=== PATIENT | female | born 1950 | race Caucasian/White ===

== ENCOUNTER 2022-03-21 14:27 | Emergency (ER) | payer MEDICARE, OTHER, SELFPAY ==
--- NOTE | ~2022-03-21 | XR_ITS ---
EXAMINATION: XR ANKLE, RIGHT CLINICAL INFORMATION: Pain status post fall COMPARISON: None TECHNIQUE: AP, lateral, and mortise views of the right ankle. FINDINGS: Marked soft tissue swelling laterally. Minor nondisplaced fracture lateral malleolus. Ankle mortise anatomic. Joint fluid. Hypertrophic changes about the talar neck consistent with old injury. Minor calcaneal plantar spurring. XR/XR ankle RT min 3V IMPRESSION: Lateral malleolar fracture as above nondisplaced.
[2022-03-21 15:03] VITALS: BP 134/79; PULSE 76; RESP 17; TEMP 37.1; O2SAT 97; BMI 24.1
--- NOTE | 2022-03-21 15:04 | ED.GENADULT ---
HPI - General Adult General Chief complaint: Extremity Injury, Lower Stated complaint: FALL ANK R INJ Time Seen by Provider: 03/21/22 14:42 Source: patient Mode of arrival: ambulatory Limitations: no limitations History of Present Illness HPI narrative: Patient is a 71 year old female presenting to the emergency department today with right ankle pain. Patient states that she tripped and rolled her right ankle. Patient denies hitting her head with the incident. Patient denies any loss of consciousness with the incident. Patient denies any dizziness, lightheadedness, abdominal pain, nausea, vomiting, fever, chills, blurry vision, double vision, loss of vision, chest pain, difficulty breathing, shortness of breath, back pain, night sweats, pain with urination, increased urinary frequency, increased urinary urgency, blood in his urine or stool, syncope or a near syncopal episode, bowel incontinence, bladder incontinence, bowel retention, bladder retention, or any other complaints at this time. Onset (ago): minute(s) Location: right and lower extremity Radiation: non-radiation Severity: mild Severity scale (1-10): 3 Quality: dull Pain Consistency: constant Relieving factors: none Exacerbating factors: none Associated symptoms: denies other symptoms Treatments prior to arrival: none Related Data Allergies Allergy/AdvReac Type Severity Reaction Status Date / Time No Known Allergies Allergy Verified 03/21/22 14:42 Review of Systems Constitutional: Constitutional: Reports no additional constitutional complaints, Denies chills, Denies fever(s) and Denies night sweats Eyes: Eyes: Reports no additional eye complaints, Denies blurry vision, Denies change in vision, Denies diplopia, Denies eye discharge, Denies loss of vision and Denies eye pain ENT: Denies dizziness Cardiovascular: Cardiovascular: Reports no additional cardiovascular complaints, Denies chest pain, Denies lightheadedness, Denies Loss of Consciousness and Denies dyspnea Respiratory: Respiratory: Reports no additional respiratory complaints and Denies dyspnea Gastrointestinal: Gastrointestinal: Reports no additional gastrointestinal complaints, Denies abdominal pain, Denies melena, Denies hematochezia, Denies change in bowel habits and Denies change in stool character Genitourinary: Genitourinary: Denies hematuria, Denies urinary frequency, Denies dysuria, Denies urinary incontinence, Denies urinary hesitancy and Denies urinary urgency Musculoskeletal: Musculoskeletal: Reports no additional musculoskeletal complaints, Denies numbness and Denies tingling Comments: right ankle pain Neurologic: Denies dizziness, Denies loss of vision, Denies numbness and Denies tingling Psychiatric: Psychiatric: Reports no additional psychiatric complaints Endocrine: Endocrine: Reports no additional endocrine complaints Hematologic/Lymphatic: Hematologic/Lymphatic: Reports no additional hematologic/lymphatic complaints Allergic/Immunologic: Allergic/Immunologic: Reports no additional allergic/immunologic complaints PMFSH Past Medical History Attestation statement: The following information was validated with the patient. Source: old records reviewed Social History Social History Advance Directives: Yes Advance Directives Information Provided: No Advance Directives on File: No Physical Exam ED Vital Signs: Vital Signs - 24 hr 03/21/22 15:03 Temperature 98.7 F Pulse Rate 76 Respiratory Rate 17 Blood Pressure 134/79 Pulse Oximetry 97 BMI result Body Mass Index 24.1 Const General: cooperative, no acute distress, alert and awake Nutritional Appearance: well nourished Orientation/consciousness: patient oriented x3 Limitations: no limitations HENMT Head: Yes normal to inspection and Yes atraumatic Ears: hearing grossly normal bilaterally and external ears normal General nose exam: Normal external nose present, no nasal discharge noted and no epistaxis Face and sinus: Yes normal facial exam, No abrasion and No laceration Mouth: Normal oral and palatal mucosa present, no drooling and no muffled voice Eyes General: appearance normal, both eyes and all related structures Periorbital: periorbital findings normal Eyelids: Yes eyelids normal Conjunctivae: conjunctivae normal Pupils: Equal, round and reactive pupils present EOM: EOMs intact bilaterally Neck Neck: Yes normal visual inspection, Yes full ROM and Yes no lymphadenopathy Chest Chest palpation & inspection: normal inspection of the chest Resp Effort & Inspection: normal respiratory effort and able to speak in complete sentences Auscultation: clear to auscultation bilaterally Cardio Rate: regular rate Rhythm: regular rhythm GI Inspection: Yes normal to inspection Neuro General: patient oriented x3 and moves all extremities Cranial nerves: Yes Equal, round and reactive pupils present Cognition (Neuro): normal cognition Motor exam (neuro): 5/5 motor strength present throughout Sensory Exam: Normal double simultaneous stimulation for sensation Coordination: [id number] test normal Extrem Other: swelling to the right ankle and pain with ROM of the right ankle General: Yes capillary refill normal Psych Appearance: grossly normal Mental Status: mental status grossly normal Affect: normal affect Attitude: cooperative Thought process: Normal thought process present Thought content: Normal thought content present Insight: Good insight present (Psych) Procedures Orthopedic Splinting/Casting Injury #1: Side: right Lower Extremity Injury Location: ankle Other Orthopedic Equipment: crutches Additional Comments: walking boot used Medical Decision Making MDM Narrative Medical decision making narrative: Patient is a 71 year old female presenting to the emergency department today with right ankle pain. Patient's physical exam showed swelling to the right ankle as well as pain with ROM of the right ankle. Patient's right ankle x-ray showed a lateral malleolar fracture. I explained my physical exam findings as well as all test results to the patient. I answered all questions asked by the patient. Patient's right foot was placed in a walking boot and the patient was given crutches and crutch instructions. Patient's PMS was intact prior to and after boot placement. I stressed the importance of the patient taking her medication as prescribed. I stressed the importance of the patient following up with her primary care provider and orthopedist. I stressed the importance of the patient returning to the emergency department immediately if her symptoms were to worsen or if she were to develop any dizziness, shortness of breath, difficulty breathing, chest pain, blurry vision, loss of vision, nausea, vomiting, abdominal pain, fever, chills, back pain, or any other complaints. Patient verbalized agreement and understanding with this treatment plan and discharge. Differential Diagnosis Differential Diagnosis: right ankle fracture Medical Records Medical records reviewed: Yes I reviewed the patient's medical records. Imaging Data Right ankle x-ray: Attestation: I personally reviewed and interpreted this imaging study as follows: My impression: Acute lateral malleolar fracture. Radiologist's impression: EXAMINATION: XR ANKLE, RIGHT CLINICAL INFORMATION: Pain status post fall? COMPARISON: None? TECHNIQUE: AP, lateral, and mortise views of the right ankle. FINDINGS: Marked soft tissue swelling laterally. Minor nondisplaced fracture lateral malleolus. Ankle mortise anatomic. Joint fluid. Hypertrophic changes about the talar neck consistent with old injury. Minor calcaneal plantar spurring.? XR/XR ankle RT min 3V IMPRESSION: Lateral malleolar fracture as above nondisplaced. Dictated By: Reagan Dumont MD Signed By: Electronically signed by Reagan Dumont MD 03/21/22 5345 Discharge Plan Discharge Clinical Impression: Fibula fracture Patient Disposition: Home, Self-Care Instructions: Ankle Fracture (DC) Additional Instructions: Follow up with your primary care provider and an orthopedic provider. Return to the emergency department immediately if your symptoms worsen or if you develop any dizziness, shortness of breath, difficulty breathing, chest pain, blurry vision, loss of vision, nausea, vomiting, abdominal pain, fever, chills, back pain, or any other complaints. Referrals: [facility] [Provider Group] Kevyn Monique MD [Primary Care Provider] - Interventions: ED Discharge Assessment Last Done: 03/21/22 15:54 Print Language: Lao
[2022-03-21] MEDS: Acetaminophen 325 MG TABLET 650 MG PO (15:15)
== END 2022-03-21 16:13 | disposition home or self-care (01) ==
LOC: HO.ED 15:34
PROVIDERS: Emergency Provider Emergency Medicine; PCP Internal Medicine
DX: S82.61XA Displaced fracture of lateral malleolus of right fibula, initial encounter for closed fracture (principal); X50.1XXA Overexertion from prolonged static or awkward postures, initial encounter; Y93.9 Activity, unspecified; Y92.9 Unspecified place or not applicable; Y99.9 Unspecified external cause status
CPT/HCPCS: 29515; 73610; 99283

== ENCOUNTER 2022-03-29 06:30 | Outpatient (REF) | payer MEDICARE, OTHER, SELFPAY ==
--- NOTE | ~2022-03-29 | XR_ITS ---
EXAMINATION: XR ANKLE, RIGHT CLINICAL INFORMATION: Fracture COMPARISON: Previous x-ray February 2022 TECHNIQUE: AP, lateral, and mortise views of the right ankle. FINDINGS: There is a comminuted minimally displaced fracture of the lateral malleolus. This appears unchanged. There may be old trauma to the anterior talus. This appears unchanged. The ankle mortise is normal. There is lateral soft tissue swelling. There is an ankle joint effusion. XR/XR ankle RT min 3V IMPRESSION: No change in comminuted nondisplaced lateral malleolar fracture.
== END 2022-03-29 06:31 | disposition home or self-care (01) ==
LOC: HO.HOSX 06:30
PROVIDERS: Visit Provider Physician Assistant
DX: S93.401A Sprain of unspecified ligament of right ankle, initial encounter (principal)
CPT/HCPCS: 73610; 99202

== ENCOUNTER 2022-05-07 07:24 | Outpatient (REF) | payer MEDICARE, OTHER, SELFPAY ==
[2022-05-07 07:40] LABS: MANUAL DIFF FLAG NO
[2022-05-07 08:14] LABS: Basophils Percent Auto 0.9 % (0-2); Eosinophils Absolute Auto 0.2 X10*3/uL (0.0-0.4); Eosinophils Percent Auto 4.2 % (0-4); Hematocrit 42.9 % (37.0-47.0); Hemoglobin 14.2 g/dl (12.0-16.0); Imm Gran Abs Auto 0.02 X10*3/uL (0.00-0.03); Imm Gran Pct Auto 0.5 % (0.0-0.4); Lymphocytes Absolute Auto 1.3 X10*3/uL (1.2-4.9); Lymphocytes Percent Auto 29.1 % (20-40); Mean Corpuscular HGB Conc 33.1 g/dl (31.0-35.0); Mean Corpuscular Hemoglobin 29.3 pg (27.0-33.0); Mean Corpuscular Volume 88.5 fL (80.0-98.0); Mean Platelet Volume 8.9 fL (9.4-12.3); Monocytes Absolute Auto 0.4 X10*3/uL (0.1-1.2); Neutrophils Absolute Auto 2.4 x10*3/uL (2.0-8.3); Neutrophils Percent Auto 56.3 % (45-73); Platelet Count 271 X10*3/uL (160-400); Red Blood Count 4.85 X10*6/uL (4.20-5.50); Red Cell Distribution Width 13.5 % (11.0-16.0); White Blood Count 4.3 X10*3/uL (4.8-10.8)
[2022-05-07 09:08] LABS: TSH reflex Free T4 2.08 uIU/mL (0.32-4.0); Vitamin D 25-OH Total 49.1 ng/mL (>30)
[2022-05-07 09:10] LABS: Alanine Aminotransferase 19 U/L (0-31); Albumin Level 4.3 g/dL (3.5-5.0); Alkaline Phosphatase 69 U/L (39-117); Anion Gap 12 (12-20); Aspartate Amino Transferase 21 U/L (5-31); Bilirubin Total 0.6 mg/dL (0.0-1.0); Blood Urea Nitrogen 12 mg/dL (9-16); Carbon Dioxide 27 mmol/L (22-29); Chloride 103 mmol/L (96-108); Cholesterol 248 mg/dL; Estimated Glomerular Filt Rate > 60; Glucose Fasting 96 mg/dL (60-99); HDL Cholesterol 83 mg/dL; LDL Cholesterol Calculated 154 mg/dl; Potassium 4.5 mmol/L (3.3-5.1); Sodium 137 mmol/L (135-145); Total Protein 6.3 g/dL (6.5-8.0); Triglycerides 56 mg/dL
[2022-05-07 09:18] LABS: Folate 16.5 ng/mL (> or = 4.0); Vitamin B12 673 pg/mL (200-900)
== END 2022-05-07 07:25 | disposition home or self-care (01) ==
LOC: HO.LAB 07:24
PROVIDERS: PCP Internal Medicine; Visit Provider Nurse Practitioner Family
DX: Z13.29 Encounter for screening for other suspected endocrine disorder (principal); Z13.220 Encounter for screening for lipoid disorders; Z76.89 Persons encountering health services in other specified circumstances
CPT/HCPCS: 36415; 80053; 80061; 82306; 82607; 82746; 84443; 85025

== ENCOUNTER 2022-05-24 07:43 | Outpatient (REF) | payer MEDICARE, OTHER, SELFPAY ==
--- NOTE | ~2022-05-24 | XR_ITS ---
EXAMINATION: BILATERAL ANKLE. CLINICAL INFORMATION: Pain. COMPARISON: None TECHNIQUE: 3 views each ankle FINDINGS: Left ankle: The ankle mortise and subtalar joints are normal. There is no visible acute fracture, dislocation or subluxation seen. The soft tissues are normal. Right ankle: The small avulsion fracture tip of lateral malleolus with moderate lateral malleolar soft tissue swelling. The ankle mortise and subtalar joints are normal. XR/XR ankle LT min 3V IMPRESSION: Acute fracture tip of lateral malleolus with moderate soft tissue swelling right ankle. Unremarkable left ankle exam.
--- NOTE | ~2022-05-24 | XR_ITS ---
EXAMINATION: BILATERAL ANKLE. CLINICAL INFORMATION: Pain. COMPARISON: None TECHNIQUE: 3 views each ankle FINDINGS: Left ankle: The ankle mortise and subtalar joints are normal. There is no visible acute fracture, dislocation or subluxation seen. The soft tissues are normal. Right ankle: The small avulsion fracture tip of lateral malleolus with moderate lateral malleolar soft tissue swelling. The ankle mortise and subtalar joints are normal. XR/XR ankle RT min 3V IMPRESSION: Acute fracture tip of lateral malleolus with moderate soft tissue swelling right ankle. Unremarkable left ankle exam.
== END 2022-05-24 07:44 | disposition home or self-care (01) ==
LOC: HO.HOSX 07:43
PROVIDERS: Visit Provider Physician Assistant
DX: S96.912A Strain of unspecified muscle and tendon at ankle and foot level, left foot, initial encounter (principal); S93.401A Sprain of unspecified ligament of right ankle, initial encounter
CPT/HCPCS: 73610; 99212

== ENCOUNTER 2022-06-22 09:10 | Outpatient (REF) | payer MEDICARE, OTHER, SELFPAY ==
--- NOTE | ~2022-06-22 | XR_ITS ---
EXAMINATION: XR WRIST, LEFT CLINICAL INFORMATION: Pain COMPARISON: None TECHNIQUE: PA, lateral, and oblique views of the left wrist. FINDINGS: The bones are osteopenic. No acute fracture or dislocation is seen. There is question of old trauma to the left distal radius. There is severe arthritis at the first ASSISTED joint. There is mild arthritis at the radiocarpal joint and trapezoid trapezium scaphoid joints. Soft tissues are unremarkable XR/XR wrist LT min 3V IMPRESSION: Severe arthritis at the first ASSISTED joint and mild arthritis at the radiocarpal and trapezoid trapezium scaphoid joint.
== END 2022-06-22 09:11 | disposition home or self-care (01) ==
LOC: HO.HOSX 09:10
PROVIDERS: Visit Provider Orthopaedic Surgery
DX: M25.532 Pain in left wrist (principal); R29.898 Other symptoms and signs involving the musculoskeletal system; M18.12 Unilateral primary osteoarthritis of first carpometacarpal joint, left hand; M19.041 Primary osteoarthritis, right hand; M19.042 Primary osteoarthritis, left hand
CPT/HCPCS: 73110; 99202

== ENCOUNTER 2022-07-07 08:33 | Outpatient (REF) | payer MEDICARE, OTHER, SELFPAY ==
--- NOTE | ~2022-07-07 | MM_ITS ---
EXAMINATION: MM SCREENING DIGITAL BREAST TOMOSYNTHESIS, BILATERAL CLINICAL INFORMATION: Screening. Asymptomatic. Prior outside mammography currently unavailable. The lifetime risk of breast cancer based on the Tyrer-Cuzick Model is 6%. COMPARISON: None. TECHNIQUE: Digital breast tomosynthesis is performed in both the craniocaudal and mediolateral oblique views along with computer-aided detection (CAD). Synthesized 2D images are generated from the tomosynthesis. FINDINGS: There are scattered areas of fibroglandular density (ACR BI-RADS breast composition Category b). There is biopsy clip marker anterior central 9:00 right breast and a biopsy clip marker posterior central 3:00 left breast. There is no significant mass or architectural abnormality. Scattered bilateral coarse calcifications are present, more numerous on the right. The axilla and skin contours are unremarkable. Radiology department will attempt to retrieve prior outside mammography to allow for comparison in an addendum report. MM/MM tomosynthesis screening BI IMPRESSION: No mammographic evidence of malignancy. ASSESSMENT: BI-RADS 2: Benign RECOMMENDATION: -Routine annual mammography screening. -Radiology department staff will attempt to retrieve prior outside mammography to allow for comparison in an addendum report. This patient's information was entered into a reminder system with a target due date for their next mammogram.
== END 2022-07-07 08:34 | disposition home or self-care (01) ==
LOC: HO.MAMMO 08:33
PROVIDERS: PCP Nurse Practitioner Family; Visit Provider Nurse Practitioner Family
DX: Z12.31 Encounter for screening mammogram for malignant neoplasm of breast (principal)
CPT/HCPCS: 77063; 77067

== ENCOUNTER → 2022-07-20 10:11 | Outpatient (BNVA) | payer MEDICARE, OTHER, SELFPAY | PROVIDERS: PCP Nurse Practitioner Family; Visit Provider Internal Medicine Endocrinology, Diabetes & Metabolism | DX: M85.80 Other specified disorders of bone density and structure, unspecified site (principal) | CPT/HCPCS: 99202 ==

== ENCOUNTER 2022-07-22 10:28 | Outpatient (REF) | payer MEDICARE, OTHER, SELFPAY ==
--- NOTE | ~2022-07-22 | US_ITS ---
EXAMINATION: US THYROID CLINICAL INFORMATION: Nontoxic single thyroid nodule. COMPARISON: None TECHNIQUE: Linear transducer grayscale and color Doppler examination with attention to the region of the thyroid. FINDINGS: SIZE: Measurements of the thyroid lobes and nodules are given in sagittal, anteroposterior and transverse dimensions respectively. Right Thyroid Lobe: 4.8 x 1.8 x 1.9 cm, volume 8.5 mL. Parenchyma: The gland echotexture is heterogeneous. Thyroid vascularity is increased. Left Thyroid Lobe: 4.6 x 1.7 x 2.1 cm, volume 8.3 mL. Parenchyma: The gland echotexture is heterogeneous. Thyroid vascularity is increased. Isthmus: 0.5 cm in maximum AP dimension. There are multiple bilateral thyroid nodules. The largest thyroid nodules are measured. Estimated total number of nodules greater than or equal to 1 cm: 0. Bell Spinner Sousaphones nodules are described as follows: 1. Location: Right lower pole. Size: 0.9 x 0.9 x 0.7 cm, volume 0.32 mL. Nodule characteristics: Composition: Mixed cystic and solid (1). Echogenicity: Hypoechoic (2). Shape: Taller than wide (0). Margins: Smooth (0). Echogenic Foci: Punctate echogenic foci (3). ACR TI-RADS total points: 6 ACR TI-RADS category: 5 2. Location: Right mid pole. Size: 0.9 x 0.4 x 0.8 cm, volume 0.17 mL. Nodule characteristics: Composition: Mixed cystic and solid (1). Echogenicity: Isoechoic (1). Shape: Not taller than wide (0). Margins: Smooth (0). Echogenic Foci: None (0). ACR TI-RADS total points: 2 ACR TI-RADS category: 2 3. Location: Left lower pole. Size: 0.9 x 0.4 x 0.8 cm, volume 0.14 mL. Nodule characteristics: Composition: Spongiform (0). ACR TI-RADS total points: 0 ACR TI-RADS category: 1 4. Location: Left lower pole. Size: 0.7 x 0.8 x 0.6 cm, volume 0.15 mL. Nodule characteristics: Composition: Cannot be determined (2). Echogenicity: Cannot be determined (1). Shape: Taller than wide (3). Margins: Smooth (0). Echogenic Foci: Macrocalcifications (1). ACR TI-RADS total points: 7 ACR TI-RADS category: 5 5. Location: Left mid pole. Size: 0.9 x 0.5 x 0.7 cm, volume 0.17 mL. Nodule characteristics: Composition: Cystic(0). ACR TI-RADS total points: 0 ACR TI-RADS category: 1 NODES: No lymphadenopathy is seen in the tissue surrounding the thyroid gland. US/US thyroid IMPRESSION: Hypervascular heterogeneous upper normal size thyroid gland with multiple bilateral thyroid nodules. Most suspicious nodules in the inferior right and left lobes. According to TI RADS criteria, annual ultrasound follow-up for 5 years would be recommended. ACR TI-RADS RECOMMENDATION REFERENCE: Ultrasound-guided fine-needle aspiration, followup ultrasound, no further follow up. * TR1 (0 point) and TR 2 (2 points): No FNA or follow up. * TR3 (3 points): FNA if more than or equal to 2.5 cm in maximum dimension, followup ultrasound in 1, 3 and 5 years if 1.5 to 2.4 cm in maximum dimension. * TR4 (4-6 points): FNA if more than or equal to 1.5 cm in maximum dimension, followup ultrasound in 1, 2, 3 and 5 years if 1 to 1.4 cm in maximum dimension. * TR5 (more than or equal to 7 points): FNA if more than or equal to 1 cm in maximum dimension, followup ultrasound every year for 5 years if 0.5 to 0.9 cm in maximum dimension. * TR3, TR4 or TR5 nodules that are below the size threshold for followup receive no follow up.
== END 2022-07-22 10:29 | disposition home or self-care (01) ==
LOC: HO.HMGCX 10:28
PROVIDERS: PCP Nurse Practitioner Family; Visit Provider Nurse Practitioner Family
DX: E04.1 Nontoxic single thyroid nodule (principal)
CPT/HCPCS: 76536

== ENCOUNTER 2022-09-03 14:00 | Outpatient (RCR) | payer MEDICARE, OTHER, SELFPAY ==
--- NOTE | 2022-04-09 11:59 | MHC.PT.EP ---
[facility] [place] Office [place] Office [place] Office [address] Mukesh Cherry [address] [phone] F: [phone] F: [phone] F: [phone] F: [phone] Physical Therapy Plan of Care Date of Evaluation: Date of Surgery: Diagnosis: sprain of unspecified ligament R ankle, avulsion fx Assessment: 71 y/o F s/p R distal fibular avulsion fx and sprain after she sustained a fall stepping into a pothall 03/21/22. Pt went to the ED and was placed in walking boot and given crutches. She did not like the crutches due to old L wrist fx and pain, so she borrowed a w/c and then a knee rollator. At orthopedics, she was given a lace-up brace to transition based on comfort and to increase activities as tolerated. She is now using crutches and lace up brace, but sometimes uses nothing in the house. 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 Examination shows decreased R ankle A/PROM, decreased R ankle strength, decreased R gastroc length, (-) Homans, swelling, pain, and impaired gait pattern. REcommend PT 2x/week for 6 weeks to address impairments, implement HEP, and optimize functional mobility. POC to include ankle ROM, gentle strengthening, proprioception, gait training, modalities as needed. Frequency and Duration: The patient will be seen 2x/week for 6 weeks Short Term Goals: 3 weeks 1. I with HEP 2. Improve R ankle dorsiflexion to 10* 3. AMbulate without assistive device and symmetrical step length Senior Care Goals: 6 weeks 1. I with HEP and self management of sx 2. Improve ankle plantarflexion to 50* 3. Pt will be able to ambulate > 30 minutes with pain < 3/10 4. Pt will be able to ascend/descend stairs with step through pattern Treatment Plan: Modalities to reduce pain, spasms and effusion. Manual therapy to restore motion and function. Therapeutic exercise to improve strength and flexibility. Neuromuscular re-education for posture and balance. Therapeutic activities to return to functional activities of daily living. Electronically signed by: Monika Braswell PT Please sign and return to therapist. Thank you for your referral.
--- NOTE | 2022-09-03 15:00 | MHC.PT.DC ---
[facility] [place] Office [place] Office [place] Office [address] Mukesh Cherry [address] [phone] F: [phone] F: [phone] F: [phone] F: [phone] Physical Therapy Discharge Report Diagnosis: sprain of unspecified ligament R ankle, avulsion fx Date of Surgery: Date of Evaluation: 04/09/22 Date of Discharge: 09/03/22 Treatments to Date: 24 Cancellations to Date: 3 No Shows to Date: 0 Discharge Status: Independent with HEP Recommend MD Follow-up Discharge Summary: Pt arrived with increased hip pain today and is now wearing her old orthotics 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 We reviewed hip and ankle exercises to be performed to tolerance only. Also recommended she f/u with an orthopedic re persistent hip pain. We will d/c this chart and pt to continue with prevoius ankle HEP and gentle hip exercises. Pt in agreement. Electronically signed by: Monika Braswell PT Please sign and return to therapist. Thank you for your referral.
== END 2022-09-03 15:01 | disposition home or self-care (01) ==
LOC: HO.PTCHIC 14:00
PROVIDERS: PCP Internal Medicine; Visit Provider Physician Assistant
DX: S93.401A Sprain of unspecified ligament of right ankle, initial encounter (principal)
CPT/HCPCS: 97110; 97112; 97140; 97150; 97161; 97530

== ENCOUNTER → 2022-09-09 14:26 | Outpatient (BNVA) | payer MEDICARE, OTHER, SELFPAY | PROVIDERS: PCP Nurse Practitioner Family; Visit Provider Internal Medicine Endocrinology, Diabetes & Metabolism | DX: E04.1 Nontoxic single thyroid nodule (principal) | CPT/HCPCS: 99212 ==

== ENCOUNTER 2022-09-10 09:16 | Outpatient (REF) | payer MEDICARE, OTHER, SELFPAY ==
[2022-09-10 10:38] LABS: TSH reflex Free T4 1.19 uIU/mL (0.32-4.0)
[2022-09-10 14:43] LABS: Alanine Aminotransferase 19 U/L (0-31); Albumin Level 4.2 g/dL (3.5-5.0); Alkaline Phosphatase 62 U/L (39-117); Anion Gap 14 (12-20); Aspartate Amino Transferase 20 U/L (5-31); Bilirubin Total 0.6 mg/dL (0.0-1.0); Blood Urea Nitrogen 13 mg/dL (9-16); Carbon Dioxide 26 mmol/L (22-29); Chloride 102 mmol/L (96-108); Cholesterol 235 mg/dL; Estimated Glomerular Filt Rate > 60; Glucose Fasting 91 mg/dL (60-99); HDL Cholesterol 71 mg/dL; LDL Cholesterol Calculated 149 mg/dl; Phosphorus 3.8 mg/dL (2.7-4.5); Potassium 4.5 mmol/L (3.3-5.1); Sodium 137 mmol/L (135-145); Total Protein 5.9 g/dL (6.5-8.0); Triglycerides 75 mg/dL
[2022-09-11 23:12] LABS: Prot Elec - Albumin 4.3 g/dL (3.8-4.8); Prot Elec - Alpha1 0.3 g/dL (0.2-0.3); Prot Elec - Alpha2 0.7 g/dL (0.5-0.9); Prot Elec - Beta 1 0.4 g/dL (0.4-0.6); Prot Elec - Beta 2 0.2 g/dL (0.2-0.5); Prot Elec - Gamma 0.4 g/dL (0.8-1.7); Prot Elec - Total Protein 6.1 g/dL (6.1-8.1)
[2022-09-16 07:18] LABS: N-Telopeptide 32 (see note); NTXCreaRU 62 mg/dL (20-275)
== END 2022-09-10 09:17 | disposition home or self-care (01) ==
LOC: HO.LAB 09:16
PROVIDERS: Absent Provider Internal Medicine Endocrinology, Diabetes & Metabolism; PCP Nurse Practitioner Family; Visit Provider Nurse Practitioner Family
DX: E78.5 Hyperlipidemia, unspecified (principal); E04.1 Nontoxic single thyroid nodule; I10 Essential (primary) hypertension; M85.80 Other specified disorders of bone density and structure, unspecified site
CPT/HCPCS: 36415; 80053; 80061; 82523; 84100; 84165; 84443; 86335

== ENCOUNTER 2022-09-22 11:34 | Outpatient (REF) | payer MEDICARE, OTHER, SELFPAY ==
--- NOTE | ~2022-09-22 | XR_ITS ---
EXAMINATION: XR HIP, RIGHT CLINICAL INFORMATION: Pain. COMPARISON: None TECHNIQUE: AP pelvis one view and right hip 2 views FINDINGS: AP PELVIS: There is normal symmetry of bilateral hip joints and SI joints. No lytic or sclerotic process seen. There are large calcified densities in the pelvis likely fibroids. No soft tissue abnormality seen. RIGHT HIP: There is no visible acute fracture, dislocation or subluxation. No bony erosive changes. The soft tissues are normal. XR/XR hip RT w PEL1V IMPRESSION: 1. Unremarkable AP pelvis exam. 2. Unremarkable right hip exam. 3. Large calcified uterine fibroids. No soft tissue abnormality seen.
== END 2022-09-22 11:35 | disposition home or self-care (01) ==
LOC: HO.HOSX 11:34
PROVIDERS: Visit Provider Physician Assistant
DX: M25.551 Pain in right hip (principal)
CPT/HCPCS: 73502; 99212

== ENCOUNTER 2022-10-29 14:00 | Outpatient (RCR) | payer MEDICARE, OTHER, SELFPAY ==
--- NOTE | 2022-09-30 14:43 | MHC.PT.EP ---
[facility] [place] Office [place] Office [place] Office [address] Mukesh Cherry [address] [phone] F: [phone] F: [phone] F: [phone] F: [phone] Physical Therapy Plan of Care Date of Evaluation: Date of Surgery: n/a Diagnosis: R hip tendonitis Assessment: Patient is a 72 year old female presenting to PT with complaints of pain in her R hip. Pt reports onset of pain began June 2022 due to new orthotics. She presents today with impairments in pain and hip strength. Pt's current occupation is retired, with baseline physical activities including ADLs, ambulating. 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 Clinical presentation today is most consistent with signs and sx associated with possible hip tendinitis and pt will benefit from skilled PT to address the following problems and impairments noted upon evaluation: pain and hip strength. These problems limit the patient with the following functional activities: ambulating. The prescribed treatment plan of care is medically necessary. Co-morbidities of osteoporosis were identified and taken into considerations of plan of care. Pt was educated on HEP, role of PT, prognosis, POC. Frequency and Duration: The patient will be seen 2 x week x 3 weeks Short Term Goals: Pt will demonstrate independence with initial HEP without adverse reaction in 2 visits. Pt will demonstrate no pain at rest in 2 weeks for improved QOL. Pt will demonstrate ability to perform prone hip extension without compensating at low back in 2 weeks. Skilled Nursing Goals: Pt will demonstrate improved LEFI score by 9 points in 3 weeks for improved functional mobility. Pt will demonstrate ability to ambulate around her building 2 times with minimal to no pain in 3 weeks. 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 Treatment Plan: Modalities to reduce pain, spasms and effusion. Manual therapy to restore motion and function. Therapeutic exercise to improve strength and flexibility. Neuromuscular re-education for posture and balance. Therapeutic activities to return to functional activities of daily living. Electronically signed by: Michelle Hollis, PT, DPT, ATC Please sign and return to therapist. Thank you for your referral.
--- NOTE | 2022-10-29 14:53 | MHC.PT.DC ---
[facility] [place] Office [place] Office [place] Office [address] [phone] F: [phone] F: [phone] F: [phone] F: [phone] Physical Therapy Discharge Report Diagnosis: R hip tendonitis Date of Surgery: n/a Date of Evaluation: 09/30/22 Date of Discharge: 10/29/22 Treatments to Date: 6 Cancellations to Date: 1 No Shows to Date: 0 Discharge Status: Achieved Goals Improved Function Independent with HEP Discharge Summary: Pt pain has improved since start of care. She has made good progress towards her goals although is still challenged with hip strengthening. She has a well rounded strengthening program which she will benefit from continuing with prison for max gains. At this point max benefits of PT have been provided and skilled PT is no longer indicated at this time. Pt is in agreement with d/c. Electronically signed by: Michelle Hollis, PT, DPT< ATC Please sign and return to therapist. Thank you for your referral.
== END 2022-10-29 14:53 | disposition home or self-care (01) ==
LOC: HO.PTCHIC 14:00
PROVIDERS: Visit Provider Physician Assistant
DX: M76.891 Other specified enthesopathies of right lower limb, excluding foot (principal)
CPT/HCPCS: 97110; 97161; 97530

== ENCOUNTER 2022-12-22 09:54 | Outpatient (REF) | payer MEDICARE, OTHER, SELFPAY ==
[2022-12-22 10:52] LABS: Creatinine, mg/dL 36.73
[2022-12-22 14:07] LABS: Total Volume 24 Hour Urine 2650 mL
[2022-12-24 16:59] LABS: Calcium, 24 Hr Urine 360 mg/24 h; Calcium/Creatinine Ratio 378 mg/g creat (30-275); Creatinine 24Hr Urine 0.95 g/24 h (0.50-2.15)
== END 2022-12-22 09:55 | disposition home or self-care (01) ==
LOC: HO.LNP 09:54
PROVIDERS: Visit Provider Internal Medicine Endocrinology, Diabetes & Metabolism
DX: M85.80 Other specified disorders of bone density and structure, unspecified site (principal)
CPT/HCPCS: 82340; 82570

== ENCOUNTER → 2022-12-28 10:34 | Outpatient (BNVA) | payer MEDICARE, OTHER, SELFPAY | PROVIDERS: PCP Nurse Practitioner Family; Visit Provider Internal Medicine Endocrinology, Diabetes & Metabolism | DX: E04.1 Nontoxic single thyroid nodule (principal); M85.80 Other specified disorders of bone density and structure, unspecified site; M79.7 Fibromyalgia | CPT/HCPCS: 99212 ==

== ENCOUNTER → 2023-01-05 11:06 | Outpatient (REF) | payer MEDICARE, OTHER, SELFPAY ==
--- NOTE | 2023-01-05 11:11 | ECG_ITS ---
Test Reason : preop Blood Pressure : / mmHG Vent. Rate : 067 BPM Atrial Rate : 067 BPM P-R Int : 162 ms QRS Dur : 090 ms QT Int : 404 ms P-R-T Axes : 061 -15 038 degrees QTc Int : 426 ms Normal sinus rhythm Normal ECG No previous ECGs available Referred By: Margarito Valencia Electronically Signed By:Reyes Chappell
== END ==
LOC: HO.CARD 11:06
PROVIDERS: PCP Nurse Practitioner Family; Visit Provider Podiatrist Foot & Ankle Surgery
DX: M20.40 Other hammer toe(s) (acquired), unspecified foot (principal)
CPT/HCPCS: 93005

== ENCOUNTER 2023-01-06 09:36 | Outpatient (REF) | payer MEDICARE, OTHER, SELFPAY ==
[2023-01-06 10:56] LABS: Alanine Aminotransferase 20 U/L (0-31); Albumin Level 4.3 g/dL (3.5-5.0); Alkaline Phosphatase 64 U/L (39-117); Anion Gap 12 (12-20); Aspartate Amino Transferase 21 U/L (5-31); Bilirubin Total 0.6 mg/dL (0.0-1.0); Blood Urea Nitrogen 12 mg/dL (9-16); Calcium 9.9 mg/dL (8.4-10.2); Carbon Dioxide 30 mmol/L (22-29); Chloride 103 mmol/L (96-108); Cholesterol 228 mg/dL; Estimated Glomerular Filt Rate > 60; Glucose Fasting 91 mg/dL (60-99); HDL Cholesterol 68 mg/dL; LDL Cholesterol Calculated 148 mg/dl; Potassium 4.9 mmol/L (3.3-5.1); Sodium 140 mmol/L (135-145); Triglycerides 60 mg/dL
== END 2023-01-06 09:37 | disposition home or self-care (01) ==
LOC: HO.LAB 09:36
PROVIDERS: PCP Nurse Practitioner Family; Visit Provider Nurse Practitioner Family
DX: E78.5 Hyperlipidemia, unspecified (principal); I10 Essential (primary) hypertension
CPT/HCPCS: 36415; 80053; 80061

== ENCOUNTER 2023-04-06 06:14 | Outpatient (REF) | payer MEDICARE, OTHER, SELFPAY ==
[2023-04-06 08:05] LABS: Alanine Aminotransferase 19 U/L (0-31); Albumin Level 4.4 g/dL (3.5-5.0); Alkaline Phosphatase 63 U/L (39-117); Anion Gap 13 (12-20); Aspartate Amino Transferase 22 U/L (5-31); Bilirubin Total 0.6 mg/dL (0.0-1.0); Blood Urea Nitrogen 12 mg/dL (9-16); Calcium 10.2 mg/dL (8.4-10.2); Carbon Dioxide 25 mmol/L (22-29); Chloride 104 mmol/L (96-108); Cholesterol 228 mg/dL; Estimated Glomerular Filt Rate > 60; Glucose Fasting 94 mg/dL (60-99); HDL Cholesterol 77 mg/dL; LDL Cholesterol Calculated 137 mg/dl; Potassium 4.8 mmol/L (3.3-5.1); Sodium 137 mmol/L (135-145); Total Protein 6.7 g/dL (6.5-8.0); Triglycerides 72 mg/dL
== END 2023-04-06 06:15 | disposition home or self-care (01) ==
LOC: HO.LAB 06:14
PROVIDERS: PCP Nurse Practitioner Family; Visit Provider Nurse Practitioner Family
DX: I10 Essential (primary) hypertension (principal); E78.5 Hyperlipidemia, unspecified
CPT/HCPCS: 36415; 80053; 80061

== ENCOUNTER 2023-06-10 14:32 | Outpatient (REF) | payer MEDICARE, OTHER, SELFPAY ==
[2023-06-14 21:49] LABS: HPV mRNA E6/E7 rflx Not Detected (Not Detected)
== END 2023-06-10 14:33 | disposition home or self-care (01) ==
LOC: HO.LNP 14:32
PROVIDERS: PCP Nurse Practitioner Family; Visit Provider Advanced Practice Midwife
DX: Z01.419 Encounter for gynecological examination (general) (routine) without abnormal findings (principal); Z11.51 Encounter for screening for human papillomavirus (HPV)
CPT/HCPCS: 87624; 88142; G0101

== ENCOUNTER 2023-06-10 14:32 | Outpatient (AMB) | payer MEDICARE, OTHER, SELFPAY ==
[2023-06-10 14:47] VITALS: BP 130/80; BMI 25.5
--- NOTE | 2023-06-10 14:47 | A.OFFVIS_ITS ---
Intake Vital Signs 06/10/23 14:47 Height 5 ft 5 in Weight 153 lb BMI 25.5 BP 130/80 Intake Visit Reasons: New patient Annual Intake Note: c/o of ? vaginal wart The patient agreed to use of a medical policy specialist during this encounter. Scribed for WILLIAMS Alves by Heidi Maciel medical policy specialist, on 06/10/2023 at 3:10 pm EST. Mortgage Processing Manager Required: No Information Interpreted: non-clinical & clinical Foaming Machine Operator: Foaming Machine Operator Present (Samira GAMBOA) Accompanied by: Self / Same As Patient Allergies amoxicillin Allergy (Verified 06/10/23 14:49) Rash ciprofloxacin Allergy (Verified 06/10/23 14:49) Rash clindamycin Allergy (Verified 06/10/23 14:49) rash, hives hydroxychloroquine [From Plaquenil] Allergy (Verified 06/10/23 14:49) Rash neomycin Allergy (Verified 06/10/23 14:49) Rash ezetimibe Adverse Reaction (Unknown, Verified 06/10/23 14:49) Diarrhea fenofibrate Adverse Reaction (Unknown, Verified 06/10/23 14:49) stomach pain, heart burn lisinopril Adverse Reaction (Unknown, Verified 06/10/23 14:49) dry cough pravastatin Adverse Reaction (Unknown, Verified 06/10/23 14:49) Muscle Pain bactrim Allergy (Mild, Uncoded 06/10/23 14:49) Rash Post menopausal: Yes HPI HPI Comments History of Present Illness Details She is a new patient postmenopausal woman presenting for annual exam. Reports a bump in vaginal area. Reports she was diagnosed with Osteopenia, seen by Endocrine. Patient admits she tries to eat a healthy diet including Calcium and Vitamin D. She stays active with exercise. Currently not sexually active. Denies vaginal itching and irritation. Denies family hx of breast, colon and ovarian cancer. Last pap smear 6 years ago per pt; abnormal in the past, no treatment. Last mammogram 07/07/22. UTD on colonoscopy; polyps, benign. [facility] Medical History Encounter to establish care Fibromyalgia High blood pressure Mood disorder Screening for diabetes mellitus Screening for hyperlipidemia Screening for hypothyroidism Surgical History History of delivery History of colonoscopy History of laparoscopy History of skin graft Status post right foot surgery Family History Daughter Mental health disorder Autism Sister FH: HTN (hypertension) Mother FH: HTN (hypertension) Other Substance use disorder Social History Household Members: None Housing: Apartment Alcohol intake: current Alcohol intake frequency: holidays/special occasions only Alcohol type: wine Patient Tobacco Use Status: Never used Tobacco e-Cigarette/Vaping Use: Never Used Second Hand Smoke Exposure: No service: No Current occupational status: retired Sexual orientation: Straight/Heterosexual Gender identity: Female Cognitive needs: No Hearing needs: No Vision needs: Yes (glasses) Female Reproductive History Menstrual Total pregnancies: 1 Number of Living Children: 1 Date of Mammogram: 07/07/22 Physical Exam Vital Signs: Last Vital Signs BP 130/80 06/10/23 14:47 BMI result Body Mass Index 25.5 Const General: cooperative, healthy appearing, no acute distress, well developed and alert Orientation/consciousness: patient oriented x3 HEENT Head: Yes normal to inspection Eyes General: appearance normal, both eyes and all related structures Neck Neck: Yes normal visual inspection Thyroid: Thyroid normal Chest Chest palpation & inspection: normal inspection of the chest Breast/axilla inspection: normal inspection of the breasts (no puckering, dimpling, peau de orange, retraction, discharge, masses) Breast/axilla palpation: normal palpation of the breasts Resp Effort & Inspection: normal respiratory effort GI Inspection: Yes normal to inspection Palpation (GI): Soft to palpation (to palpation) Rectal Exam - Female: deferred Other: small sebaceous gland on lower right labia majora; not inflamed or infected General: Yes bladder normal to inspection External Female Exam: normal external appearance and normal appearance of the urethra Speculum Exam - Vagina: normal appearance of the vagina, normal palpation and vagina atrophic Speculum Exam - Cervix: normal appearance of the cervix, normal palpation and Other cervical findings present (bled slightly with pap) Bimanual exam- vagina & uterus: normal palpation and normal palpation Bimanual Exam- Adnexa, other: normal adnexae and no masses Skin General skin exam: no rashes or lesions noted Neuro General: patient oriented x3 Cognition (Neuro): normal cognition Extrem General: Yes normal to inspection Psych Attitude: cooperative Thought process: Normal thought process present Assessment & Plan Assessment & Plan (1) Encounter for well woman exam: Code(s): Z01.419 - Encounter for gynecological examination (general) (routine) without abnormal findings Plan: Discussed: Current recommendations for pap smears per ASCCP guidelines. Breast awareness and periodic self breast exams. Encouraged yearly mammograms. Maintaining a healthy lifestyle including a well balanced diet including Calcium and Vitamin D and routine exercise. Apply warm compress to sebaceous gland if became inflamed or infected. Contact PCP regarding obtaining records that lead to diagnosis of osteopenia. Contact office with any PMB. All of her questions and concerns were addressed to the best of my ability RTO in 1 year for AG. Orders: Orders Pap Smear Today Z01.419 - Encounter for gynecological examination (general) (routine) without abnormal findings Coding Level of Care Code New Pt Prev Care >65yr (04484) Diagnoses Encounter for well woman exam Z01.419
== END 2023-06-10 15:31 | disposition home or self-care (01) ==
LOC: HO.HWS 14:32
PROVIDERS: PCP Nurse Practitioner Family; Visit Provider Advanced Practice Midwife
DX: Z01.419 Encounter for gynecological examination (general) (routine) without abnormal findings (principal)
CPT/HCPCS: G0101; Q0091

== ENCOUNTER 2023-06-10 20:15 | Outpatient (REF) | payer MEDICARE, OTHER, SELFPAY | END 2023-06-10 20:16 | disposition home or self-care (01) | LOC: HO.LNP 20:15 | PROVIDERS: Visit Provider Advanced Practice Midwife | DX: Z13.89 Encounter for screening for other disorder (principal) ==

== ENCOUNTER 2023-06-15 07:25 | Outpatient (REF) | payer MEDICARE, OTHER, SELFPAY ==
[2023-06-15 11:15] LABS: MANUAL DIFF FLAG NO
[2023-06-15 11:36] LABS: Eosinophils Absolute Auto 0.2 X10*3/uL (0.0-0.4); Eosinophils Percent Auto 5.4 % (0-4); Hematocrit 42.2 % (37.0-47.0); Hemoglobin 14.6 g/dl (12.0-16.0); Imm Gran Abs Auto 0.01 X10*3/uL (0.00-0.03); Imm Gran Pct Auto 0.2 % (0.0-0.4); Lymphocytes Absolute Auto 1.2 X10*3/uL (1.2-4.9); Mean Corpuscular HGB Conc 34.6 g/dl (31.0-35.0); Mean Corpuscular Hemoglobin 30.3 pg (27.0-33.0); Mean Corpuscular Volume 87.6 fL (80.0-98.0); Mean Platelet Volume 9.3 fL (9.4-12.3); Monocytes Absolute Auto 0.4 X10*3/uL (0.1-1.2); Monocytes Percent Auto 9.2 % (2-11); Neutrophils Absolute Auto 2.3 x10*3/uL (2.0-8.3); Neutrophils Percent Auto 55.2 % (45-73); Platelet Count 279 X10*3/uL (160-400); Red Blood Count 4.82 X10*6/uL (4.20-5.50); Red Cell Distribution Width 12.9 % (11.0-16.0); White Blood Count 4.1 X10*3/uL (4.8-10.8)
[2023-06-15 12:17] LABS: Alanine Aminotransferase 23 U/L (0-31); Albumin Level 4.2 g/dL (3.5-5.0); Alkaline Phosphatase 55 U/L (39-117); Anion Gap 10 (12-20); Aspartate Amino Transferase 23 U/L (5-31); Bilirubin Total 0.6 mg/dL (0.0-1.0); Blood Urea Nitrogen 14 mg/dL (9-16); Calcium 10.7 mg/dL (8.4-10.2); Carbon Dioxide 27 mmol/L (22-29); Chloride 105 mmol/L (96-108); Cholesterol 223 mg/dL (<200); Estimated Glomerular Filt Rate > 60; Glucose Fasting 94 mg/dL (60-99); HDL Cholesterol 75 mg/dL (>40); LDL Cholesterol Calculated 134 mg/dL (<100); Potassium 4.4 mmol/L (3.3-5.1); Sodium 138 mmol/L (135-145); Total Protein 6.3 g/dL (6.5-8.0); Triglycerides 70 mg/dL (<150)
[2023-06-15 12:19] LABS: TSH reflex Free T4 1.76 uIU/mL (0.32-4.0)
[2023-06-15 12:44] LABS: Folate 14.2 ng/mL (> or = 4.0); Vitamin B12 532 pg/mL (200-900)
== END 2023-06-15 07:26 | disposition home or self-care (01) ==
LOC: HO.HMGCLDS 07:25
PROVIDERS: PCP Nurse Practitioner Family; Visit Provider Nurse Practitioner Family
DX: I10 Essential (primary) hypertension (principal); E78.5 Hyperlipidemia, unspecified; R21 Rash and other nonspecific skin eruption; L29.9 Pruritus, unspecified
CPT/HCPCS: 36415; 80053; 80061; 82306; 82607; 82746; 84443; 85025

== ENCOUNTER 2023-06-15 08:04 | Outpatient (AMB) | payer MEDICARE, OTHER, SELFPAY ==
--- NOTE | 2023-06-15 08:13 | AM.OFFWIN_ITS ---
Intake Vital Signs 06/15/23 08:14 Height 5 ft 5 in Weight 152 lb BMI 25.3 BP 112/60 Blood Pressure Location Rt brachial Position Sitting Pulse 72 Pulse Source Pulse Oximeter Temp 97.8 F Temp Source Temporal Artery Scan Pulse Oximetry (%) 98 Intake Visit Reasons: EP ?Bug bites [phone] Intake Note: pt is here for c/o bug bites Patient Tobacco Use Status: Never used Tobacco Allergies amoxicillin Allergy (Verified 06/15/23 08:13) Rash ciprofloxacin Allergy (Verified 06/15/23 08:13) Rash clindamycin Allergy (Verified 06/15/23 08:13) rash, hives hydroxychloroquine [From Plaquenil] Allergy (Verified 06/15/23 08:13) Rash neomycin Allergy (Verified 06/15/23 08:13) Rash ezetimibe Adverse Reaction (Unknown, Verified 06/15/23 08:13) Diarrhea fenofibrate Adverse Reaction (Unknown, Verified 06/15/23 08:13) stomach pain, heart burn lisinopril Adverse Reaction (Unknown, Verified 06/15/23 08:13) dry cough pravastatin Adverse Reaction (Unknown, Verified 06/15/23 08:13) Muscle Pain bactrim Allergy (Mild, Uncoded 06/10/23 14:49) Rash Do you need a note to return to daycare/school/sports/work: No HPI EP ?Bug bites [phone] HPI Details 72-year-old female presents to the office for a sick visit. Patient is worried about a rash on her left ankle. She believes it is a bug bite which has gotten itchy. She also has skin condition on her back and seborrheic dermatitis in the scalp. She saw a business services specialist sales last week was given her medications for the same. [facility] Medical History Encounter to establish care Fibromyalgia High blood pressure Mood disorder Screening for diabetes mellitus Screening for hyperlipidemia Screening for hypothyroidism Surgical History History of delivery History of colonoscopy History of laparoscopy History of skin graft Status post right foot surgery Family History Daughter Mental health disorder Autism Sister FH: HTN (hypertension) Mother FH: HTN (hypertension) Other Substance use disorder Social History Household Members: None Housing: Apartment Alcohol intake: current Alcohol intake frequency: holidays/special occasions only Alcohol type: wine Patient Tobacco Use Status: Never used Tobacco e-Cigarette/Vaping Use: Never Used Second Hand Smoke Exposure: No service: No Current occupational status: retired Sexual orientation: Straight/Heterosexual Gender identity: Female Cognitive needs: No Hearing needs: No Vision needs: Yes (glasses) Physical Exam Vital Signs: Last Vital Signs Temp 97.8 F 06/15/23 08:14 Pulse 72 06/15/23 08:14 BP 112/60 06/15/23 08:14 Pulse Ox 98 06/15/23 08:14 BMI result Body Mass Index 25.3 Skin Other: Raised erythematous rash on the back and a tiny rash on the left ankle. No vesicles or pustules. Assessment & Plan Assessment & Plan (1) Rash: Code(s): R21 - Rash and other nonspecific skin eruption Plan: Most likely allergic in nature. Hydroxyzine and hydrocortisone cream provided. Coding Level of Care Code Est Pt Level 3 (43703) Diagnoses Rash R21
[2023-06-15 08:14] VITALS: BP 112/60; PULSE 72; TEMP 36.6; O2SAT 98; BMI 25.3
== END 2023-06-15 08:59 | disposition home or self-care (01) ==
PROVIDERS: PCP Nurse Practitioner Family; Visit Provider Internal Medicine
DX: R21 Rash and other nonspecific skin eruption (principal)
CPT/HCPCS: 99213

== ENCOUNTER 2023-06-21 10:10 | Outpatient (AMB) | payer MEDICARE, OTHER, SELFPAY ==
[2023-06-21 10:11] VITALS: BP 120/86; PULSE 76; O2SAT 97; BMI 24.8
--- NOTE | 2023-06-21 10:11 | A.OFFPC_ITS ---
Vital Signs 06/21/23 10:11 Height 5 ft 5 in Weight 149 lb BMI 24.8 BP 120/86 Blood Pressure Location Lt brachial Position Sitting Pulse 76 Pulse Source Pulse Oximeter Pulse Oximetry (%) 97 Oxygen Delivery Method Room Air Intake Visit Reasons: PE Intake Note: Patient here for a physical exam, itch/rash Toe Stripper Required: No Accompanied by: Self / Same As Patient Allergies amoxicillin Allergy (Verified 06/21/23 10:36) Rash ciprofloxacin Allergy (Verified 06/21/23 10:36) Rash clindamycin Allergy (Verified 06/21/23 10:36) rash, hives hydroxychloroquine [From Plaquenil] Allergy (Verified 06/21/23 10:36) Rash neomycin Allergy (Verified 06/21/23 10:36) Rash ezetimibe Adverse Reaction (Unknown, Verified 06/21/23 10:36) Diarrhea fenofibrate Adverse Reaction (Unknown, Verified 06/21/23 10:36) stomach pain, heart burn lisinopril Adverse Reaction (Unknown, Verified 06/21/23 10:36) dry cough pravastatin Adverse Reaction (Unknown, Verified 06/21/23 10:36) Muscle Pain bactrim Allergy (Mild, Uncoded 06/21/23 10:36) Rash Medication List - Last Reconciled 06/21/23 by CHRISTOFER Rizzo acetaminophen 650 mg PO Q6H PRN celecoxib (Celebrex) 200 mg PO DAILY cholecalciferol (vitamin D3) 50 mcg PO DAILY escitalopram oxalate 30 mg PO famotidine 20 mg PO BID PRN gabapentin 700 mg PO DAILY hydrocortisone 2.5% 1 appl topical BID PRN hydroxyzine HCl 25 mg PO BEDTIME losartan 25 mg PO DAILY Tobacco use date assessed: 01/05/23 Fall risk assessment: No Falls in past year Last assessed Fall Risk: 06/21/23 Dental Screening Dental Screen Date: 06/21/23 Did you have a dental visit in the last 12 months?: Yes Did you have a dental problem in the last 6 months where you did not have access to dental care?: No Was dental information given to patient?: Patient has dentist HPI PE HPI Details Patient is a 72-year-old female presents today for physical exam.? Medical history significant for hyperlipidemia, fibromyalgia, osteopenia - followed by endocrinology, osteoarthritis, anxiety, hypertension, depression, and thyroid nodule-followed by [facility]. Patient denies shortness of breath or chest pain. Recent blood work results reviewed with the patient. Patient has an upcoming mammogram 06/2023. She is due for colonoscopy next year. Up-to-date with eye exam. Bone density screen 03/2022 which showed osteopenia. Patient did have Pap smear with [facility] 05/2023, results pending. In addition, patient reports pruritic rash for the past 1 week on her legs, arms, and back. Denies changes in shampoo, body wash, new foods, was started on Celebrex not too long ago by her Podiatry. Saw Dermatology for rash in her head, also will be seeing dermatology in 3 days. Reports COVID vaccine in the end of 04/2023. Patient was seen at walk-in clinic and started on hydroxyzine and hydrocortisone cream with no much improvement. Denies fever or chills. ? [facility] Medical History Encounter to establish care Fibromyalgia High blood pressure Mood disorder Screening for diabetes mellitus Screening for hyperlipidemia Screening for hypothyroidism Surgical History History of delivery History of colonoscopy History of laparoscopy History of skin graft Status post right foot surgery Family History Daughter Mental health disorder Autism Sister FH: HTN (hypertension) Mother FH: HTN (hypertension) Other Substance use disorder Social History Household Members: None Housing: Apartment Alcohol intake: current Alcohol intake frequency: holidays/special occasions only Alcohol type: wine Patient Tobacco Use Status: Never used Tobacco e-Cigarette/Vaping Use: Never Used Second Hand Smoke Exposure: No service: No Current occupational status: retired Sexual orientation: Straight/Heterosexual Gender identity: Female Cognitive needs: No Hearing needs: No Vision needs: Yes (glasses) Questionnaire Thrive Questionnaire Date Thrive assessed: 04/07/23 JIHAN-7 AMB Questionnaire JIHAN-7 Date JIHAN - 7 assessed: 01/05/23 Source: Developed by Drs. Dom Nichole, Shell Salvador, Max hCan and colleagues, with an educational mabel from [employer]. Review of Systems Const Denies body aches, Denies chills, Denies fever(s) and Denies headache(s) Eyes Denies change in vision ENT Denies dizziness, Denies otalgia, Denies headache(s), Denies nasal discharge, Denies sinus pain and Denies sore throat Card Denies chest pain, Denies edema, Denies lightheadedness and Denies dyspnea Resp Denies chest congestion, Denies cough and Denies dyspnea GI Denies abdominal pain, Denies constipation, Reports heartburn, Denies diarrhea, Denies nausea and Denies vomiting Denies dysuria Musc Denies myalgias and Reports arthralgias Skin/Breast Reports rash Neuro Denies dizziness and Denies headache(s) Physical exam (Primary Care) Vital Signs: Last Vital Signs Pulse 76 06/21/23 10:11 BP 120/86 06/21/23 10:11 Pulse Ox 97 06/21/23 10:11 Oxygen Delivery Method Room Air 06/21/23 10:11 BMI result Body Mass Index 24.8 Tobacco/Smoking Status: Tobacco use Status Tobacco use date assessed 01/05/23 06/21/23 10:17 Patient Tobacco Use Status Never used Tobacco 06/21/23 10:17 e-Cigarette/Vaping Use Never Used 06/21/23 10:17 Thrive Assessment: Date of Thrive Assessment Date Thrive assessed 04/07/23 06/21/23 10:17 Const General: cooperative and no acute distress Orientation/consciousness: patient oriented x3 HENMT Head: Yes normocephalic and Yes atraumatic Ears: TM's normal bilaterally Face and sinus: Yes sinuses nontender Mouth: oropharynx normal and moist mucous membranes Throat: Yes posterior oropharynx normal Eyes General: appearance normal, both eyes and all related structures Pupils: Equal, round and reactive pupils present EOM: EOMs intact bilaterally Neck Neck: Yes normal visual inspection, Yes full ROM and Yes no lymphadenopathy Thyroid: Thyroid normal Resp Effort & Inspection: normal respiratory effort and able to speak in complete sentences Auscultation: clear to auscultation bilaterally, no crackles, no rales, no rhonchi and no wheezes Cardio Rate: regular rate Rhythm: regular rhythm Heart sounds: S1 normal heart sound present, S2 normal heart sound present and no murmurs GI Palpation (GI): Soft to palpation, not firm, nontender, no guarding, not rigid and no hepatosplenomegaly Auscultation: normal bowel sounds General: No CVA tenderness Back/Spine/Pelvis Back: No CVA tenderness Skin Other: Back, bilateral arms, bilateral legs with moderate amount of slightly raised erythematous areas, no signs of infection noted, patient reports pruritus Neuro General: patient oriented x3 Cranial nerves: Yes Equal, round and reactive pupils present Gait exam (Neuro): Normal gait present Extrem General: Yes full ROM and No edema Assessment and Plan Assessment & Plan (1) Fibromyalgia: Comment: on gabapentin Code(s): M79.7 - Fibromyalgia Plan: Continue gabapentin which is prescribed by psychiatric nurse practitioner KAROL Cartagena (2) Osteopenia: Code(s): M85.80 - Other specified disorders of bone density and structure, unspecified site Plan: Continue to follow-up with Endocrinology Dr. Sánchez Patient reports that she is on calcium daily, calcium 10.7 05/2023, patient was encouraged to take calcium every other day, continue to monitor calcium blood work (3) Osteoarthritis: Code(s): M19.90 - Unspecified osteoarthritis, unspecified site Plan: Continue Tylenol 650 mg every 6 hours as needed (4) Anxiety: Code(s): F41.9 - Anxiety disorder, unspecified Plan: Escitalopram 30 mg daily Continue to follow-up with psychiatric nurse practitioner and therapist (5) Depression: Code(s): F32.A - Depression, unspecified Plan: Escitalopram 30 mg daily Continue to follow-up with psychiatric nurse practitioner and therapist (6) Hypertension: Code(s): I10 - Essential (primary) hypertension Plan: Losartan 25 mg daily Goal BP equal or less than 140/90 Low-sodium diet (7) Thyroid nodule: Code(s): E04.1 - Nontoxic single thyroid nodule Plan: Continue to follow-up with endocrinology Dr. Sánchez (8) Hyperlipidemia: Code(s): E78.5 - Hyperlipidemia, unspecified Plan: LDL 134 05/2023, goal less than 130 Patient was on Zetia, pravastatin, fenofibrate in the past that she could not tolerate - currently not on pharmacological intervention Low-cholesterol diet Continue to monitor (9) GERD (gastroesophageal reflux disease): Code(s): K21.9 - Gastro-esophageal reflux disease without esophagitis Plan: Continue Pepcid 20 mg daily Avoid GERD trigger foods Do not lay down 2-3 hours after evening meal (10) Rash: Code(s): R21 - Rash and other nonspecific skin eruption Plan: Back, bilateral arms, bilateral legs with moderate amount of slightly raised erythematous areas, no signs of infection noted, patient reports pruritus Follow-up with Dermatology as scheduled Start prednisone taper Continue hydroxyzine at bedtime p.r.n. and hydrocortisone cream b.i.d. p.r.n. Follow-up if no improvement after finishing prednisone Christmas Tree Grader referral (11) Adult general medical exam: Comment: Td 2015 DXA 2021 (osteopenia). Code(s): Z00.00 - Encounter for general adult medical examination without abnormal findings Plan Follow-up in 3 months or sooner as needed Orders: Orders Lipid Panel 3 Months E78.5 - Hyperlipidemia, unspecified Comprehensive [place]. Panel Fast 3 Months E78.5 - Hyperlipidemia, unspecified Referrals Allergy & Immunology Referral R21 - Rash and other nonspecific skin eruption Medications: New prednisone Take 4 tablets for 3 days then, Take 3 tablets for 3 days then, Take 2 tablets 3 days then, Take 1 tablet 3 days and stop 10 mg PO DAILY 30 tabs 0RF R21 - Rash and other nonspecific skin eruption Changed From famotidine 20 mg PO BID PRN 60 tabs 0RF gerd K21.9 - Gastro-esophageal reflux disease without esophagitis To famotidine 20 mg PO DAILY 90 tabs 0RF gerd K21.9 - Gastro-esophageal reflux disease without esophagitis Refilled hydroxyzine HCl 25 mg PO BEDTIME 14 tabs 0RF hydrocortisone 2.5% 1 appl topical BID PRN 20 grams 0RF skin irritation Coding Level of Care Code Est Pt Prev Care >65y(17378) Diagnoses Fibromyalgia M79.7 Osteopenia M85.80 Osteoarthritis M19.90 Anxiety F41.9 Depression F32.A Hypertension I10 Thyroid nodule E04.1 Hyperlipidemia E78.5 GERD (gastroesophageal reflux disease) K21.9 Rash R21 Adult general medical exam Z00.00
== END 2023-06-21 10:58 | disposition home or self-care (01) ==
PROVIDERS: Visit Provider Nurse Practitioner Family
DX: Z00.00 Encounter for general adult medical examination without abnormal findings (principal); F41.9 Anxiety disorder, unspecified; E04.1 Nontoxic single thyroid nodule; I10 Essential (primary) hypertension; K21.9 Gastro-esophageal reflux disease without esophagitis; M79.7 Fibromyalgia; M85.80 Other specified disorders of bone density and structure, unspecified site; M19.90 Unspecified osteoarthritis, unspecified site; F32.A Depression, unspecified; E78.5 Hyperlipidemia, unspecified; R21 Rash and other nonspecific skin eruption
CPT/HCPCS: 99397

== ENCOUNTER 2023-07-05 09:46 | Outpatient (AMB) | payer MEDICARE, OTHER, SELFPAY ==
[2023-07-05 11:32] VITALS: BP 112/70; PULSE 76; TEMP 36.6; O2SAT 98; BMI 26.0
--- NOTE | 2023-07-05 11:32 | AM.OFFWIN_ITS ---
Intake Vital Signs 07/05/23 11:32 Height 5 ft 5 in Weight 156 lb 6 oz BMI 26.0 BP 112/70 Blood Pressure Location Rt brachial Position Sitting Pulse 76 Pulse Source Pulse Oximeter Temp 97.8 F Temp Source Temporal Artery Scan Pulse Oximetry (%) 98 Intake Visit Reasons: EP, Rash on lower back ([phone]) Intake Note: pt is here for c/o lower back rash and arms Patient Tobacco Use Status: Never used Tobacco Allergies amoxicillin Allergy (Verified 07/05/23 12:01) Rash ciprofloxacin Allergy (Verified 07/05/23 12:01) Rash clindamycin Allergy (Verified 07/05/23 12:01) rash, hives hydroxychloroquine [From Plaquenil] Allergy (Verified 07/05/23 12:01) Rash neomycin Allergy (Verified 07/05/23 12:01) Rash ezetimibe Adverse Reaction (Unknown, Verified 07/05/23 12:01) Diarrhea fenofibrate Adverse Reaction (Unknown, Verified 07/05/23 12:01) stomach pain, heart burn lisinopril Adverse Reaction (Unknown, Verified 07/05/23 12:01) dry cough pravastatin Adverse Reaction (Unknown, Verified 07/05/23 12:01) Muscle Pain bactrim Allergy (Mild, Uncoded 07/05/23 12:01) Rash Medication List - Last Reconciled 07/05/23 by Clayton Cummings MD acetaminophen 650 mg PO Q6H PRN celecoxib (Celebrex) 200 mg PO DAILY cholecalciferol (vitamin D3) 50 mcg PO DAILY escitalopram oxalate 30 mg PO famotidine 20 mg PO DAILY gabapentin 700 mg PO DAILY hydrocortisone 2.5% 1 appl topical BID PRN hydroxyzine HCl 25 mg PO BEDTIME losartan 25 mg PO DAILY HPI EP, Rash on lower back ([phone]) HPI Details 72-year-old female presents to the [facility] for a sick visit. Patient is reporting a rash on her lower back. She was seen by her primary care provider and given prednisone. She is reporting now the rash is gone but the itching is present. She was seen for a similar complaint here last visit. She does not like the hydroxyzine. She has also seen a skate boarder who suggested Claritin. Patient has canceled an upcoming trip because of allergies. [facility] Medical History Encounter to establish care Fibromyalgia High blood pressure Mood disorder Screening for diabetes mellitus Screening for hyperlipidemia Screening for hypothyroidism Surgical History History of delivery History of colonoscopy History of laparoscopy History of skin graft Status post right foot surgery Family History Daughter Mental health disorder Autism Sister FH: HTN (hypertension) Mother FH: HTN (hypertension) Other Substance use disorder Social History Household Members: None Housing: Apartment Alcohol intake: current Alcohol intake frequency: holidays/special occasions only Alcohol type: wine Patient Tobacco Use Status: Never used Tobacco e-Cigarette/Vaping Use: Never Used Second Hand Smoke Exposure: No service: No Current occupational status: retired Sexual orientation: Straight/Heterosexual Gender identity: Female Cognitive needs: No Hearing needs: No Vision needs: Yes (glasses) Physical Exam Vital Signs: Last Vital Signs Temp 97.8 F 07/05/23 11:32 Pulse 76 07/05/23 11:32 BP 112/70 07/05/23 11:32 Pulse Ox 98 07/05/23 11:32 BMI result Body Mass Index 26.0 Skin Other: No visible rash. Assessment & Plan Assessment & Plan (1) Pruritus: Code(s): L29.9 - Pruritus, unspecified Plan: Patient was advised to use Benadryl or loratadine as suggested by the skate boarder. She was advised to contact her primary care provider for having her fill up the insurance forms needed for travel. Coding Level of Care Code Est Pt Level 3 (37872) Diagnoses Pruritus L29.9
== END 2023-07-05 12:00 | disposition home or self-care (01) ==
PROVIDERS: PCP Nurse Practitioner Family; Visit Provider Internal Medicine
DX: L29.9 Pruritus, unspecified (principal)
CPT/HCPCS: 99213

== ENCOUNTER 2023-07-16 10:19 | Outpatient (REF) | payer MEDICARE, OTHER, SELFPAY ==
--- NOTE | ~2023-07-16 | MM_ITS ---
EXAMINATION: MM SCREENING DIGITAL BREAST TOMOSYNTHESIS, BILATERAL CLINICAL INFORMATION: Screening. Asymptomatic. COMPARISON: Mammography: This study is compared with prior exams dating back to 2020. TECHNIQUE: Digital breast tomosynthesis is performed in both the craniocaudal and mediolateral oblique views along with computer-aided detection (CAD). Synthesized 2D images are generated from the tomosynthesis. FINDINGS: There are scattered areas of fibroglandular density (ACR BI-RADS breast composition Category b). There are no significant masses, abnormal calcifications, or other abnormalities. There are tissue markers in each breast from prior benign percutaneous biopsies. There are scattered, benign calcifications throughout each breast. MM/MM tomosynthesis screening BI IMPRESSION: No mammographic evidence of malignancy. ASSESSMENT: BI-RADS BI-RADS 2 - Benign Findings RECOMMENDATION: Routine annual mammography screening. 1 year F/U This examination should not preclude the clinical evaluation of a suspicious palpable abnormality. This patient's information was entered into a reminder system with a target due date for their next mammogram.
== END 2023-07-16 10:20 | disposition home or self-care (01) ==
LOC: HO.MAMMO 10:19
PROVIDERS: PCP Nurse Practitioner Family; Visit Provider Nurse Practitioner Family
DX: Z12.31 Encounter for screening mammogram for malignant neoplasm of breast (principal)
CPT/HCPCS: 77063; 77067

== ENCOUNTER → 2023-07-16 10:30 | Outpatient (BNV) | payer MEDICARE, OTHER, SELFPAY | PROVIDERS: PCP Nurse Practitioner Family; Visit Provider Radiology Diagnostic Radiology | DX: Z12.31 Encounter for screening mammogram for malignant neoplasm of breast (principal) | CPT/HCPCS: 77063; 77067 ==

== ENCOUNTER 2023-08-25 13:14 | Outpatient (REF) | payer MEDICARE, OTHER, SELFPAY ==
--- NOTE | ~2023-08-25 | US_ITS ---
EXAMINATION: US THYROID CLINICAL INFORMATION: Nontoxic single thyroid nodule. Hypervascular, heterogeneous [id number] thyroid gland with multiple bilateral thyroid nodules. Most suspicious nodules in the inferior right and left lobes. According to TI-RADS criteria annual ultrasound follow up for 5 years would be recommended. COMPARISON: Ultrasound soft tissue head/neck thyroid dated 07/22/2022. TECHNIQUE: Linear transducer grayscale and color Doppler examination with attention to the region of the thyroid. FINDINGS: SIZE: Measurements of the thyroid lobes and nodules are given in sagittal, anteroposterior and transverse dimensions respectively. Right Thyroid Lobe: 4.79 x 1.74 x 1.64 cm, volume 7.2 mL. Previously 4.82 x 1.80 x 1.86 cm, volume 8.45 mL. Parenchyma: The gland echotexture is heterogeneous. Thyroid vascularity is normal. Left Thyroid Lobe: 4.30 x 2.30 x 1.65 cm, volume 8.40 mL. Previously 4.55 x 1.69 x 2.07 cm, volume 8.30 mL. Parenchyma: The gland echotexture is heterogeneous. Thyroid vascularity is normal. Isthmus: 0.45 cm in maximum AP dimension. Previously 0.45 cm. Estimated total number of nodules greater than or equal to 1 cm: 0. Video Game Engineer nodules are described as follows: 1. Location: Right inferior. Size: 0.94 x 0.78 x 0.79 cm, volume 0.58 mL. Previously: 0.93 x 0.71 x 0.93 cm, volume 0.32 mL. Nodule characteristics: Composition: Mixed cystic and solid (1). Echogenicity: Very hypoechoic (3). Shape: Not taller than wide (0). Margins: Ill-defined (0). Echogenic Foci: None (0). ACR TI-RADS total points: 4 Previous: 6 ACR TI-RADS category: 4 Previous: 5 Significant change in size (>/= 20% in 2 dimensions and minimal increase of 2 mm or 50% or greater increase in volume): No Change in features: Yes Change in ACR TI-RADS risk category: Yes 2. Location: Right mid. Size: 0.65 x 0.47 x 0.59 cm, volume 0.09 mL. Previously: 0.87 x 0.44 x 0.84 cm, volume 0.17 mL. Nodule characteristics: Composition: Spongiform (0). Echogenicity: Anechoic (0). Shape: Not taller than wide (0). Margins: Smooth (0). Echogenic Foci: None (0). ACR TI-RADS total points: 0 Previous: 2 ACR TI-RADS category: 1 Previous: 2 Significant change in size (>/= 20% in 2 dimensions and minimal increase of 2 mm or 50% or greater increase in volume): No Change in features: Yes Change in ACR TI-RADS risk category: Yes 3. Location: Left inferior. Size: 0.96 x 0.42 x 0.61 cm, volume 0.84 mL. Previously: 0.86 x 0.38 x 0.80 cm, volume 0.13 mL. Nodule characteristics: Composition: Mixed cystic and solid (1). Echogenicity: Hypoechoic (2). Shape: Not taller than wide (0). Margins: Lobulated (2). Echogenic Foci: None (0). ACR TI-RADS total points: 5 Previous: 0 ACR TI-RADS category: 4 Previous: 1 Significant change in size (>/= 20% in 2 dimensions and minimal increase of 2 mm or 50% or greater increase in volume): Yes Change in features: Yes Change in ACR TI-RADS risk category: Yes 4. Location: Left mid. Size: 0.53 x 0.43 x 0.44 cm, volume 0.05 mL. Previously: 0.70 x 0.76 x 0.59 cm, volume 0.15 mL. Nodule characteristics: Composition: Mixed cystic and solid (1). Echogenicity: Hypoechoic (2). Shape: Not taller than wide (0). Margins: Smooth (0). Echogenic Foci: Macrocalcifications (1). ACR TI-RADS total points: 4 Previous: 7 ACR TI-RADS category: 4 Previous: 5 Significant change in size (>/= 20% in 2 dimensions and minimal increase of 2 mm or 50% or greater increase in volume): No Change in features: Yes Change in ACR TI-RADS risk category: Yes NODES: No lymphadenopathy is seen in the tissue surrounding the thyroid gland. US/US thyroid IMPRESSION: 1. Nodule in the lower pole of the right thyroid lobe demonstrates stable maximum dimension of 0.94 cm with a decrease in TI-RADS Category 4. Nodule does not are follow up. 2. Nodule in the midportion the right thyroid lobe demonstrates decreased maximum dimension now measuring 0.65 cm with a decrease in TI-RADS category 1. Nodule does not require follow-up. 3. Nodule in the lower pole of the left thyroid lobe demonstrates slight increase in maximum dimension on measuring 0.96 cm with an increase in TI-RADS Category 4. Nodule does not require follow-up. 4. Nodule in the midportion of the left thyroid lobe demonstrates decreased maximum dimension on measuring 0.5 cm with a decrease in TI-RADS Category 4. Nodule does not require follow-up. 5. Bilateral thyroid lobes demonstrate heterogeneous echotexture with normal vascularity. 6. No lymphadenopathy noted. ACR TI-RADS RECOMMENDATION REFERENCE: Ultrasound-guided fine-needle aspiration, follow up ultrasound, no further followup. * TR1 (0 point): No FNA or followup * TR4 (4-6 points): FNA if more than or equal to 1.5 cm in maximum dimension, follow up ultrasound in 1, 2, 3 and 5 years if 1 to 1.4 cm in maximum dimension. * TR4 nodules that are below the size threshold for follow up receive no followup.
== END 2023-08-25 13:15 | disposition home or self-care (01) ==
LOC: HO.US 13:14
PROVIDERS: PCP Nurse Practitioner Family; Visit Provider Nurse Practitioner Family
DX: E04.1 Nontoxic single thyroid nodule (principal)
CPT/HCPCS: 76536

== ENCOUNTER 2023-09-17 08:31 | Outpatient (REF) | payer MEDICARE, OTHER, SELFPAY ==
[2023-09-17 09:35] LABS: Alanine Aminotransferase 20 U/L (0-31); Albumin Level 4.3 g/dL (3.5-5.0); Alkaline Phosphatase 67 U/L (39-117); Anion Gap 10 (12-20); Aspartate Amino Transferase 22 U/L (5-31); Bilirubin Total 0.6 mg/dL (0.0-1.0); Blood Urea Nitrogen 11 mg/dL (9-16); Calcium 9.8 mg/dL (8.4-10.2); Carbon Dioxide 27 mmol/L (22-29); Chloride 103 mmol/L (96-108); Cholesterol 222 mg/dL (<200); Estimated Glomerular Filt Rate > 60; Glucose Fasting 90 mg/dL (60-99); HDL Cholesterol 73 mg/dL (>40); LDL Cholesterol Calculated 136 mg/dL (<100); Potassium 4.2 mmol/L (3.3-5.1); Sodium 136 mmol/L (135-145); Total Protein 6.4 g/dL (6.5-8.0); Triglycerides 69 mg/dL (<150)
== END 2023-09-17 08:32 | disposition home or self-care (01) ==
LOC: HO.LAB 08:31
PROVIDERS: PCP Nurse Practitioner Family; Visit Provider Nurse Practitioner Family
DX: E78.5 Hyperlipidemia, unspecified (principal)
CPT/HCPCS: 36415; 80053; 80061

== ENCOUNTER 2023-09-21 09:45 | Outpatient (AMB) | payer MEDICARE, OTHER, SELFPAY ==
[2023-09-21 10:06] VITALS: BP 124/78; PULSE 79; O2SAT 100; BMI 25.5
--- NOTE | 2023-09-21 10:06 | MHC.PC.OV ---
Vital Signs 09/21/23 10:06 Height 5 ft 5 in Weight 153 lb 0.2 oz BMI 25.5 BP 124/78 Blood Pressure Location Lt brachial Position Sitting Pulse 79 Pulse Source Pulse Oximeter Pulse Oximetry (%) 100 Oxygen Delivery Method Room Air Intake Visit Reasons: F/U on HLD, HLD Allergies amoxicillin Allergy (Verified 09/21/23 10:12) Rash ciprofloxacin Allergy (Verified 09/21/23 10:12) Rash clindamycin Allergy (Verified 09/21/23 10:12) rash, hives hydroxychloroquine [From Plaquenil] Allergy (Verified 09/21/23 10:12) Rash neomycin Allergy (Verified 09/21/23 10:12) Rash ezetimibe Adverse Reaction (Unknown, Verified 09/21/23 10:12) Diarrhea fenofibrate Adverse Reaction (Unknown, Verified 09/21/23 10:12) stomach pain, heart burn lisinopril Adverse Reaction (Unknown, Verified 09/21/23 10:12) dry cough pravastatin Adverse Reaction (Unknown, Verified 09/21/23 10:12) Muscle Pain bactrim Allergy (Mild, Uncoded 09/21/23 10:12) Rash Medication List - Last Reconciled 09/21/23 by CHRISTOFER Rizzo acetaminophen 650 mg PO Q6H PRN escitalopram oxalate 20 mg PO famotidine 20 mg PO DAILY gabapentin 700 mg PO DAILY hydrocortisone 2.5% 1 appl topical BID PRN losartan 25 mg PO DAILY Tobacco use date assessed: 09/21/23 Fall risk assessment: No Falls in past year Last assessed Fall Risk: 09/21/23 HPI F/U on HLD, HLD HPI Details Patient is a 73-year-old female presents today to follow-up on chronic conditions.? Medical history significant for hyperlipidemia, fibromyalgia, osteopenia - followed by endocrinology, osteoarthritis, anxiety, hypertension, depression, and thyroid nodule-followed by [facility]. Patient denies shortness of breath or chest pain. Recent blood work results reviewed with the patient. Patient currently seeing ecommerce marketing specialist for body pruritus and her vitamin-D was stopped, also she will be seeing dermatology 09/2023, reports using ketoconazole shampoo for itchy head. [facility] Medical History Screening for hypothyroidism Screening for hyperlipidemia Screening for diabetes mellitus Encounter to establish care Mood disorder High blood pressure Fibromyalgia Surgical History Status post right foot surgery History of colonoscopy History of laparoscopy History of delivery History of skin graft Family History Daughter Mental health disorder Autism Sister FH: HTN (hypertension) Mother FH: HTN (hypertension) Other Substance use disorder Social History Household Members: None Housing: Apartment Alcohol intake: current Alcohol intake frequency: holidays/special occasions only Alcohol type: wine Patient Tobacco Use Status: Never used Tobacco e-Cigarette/Vaping Use: Never Used Second Hand Smoke Exposure: No service: No Current occupational status: retired Sexual orientation: Straight/Heterosexual Gender identity: Female Cognitive needs: No Hearing needs: No Vision needs: Yes (glasses) Questionnaire Thrive Questionnaire Date Thrive assessed: 04/07/23 JIHAN-7 AMB Questionnaire JIHAN-7 Date JIHAN - 7 assessed: 01/05/23 Source: Developed by Drs. Dom Nichole, Shell Salvador, Max Chan and colleagues, with an educational mabel from [employer]. Review of Systems Const Denies body aches, Denies chills, Denies fever(s) and Denies headache(s) ENT Denies dizziness, Denies otalgia, Denies headache(s), Denies nasal discharge, Denies sinus pain and Denies sore throat Card Denies chest pain, Denies edema, Denies lightheadedness and Denies dyspnea Resp Denies chest congestion, Denies cough and Denies dyspnea GI Denies abdominal pain Musc Denies myalgias and Reports arthralgias Skin/Breast Reports as per HPI Neuro Denies dizziness and Denies headache(s) Physical exam (Primary Care) Vital Signs: Last Vital Signs Pulse 79 09/21/23 10:06 BP 124/78 09/21/23 10:06 Pulse Ox 100 09/21/23 10:06 Oxygen Delivery Method Room Air 09/21/23 10:06 BMI result Body Mass Index 25.5 Tobacco/Smoking Status: Tobacco use Status Tobacco use date assessed 09/21/23 09/21/23 10:11 Patient Tobacco Use Status Never used Tobacco 11/29/23 10:06 e-Cigarette/Vaping Use Never Used 09/21/23 10:06 Thrive Assessment: Date of Thrive Assessment Date Thrive assessed 04/07/23 09/21/23 10:06 Const General: cooperative and no acute distress Orientation/consciousness: patient oriented x3 HENMT Head: Yes normocephalic and Yes atraumatic Throat: Yes posterior oropharynx normal Eyes General: appearance normal, both eyes and all related structures Neck Neck: Yes normal visual inspection and Yes full ROM Resp Effort & Inspection: normal respiratory effort and able to speak in complete sentences Auscultation: clear to auscultation bilaterally, no crackles, no rales, no rhonchi and no wheezes Cardio Rate: regular rate Rhythm: regular rhythm Heart sounds: S1 normal heart sound present and S2 normal heart sound present GI Auscultation: normal bowel sounds Skin Other: Scalp with no rash or erythema Neuro General: patient oriented x3 Gait exam (Neuro): Normal gait present Extrem General: Yes full ROM and No edema Assessment and Plan Assessment & Plan (1) Fibromyalgia: Comment: on gabapentin Code(s): M79.7 - Fibromyalgia Plan: Continue gabapentin which is prescribed by psychiatric nurse practitioner KAROL Cartagena (2) Anxiety: Code(s): F41.9 - Anxiety disorder, unspecified Plan: Escitalopram 30 mg daily Continue to follow-up with psychiatric nurse practitioner (3) Depression: Code(s): F32.A - Depression, unspecified Plan: Escitalopram 30 mg daily Continue to follow-up with psychiatric nurse practitioner (4) Hypertension: Code(s): I10 - Essential (primary) hypertension Plan: Losartan 25 mg daily Goal BP equal or less than 140/90 Low-sodium diet (5) Thyroid nodule: Code(s): E04.1 - Nontoxic single thyroid nodule Plan: Continue to follow-up with endocrinology Dr. Sánchez (6) Hyperlipidemia: Code(s): E78.5 - Hyperlipidemia, unspecified Plan: LDL 136 08/2023, goal less than 130 Patient was on Zetia, pravastatin, fenofibrate in the past that she could not tolerate - currently not on pharmacological intervention Low-cholesterol diet Continue to monitor (7) GERD (gastroesophageal reflux disease): Code(s): K21.9 - Gastro-esophageal reflux disease without esophagitis Plan: Continue Pepcid 20 mg daily Avoid GERD trigger foods Do not lay down 2-3 hours after evening meal Plan Follow-up in 3 months or sooner as needed Orders: Orders Lipid Panel 3 Months E78.5 - Hyperlipidemia, unspecified Comprehensive Girdler. Panel Fast 3 Months E78.5 - Hyperlipidemia, unspecified Coding Level of Care Code Est Pt Level 4 (88073) Diagnoses Fibromyalgia M79.7 Anxiety F41.9 Depression F32.A Hypertension I10 Thyroid nodule E04.1 Hyperlipidemia E78.5 GERD (gastroesophageal reflux disease) K21.9
== END 2023-09-21 10:31 | disposition home or self-care (01) ==
PROVIDERS: PCP Nurse Practitioner Family; Visit Provider Nurse Practitioner Family
DX: M79.7 Fibromyalgia (principal); F41.9 Anxiety disorder, unspecified; F32.A Depression, unspecified; I10 Essential (primary) hypertension; E04.1 Nontoxic single thyroid nodule; E78.5 Hyperlipidemia, unspecified; K21.9 Gastro-esophageal reflux disease without esophagitis
CPT/HCPCS: 99214

== ENCOUNTER 2023-12-24 10:55 | Outpatient (REF) | payer MEDICARE, OTHER, SELFPAY ==
[2023-12-24 12:03] LABS: Alanine Aminotransferase 19 U/L (0-31); Albumin Level 4.3 g/dL (3.5-5.0); Alkaline Phosphatase 63 U/L (39-117); Anion Gap 12 (12-20); Aspartate Amino Transferase 28 U/L (5-31); Bilirubin Total 0.6 mg/dL (0.0-1.0); Blood Urea Nitrogen 14 mg/dL (9-16); Calcium 9.8 mg/dL (8.4-10.2); Carbon Dioxide 29 mmol/L (22-29); Chloride 97 mmol/L (96-108); Cholesterol 187 mg/dL (<200); Estimated Glomerular Filt Rate > 60; Glucose Fasting 79 mg/dL (60-99); HDL Cholesterol 67 mg/dL (>40); LDL Cholesterol Calculated 110 mg/dL (<100); Sodium 134 mmol/L (135-145); Total Protein 6.3 g/dL (6.5-8.0); Triglycerides 53 mg/dL (<150)
[2023-12-24 12:18] LABS: Free T4 (Free Thyroxine) 0.92 ng/dL (0.71-1.85); Thyroid Stimulating Hormone 2.07 uIU/mL (0.32-4.0)
[2024-01-02 22:33] LABS: N-Telopeptide 21 (see note); NTXCreaRU 84 mg/dL (20-275)
== END 2023-12-24 10:56 | disposition home or self-care (01) ==
LOC: HO.LAB 10:55
PROVIDERS: PCP Internal Medicine; Visit Provider Internal Medicine Endocrinology, Diabetes & Metabolism
DX: M85.80 Other specified disorders of bone density and structure, unspecified site (principal); E04.1 Nontoxic single thyroid nodule; E78.5 Hyperlipidemia, unspecified
CPT/HCPCS: 36415; 80053; 80061; 82523; 84439; 84443

== ENCOUNTER 2023-12-27 09:24 | Outpatient (AMB) | payer MEDICARE, OTHER, SELFPAY ==
--- NOTE | 2023-12-27 09:41 | MHC.OFFVIS ---
Intake Vital Signs 12/27/23 09:42 Height 5 ft 5 in Weight 144 lb 9.972 oz BMI 24.1 BP 112/74 Blood Pressure Location Lt brachial Position Sitting Pulse 79 Pulse Source Pulse Oximeter Intake Visit Reasons: f/u osteopenia / MNG-confirmed Intake Note: Patient presents today for Osteopenia and MNG follow up. Casino Host Required: No Accompanied by: Self / Same As Patient Allergies amoxicillin Allergy (Verified 12/27/23 09:45) Rash ciprofloxacin Allergy (Verified 12/27/23 09:45) Rash clindamycin Allergy (Verified 12/27/23 09:45) rash, hives hydroxychloroquine [From Plaquenil] Allergy (Verified 12/27/23 09:45) Rash neomycin Allergy (Verified 12/27/23 09:45) Rash ezetimibe Adverse Reaction (Unknown, Verified 12/27/23 09:45) Diarrhea fenofibrate Adverse Reaction (Unknown, Verified 12/27/23 09:45) stomach pain, heart burn lisinopril Adverse Reaction (Unknown, Verified 12/27/23 09:45) dry cough pravastatin Adverse Reaction (Unknown, Verified 12/27/23 09:45) Muscle Pain bactrim Allergy (Mild, Uncoded 12/27/23 09:45) Rash HPI HPI Comments History of Present Illness Details This 72-year-old female previously seen for osteoenia . Today she comes in with a ultrasound showing multinodular goiter with subcentimeter nodules. Secondary workup for osteoporosis was negative. Urine NTX was suppressed 07/22/22 : Thyroid US FINDINGS: ? SIZE: Measurements of the thyroid lobes and nodules are given in sagittal, anteroposterior and transverse dimensions respectively. Right Thyroid Lobe: 4.8 x 1.8 x 1.9 cm, volume 8.5 mL. Parenchyma: The gland echotexture is heterogeneous. Thyroid vascularity is increased. Left Thyroid Lobe: 4.6 x 1.7 x 2.1 cm, volume 8.3 mL. Parenchyma: The gland echotexture is heterogeneous. Thyroid vascularity is increased. Isthmus: 0.5 cm in maximum AP dimension. There are multiple bilateral thyroid nodules. The largest thyroid nodules are measured. Estimated total number of nodules greater than or equal to 1 cm: 0. Senior Internet Sales Consultant nodules are described as follows: 1. Location: Right lower pole. ?? ? Size: 0.9 x 0.9 x 0.7 cm, volume 0.32 mL. ?? ? Nodule characteristics: ?? ? Composition: Mixed cystic and solid (1). ?? ? Echogenicity: Hypoechoic (2). ?? ? Shape: Taller than wide (0). ?? ? Margins: Smooth (0). ?? ? Echogenic Foci: Punctate echogenic foci (3). ?? ? ACR TI-RADS total points: 6 ?? ? ACR TI-RADS category: 5 2. Location: Right mid pole. ?? ? Size: 0.9 x 0.4 x 0.8 cm, volume 0.17 mL. ?? ? Nodule characteristics: ?? ? Composition: Mixed cystic and solid (1). ?? ? Echogenicity: Isoechoic (1). ?? ? Shape: Not taller than wide (0). ?? ? Margins: Smooth (0). ?? ? Echogenic Foci: None (0). ?? ? ACR TI-RADS total points: 2 ?? ? ACR TI-RADS category: 2 3. Location: Left lower pole. ?? ? Size: 0.9 x 0.4 x 0.8 cm, volume 0.14 mL. ?? ? Nodule characteristics: ?? ? Composition: Spongiform (0). ?? ? ACR TI-RADS total points: 0 ?? ? ACR TI-RADS category: 1 4. Location: Left lower pole. ?? ? Size: 0.7 x 0.8 x 0.6 cm, volume 0.15 mL. ?? ? Nodule characteristics: ?? ? Composition: Cannot be determined (2). ?? ? Echogenicity: Cannot be determined (1). ?? ? Shape: Taller than wide (3). ?? ? Margins: Smooth (0). ?? ? Echogenic Foci: Macrocalcifications (1). ?? ? ACR TI-RADS total points: 7 ?? ? ACR TI-RADS category: 5 5.? Location: Left mid pole. ?? ? Size: 0.9 x 0.5 x 0.7 cm, volume 0.17 mL. ?? ? Nodule characteristics: ?? ? Composition: Cystic(0). ?? ? ACR TI-RADS total points: 0 ?? ? ACR TI-RADS category: 1 NODES: No lymphadenopathy is seen in the tissue surrounding the thyroid gland. US/US thyroid IMPRESSION: Hypervascular heterogeneous upper normal size thyroid gland with multiple bilateral thyroid nodules. Most suspicious nodules in the inferior right and left lobes. According to TI RADS criteria, annual ultrasound follow-up for 5 years would be recommended. Recent ultrasound showed no change in the size of the nodules Currently on calcium and vitamin-D.. Urine NTX is pending [facility] Medical History Screening for hypothyroidism Screening for hyperlipidemia Screening for diabetes mellitus Encounter to establish care Mood disorder High blood pressure Fibromyalgia Surgical History Status post right foot surgery History of colonoscopy History of laparoscopy History of delivery History of skin graft Family History Daughter Mental health disorder Autism Sister FH: HTN (hypertension) Mother FH: HTN (hypertension) Other Substance use disorder Social History Household Members: None Housing: Apartment Alcohol intake: current Alcohol intake frequency: holidays/special occasions only Alcohol type: wine Patient Tobacco Use Status: Never used Tobacco e-Cigarette/Vaping Use: Never Used Second Hand Smoke Exposure: No service: No Current occupational status: retired Sexual orientation: Straight/Heterosexual Gender identity: Female Cognitive needs: No Hearing needs: No Vision needs: Yes (glasses) Physical Exam Vital Signs: Last Vital Signs Pulse 79 12/27/23 09:42 BP 112/74 12/27/23 09:42 BMI result Body Mass Index 24.1 Const Other: Thyroid gland is normal size weighs about 15 g . There are no thyroid nodules palpated Assessment & Plan Assessment & Plan (1) Thyroid nodule: Code(s): E04.1 - Nontoxic single thyroid nodule Plan: This 73-year-old female with a history of multinodular goiter with subcentimeter thyroid nodules. She appears to be clinically and biochemically euthyroid. Plan is for continued observation. There is no need for any further ultrasounds this point. In terms of the multinodular gland, the patient referred back to her primary care provider (2) Osteopenia: Code(s): M85.80 - Other specified disorders of bone density and structure, unspecified site Plan: This is a 72-year-old female with a history of low bone mass and ankle fracture. Secondary causes have been ruled out. Previously received 2 doses of Reclast. Secondary workup was negative urine NTX was suppressed Plan is to continue to observe and checkl urine NTX when available and follow-up bone densities . Orders: Orders XR DEXA axial skeleton 3 Months M85.80 - Other specified disorders of bone density and structure, unspecified site Coding Level of Care Code Est Pt Level 3 (73976) Diagnoses Thyroid nodule E04.1 Osteopenia M85.80
[2023-12-27 09:42] VITALS: BP 112/74; PULSE 79; BMI 24.1
== END 2023-12-27 10:20 | disposition home or self-care (01) ==
PROVIDERS: PCP Internal Medicine; Referring Provider Internal Medicine; Visit Provider Internal Medicine Endocrinology, Diabetes & Metabolism
DX: E04.1 Nontoxic single thyroid nodule (principal); M85.80 Other specified disorders of bone density and structure, unspecified site
CPT/HCPCS: 99213

== ENCOUNTER → 2023-12-27 09:24 | Outpatient (BNVA) | payer MEDICARE, OTHER, SELFPAY | PROVIDERS: Visit Provider Internal Medicine Endocrinology, Diabetes & Metabolism | DX: E04.1 Nontoxic single thyroid nodule (principal); M85.80 Other specified disorders of bone density and structure, unspecified site | CPT/HCPCS: 99212 ==

== ENCOUNTER 2023-12-29 10:24 | Outpatient (AMB) | payer MEDICARE, OTHER, SELFPAY ==
[2023-12-29 10:32] VITALS: BP 120/78; PULSE 78; O2SAT 99; BMI 24.1
--- NOTE | 2023-12-29 10:32 | MHC.PC.OV ---
Vital Signs 12/29/23 10:32 Height 5 ft 5 in Weight 145 lb 0.2 oz BMI 24.1 BP 120/78 Blood Pressure Location Lt brachial Position Sitting Pulse 78 Pulse Source Pulse Oximeter Pulse Oximetry (%) 99 Oxygen Delivery Method Room Air Intake Visit Reasons: F/u HTN, HLD/ Transfer of Care [facility] [employer] Unit Operator Required: No Allergies amoxicillin Allergy (Verified 12/29/23 10:33) Rash ciprofloxacin Allergy (Verified 12/29/23 10:33) Rash clindamycin Allergy (Verified 12/29/23 10:33) rash, hives hydroxychloroquine [From Plaquenil] Allergy (Verified 12/29/23 10:33) Rash neomycin Allergy (Verified 12/29/23 10:33) Rash ezetimibe Adverse Reaction (Unknown, Verified 12/29/23 10:33) Diarrhea fenofibrate Adverse Reaction (Unknown, Verified 12/29/23 10:33) stomach pain, heart burn lisinopril Adverse Reaction (Unknown, Verified 12/29/23 10:33) dry cough pravastatin Adverse Reaction (Unknown, Verified 12/29/23 10:33) Muscle Pain bactrim Allergy (Mild, Uncoded 12/29/23 10:33) Rash Medication List - Last Reconciled 12/29/23 by Kevyn Monique MD acetaminophen 650 mg PO Q6H PRN escitalopram oxalate 30 mg PO DAILY famotidine 20 mg PO DAILY PRN gabapentin 100 mg PO TID gabapentin 600 mg PO .QHS losartan 25 mg PO DAILY naltrexone 3 mg PO .QD tacrolimus 0.03% 1 appl topical BID Tobacco use date assessed: 12/29/23 Fall risk assessment: No Falls in past year Last assessed Fall Risk: 12/29/23 HPI F/u HTN, HLD/ Transfer of Care Maxine S HPI Details 73-year-old female with a history of hypertension anxiety and depression hypercholesterolemia osteoarthritis GERD coming in to see me for the 1st time. Review of the notes follows up with endocrinology December 2023 osteopenia and multinodular goiter with subcentimeter nodule multiple bilateral thyroid nodules inferior 0.9 x 0.9 x 0.7, 0.9 x 0.8 x 0.4, 0.9 x 0.4 x 0.8, 0.7 x 0.8 x 0.6, 0.9 x 0.5 x 0.7. Advised to follow-up every year this ultrasound was done in June 2022 no need for further ultrasounds. As for the osteopenia has had Reclast before. Notes also for RSV. daughter autism [facility] Medical History (Updated 12/29/23 @ 11:28 by Kevyn Monique MD) Asthma Pruritus Rash Vaginal yeast infection Dysuria Genital warts Right hip tendinitis Right hip pain Osteoarthritis of fingers of both hands Osteoarthritis of carpometacarpal joint of left thumb Left hand weakness Skin exam, screening for cancer Screening for breast cancer Left ankle strain Anxiety Right ankle sprain Screening for hypothyroidism Screening for hyperlipidemia Screening for diabetes mellitus Encounter to establish care Mood disorder High blood pressure Fibromyalgia Surgical History Status post right foot surgery History of colonoscopy History of laparoscopy History of delivery History of skin graft Family History Daughter Mental health disorder Autism Sister FH: HTN (hypertension) Mother FH: HTN (hypertension) Other Substance use disorder Social History (Updated 12/29/23 @ 11:25 by Kevyn Monique MD) Household Members: None Housing: Apartment Alcohol intake: current Alcohol intake frequency: holidays/special occasions only Alcohol type: wine Comment: 2x a year Patient Tobacco Use Status: Never used Tobacco e-Cigarette/Vaping Use: Never Used Second Hand Smoke Exposure: No service: No Current occupational status: retired Sexual orientation: Straight/Heterosexual Gender identity: Female Cognitive needs: No Hearing needs: No Vision needs: Yes (glasses) Questionnaire Thrive Questionnaire Date Thrive assessed: 12/29/23 I am a: Patient What is your living situation today?: I have a steady place to live Within the past 12 months, did the food you bought not last and you didn't have the money to get more?: Never true Within the past 12 months, did you worry whether your food would run out before you got money to buy more?: Never true Do you have trouble paying for medicines?: No Do you have trouble getting transportation to medical appointments?: No Do you have trouble paying your heating and electricity bill?: No Do you have trouble taking care of your child, family member or friend?: No Do you have trouble with day-to-day activities such as bathing, preparing meals, shopping, managing finances, etc.?: No Are you currently unemployed and looking for a job?: No Are you interested in more education?: No Please select the resources that you would like help with: None THRIVE Score: 0 AUDIT C Alcohol Use Questionnaire (AUDIT-C) 1. How often do you have a drink containing alcohol?: Monthly or less 3. How often do you have six or more drinks on one occasion?: Never Total Score: 1 Score Reviewed/Action Taken: No JIHAN-7 AMB Questionnaire JIHAN-7 Date JIHAN - 7 assessed: 12/29/23 Source: Developed by Drs. Dom Nichole, Shell Salvador, Max Chan and colleagues, with an educational mabel from [employer]. Physical exam (Primary Care) Vital Signs: Last Vital Signs Pulse 78 12/29/23 10:32 BP 120/78 12/29/23 10:32 Pulse Ox 99 12/29/23 10:32 Oxygen Delivery Method Room Air 12/29/23 10:32 BMI result Body Mass Index 24.1 Tobacco/Smoking Status: Tobacco use Status Tobacco use date assessed 12/29/23 12/29/23 10:34 Patient Tobacco Use Status Never used Tobacco 12/29/23 10:34 e-Cigarette/Vaping Use Never Used 12/29/23 10:34 Thrive Assessment: Date of Thrive Assessment Date Thrive assessed 12/29/23 12/29/23 10:34 Const General: alert; No acute distress Eyes Conjunctivae: conjunctivae normal Resp Auscultation: clear to auscultation bilaterally Cardio Rate: regular rate Rhythm: regular rhythm GI Inspection: Yes normal to inspection Extrem General: Yes normal to inspection and No edema Assessment and Plan Assessment & Plan (1) Osteopenia: Comment: 2021 Code(s): M85.80 - Other specified disorders of bone density and structure, unspecified site Plan: Patient has been seen by Endocrinology and advised bone density test (2) Hypertension: Code(s): I10 - Essential (primary) hypertension Plan: Continue with blood pressure medication. Decrease salt intake and exercise presently on losartan 25 mg once a day (3) Generalized anxiety disorder: Comment: talking to Nurse (12/2023) Code(s): F41.1 - Generalized anxiety disorder Plan: Continue with present therapy (4) Colon cancer screening: Code(s): Z12.11 - Encounter for screening for malignant neoplasm of colon Plan: Reminded about colonoscopy (5) Hyperlipidemia: Code(s): E78.5 - Hyperlipidemia, unspecified Plan: Avoid fried foods, chicken skin, eggs, butter margarine, pastries and meat. Be it pork or beef they have a lot of cholesterol LDL goal of less than 130 and triglyceride of less than 150. [place] blood work is good (6) Thyroid nodule: Comment: Multiple thyroid nodules bilateral Code(s): E04.1 - Nontoxic single thyroid nodule Plan: Patient has been seen by Endocrinology and continue to monitor but no need for anymore ultrasounds. (7) GERD (gastroesophageal reflux disease): Code(s): K21.9 - Gastro-esophageal reflux disease without esophagitis Plan: Avoid the foods that causes that usually spicy foods, tomato products, juices, coffee, soda and foods that your sensitive to. After eating do not lie down, allow 3-4 hours before in lie down. And keep the head of bed above 30 degrees to avoid the acid from going up. Presently on famotidine (8) Ankle fracture, right: Comment: February 2022 Code(s): S82.891A - Other fracture of right lower leg, initial encounter for closed fracture (9) Constipation: Code(s): K59.00 - Constipation, unspecified Plan: dicsussed about fluid intake, diet high in fiber and exercise Medications: Changed From famotidine 20 mg PO DAILY 90 tabs 0RF gerd K21.9 - Gastro-esophageal reflux disease without esophagitis To famotidine 20 mg PO DAILY PRN gerd K21.9 - Gastro-esophageal reflux disease without esophagitis Refilled losartan 25 mg PO DAILY 90 tabs 1RF I10 - Essential (primary) hypertension Coding Level of Care Code Est Pt Level 4 (18327) Diagnoses Osteopenia M85.80 Hypertension I10 Generalized anxiety disorder F41.1 Colon cancer screening Z12.11 Hyperlipidemia E78.5 Thyroid nodule E04.1 GERD (gastroesophageal reflux disease) K21.9 Ankle fracture, right S82.891A Constipation K59.00
== END 2023-12-29 11:42 | disposition home or self-care (01) ==
PROVIDERS: PCP Nurse Practitioner Family; Visit Provider Internal Medicine
DX: I10 Essential (primary) hypertension (principal); M85.80 Other specified disorders of bone density and structure, unspecified site; F41.1 Generalized anxiety disorder; Z12.11 Encounter for screening for malignant neoplasm of colon; E78.5 Hyperlipidemia, unspecified; E04.1 Nontoxic single thyroid nodule; K21.9 Gastro-esophageal reflux disease without esophagitis; S82.891A Other fracture of right lower leg, initial encounter for closed fracture; K59.00 Constipation, unspecified
CPT/HCPCS: 99214

== ENCOUNTER 2024-03-28 09:10 | Outpatient (REF) | payer MEDICARE, OTHER, SELFPAY ==
--- NOTE | ~2024-03-28 | MM_ITS ---
EXAMINATION: BONE DENSITOMETRY CLINICAL INDICATION: Age-related osteoporosis without current pathological fracture. COMPARISON: This is the patient's baseline examination. TECHNIQUE: Using a [employer] DXA System (software version: 13.1) manufactured by [employer], dual-energy x-ray absorptiometry was performed of the lumbar spine and left hip. The images are of good technical quality. Summary results are attached. FINDINGS: LEFT FEMUR, NECK: BMD 0.714 g/cm2, Z-score -0.5, T-score -2.3, osteopenia. LEFT FEMUR, TOTAL: BMD 0.791 g/cm2, Z-score -0.1, T-score -1.7, osteopenia. AP SPINE L1-L4: BMD 0.947 g/cm2, Z-score -0.1, T-score -1.9, osteopenia. IDENTIFIED RISK FACTORS: Menopause, history of fracture (adult). HISTORY OF FRACTURE: Other. Wrist. MEDICATIONS: Calcium supplements or multivitamin, vitamin D. MM/XR DEXA axial skeleton IMPRESSION: 1. DIAGNOSIS: Osteopenia based on the lowest T-score value of -2.3 in the femoral neck applying World Health Organization criteria. 2. 10-YEAR FRACTURE RISK PREDICTION, FRAX: Major osteoporotic fracture (clinical spine, forearm, hip or shoulder) 22.2%. Hip fracture 5.5%. 3. Treatment Recommendations: NOF guidelines recommend consideration for treatment in postmenopausal women and men age 50 and older presenting with the following: -A hip or vertebral (clinical or morphometric) fracture. -T-score less than or equal to -2.5 at the femoral neck or spine after appropriate evaluation to exclude secondary causes. -Low bone mass at the hip or spine and a 10-year fracture probability by FRAX of greater than or equal to 3% for hip fracture or greater than or equal to 20% for major osteoporotic fracture based on the [place] adapted WHO algorithm. 4. Other Recommendations: All treatment decisions require clinical judgment and consideration of individual patient factors, including patient preferences, comorbidities, previous drug use, risk factors not captured in the FRAX model (e.g. frailty, falls, vitamin D deficiency, increased bone turnover, interval significant decline in bone density) and possible under or overestimation of fracture risk by FRAX. Additional medical evaluation for secondary cause of low bone mineral density may be appropriate. FUTURE SCAN RECOMMENDATION: People with diagnosed cases of osteoporosis or at high risk for fracture should have regular bone mineral density tests. For patients eligible for Medicare, routine testing is allowed once every 2 years. The testing frequency can be increased to one year for patients who have rapidly progressing disease, those who are receiving or discontinuing medical therapy to restore bone mass, or have additional risk factors.
== END 2024-03-28 09:11 | disposition home or self-care (01) ==
LOC: HO.MAMMO 09:10
PROVIDERS: PCP Internal Medicine; Visit Provider Internal Medicine Endocrinology, Diabetes & Metabolism
DX: Z13.820 Encounter for screening for osteoporosis (principal); Z78.0 Asymptomatic menopausal state; M81.0 Age-related osteoporosis without current pathological fracture
CPT/HCPCS: 77080

== ENCOUNTER 2024-04-25 09:20 | Outpatient (AMB) | payer MEDICARE, OTHER, SELFPAY ==
--- NOTE | 2024-04-25 09:23 | MHC.OFFVIS ---
Vital Signs 04/25/24 09:24 Height 5 ft 5 in Weight 138 lb 3.677 oz BMI 23.0 BP 126/66 Blood Pressure Location Lt brachial Position Sitting Pulse 71 Pulse Source Pulse Oximeter Intake Visit Reasons: f/u osteopenia-confirmed Intake Note: Patient present today for Osteopenia follow up visit. Certified Peer Specialist Required: No Accompanied by: Self / Same As Patient Allergies amoxicillin Allergy (Verified 04/25/24 09:28) Rash ciprofloxacin Allergy (Verified 04/25/24 09:28) Rash clindamycin Allergy (Verified 04/25/24 09:28) rash, hives hydroxychloroquine [From Plaquenil] Allergy (Verified 04/25/24 09:28) Rash neomycin Allergy (Verified 04/25/24 09:28) Rash ezetimibe Adverse Reaction (Unknown, Verified 04/25/24 09:28) Diarrhea fenofibrate Adverse Reaction (Unknown, Verified 04/25/24 09:28) stomach pain, heart burn lisinopril Adverse Reaction (Unknown, Verified 04/25/24 09:28) dry cough pravastatin Adverse Reaction (Unknown, Verified 04/25/24 09:28) Muscle Pain bactrim Allergy (Mild, Uncoded 04/25/24 09:28) Rash HPI Comments Details: This 73-year-old female previously seen for osteoenia . Today she comes in with a ultrasound showing multinodular goiter with subcentimeter nodules. Secondary workup for osteoporosis was negative. Urine NTX was suppressed at 21 07/22/22 : Thyroid US FINDINGS: ? SIZE: Measurements of the thyroid lobes and nodules are given in sagittal, anteroposterior and transverse dimensions respectively. Right Thyroid Lobe: 4.8 x 1.8 x 1.9 cm, volume 8.5 mL. Parenchyma: The gland echotexture is heterogeneous. Thyroid vascularity is increased. Left Thyroid Lobe: 4.6 x 1.7 x 2.1 cm, volume 8.3 mL. Parenchyma: The gland echotexture is heterogeneous. Thyroid vascularity is increased. Isthmus: 0.5 cm in maximum AP dimension. There are multiple bilateral thyroid nodules. The largest thyroid nodules are measured. Estimated total number of nodules greater than or equal to 1 cm: 0. [place] nodules are described as follows: 1. Location: Right lower pole. ?? ? Size: 0.9 x 0.9 x 0.7 cm, volume 0.32 mL. ?? ? Nodule characteristics: ?? ? Composition: Mixed cystic and solid (1). ?? ? Echogenicity: Hypoechoic (2). ?? ? Shape: Taller than wide (0). ?? ? Margins: Smooth (0). ?? ? Echogenic Foci: Punctate echogenic foci (3). ?? ? ACR TI-RADS total points: 6 ?? ? ACR TI-RADS category: 5 2. Location: Right mid pole. ?? ? Size: 0.9 x 0.4 x 0.8 cm, volume 0.17 mL. ?? ? Nodule characteristics: ?? ? Composition: Mixed cystic and solid (1). ?? ? Echogenicity: Isoechoic (1). ?? ? Shape: Not taller than wide (0). ?? ? Margins: Smooth (0). ?? ? Echogenic Foci: None (0). ?? ? ACR TI-RADS total points: 2 ?? ? ACR TI-RADS category: 2 3. Location: Left lower pole. ?? ? Size: 0.9 x 0.4 x 0.8 cm, volume 0.14 mL. ?? ? Nodule characteristics: ?? ? Composition: Spongiform (0). ?? ? ACR TI-RADS total points: 0 ?? ? ACR TI-RADS category: 1 4. Location: Left lower pole. ?? ? Size: 0.7 x 0.8 x 0.6 cm, volume 0.15 mL. ?? ? Nodule characteristics: ?? ? Composition: Cannot be determined (2). ?? ? Echogenicity: Cannot be determined (1). ?? ? Shape: Taller than wide (3). ?? ? Margins: Smooth (0). ?? ? Echogenic Foci: Macrocalcifications (1). ?? ? ACR TI-RADS total points: 7 ?? ? ACR TI-RADS category: 5 5.? Location: Left mid pole. ?? ? Size: 0.9 x 0.5 x 0.7 cm, volume 0.17 mL. ?? ? Nodule characteristics: ?? ? Composition: Cystic(0). ?? ? ACR TI-RADS total points: 0 ?? ? ACR TI-RADS category: 1 NODES: No lymphadenopathy is seen in the tissue surrounding the thyroid gland. US/US thyroid IMPRESSION: Hypervascular heterogeneous upper normal size thyroid gland with multiple bilateral thyroid nodules. Most suspicious nodules in the inferior right and left lobes. According to TI RADS criteria, annual ultrasound follow-up for 5 years would be recommended. Recent ultrasound showed no change in the size of the nodules Currently on calcium and vitamin-D.. Urine NTX is pending [facility] Medical History (Updated 03/28/24 @ 13:11 by Kevyn Monique MD) Asthma Pruritus Rash Vaginal yeast infection Dysuria Genital warts Right hip tendinitis Right hip pain Osteoarthritis of fingers of both hands Osteoarthritis of carpometacarpal joint of left thumb Left hand weakness Skin exam, screening for cancer Screening for breast cancer Left ankle strain Anxiety Right ankle sprain Screening for hypothyroidism Screening for hyperlipidemia Screening for diabetes mellitus Encounter to establish care Mood disorder High blood pressure Fibromyalgia Surgical History Status post right foot surgery History of colonoscopy History of laparoscopy History of delivery History of skin graft Family History Daughter Mental health disorder Autism Sister FH: HTN (hypertension) Mother FH: HTN (hypertension) Other Substance use disorder Social History (Updated 12/29/23 @ 11:25 by Kevyn Monique MD) Household Members: None Housing: Apartment Alcohol intake: current Alcohol intake frequency: holidays/special occasions only Alcohol type: wine Comment: 2x a year Patient Tobacco Use Status: Never used Tobacco e-Cigarette/Vaping Use: Never Used Second Hand Smoke Exposure: No service: No Current occupational status: retired Sexual orientation: Straight/Heterosexual Gender identity: Female Cognitive needs: No Hearing needs: No Vision needs: Yes (glasses) Physical Exam Vital Signs: Last Vital Signs Pulse 71 04/25/24 09:24 BP 126/66 04/25/24 09:24 BMI result Body Mass Index 23.0 Assessment & Plan Assessment & Plan (1) Osteopenia: Comment: 2021 Code(s): M85.80 - Other specified disorders of bone density and structure, unspecified site Category: Medical Plan: This is a 73-year-old female with a history of low bone mass and ankle fracture. Secondary causes have been ruled out. Previously received 2 doses of Reclast. Secondary workup was negative urine NTX was suppressed Plan is to continue to observe . The patient referred back to primary care provider who can order another bone density about 2 years time. If bone density declined into osteoporotic range, patient referred back to endocrinology or patient need to be treated with the oral or intravenous bisphosphonate by primary care provider Coding Level of Care Code Est Pt Level 3 (57642) Diagnoses Osteopenia M85.80
[2024-04-25 09:24] VITALS: BP 126/66; PULSE 71; BMI 23.0
== END 2024-04-25 09:48 | disposition home or self-care (01) ==
PROVIDERS: PCP Internal Medicine; Visit Provider Internal Medicine Endocrinology, Diabetes & Metabolism
DX: M85.80 Other specified disorders of bone density and structure, unspecified site (principal)
CPT/HCPCS: 99213

== ENCOUNTER → 2024-04-25 09:20 | Outpatient (BNVA) | payer MEDICARE, OTHER, SELFPAY | PROVIDERS: PCP Internal Medicine; Visit Provider Internal Medicine Endocrinology, Diabetes & Metabolism | DX: M85.80 Other specified disorders of bone density and structure, unspecified site (principal) | CPT/HCPCS: 99212 ==

== ENCOUNTER 2024-07-02 09:49 | Outpatient (AMB) | payer MEDICARE, OTHER, SELFPAY ==
[2024-07-02 09:54] VITALS: BP 124/78; PULSE 70; O2SAT 98; BMI 22.1
--- NOTE | 2024-07-02 09:54 | MHC.PC.OV ---
Vital Signs 07/02/24 09:54 Height 5 ft 5 in Weight 133 lb BMI 22.1 BP 124/78 Blood Pressure Location Lt brachial Position Sitting Pulse 70 Pulse Source Pulse Oximeter Pulse Oximetry (%) 98 Oxygen Delivery Method Room Air Intake Visit Reasons: Annual Exam [employer] Officer Required: No Accompanied by: Self / Same As Patient Allergies amoxicillin Allergy (Verified 07/02/24 09:55) Rash ciprofloxacin Allergy (Verified 07/02/24 09:55) Rash clindamycin Allergy (Verified 07/02/24 09:55) rash, hives hydroxychloroquine [From Plaquenil] Allergy (Verified 07/02/24 09:55) Rash neomycin Allergy (Verified 07/02/24 09:55) Rash ezetimibe Adverse Reaction (Unknown, Verified 07/02/24 09:55) Diarrhea fenofibrate Adverse Reaction (Unknown, Verified 07/02/24 09:55) stomach pain, heart burn lisinopril Adverse Reaction (Unknown, Verified 07/02/24 09:55) dry cough pravastatin Adverse Reaction (Unknown, Verified 07/02/24 09:55) Muscle Pain bactrim Allergy (Mild, Uncoded 07/02/24 09:55) Rash Medication List - Last Reconciled 07/02/24 by Kevyn Monique MD acetaminophen 650 mg PO Q6H PRN calcium carb,lactat-vitamin D3 200 mg-6.25 mcg (250 unit) 1 tab PO BID dupilumab (Dupixent) 300 mg subcut Q2W escitalopram oxalate 20 mg PO DAILY famotidine 20 mg PO DAILY PRN flaxseed oil 1,000 mg PO DAILY gabapentin 300 mg PO DAILY losartan 25 mg PO DAILY magnesium glycinate 400 mg PO .QD Tobacco use date assessed: 12/29/23 Fall risk assessment: No Falls in past year Last assessed Fall Risk: 07/02/24 Dental Screening Dental Screen Date: 07/02/24 Did you have a dental visit in the last 12 months?: Yes Did you have a dental problem in the last 6 months where you did not have access to dental care?: No Was dental information given to patient?: Patient has dentist HPI Annual Exam HPI Details 73-year-old female with a history of hypertension generalized anxiety disorder hypercholesterolemia GERD coming in for physical exam last seen in 01/11/2024. Patient is due for mammogram. Patient was last seen in December. With the osteopenia and history of ankle fracture patient was sent to endocrinology. Patient has had Reclast and was advised to have a follow-up bone density in a couple of years. Her last bone density was done in 03/12/2024 showing osteopenia noted weight loss. Dermatology for skin condition atopic dermatitis. consitpation. prune and senna. Derejetent was advised by GI cor colon test - suppose to be this month but was rescheduled for september [facility] Medical History (Updated 07/02/24 @ 10:44 by Kevyn Monique MD) Asthma Pruritus Rash Vaginal yeast infection Dysuria Genital warts Right hip tendinitis Right hip pain Osteoarthritis of fingers of both hands Osteoarthritis of carpometacarpal joint of left thumb Left hand weakness Skin exam, screening for cancer Screening for breast cancer Left ankle strain Anxiety Right ankle sprain Screening for hypothyroidism Screening for hyperlipidemia Screening for diabetes mellitus Encounter to establish care Mood disorder High blood pressure Fibromyalgia Surgical History Status post right foot surgery History of colonoscopy History of laparoscopy History of delivery History of skin graft Family History Daughter Mental health disorder Autism Sister FH: HTN (hypertension) Mother FH: HTN (hypertension) Other Substance use disorder Social History (Updated 07/02/24 @ 10:31 by Kevyn Monique MD) Household Members: None Housing: Apartment Alcohol intake: current Comment: 2x a year Patient Tobacco Use Status: Never used Tobacco Tobacco use type: Cigarette e-Cigarette/Vaping Use: Never Used Second Hand Smoke Exposure: No service: No Current occupational status: retired Sexual orientation: Straight/Heterosexual Gender identity: Female Cognitive needs: No Hearing needs: No Vision needs: Yes (glasses) Questionnaire PHQ-9 Over the last 2 weeks, how often have you been bothered by any of the following problems? 1. Little interest or pleasure in doing things: not at all 2. Feeling down, depressed, or hopeless: not at all 3. Trouble falling or staying asleep, or sleeping too much: several days 4. Feeling tired or having little energy: not at all 5. Poor appetite or overeating: not at all 6. Feeling bad about yourself - or that you are a failure or have let yourself or your family down: not at all 7. Trouble concentrating on things, such as reading the newspaper or watching television: not at all 8. Moving or speaking so slowly that other people could have noticed. Or the opposite - being so fidgety or restless that you have been moving around a lot more than usual: not at all 9. Thoughts that you would be better off or of hurting yourself in some way: not at all Total score: 1 Source: Developed by Drs. Dom Nichole, Shell Salvador, Max Chan and colleagues, with an educational mabel from [employer]. Thrive Questionnaire Date Thrive assessed: 06/26/24 I am a: Patient What is your living situation today?: I have a steady place to live Within the past 12 months, did the food you bought not last and you didn't have the money to get more?: Never true Within the past 12 months, did you worry whether your food would run out before you got money to buy more?: Never true Do you have trouble paying for medicines?: No Do you have trouble getting transportation to medical appointments?: No Do you have trouble paying your heating and electricity bill?: No Do you have trouble taking care of your child, family member or friend?: No Do you have trouble with day-to-day activities such as bathing, preparing meals, shopping, managing finances, etc.?: No Are you currently unemployed and looking for a job?: No Are you interested in more education?: No Please select the resources that you would like help with: None Currently or been in a relationship where the following occur: No concerns reported THRIVE Score: 0 AUDIT C Alcohol Use Questionnaire (AUDIT-C) 1. How often do you have a drink containing alcohol?: Never 3. How often do you have six or more drinks on one occasion?: Never Total Score: 0 JIHAN-7 AMB Questionnaire JIHAN-7 Date IJHAN - 7 assessed: 12/29/23 Feeling nervous, anxious, or on edge: 0 = Not at all Not being able to stop or control worryin = Not at all Worrying too much about different things: 0 = Not at all Trouble relaxin = Not at all Being so restless that it is hard to sit still: 0 = Not at all Becoming easily annoyed or irritable: 0 = Not at all Feeling afraid as if something awful might happen: 0 = Not at all Total JIHAN-7 score (0-4 normal; 5-9 mild; 10-14 moderate; 15-21 severe): 0 Source: Developed by Drs. Dom Nichole, Shell Salvador, Max Chan and colleagues, with an educational mabel from [employer]. Review of Systems Const Denies poor appetite and Denies weakness Eyes Denies no additional complaints ENT Reports Normal hearing present, Denies dizziness, Denies nasal congestion, Denies tinnitus and Denies sore throat Card Denies chest pain, Denies syncope, Denies rapid heart rate and Denies dyspnea Resp Denies cough and Denies dyspnea GI Denies change in stool character, Reports constipation, Denies diarrhea, Denies nausea and Denies vomiting Denies urinary frequency, Denies difficulty voiding and Denies dysuria Neuro Reports Normal hearing present, Denies confusion, Denies dizziness, Denies syncope and Denies weakness Psych Denies confusion Physical exam (Primary Care) Vital Signs: Last Vital Signs Pulse 70 07/02/24 09:54 BP 124/78 07/02/24 09:54 Pulse Ox 98 07/02/24 09:54 Oxygen Delivery Method Room Air 07/02/24 09:54 BMI result Body Mass Index 22.1 Tobacco/Smoking Status: Tobacco use Status Tobacco use date assessed 12/29/23 07/02/24 10:02 Patient Tobacco Use Status Never used Tobacco 07/02/24 10:31 Tobacco use type Cigarette 07/02/24 10:31 e-Cigarette/Vaping Use Never Used 07/02/24 10:31 PHQ-9: PHQ-9 Score PHQ-9: Total score 1 07/02/24 10:34 Thrive Assessment: Date of Thrive Assessment Date Thrive assessed 06/26/24 07/02/24 10:02 Currently or been in a relationship where the following occur: No concerns reported Const General: No confusion Orientation/consciousness: No confusion HENMT Head: Yes normocephalic Ears: external ears normal and TM's normal bilaterally Face and sinus: Yes normal facial exam Mouth: moist mucous membranes Throat: Yes tonsils normal Eyes Conjunctivae: conjunctivae normal Pupils: Equal, round and reactive pupils present and Pupil accommodation reflex normal Direct Ophthalmoscopy: normal light reflex Neck Neck: No lymphadenopathy Thyroid: Thyroid normal Chest Chest palpation & inspection: normal inspection of the chest Resp Effort & Inspection: normal respiratory effort and no audible wheezes Auscultation: clear to auscultation bilaterally, no crackles, no wheezes and lung sounds not diminished Cardio Rate: regular rate Rhythm: regular rhythm Peripheral pulses: radial pulses present and dorsalis pedis present GI Palpation (GI): no masses Auscultation: normal bowel sounds and normoactive bowel sounds Rectal Exam - Female: deferred Skin General skin exam: no rashes or lesions noted Rashes: no rashes Neuro General: No confusion Cranial nerves: Yes Equal, round and reactive pupils present and Yes Normal hearing present Cognition (Neuro): normal cognition Gait exam (Neuro): Normal gait present Motor exam (neuro): 5/5 motor strength present throughout Deep tendon reflexes (DTR's): Right brachioradialis reflex intensity grade: 2+, Left brachioradialis reflex intensity grade: 2+, Right patellar reflex intensity grade: 2+ and Left patellar reflex intensity grade: 2+ Extrem General: No edema Assessment and Plan Assessment & Plan (1) Annual physical exam: Code(s): Z00.00 - Encounter for general adult medical examination without abnormal findings Plan: Patient is advised to eat healthy, keep well hydrated, keep active and have adequate sleep. (2) Osteopenia: Comment: 2021, 03/2024 Code(s): M85.80 - Other specified disorders of bone density and structure, unspecified site Plan: Reviewed the notes with endocrinology and continuing with present monitoring. 2025 will order for now the bone density (3) Hypertension: Code(s): I10 - Essential (primary) hypertension Plan: Continue with blood pressure medication. Decrease salt intake and exercise on losartan 25 mg once a day (4) Generalized anxiety disorder: Comment: talking to Nurse (12/2023) Code(s): F41.1 - Generalized anxiety disorder Plan: Continue with present medication of Lexapro 20 mg once a day (5) GERD (gastroesophageal reflux disease): Code(s): K21.9 - Gastro-esophageal reflux disease without esophagitis Plan: Avoid the foods that causes that usually spicy foods, tomato products, juices, coffee, soda and foods that your sensitive to. After eating do not lie down, allow 3-4 hours before in lie down. And keep the head of bed above 30 degrees to avoid the acid from going up. (6) Breast cancer screening by mammogram: Code(s): Z. - Encounter for screening mammogram for malignant neoplasm of breast Plan: Reminded about mammogram (7) Asthma: Code(s): J45.909 - Unspecified asthma, uncomplicated (8) Constipation: Code(s): K59.00 - Constipation, unspecified (9) Left shoulder pain: Code(s): M25.512 - Pain in left shoulder (10) Plantar wart, right foot: Code(s): B07.0 - Plantar wart Orders: Orders MM tomosynthesis screening BI Today Z. - Encounter for screening mammogram for malignant neoplasm of breast Comprehensive Met. Panel 6 Months I10 - Essential (primary) hypertension Thyroid Stimulating Hormone 6 Months I10 - Essential (primary) hypertension Lipid Panel 6 Months E78.00 - Pure hypercholesterolemia, unspecified, I10 - Essential (primary) hypertension Vitamin B12 and Folate 6 Months I10 - Essential (primary) hypertension UA CC w/rflx Micro + Cult 6 Months I10 - Essential (primary) hypertension, R30.0 - Dysuria Vitamin D 25-OH Total 6 Months I10 - Essential (primary) hypertension PT Evaluation and Treatment Today M25.512 - Pain in left shoulder Complete Blood Count Auto Diff 6 Months I10 - Essential (primary) hypertension Free T4 (Free Thyroxine) 6 Months I10 - Essential (primary) hypertension Medications: New famotidine 20 mg PO DAILY PRN 60 tabs 0RF gerd K21.9 - Gastro-esophageal reflux disease without esophagitis Refilled losartan 25 mg PO DAILY 90 tabs 1RF I10 - Essential (primary) hypertension Coding Level of Care Code Est Pt Prev Care >65y(81644) Diagnoses Annual physical exam Z00.00 Osteopenia M85.80 Hypertension I10 Generalized anxiety disorder F41.1 GERD (gastroesophageal reflux disease) K21.9 Breast cancer screening by mammogram Z12. Asthma J45.909 Constipation K59.00 Left shoulder pain M25.512 Plantar wart, right foot B07.0
== END 2024-07-02 10:55 | disposition home or self-care (01) ==
PROVIDERS: PCP Internal Medicine; Visit Provider Internal Medicine
DX: Z00.00 Encounter for general adult medical examination without abnormal findings (principal); M85.80 Other specified disorders of bone density and structure, unspecified site; I10 Essential (primary) hypertension; F41.1 Generalized anxiety disorder; K21.9 Gastro-esophageal reflux disease without esophagitis; J45.909 Unspecified asthma, uncomplicated; K59.00 Constipation, unspecified; M25.512 Pain in left shoulder; B07.0 Plantar wart
CPT/HCPCS: 99397

== ENCOUNTER 2024-07-13 08:22 | Outpatient (AMB) | payer MEDICARE, OTHER, SELFPAY ==
[2024-07-13 08:45] VITALS: BP 110/70; PULSE 73; TEMP 36.8; O2SAT 95; BMI 22.3
--- NOTE | 2024-07-13 08:45 | AM.OFFWIN_ITS ---
Intake Vital Signs 07/13/24 08:45 Height 5 ft 5 in Weight 134 lb BMI 22.3 BP 110/70 Blood Pressure Location Lt brachial Position Sitting Pulse 73 Pulse Source Pulse Oximeter Temp 98.2 F Temp Source Oral Pulse Oximetry (%) 95 Oxygen Delivery Method Room Air Intake Visit Reasons: EP-congestion, sore throat, b/l ears fluid Intake Note: pt c/o congestion, sore throat, fluid/ ? impacted cerumen in ears. Started Tuesday. Seen yesterday at [facility] Patient Tobacco Use Status: Never used Tobacco Allergies amoxicillin Allergy (Verified 07/13/24 09:00) Rash ciprofloxacin Allergy (Verified 07/13/24 09:00) Rash clindamycin Allergy (Verified 07/13/24 09:00) rash, hives hydroxychloroquine [From Plaquenil] Allergy (Verified 07/13/24 09:00) Rash neomycin Allergy (Verified 07/13/24 09:00) Rash ezetimibe Adverse Reaction (Unknown, Verified 07/13/24 09:00) Diarrhea fenofibrate Adverse Reaction (Unknown, Verified 07/13/24 09:00) stomach pain, heart burn lisinopril Adverse Reaction (Unknown, Verified 07/13/24 09:00) dry cough pravastatin Adverse Reaction (Unknown, Verified 07/13/24 09:00) Muscle Pain bactrim Allergy (Mild, Uncoded 07/13/24 09:00) Rash Do you need a note to return to daycare/school/sports/work: No HPI HPI Comments History of Present Illness Details 74 y/o female patient who presents to [facility] walk in clinic with c/o URI symptoms since tuesday. [facility] Medical History (Updated 07/02/24 @ 10:44 by Kevyn Monique MD) Asthma Pruritus Rash Vaginal yeast infection Dysuria Genital warts Right hip tendinitis Right hip pain Osteoarthritis of fingers of both hands Osteoarthritis of carpometacarpal joint of left thumb Left hand weakness Skin exam, screening for cancer Screening for breast cancer Left ankle strain Anxiety Right ankle sprain Screening for hypothyroidism Screening for hyperlipidemia Screening for diabetes mellitus Encounter to establish care Mood disorder High blood pressure Fibromyalgia Surgical History Status post right foot surgery History of colonoscopy History of laparoscopy History of delivery History of skin graft Family History Daughter Mental health disorder Autism Sister FH: HTN (hypertension) Mother FH: HTN (hypertension) Other Substance use disorder Social History (Updated 07/02/24 @ 10:31 by Kevyn Monique MD) Household Members: None Housing: Apartment Alcohol intake: current Comment: 2x a year Patient Tobacco Use Status: Never used Tobacco Tobacco use type: Cigarette e-Cigarette/Vaping Use: Never Used Second Hand Smoke Exposure: No service: No Current occupational status: retired Sexual orientation: Straight/Heterosexual Gender identity: Female Cognitive needs: No Hearing needs: No Vision needs: Yes (glasses) Physical Exam Vital Signs: Last Vital Signs Temp 98.2 F 07/13/24 08:45 Pulse 73 07/13/24 08:45 BP 110/70 07/13/24 08:45 Pulse Ox 95 07/13/24 08:45 Oxygen Delivery Method Room Air 07/13/24 08:45 BMI result Body Mass Index 22.3 Const General: comfortable Orientation/consciousness: patient oriented x3 HEENT Head: Yes normocephalic Ears: external ears normal and TM abnormal bulging bilateral, erythematous bilateral and with fluid behind the TM bilateral General nose exam: Normal external nose present Face and sinus: Yes sinuses nontender Mouth: moist mucous membranes Throat: Yes postnasal drainage Resp Effort & Inspection: normal respiratory effort Auscultation: clear to auscultation bilaterally, no crackles, no rales, no rhonchi and no wheezes Cardio Heart sounds: S1 normal heart sound present and S2 normal heart sound present Neuro General: patient oriented x3 Results AMB Rapid Strep AMB Rapid Strep Negative Last Edit by Emil Mooney CMA on 07/13/24 09:11 Results Reviewed Results Reviewed: Laboratory Last Values Strep Scn Rapid Clinic Negative 07/13/24 09:10 Assessment & Plan Assessment & Plan (1) Acute URI of multiple sites: Code(s): J06.9 - Acute upper respiratory infection, unspecified Plan: Zrytec BID Flonase nasal spray Acetaminophen for pain relief. Rapid Strep negative. Orders: Orders SARS-CoV2/FLU/RSV Today J06.9 - Acute upper respiratory infection, unspecified AMB Rapid Strep Screen Today Z13.9 - Encounter for screening, unspecified Coding Level of Care Code Est Pt Level 3 (30859) Diagnoses Acute URI of multiple sites J06.9 Time Spent (min) 15
== END 2024-07-13 09:58 | disposition home or self-care (01) ==
PROVIDERS: PCP Internal Medicine; Visit Provider Nurse Practitioner Family
DX: Z13.9 Encounter for screening, unspecified (principal); J06.9 Acute upper respiratory infection, unspecified

== ENCOUNTER 2024-07-13 08:22 | Outpatient (REF) | payer MEDICARE, OTHER, SELFPAY ==
[2024-07-13 11:03] LABS: Influenza A PCR NEGATIVE (Negative); Influenza B PCR NEGATIVE (Negative); Resp Syncy Virus RNA Qual PCR NEGATIVE (Negative); SARS COV2 PCR INHOUSE NEGATIVE (Negative)
== END 2024-07-13 08:23 | disposition home or self-care (01) ==
LOC: HO.LAB 08:22
PROVIDERS: PCP Internal Medicine; Visit Provider Nurse Practitioner Family
DX: J06.9 Acute upper respiratory infection, unspecified (principal)
CPT/HCPCS: 0241U; 87880; 99212

== ENCOUNTER 2024-08-10 13:32 | Emergency (ER) | payer MEDICARE, OTHER, SELFPAY ==
--- NOTE | 2024-08-10 13:34 | ED_ITS ---
HPI - General Adult General Chief complaint: Dizziness Stated complaint: high BP, dizzy, feels faint Time Seen by Provider: 08/10/24 14:00 Source: patient Mode of arrival: ambulatory Limitations: no limitations History of Present Illness ED Provider: marcellus STANLEY narrative: Patient history of fibromyalgia hyper in depression anxiety been feeling dizzy for last 1 year nonspecific no relation with the position no nausea no vomiting used to be on gabapentin decrease the dose to 200 mg from 300 feel little off balance for last few days getting worse no headache head injury Related Data Home Medications ?Medication ?Instructions ?Recorded ?Confirmed acetaminophen 325 mg tablet 650 mg PO Q6H PRN 04/23/22 07/02/24 dupilumab 300 mg/2 mL subcutaneous 300 mg subcut Q2W 04/25/24 07/02/24 pen injector ([employer]) calcium carb and lactate 200 1 tab PO BID 07/02/24 07/02/24 mg-vitamin D3 6.25 mcg (250 unit) tablet escitalopram oxalate 20 mg tablet 20 mg PO DAILY 07/02/24 07/02/24 flaxseed oil 1,000 mg capsule 1,000 mg PO DAILY 07/02/24 07/02/24 gabapentin 300 mg capsule 300 mg PO DAILY 07/02/24 07/02/24 magnesium glycinate 400 mg PO .QD 07/02/24 07/02/24 cetirizine 10 mg capsule (All Day 10 mg PO DAILY PRN 07/13/24 Allergy (cetirizine)) Previous Rx's ?Medication ?Instructions ?Recorded famotidine 20 mg tablet 20 mg PO DAILY PRN gerd #60 tabs 07/02/24 losartan 25 mg tablet 25 mg PO DAILY #90 tabs 07/02/24 meclizine 12.5 mg tablet 12.5 mg PO TID PRN dizziness #20 08/10/24 tabs Allergies Allergy/AdvReac Type Severity Reaction Status Date / Time amoxicillin Allergy Rash Verified 08/10/24 13:38 ciprofloxacin Allergy Rash Verified 08/10/24 13:38 clindamycin Allergy rash, hives Verified 08/10/24 13:38 hydroxychloroquine Allergy Rash Verified 08/10/24 13:38 [From Plaquenil] neomycin Allergy Rash Verified 08/10/24 13:38 ezetimibe AdvReac Unknown Diarrhea Verified 08/10/24 13:38 fenofibrate AdvReac Unknown stomach Verified 08/10/24 13:38 pain, heart burn lisinopril AdvReac Unknown dry cough Verified 08/10/24 13:38 pravastatin AdvReac Unknown Muscle Pain Verified 08/10/24 13:38 bactrim Allergy Mild Rash Uncoded 07/13/24 09:00 Review of Systems 2 Review of Systems: Yes all other systems are reviewed and are negative PMFSH Past Medical History Medical History Asthma Pruritus Rash Vaginal yeast infection Dysuria Genital warts Right hip tendinitis Right hip pain Osteoarthritis of fingers of both hands Osteoarthritis of carpometacarpal joint of left thumb Left hand weakness Skin exam, screening for cancer Screening for breast cancer Left ankle strain Anxiety Right ankle sprain Screening for hypothyroidism Screening for hyperlipidemia Screening for diabetes mellitus Encounter to establish care Mood disorder High blood pressure Fibromyalgia Surgical History Status post right foot surgery History of colonoscopy History of laparoscopy History of delivery History of skin graft Family History Family History Daughter Mental health disorder Autism Sister FH: HTN (hypertension) Mother FH: HTN (hypertension) Other Substance use disorder Social History Social History Household Members: None Housing: Apartment Alcohol intake: current Comment: 2x a year Patient Tobacco Use Status: Never used Tobacco Tobacco use type: Cigarette Smoked in Last 30 Days: No e-Cigarette/Vaping Use: Never Used Second Hand Smoke Exposure: No Use of substances other than those prescribed or required for medical reasons: No Advance Directives: No Advance Directives Information Provided: Yes Do you have a plan to hurt others: No Plan service: No Current occupational status: retired Sexual orientation: Straight/Heterosexual Gender identity: Female Cognitive needs: No Hearing needs: No Vision needs: Yes (glasses) Physical Exam ED Vital Signs: Vital Signs - 24 hr 08/10/24 13:36 08/10/24 14:00 08/10/24 14:23 Temperature 98.0 F 97.9 F Pulse Rate 81 79 70 Respiratory Rate 18 18 Blood Pressure 156/85 H 149/79 H 155/82 H Pulse Oximetry 98 97 Oxygen Delivery Method Room Air Room Air 08/10/24 14:23 08/10/24 14:24 08/10/24 15:56 Temperature Pulse Rate 106 H 78 69 Respiratory Rate 17 Blood Pressure 169/98 H 170/89 H 145/80 H Pulse Oximetry 99 Oxygen Delivery Method Room Air BMI result Body Mass Index 21.3 Appearance: Alert. Oriented X3. No acute distress. Eyes: PERRLA, No Nystagmus increases dizziness on turning head to right ENT: Pharynx normal. Oral Mucosa moist Neck: Normal inspection. Neck supple. CVS: Normal heart rate and rhythm. Pulses normal. Respiratory: No respiratory distress. Equal air entry bilateral, no wheezing/rales/rhonchi Abdomen: Soft and nontender. Bowel sounds are present, no mass palpable, no CVA tenderness Skin: Skin warm and dry. Normal skin color. Normal skin turgor. Extremities: No lower extremity edema. No calf tenderness Neuro: Oriented X 3. No motor deficit. No sensory deficit.No cerebellar signs , cranial nerves II-XII intact Course Course Course Narrative: This is a rapid medical exam performed by Josr Nichols NP: Additional HPI, ROS, PE not included below will be deferred to primary provider. Patient is a 74-year-old female with history of asthma, osteoarthritis, anxiety, HTN, fibromyalgia presenting to the ED with complaint of dizziness for the past few days, states felt was worse overnight. Also currently titrating down on her gabapentin. Plan: EKG, labs, viral serology Medications Administered Discontinued Medications Generic Name Dose Route Start Last Admin Trade Name Freq PRN Reason Stop Dose Admin Meclizine HCl 25 mg 08/10/24 14:16 08/10/24 14:21 Meclizine Hcl 25 Mg Tablet PO 08/10/24 14:17 25 mg ONCE ONE Administration Medical Decision Making Medical Decision Making [facility] Narrative: pt with dizziness especially on turning her head to right , orthostatics normal , felt better after meclizine , will dc home on meclizine , no signs on GEOGRAPHIC INFORMATION SYSTEM ANALYST involvement Differential Diagnosis Differential Diagnoses: The differential diagnosis associated with the presentation includes Lab Data [facility] Lab Attestation statement: I reviewed the patient's lab results. 08/10/24 13:52 08/10/24 13:52 Labs: Lab Results 08/10/24 Range/Units 13:52 WBC 5.3 (4.8-10.8) X10*3/uL RBC 4.77 (4.20-5.50) X10*6/uL Hgb 14.5 (12.0-16.0) g/dl Hct 41.7 (37.0-47.0) % MCV 87.4 (80.0-98.0) fL MCH 30.4 (27.0-33.0) pg MCHC 34.8 (31.0-35.0) g/dl RDW 12.7 (11.0-16.0) % Plt Count 262 (160-400) X10*3/uL MPV 8.6 L (9.4-12.3) fL Immature Gran % (Auto) 0.4 (0.0-0.4) % Neut % (Auto) 68.2 (45-73) % Lymph % (Auto) 21.3 (20-40) % Major % (Auto) 7.8 (2-11) % Eos % (Auto) 1.5 (0-4) % Baso % (Auto) 0.8 (0-2) % Lymph # (Auto) 1.1 L (1.2-4.9) X10*3/uL Major # (Auto) 0.4 (0.1-1.2) X10*3/uL Eos # (Auto) 0.1 (0.0-0.4) X10*3/uL Baso # (Auto) 0.0 (0.0-0.2) X10*3/uL Abs Immat Gran (auto) 0.02 (0.00-0.03) X10*3/uL Absolute Neuts (auto) 3.6 (2.0-8.3) x10*3/uL Absolute Nucleated RBC 0.000 (0.0-0.012) X10*3/uL Nucleated RBC % (auto) 0.0 (0.0-0.2) /100WBC Sodium 133 L (135-145) mmol/L Potassium 3.9 (3.3-5.1) mmol/L Chloride 100 (96-108) mmol/L Carbon Dioxide 26 (22-29) mmol/L Anion Gap 11 L (12-20) BUN 11 (9-16) mg/dL Creatinine 0.71 (0.5-1.4) mg/dL Estim Creat Clear Calc 67.0 Estimated GFR > 60 Random Glucose 102 (60-115) mg/dL Calcium 10.2 (8.4-10.2) mg/dL Magnesium 2.0 (1.6-2.6) mg/dL Total Bilirubin 0.5 (0.0-1.0) mg/dL AST 23 (5-31) U/L ALT 19 (0-31) U/L Alkaline Phosphatase 77 (39-117) U/L Troponin I High Sens < 2.7 (<3.5-17.0) ng/L Total Protein 6.4 L (6.5-8.0) g/dL Albumin 4.4 (3.5-5.0) g/dL Influenza Type A (PCR) NEGATIVE (Negative) Influenza Type B (PCR) NEGATIVE (Negative) RSV RNA Qual (PCR) NEGATIVE (Negative) SARS-CoV-2 RNA (RT-PCR) NEGATIVE (Negative) Discharge Plan Discharge Clinical Impression: Benign paroxysmal positional vertigo Patient Disposition: Home, Self-Care Instructions: Benign Paroxysmal Positional Vertigo (ED) Additional Instructions: care and cautions as adv Take meclizine 1 tab every 8 hrs as needed for dizziness f/u with pcp Prescriptions: New meclizine 12.5 mg tablet 12.5 mg PO TID PRN (Reason: dizziness) Qty: 20 0RF No Action acetaminophen 325 mg tablet 650 mg PO Q6H PRN gabapentin 300 mg capsule 300 mg PO DAILY calcium carb,lactat-vitamin D3 200 mg-6.25 mcg (250 unit) tablet 1 tab PO BID magnesium glycinate 100 mg magnesium capsule 400 mg PO .QD flaxseed oil 1,000 mg capsule 1,000 mg PO DAILY Rx Instructions: administer with a meal losartan 25 mg tablet 25 mg PO DAILY Qty: 90 1RF famotidine 20 mg tablet 20 mg PO DAILY PRN (Reason: gerd) Qty: 60 0RF escitalopram oxalate 20 mg tablet 20 mg PO DAILY Dupixent Pen 300 mg/2 mL pen injector 300 mg subcut Q2W All Day Allergy (cetirizine) 10 mg capsule 10 mg PO DAILY PRN Print Language: Khmer
[2024-08-10 13:36] VITALS: BP 156/85; PULSE 81; RESP 18; TEMP 36.7; O2SAT 98; BMI 21.3
--- NOTE | 2024-08-10 13:37 | ECG_ITS ---
Test Reason : DIZZINESS Blood Pressure : / mmHG Vent. Rate : 073 BPM Atrial Rate : 073 BPM P-R Int : 160 ms QRS Dur : 082 ms QT Int : 390 ms P-R-T Axes : 070 -10 062 degrees QTc Int : 429 ms Normal sinus rhythm Normal ECG When compared with ECG of 05-JAN-2023 11:15, No significant change was found Referred By: Jennifer Nichols Electronically Signed By:ALEX SANDERS
[2024-08-10 13:59] LABS: MANUAL DIFF FLAG NO
[2024-08-10 14:00] VITALS: BP 149/79; PULSE 79; RESP 18; TEMP 36.6; O2SAT 97
[2024-08-10 14:00] LABS: Basophils Percent Auto 0.8 % (0-2); Eosinophils Absolute Auto 0.1 X10*3/uL (0.0-0.4); Eosinophils Percent Auto 1.5 % (0-4); Hematocrit 41.7 % (37.0-47.0); Hemoglobin 14.5 g/dl (12.0-16.0); Imm Gran Abs Auto 0.02 X10*3/uL (0.00-0.03); Imm Gran Pct Auto 0.4 % (0.0-0.4); Lymphocytes Absolute Auto 1.1 X10*3/uL (1.2-4.9); Lymphocytes Percent Auto 21.3 % (20-40); Mean Corpuscular HGB Conc 34.8 g/dl (31.0-35.0); Mean Corpuscular Hemoglobin 30.4 pg (27.0-33.0); Mean Corpuscular Volume 87.4 fL (80.0-98.0); Mean Platelet Volume 8.6 fL (9.4-12.3); Monocytes Absolute Auto 0.4 X10*3/uL (0.1-1.2); Monocytes Percent Auto 7.8 % (2-11); Neutrophils Absolute Auto 3.6 x10*3/uL (2.0-8.3); Neutrophils Percent Auto 68.2 % (45-73); Platelet Count 262 X10*3/uL (160-400); Red Blood Count 4.77 X10*6/uL (4.20-5.50); Red Cell Distribution Width 12.7 % (11.0-16.0); White Blood Count 5.3 X10*3/uL (4.8-10.8)
[2024-08-10 14:21] LABS: Alanine Aminotransferase 19 U/L (0-31); Albumin Level 4.4 g/dL (3.5-5.0); Alkaline Phosphatase 77 U/L (39-117); Anion Gap 11 (12-20); Aspartate Amino Transferase 23 U/L (5-31); Bilirubin Total 0.5 mg/dL (0.0-1.0); Blood Urea Nitrogen 11 mg/dL (9-16); Calcium 10.2 mg/dL (8.4-10.2); Carbon Dioxide 26 mmol/L (22-29); Chloride 100 mmol/L (96-108); Estimated Glomerular Filt Rate > 60; Glucose Random 102 mg/dL (60-115); Potassium 3.9 mmol/L (3.3-5.1); Sodium 133 mmol/L (135-145); Total Protein 6.4 g/dL (6.5-8.0)
[2024-08-10] MEDS: Meclizine HCl 25 MG TABLET PO (14:21)
[2024-08-10 14:23] VITALS: BP 155/82; BP 169/98; PULSE 106; PULSE 70
[2024-08-10 14:24] VITALS: BP 170/89; PULSE 78
[2024-08-10 14:33] LABS: Troponin-I High Sensitivity < 2.7 ng/L (<3.5-17.0)
[2024-08-10 14:40] LABS: Influenza A PCR NEGATIVE (Negative); Influenza B PCR NEGATIVE (Negative); Resp Syncy Virus RNA Qual PCR NEGATIVE (Negative); SARS COV2 PCR INHOUSE NEGATIVE (Negative)
[2024-08-10 15:56] VITALS: BP 145/80; PULSE 69; RESP 17; O2SAT 99
[2024-08-10 16:43] VITALS: BP 142/86; PULSE 60; RESP 18; TEMP 36.7; O2SAT 99
== END 2024-08-10 16:44 | disposition home or self-care (01) ==
PROVIDERS: Registered Nurse Emergency; Emergency Provider Internal Medicine; PCP Internal Medicine
DX: H81.10 Benign paroxysmal vertigo, unspecified ear (principal); Z03.818 Encounter for observation for suspected exposure to other biological agents ruled out
CPT/HCPCS: 0241U; 80053; 83735; 84484; 85025; 93005; 99283; 99285

== ENCOUNTER → 2024-08-10 13:37 | Outpatient (BNV) | payer MEDICARE, OTHER, SELFPAY | PROVIDERS: Emergency Provider Internal Medicine; PCP Internal Medicine; Visit Provider Internal Medicine | DX: R42 Dizziness and giddiness (principal) | CPT/HCPCS: 93010 ==

== ENCOUNTER 2024-08-22 08:50 | Outpatient (AMB) | payer MEDICARE, OTHER, SELFPAY ==
--- NOTE | 2024-08-22 08:52 | A.OFFPC_ITS ---
Vital Signs 08/22/24 08:53 Height 5 ft 6 in Weight 132 lb BMI 21.3 BP 118/68 Blood Pressure Location Lt brachial Position Sitting Pulse 81 Pulse Source Pulse Oximeter Pulse Oximetry (%) 96 Oxygen Delivery Method Room Air Intake Visit Reasons: Vertigo Allergies amoxicillin Allergy (Verified 08/22/24 08:57) Rash ciprofloxacin Allergy (Verified 08/22/24 08:57) Rash clindamycin Allergy (Verified 08/22/24 08:57) rash, hives hydroxychloroquine [From Plaquenil] Allergy (Verified 08/22/24 08:57) Rash neomycin Allergy (Verified 08/22/24 08:57) Rash ezetimibe Adverse Reaction (Unknown, Verified 08/22/24 08:57) Diarrhea fenofibrate Adverse Reaction (Unknown, Verified 08/22/24 08:57) stomach pain, heart burn lisinopril Adverse Reaction (Unknown, Verified 08/22/24 08:57) dry cough pravastatin Adverse Reaction (Unknown, Verified 08/22/24 08:57) Muscle Pain bactrim Allergy (Mild, Uncoded 08/22/24 08:57) Rash Medication List - Last Reconciled 08/22/24 by Norma Shelton PA-C acetaminophen 650 mg PO Q6H PRN calcium carb,lactat-vitamin D3 200 mg-6.25 mcg (250 unit) 1 tab PO BID cetirizine (All Day Allergy (cetirizine)) 10 mg PO DAILY PRN dupilumab (Dupixent) 300 mg subcut Q2W escitalopram oxalate 20 mg PO DAILY famotidine 20 mg PO DAILY PRN flaxseed oil 1,000 mg PO DAILY gabapentin 300 mg PO DAILY losartan 25 mg PO DAILY magnesium glycinate 400 mg PO .QD meclizine 12.5 mg PO TID PRN Tobacco use date assessed: 12/29/23 Fall risk assessment: No Falls in past year Last assessed Fall Risk: 08/22/24 Dental Screening Dental Screen Date: 07/02/24 HPI Vertigo HPI Details 73-year-old female with a history of hyp ertension, generalized anxiety disorder, hypercholesterolemia, GERD last seen by Dr. Monique June 2024 coming in for acute problem. In review of the notes, patient was seen in [facility] 08/10 for vertigo discharged home with meclizine. Patient states her symptoms of dizziness can come on while sitting or with positional changes. She has been tapering down on gabapentin in his now down to 300 mg daily. She describes her dizziness as more of a lightheadedness then a room spinning sensation makes her unsteady on her feet. Her blood pressures at home have been normal 120-130 systolic and 70-80 diastolic. The dizzy spells typically improve throughout the day and do not last longer than 5 minutes. [facility] Medical History Asthma Pruritus Rash Vaginal yeast infection Dysuria Genital warts Right hip tendinitis Right hip pain Osteoarthritis of fingers of both hands Osteoarthritis of carpometacarpal joint of left thumb Left hand weakness Skin exam, screening for cancer Screening for breast cancer Left ankle strain Anxiety Right ankle sprain Screening for hypothyroidism Screening for hyperlipidemia Screening for diabetes mellitus Encounter to establish care Mood disorder High blood pressure Fibromyalgia Surgical History Status post right foot surgery History of colonoscopy History of laparoscopy History of delivery History of skin graft Family History Daughter Mental health disorder Autism Sister FH: HTN (hypertension) Mother FH: HTN (hypertension) Other Substance use disorder Social History Household Members: None Housing: Apartment Alcohol intake: current Comment: 2x a year Patient Tobacco Use Status: Never used Tobacco Tobacco use type: Cigarette e-Cigarette/Vaping Use: Never Used Second Hand Smoke Exposure: No service: No Current occupational status: retired Sexual orientation: Straight/Heterosexual Gender identity: Female Cognitive needs: No Hearing needs: No Vision needs: Yes (glasses) Questionnaire Thrive Questionnaire Date Thrive assessed: 06/26/24 I am a: Patient What is your living situation today?: I have a steady place to live Within the past 12 months, did the food you bought not last and you didn't have the money to get more?: Never true Within the past 12 months, did you worry whether your food would run out before you got money to buy more?: Never true Do you have trouble paying for medicines?: No Do you have trouble getting transportation to medical appointments?: No Do you have trouble paying your heating and electricity bill?: No Do you have trouble taking care of your child, family member or friend?: No Do you have trouble with day-to-day activities such as bathing, preparing meals, shopping, managing finances, etc.?: No Are you currently unemployed and looking for a job?: No Are you interested in more education?: No Please select the resources that you would like help with: None Currently or been in a relationship where the following occur: No concerns reported THRIVE Score: 0 AUDIT C Alcohol Use Questionnaire (AUDIT-C) 1. How often do you have a drink containing alcohol?: Never 3. How often do you have six or more drinks on one occasion?: Never Total Score: 0 JIHAN-7 AMB Questionnaire JIHAN-7 Date JIHAN - 7 assessed: 12/29/23 Source: Developed by Drs. Dom Nichole, Shell Salvador, Max Chan and colleagues, with an educational mabel from [employer]. Review of Systems Const Denies body aches, Denies chills, Denies fever(s) and Denies headache(s) Eyes Reports no additional complaints ENT Denies vertigo, Reports dizziness, Denies headache(s), Denies hearing loss and Denies disequilibrium Card Denies chest pain, Denies syncope, Denies irregular heart rhythm, Denies leg edema, Reports lightheadedness and Denies dyspnea Resp Denies dyspnea GI Reports no additional complaints Reports no additional complaints Musc Reports no additional complaints and Reports abnormal gait (Occasionally unsteady) Skin/Breast Reports system reviewed and no additional complaints, except as documented Neuro Reports abnormal gait (Occasionally unsteady), Denies vertigo, Reports dizziness, Denies syncope, Denies headache(s) and Denies disequilibrium Physical exam (Primary Care) Vital Signs: Last Vital Signs Pulse 81 08/22/24 08:53 BP 118/68 08/22/24 08:53 Pulse Ox 96 08/22/24 08:53 Oxygen Delivery Method Room Air 08/22/24 08:53 BMI result Body Mass Index 21.3 Tobacco/Smoking Status: Tobacco use Status Tobacco use date assessed 12/29/23 08/22/24 08:54 Patient Tobacco Use Status Never used Tobacco 08/22/24 08:54 Tobacco use type Cigarette 08/22/24 08:54 e-Cigarette/Vaping Use Never Used 08/22/24 08:54 Thrive Assessment: Date of Thrive Assessment Date Thrive assessed 06/26/24 08/22/24 08:54 Currently or been in a relationship where the following occur: No concerns reported Coding Level of Care Code Est Pt Level 4 (41580) Diagnoses IBS (irritable bowel syndrome) K58.9 Benign paroxysmal positional vertigo H81.10 Dizziness R42 Assessment & Plan Assessment & Plan (1) IBS (irritable bowel syndrome): Code(s): K58.9 - Irritable bowel syndrome, unspecified Category: Medical Plan: Advised patient to follow up with manager document as it is likely she is not having enough protein in may be experiencing hypoglycemia throughout the day. She has many dietary restrictions and would benefit from a meal plan. (2) Benign paroxysmal positional vertigo: Code(s): H81.10 - Benign paroxysmal vertigo, unspecified ear Category: Medical Plan: Unlikely at this time as she does not have room spinning sensation and is not induced by certain head movements. Can consider vestibular therapy if dizziness does not improve with eye evaluation, nutritional evaluation and increase in electrolytes. (3) Dizziness: Code(s): R42 - Dizziness and giddiness Category: Medical Plan: Patient having dizziness throughout the day describes as lightheaded sensation that can come on at any random time. Advised patient to avoid driving until symptoms are under better control. Discussed the importance of staying well hydrated as well as replacing electrolytes with Pedialyte or liquid IV. Recommend follow up with manager document as she has low protein intake and may be experiencing hypoglycemia. Also recommend following up with eye doctor as her vision and dizziness tends to worsen with wearing her glasses. Advised patient to follow up if symptoms do not improve with above recommendations. Plan This note was constructed using voice recognition software. While every effort has been made to ensure accuracy and inspector wire products, still areas may have been included sometimes these areas may affect the content or meeting of the given symptoms. Total time spent caring for the patient today was 30 minutes. This includes time spent before the visit reviewing the chart, time spent during the visit, and time spent after the visit and documentation. Orders: Referrals Nutrition/Dietitian Referral K58.9 - Irritable bowel syndrome, unspecified
[2024-08-22 08:53] VITALS: BP 118/68; PULSE 81; O2SAT 96; BMI 21.3
== END 2024-08-22 09:51 | disposition home or self-care (01) ==
LOC: HO.HMCH 08:50
PROVIDERS: PCP Internal Medicine
DX: K58.9 Irritable bowel syndrome, unspecified (principal); R42 Dizziness and giddiness

== ENCOUNTER → 2024-08-22 08:50 | Outpatient (BNVA) | payer MEDICARE, OTHER, SELFPAY | PROVIDERS: PCP Internal Medicine | DX: K58.9 Irritable bowel syndrome, unspecified (principal); H81.10 Benign paroxysmal vertigo, unspecified ear | CPT/HCPCS: 99212 ==

== ENCOUNTER 2024-09-11 09:52 | Outpatient (AMB) | payer MEDICARE, OTHER, SELFPAY ==
[2024-09-11 09:57] VITALS: BMI 21.7
--- NOTE | 2024-09-11 09:57 | A.OFFVIS_ITS ---
VS Expanded 09/11/24 09:57 09/11/24 14:17 Height 5 ft 6 in 5 ft 6 in Weight 134 lb 4.184 oz 134 lb BMI 21.7 21.6 Intake Visit Reasons: IBS/CONFIRMED Allergies amoxicillin Allergy (Verified 08/22/24 08:57) Rash ciprofloxacin Allergy (Verified 08/22/24 08:57) Rash clindamycin Allergy (Verified 08/22/24 08:57) rash, hives hydroxychloroquine [From Plaquenil] Allergy (Verified 08/22/24 08:57) Rash neomycin Allergy (Verified 08/22/24 08:57) Rash ezetimibe Adverse Reaction (Unknown, Verified 08/22/24 08:57) Diarrhea fenofibrate Adverse Reaction (Unknown, Verified 08/22/24 08:57) stomach pain, heart burn lisinopril Adverse Reaction (Unknown, Verified 08/22/24 08:57) dry cough pravastatin Adverse Reaction (Unknown, Verified 08/22/24 08:57) Muscle Pain bactrim Allergy (Mild, Uncoded 08/22/24 08:57) Rash Nutrition Presentation Details: Pt presents for MNT for IBS Pt reports following low FODMAP diet the majority of the time. Pt reports having 3 meals/day physical activity: Get Together 3-4 times/wk Resides at [place] and participates, minimally, in foods offered there Green tea and monk fruit B: sweet potato/spinach soup L: oatmeal with nuts or fruits Dinner: brown rice/chicken, spinach Choosing lactose free sources of foods does not include soy BS Monitoring Most Recent Diabetes Results: Creatinine 0.71 mg/dL (0.5-1.4) 08/10/24 Blood Urea Nitrogen 11 mg/dL (9-16) 08/10/24 Sodium 133 mmol/L (135-145) L 08/10/24 Potassium 3.9 mmol/L (3.3-5.1) 08/10/24 Chloride 100 mmol/L (96-108) 08/10/24 Carbon Dioxide 26 mmol/L (22-29) 08/10/24 Calcium 10.2 mg/dL (8.4-10.2) 08/10/24 AST 23 U/L (5-31) 08/10/24 ALT 19 U/L (0-31) 08/10/24 Total Protein 6.4 g/dL (6.5-8.0) L 08/10/24 Albumin 4.4 g/dL (3.5-5.0) 08/10/24 TNA-Ddjoyfu-Ki.Jeor Equation Height: 5 ft 6 in Weight: 134 lb Resting Metabolic Rate: 1139.72 Calculated Activity Level: Moderate Activity (+1000 to promote weight gain) Calories Needed to Maintain Weight: 1766.57 [facility] Medical History Asthma Pruritus Rash Vaginal yeast infection Dysuria Genital warts Right hip tendinitis Right hip pain Osteoarthritis of fingers of both hands Osteoarthritis of carpometacarpal joint of left thumb Left hand weakness Skin exam, screening for cancer Screening for breast cancer Left ankle strain Anxiety Right ankle sprain Screening for hypothyroidism Screening for hyperlipidemia Screening for diabetes mellitus Encounter to establish care Mood disorder High blood pressure Fibromyalgia Surgical History Status post right foot surgery History of colonoscopy History of laparoscopy History of delivery History of skin graft Family History Daughter Mental health disorder Autism Sister FH: HTN (hypertension) Mother FH: HTN (hypertension) Other Substance use disorder Social History Household Members: None Housing: Apartment Alcohol intake: current Comment: 2x a year Patient Tobacco Use Status: Never used Tobacco Tobacco use type: Cigarette e-Cigarette/Vaping Use: Never Used Second Hand Smoke Exposure: No service: No Current occupational status: retired Sexual orientation: Straight/Heterosexual Gender identity: Female Cognitive needs: No Hearing needs: No Vision needs: Yes (glasses) Assessment & Plan Assessment & Plan (1) IBS (irritable bowel syndrome): Code(s): K58.9 - Irritable bowel syndrome, unspecified Category: Medical Plan: Wt: 61 Kg ( 09/16 ) Est kcal needs as per MSJ: 1800 + 1000 + to promote weight gain (40% carb, 30% protein/fat) Est fluid needs as per 25-30 ml/d: 1800 Est prot per day as per 1 g/kg bw: 61 Recommend fiber intake : 8-10 g per day and gradually increase to 25-28 g per day for women and 35-38 g for men or as tolerated Recommend sodium intake per day : less than 2300 mg Educated patient on: ( R = reviewed V = verbalizes understanding N/R = needs review N/A = not applicable * Review low fodmap food concepts : R * protein sources of foods : R * hydration: R * Physical activity: Benefits a precaution: R V Patient Instructions: Include protein in your soups (2 eggs in morning soup ) Coding Level of Care Code Nutr Indiv Intake (84855) Diagnoses IBS (irritable bowel syndrome) K58.9 Time Spent (min) 30
[2024-09-11 14:17] VITALS: BMI 21.6
== END 2024-09-11 10:44 | disposition home or self-care (01) ==
PROVIDERS: PCP Internal Medicine; Visit Provider Dietitian, Registered
DX: K58.9 Irritable bowel syndrome, unspecified (principal)

== ENCOUNTER → 2024-09-11 09:52 | Outpatient (BNVA) | payer MEDICARE, OTHER, SELFPAY | PROVIDERS: PCP Internal Medicine; Visit Provider Dietitian, Registered | DX: K58.9 Irritable bowel syndrome, unspecified (principal) | CPT/HCPCS: 97802 ==

== ENCOUNTER 2024-10-08 13:53 | Outpatient (AMB) | payer MEDICARE, OTHER, SELFPAY ==
[2024-10-08 13:55] VITALS: BP 130/78; PULSE 84; O2SAT 99; BMI 21.6
--- NOTE | 2024-10-08 13:55 | A.OFFVIS_ITS ---
Vital Signs 10/08/24 13:55 Height 5 ft 6 in Weight 133 lb 9.602 oz BMI 21.6 BP 130/78 Blood Pressure Location Rt brachial Position Sitting Pulse 84 Pulse Source Pulse Oximeter Pulse Oximetry (%) 99 Oxygen Delivery Method Room Air Intake Visit Reasons: pre colonoscopy/ hx of polyps Intake Note: NEW PATIENT Brigitte presents in office today for a scheduled colo scrn Prior hx of colo/egd? [place] 2017, EGD 2020. [facility] GI Meds and Allergies reviewed? Y Any significant concerns or questions? No significant concerns or sx at this time. Pt still following low FODMAP w/o difficulty. Pt is also set to see frame maker based on some abnormal labs per PCP. PCP is concerned regarding low protein and sodium intake. Pharmacy verified? [facility]. 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 Circuit Boards Required: No Allergies amoxicillin Allergy (Verified 10/08/24 13:58) Rash ciprofloxacin Allergy (Verified 10/08/24 13:58) Rash clindamycin Allergy (Verified 10/08/24 13:58) rash, hives hydroxychloroquine [From Plaquenil] Allergy (Verified 10/08/24 13:58) Rash neomycin Allergy (Verified 10/08/24 13:58) Rash ezetimibe Adverse Reaction (Unknown, Verified 10/08/24 13:58) Diarrhea fenofibrate Adverse Reaction (Unknown, Verified 10/08/24 13:58) stomach pain, heart burn lisinopril Adverse Reaction (Unknown, Verified 10/08/24 13:58) dry cough pravastatin Adverse Reaction (Unknown, Verified 10/08/24 13:58) Muscle Pain bactrim Allergy (Mild, Uncoded 08/22/24 08:57) Rash HPI Comments Details: 74 y.o F with PMH of HTN, osteopenia, IBS, GERD who is here to discuss follow up colo. Pt reports last colo was done in 2018 ([facility]) and showed 2 polyps. Was asked to return in 5 years. Pt herself doesnt abd pain, N/V/D, blood in stool. No fam hx of CRC or IBD in fdrs. Has known IBS. Used to be constipation predominant now has daily stools that are sometimes mushy. Occ has cramping abd pain. 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 Also recalls having severe cramping and diarrhea phil after having red meat so avoids it now. Pt also concerned about low protein and low sodium levels and was told by her PCP that this is due to her dietary pattern. [facility] Medical History Asthma Pruritus Rash Vaginal yeast infection Dysuria Genital warts Right hip tendinitis Right hip pain Osteoarthritis of fingers of both hands Osteoarthritis of carpometacarpal joint of left thumb Left hand weakness Skin exam, screening for cancer Screening for breast cancer Left ankle strain Anxiety Right ankle sprain Screening for hypothyroidism Screening for hyperlipidemia Screening for diabetes mellitus Encounter to establish care Mood disorder High blood pressure Fibromyalgia Surgical History Status post right foot surgery History of colonoscopy History of laparoscopy History of delivery History of skin graft Family History Daughter Mental health disorder Autism Sister FH: HTN (hypertension) Mother FH: HTN (hypertension) Other Substance use disorder Social History Household Members: None Housing: Apartment Alcohol intake: current Comment: 2x a year Patient Tobacco Use Status: Never used Tobacco Tobacco use type: Cigarette e-Cigarette/Vaping Use: Never Used Second Hand Smoke Exposure: No service: No Current occupational status: retired Sexual orientation: Straight/Heterosexual Gender identity: Female Cognitive needs: No Hearing needs: No Vision needs: Yes (glasses) Review of Systems Const All systems reviewed & are unremarkable except as noted in HPI and below Physical Exam Vital Signs: Last Vital Signs Pulse 84 10/08/24 13:55 BP 130/78 10/08/24 13:55 Pulse Ox 99 10/08/24 13:55 Oxygen Delivery Method Room Air 10/08/24 13:55 BMI result Body Mass Index 21.6 No apparent distress Nonicteric Abdomen soft, nondistended Alert and oriented x3, normal gait Assessment & Plan Assessment & Plan (1) Delayed allergic reaction to red meat: Code(s): T78.1XXA - Other adverse food reactions, not elsewhere classified, initial encounter Category: Medical (2) Hyponatremia: Code(s): E87.1 - Hypo-osmolality and hyponatremia Category: Medical (3) Personal history of colonic polyps: Code(s): Z86.0100 - Personal history of colon polyps, unspecified Category: Medical Plan 1. Personal hx of polyps Due for colo. request 2 bottle prep - doesnt recognize pictures of suprep or clenpiq - thinks may be was plenvu. Instructions reviewed. Pt aware will be booked on elective basis. 2. IBS Due to report of severe sx with red meat ingestion will check alpha gal. 3. Hyponatremia ? tea toast diet vs siadh vs med induced. labs ordered pt encouraged to discuss further mgmt with PCP Orders: Orders Osmolality, Serum Today E87.1 - Hypo-osmolality and hyponatremia Sodium Urine Random Today E87.1 - Hypo-osmolality and hyponatremia UA and rflx microscopic Today E87.1 - Hypo-osmolality and hyponatremia Other Ref Test - Misc Today T78.1XXA - Other adverse food reactions, not elsewhere classified, initial encounter Osmolality Urine Today E87.1 - Hypo-osmolality and hyponatremia Basic Metabolic Panel Today E87.1 - Hypo-osmolality and hyponatremia Medications: New [id number] 140-9-5.2 gram (Plenvu) PO as per instructions given in office 3 ea 0RF dicyclomine 10 mg PO BID PRN 90 caps 1RF abdominal pain Coding Level of Care Code New Pt Level 4 (91619) Diagnoses Delayed allergic reaction to red meat T78.1XXA Hyponatremia E87.1 Personal history of colonic polyps Z86.0100
== END 2024-10-08 15:10 | disposition home or self-care (01) ==
PROVIDERS: PCP Internal Medicine; Visit Provider Internal Medicine
DX: E87.1 Hypo-osmolality and hyponatremia (principal); Z12.11 Encounter for screening for malignant neoplasm of colon; Z86.0100 Personal history of colon polyps, unspecified
CPT/HCPCS: 99204

== ENCOUNTER 2024-10-08 13:53 | Outpatient (REF) | payer MEDICARE, OTHER, SELFPAY ==
[2024-10-08 15:33] LABS: Appearance Urine Clear; Color Urine Yellow; Glucose Urine UA Negative (Negative); Leukocyte Esterase Urine Negative (Negative); Nitrite Urine Negative (Negative); PH 7.5 (5.0-9.0); Urine Blood Negative (Negative); Urine Ketones Negative (Negative); Urine Protein Negative (Neg-Trace)
== END 2024-10-08 13:54 | disposition home or self-care (01) ==
LOC: HO.LAB 13:53
PROVIDERS: PCP Internal Medicine; Visit Provider Internal Medicine
DX: E87.1 Hypo-osmolality and hyponatremia (principal); T78.1XXA Other adverse food reactions, not elsewhere classified, initial encounter; Z86.0100 Personal history of colon polyps, unspecified
CPT/HCPCS: 36415; 81003; 86003; 99202

== ENCOUNTER 2024-10-09 09:27 | Outpatient (AMB) | payer MEDICARE, OTHER, SELFPAY ==
[2024-10-09 09:34] VITALS: BMI 21.8
--- NOTE | 2024-10-09 09:34 | A.OFFVIS_ITS ---
VS Expanded 10/09/24 09:34 Height 5 ft 6 in Weight 135 lb 2.294 oz BMI 21.8 Intake Visit Reasons: IBS/left vm Allergies amoxicillin Allergy (Verified 10/08/24 13:58) Rash ciprofloxacin Allergy (Verified 10/08/24 13:58) Rash clindamycin Allergy (Verified 10/08/24 13:58) rash, hives hydroxychloroquine [From Plaquenil] Allergy (Verified 10/08/24 13:58) Rash neomycin Allergy (Verified 10/08/24 13:58) Rash ezetimibe Adverse Reaction (Unknown, Verified 10/08/24 13:58) Diarrhea fenofibrate Adverse Reaction (Unknown, Verified 10/08/24 13:58) stomach pain, heart burn lisinopril Adverse Reaction (Unknown, Verified 10/08/24 13:58) dry cough pravastatin Adverse Reaction (Unknown, Verified 10/08/24 13:58) Muscle Pain bactrim Allergy (Mild, Uncoded 08/22/24 08:57) Rash Nutrition Presentation Details: Pt presents for MNT f/u for IBS Pt reports feeling good overal . Working on including a variety of foods and reducing on those that trigger IBS symptoms (particularly beans) Reports adding a serving of protein daily (eggs, deli poultry), sometimes has pea protein (KOS) however reports bloating symptoms therefore will be reducing portion and frequency Reports keeping hydrated, having water with meals/snacks, having non dairy milk choices Denies constipation , diarrhea, denies vomiting take a MVI every other day BS Monitoring Most Recent Diabetes Results: Creatinine 0.71 mg/dL (0.5-1.4) 08/10/24 Blood Urea Nitrogen 11 mg/dL (9-16) 08/10/24 Sodium 133 mmol/L (135-145) L 08/10/24 Potassium 3.9 mmol/L (3.3-5.1) 08/10/24 Chloride 100 mmol/L (96-108) 08/10/24 Carbon Dioxide 26 mmol/L (22-29) 08/10/24 Calcium 10.2 mg/dL (8.4-10.2) 08/10/24 AST 23 U/L (5-31) 08/10/24 ALT 19 U/L (0-31) 08/10/24 Total Protein 6.4 g/dL (6.5-8.0) L 08/10/24 Albumin 4.4 g/dL (3.5-5.0) 08/10/24 PFSH Medical History Asthma Pruritus Rash Vaginal yeast infection Dysuria Genital warts Right hip tendinitis Right hip pain Osteoarthritis of fingers of both hands Osteoarthritis of carpometacarpal joint of left thumb Left hand weakness Skin exam, screening for cancer Screening for breast cancer Left ankle strain Anxiety Right ankle sprain Screening for hypothyroidism Screening for hyperlipidemia Screening for diabetes mellitus Encounter to establish care Mood disorder High blood pressure Fibromyalgia Surgical History Status post right foot surgery History of colonoscopy History of laparoscopy History of delivery History of skin graft Family History Daughter Mental health disorder Autism Sister FH: HTN (hypertension) Mother FH: HTN (hypertension) Other Substance use disorder Social History Household Members: None Housing: Apartment Alcohol intake: current Comment: 2x a year Patient Tobacco Use Status: Never used Tobacco Tobacco use type: Cigarette e-Cigarette/Vaping Use: Never Used Second Hand Smoke Exposure: No service: No Current occupational status: retired Sexual orientation: Straight/Heterosexual Gender identity: Female Cognitive needs: No Hearing needs: No Vision needs: Yes (glasses) Assessment & Plan Assessment & Plan (1) IBS (irritable bowel syndrome): Code(s): K58.9 - Irritable bowel syndrome, unspecified Category: Medical Plan: Wt: 61 Kg ( 09/16 ), 61 kg (10/16) Est kcal needs as per MSJ: 1800 + 500/1000 promote wt gain or prevent weight loss (40% carb, 30% protein/fat) Est fluid needs as per 25-30 ml/d: 1800 Est prot per day as per 1 g/kg bw: 61 Recommend fiber intake : 8-10 g per day and gradually increase to 25-28 g per day for women and 35-38 g for men or as tolerated Recommend sodium intake per day : less than 2300 mg Educated patient on: ( R = reviewed V = verbalizes understanding N/R = needs review N/A = not applicable * Review low fodmap food concepts : R, V * protein sources of foods : R, V * hydration: R, V * Physical activity: Benefits a precaution: R V Patient Instructions: Continue as established Reduce on portion and frequency of consumption of those foods causing bloating symptoms (peas as example) Coding Level of Care Code Nutr Indiv Subseq (35437) Diagnoses IBS (irritable bowel syndrome) K58.9 Time Spent (min) 30
== END 2024-10-09 10:05 | disposition home or self-care (01) ==
PROVIDERS: PCP Internal Medicine; Visit Provider Dietitian, Registered
DX: K58.9 Irritable bowel syndrome, unspecified (principal)

== ENCOUNTER → 2024-10-09 09:27 | Outpatient (BNVA) | payer MEDICARE, OTHER, SELFPAY | PROVIDERS: PCP Internal Medicine; Visit Provider Dietitian, Registered | DX: I10 Essential (primary) hypertension (principal); F32.A Depression, unspecified; M79.7 Fibromyalgia; E78.5 Hyperlipidemia, unspecified; K58.9 Irritable bowel syndrome, unspecified; K21.9 Gastro-esophageal reflux disease without esophagitis; R42 Dizziness and giddiness; E87.1 Hypo-osmolality and hyponatremia; Z79.899 Other long term (current) drug therapy; Z71.3 Dietary counseling and surveillance | CPT/HCPCS: 97803; 99212 ==

== ENCOUNTER 2024-10-09 10:19 | Outpatient (AMB) | payer MEDICARE, OTHER, SELFPAY ==
--- NOTE | 2024-10-09 10:30 | MHC.PC.OV ---
Vital Signs 10/09/24 10:32 Height 5 ft 6 in Weight 134 lb 6 oz BMI 21.7 BP 110/76 Blood Pressure Location Lt brachial Position Sitting Intake Visit Reasons: Follow Up Intake Note: Patient is here to follow up oN Dizziness. 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: Not Required per policy Accompanied by: Self / Same As Patient Allergies amoxicillin Allergy (Verified 10/09/24 10:32) Rash ciprofloxacin Allergy (Verified 10/09/24 10:32) Rash clindamycin Allergy (Verified 10/09/24 10:32) rash, hives hydroxychloroquine [From Plaquenil] Allergy (Verified 10/09/24 10:32) Rash neomycin Allergy (Verified 10/09/24 10:32) Rash ezetimibe Adverse Reaction (Unknown, Verified 10/09/24 10:32) Diarrhea fenofibrate Adverse Reaction (Unknown, Verified 10/09/24 10:32) stomach pain, heart burn lisinopril Adverse Reaction (Unknown, Verified 10/09/24 10:32) dry cough pravastatin Adverse Reaction (Unknown, Verified 10/09/24 10:32) Muscle Pain bactrim Allergy (Mild, Uncoded 10/09/24 10:32) Rash Medication List - Last Reconciled 10/09/24 by Norma Shelton PA-C acetaminophen 650 mg PO Q6H PRN calcium carb,lactat-vitamin D3 200 mg-6.25 mcg (250 unit) 1 tab PO BID cetirizine (All Day Allergy (cetirizine)) 10 mg PO DAILY PRN dicyclomine 10 mg PO BID PRN dupilumab (Dupixent) 300 mg subcut Q2W escitalopram oxalate 20 mg PO DAILY famotidine 20 mg PO DAILY PRN flaxseed oil 1,000 mg PO DAILY gabapentin 200 mg PO BEDTIME losartan 25 mg PO DAILY magnesium glycinate 400 mg PO .QD meclizine 12.5 mg PO TID PRN [id number] 140-9-5.2 gram (Plenvu) PO as per instructions given in office Tobacco use date assessed: 10/09/24 Fall risk assessment: No Falls in past year Last assessed Fall Risk: 10/09/24 Dental Screening Dental Screen Date: 07/02/24 HPI Follow Up HPI Details 74-year-old female with a history of hypertension, generalized anxiety disorder, hypercholesterolemia, GERD last seen by July 2024 coming in for follow up.? In review of the notes, patient was seen by [facility] 10/08/2024 plan to have colonoscopy, blood work and follow up.?Patient also following with nutrition for IBS. Today she tells us she has been following with nutrition for diet and has seen an improvement since increasing her sodium and protein intake. Her dizziness and lightheadedness has significantly improved since following these dietary changes. She has not been to the eye doctor as her vision has normalized. She has been decreasing the gabapentin per her doctor and has also seen an improvement in the dizziness due to the dose change. She has no acute concerns today. [facility] Medical History Asthma Pruritus Rash Vaginal yeast infection Dysuria Genital warts Right hip tendinitis Right hip pain Osteoarthritis of fingers of both hands Osteoarthritis of carpometacarpal joint of left thumb Left hand weakness Skin exam, screening for cancer Screening for breast cancer Left ankle strain Anxiety Right ankle sprain Screening for hypothyroidism Screening for hyperlipidemia Screening for diabetes mellitus Encounter to establish care Mood disorder High blood pressure Fibromyalgia Surgical History Status post right foot surgery History of colonoscopy History of laparoscopy History of delivery History of skin graft Family History Daughter Mental health disorder Autism Sister FH: HTN (hypertension) Mother FH: HTN (hypertension) Other Substance use disorder Social History Household Members: None Housing: Apartment Alcohol intake: current Comment: 2x a year Patient Tobacco Use Status: Never used Tobacco Tobacco use type: Cigarette e-Cigarette/Vaping Use: Never Used Second Hand Smoke Exposure: No service: No Current occupational status: retired Sexual orientation: Straight/Heterosexual Gender identity: Female Cognitive needs: No Hearing needs: No Vision needs: Yes (glasses) Questionnaire Thrive Questionnaire Date Thrive assessed: 06/26/24 I am a: Patient What is your living situation today?: I have a steady place to live Within the past 12 months, did the food you bought not last and you didn't have the money to get more?: Never true Within the past 12 months, did you worry whether your food would run out before you got money to buy more?: Never true Do you have trouble paying for medicines?: No Do you have trouble getting transportation to medical appointments?: No Do you have trouble paying your heating and electricity bill?: No Do you have trouble taking care of your child, family member or friend?: No Do you have trouble with day-to-day activities such as bathing, preparing meals, shopping, managing finances, etc.?: No Are you currently unemployed and looking for a job?: No Are you interested in more education?: No Please select the resources that you would like help with: None Currently or been in a relationship where the following occur: No concerns reported THRIVE Score: 0 JIHAN-7 AMB Questionnaire JIHAN-7 Date JIHAN - 7 assessed: 12/29/23 Source: Developed by Drs. Dom Nichole, Shell Salvador, Max Chan and colleagues, with an educational mabel from [employer]. Review of Systems Const Denies body aches, Denies chills, Denies fever(s), Denies headache(s) and Denies poor appetite Eyes Reports no additional complaints ENT Details: Vision has normalized Denies dizziness and Denies headache(s) Card Denies chest pain, Denies syncope, Denies irregular heart rhythm, Denies lightheadedness and Denies dyspnea Resp Denies cough and Denies dyspnea GI Reports no additional complaints Reports no additional complaints Musc Reports no additional complaints and Denies abnormal gait Skin/Breast Reports system reviewed and no additional complaints, except as documented Neuro Denies abnormal gait, Denies dizziness, Denies syncope and Denies headache(s) Psych Reports no additional complaints Physical exam (Primary Care) Vital Signs: Last Vital Signs BP 110/76 10/09/24 10:32 BMI result Body Mass Index 21.7 Tobacco/Smoking Status: Tobacco use Status Tobacco use date assessed 10/09/24 10/09/24 10:36 Patient Tobacco Use Status Never used Tobacco 10/09/24 10:36 Tobacco use type Cigarette 10/09/24 10:36 e-Cigarette/Vaping Use Never Used 10/09/24 10:36 Thrive Assessment: Date of Thrive Assessment Date Thrive assessed 06/26/24 10/09/24 10:36 Currently or been in a relationship where the following occur: No concerns reported Const General: cooperative, healthy appearing, comfortable and no acute distress Orientation/consciousness: patient oriented x3 HENMT Head: Yes normocephalic Ears: hearing grossly normal bilaterally, TM's normal bilaterally and EAC's normal General nose exam: Normal external nose present Eyes General: appearance normal, both eyes and all related structures Conjunctivae: conjunctivae normal Neck Neck: Yes full ROM and Yes no lymphadenopathy Resp Effort & Inspection: normal respiratory effort Auscultation: clear to auscultation bilaterally, no crackles, no rales, no rhonchi and no wheezes Cardio Rate: regular rate Rhythm: regular rhythm Skin General skin exam: no rashes or lesions noted Neuro General: patient oriented x3 Gait exam (Neuro): Normal gait present Extrem General: Yes normal to inspection, Yes full ROM and No edema Psych Affect: normal affect Attitude: cooperative Insight: Good insight present (Psych) Judgement: Good judgement present (Psych) Coding Level of Care Code Est Pt Level 3 (47576) Diagnoses Hypertension I10 Depression F32.A Fibromyalgia M79.7 Hyperlipidemia E78.5 IBS (irritable bowel syndrome) K58.9 GERD (gastroesophageal reflux disease) K21.9 Dizziness R42 Hyponatremia E87.1 Assessment & Plan Assessment & Plan (1) Hypertension: Code(s): I10 - Essential (primary) hypertension Category: Medical Plan: Continue on current blood pressure medication. Avoid salt intake and encourage healthy diet and regular exercise. Blood pressure at goal today 110/76 (2) Depression: Code(s): F32.A - Depression, unspecified Category: Medical Plan: Currently following with a counselor and taking escitalopram (3) Fibromyalgia: Comment: on gabapentin Code(s): M79.7 - Fibromyalgia Category: Medical Plan: Presently on gabapentin has been decreasing the dose and has seen an improvement in her dizziness and lightheadedness (4) Hyperlipidemia: Code(s): E78.5 - Hyperlipidemia, unspecified Category: Medical Plan: Avoid foods that are high in cholesterol such as red meat, fried foods, eggs and baked goods. Triglyceride goal of less than 150 and LDL goal of less than 130. Not currently on medical management. Reminded about blood work (5) IBS (irritable bowel syndrome): Code(s): K58.9 - Irritable bowel syndrome, unspecified Category: Medical Plan: Continue to follow with Gastroenterology and continue on famotidine and dicyclomine (6) GERD (gastroesophageal reflux disease): Code(s): K21.9 - Gastro-esophageal reflux disease without esophagitis Category: Medical Plan: Avoid trigger foods such as citrus, tomato products, soda, caffeine, spicy foods and other foods that may be irritating to your stomach. Avoid laying flat 3-4 hours after eating and elevate the head of the bed 30 degrees to prevent acid from moving into the esophagus. Continue on famotidine (7) Dizziness: Code(s): R42 - Dizziness and giddiness Category: Medical Plan: Dizziness has been improving since following with the oracle programmer and increasing her sodium and protein intake. Continue to follow with oracle programmer and we will continue to monitor symptoms. (8) Hyponatremia: Code(s): E87.1 - Hypo-osmolality and hyponatremia Category: Medical Plan: Continue to monitor blood work repeat blood work ordered for December 2024. Plan This note was constructed using voice recognition software. While every effort has been made to ensure accuracy and mooner, still areas may have been included sometimes these areas may affect the content or meeting of the given symptoms. Total time spent caring for the patient today was 20 minutes. This includes time spent before the visit reviewing the chart, time spent during the visit, and time spent after the visit and documentation.
[2024-10-09 10:32] VITALS: BP 110/76; BMI 21.7
== END 2024-10-09 10:58 | disposition home or self-care (01) ==
PROVIDERS: PCP Internal Medicine
DX: I10 Essential (primary) hypertension (principal); F32.A Depression, unspecified; M79.7 Fibromyalgia; E78.5 Hyperlipidemia, unspecified; K58.9 Irritable bowel syndrome, unspecified; K21.9 Gastro-esophageal reflux disease without esophagitis; R42 Dizziness and giddiness; E87.1 Hypo-osmolality and hyponatremia

== ENCOUNTER 2024-11-06 11:44 | Outpatient (AMB) | payer MEDICARE, OTHER, SELFPAY ==
--- NOTE | 2024-11-06 11:44 | A.OFFPC_ITS ---
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: No Speeder Machine Operator: Not Required per policy Accompanied by: Self / Same As Patient Allergies amoxicillin Allergy (Verified 11/06/24 11:45) Rash ciprofloxacin Allergy (Verified 11/06/24 11:45) Rash clindamycin Allergy (Verified 11/06/24 11:45) rash, hives hydroxychloroquine [From Plaquenil] Allergy (Verified 11/06/24 11:45) Rash neomycin Allergy (Verified 11/06/24 11:45) Rash ezetimibe Adverse Reaction (Unknown, Verified 11/06/24 11:45) Diarrhea fenofibrate Adverse Reaction (Unknown, Verified 11/06/24 11:45) stomach pain, heart burn lisinopril Adverse Reaction (Unknown, Verified 11/06/24 11:45) dry cough pravastatin Adverse Reaction (Unknown, Verified 11/06/24 11:45) Muscle Pain bactrim Allergy (Mild, Uncoded 11/06/24 11:45) Rash Tobacco use date assessed: 11/06/24 Fall risk assessment: No Falls in past year Last assessed Fall Risk: 11/06/24 Dental Screening Dental Screen Date: 11/06/24 Did you have a dental visit in the last 12 months?: Yes Did you have a dental problem in the last 6 months where you did not have access to dental care?: No Was dental information given to patient?: Patient has dentist HPI Dizziness HPI Details 74-year-old female with a history of hyp ertension, generalized anxiety disorder, hypercholesterolemia, GERD last seen by August 2024 presenting via telehealth for follow up. Patient tells us today she was able to see physical therapy and was re-evaluated and she was started on new physical therapy regimen focusing on eye-vestibular connection. She was told it may take a few appointments to see good benefit. She does mention since starting these exercises she has seen an improvement in her symptoms. [facility] Medical History Asthma Pruritus Rash Vaginal yeast infection Dysuria Genital warts Right hip tendinitis Right hip pain Osteoarthritis of fingers of both hands Osteoarthritis of carpometacarpal joint of left thumb Left hand weakness Skin exam, screening for cancer Screening for breast cancer Left ankle strain Anxiety Right ankle sprain Screening for hypothyroidism Screening for hyperlipidemia Screening for diabetes mellitus Encounter to establish care Mood disorder High blood pressure Fibromyalgia Surgical History Status post right foot surgery History of colonoscopy History of laparoscopy History of delivery History of skin graft Family History Daughter Mental health disorder Autism Sister FH: HTN (hypertension) Mother FH: HTN (hypertension) Other Substance use disorder Social History Household Members: None Housing: Apartment Alcohol intake: current Comment: 2x a year Patient Tobacco Use Status: Never used Tobacco Tobacco use type: Cigarette e-Cigarette/Vaping Use: Never Used Second Hand Smoke Exposure: No service: No Current occupational status: retired Sexual orientation: Straight/Heterosexual Gender identity: Female Cognitive needs: No Hearing needs: No Vision needs: Yes (glasses) Questionnaire PHQ-9 Over the last 2 weeks, how often have you been bothered by any of the following problems? 1. Little interest or pleasure in doing things: more than half the days 2. Feeling down, depressed, or hopeless: nearly every day 3. Trouble falling or staying asleep, or sleeping too much: several days 4. Feeling tired or having little energy: several days 5. Poor appetite or overeating: not at all 6. Feeling bad about yourself - or that you are a failure or have let yourself or your family down: more than half the days 7. Trouble concentrating on things, such as reading the newspaper or watching television: several days 8. Moving or speaking so slowly that other people could have noticed. Or the opposite - being so fidgety or restless that you have been moving around a lot more than usual: not at all 9. Thoughts that you would be better off or of hurting yourself in some way: several days Total score: 11 Depression Screening Interpretation: Positive Depression Screening Done: Yes Source: Developed by Drs. Dom Nichole, Shell Salvador, Max Chan and colleagues, with an educational mabel from [employer]. Thrive Questionnaire Date Thrive assessed: 11/06/24 I am a: Patient What is your living situation today?: I have a steady place to live Within the past 12 months, did the food you bought not last and you didn't have the money to get more?: Never true Within the past 12 months, did you worry whether your food would run out before you got money to buy more?: Never true Do you have trouble paying for medicines?: No Do you have trouble getting transportation to medical appointments?: No Do you have trouble paying your heating and electricity bill?: No Do you have trouble taking care of your child, family member or friend?: No Do you have trouble with day-to-day activities such as bathing, preparing meals, shopping, managing finances, etc.?: No Are you currently unemployed and looking for a job?: No Are you interested in more education?: No Please select the resources that you would like help with: None Currently or been in a relationship where the following occur: No concerns reported THRIVE Score: 0 AUDIT C Alcohol Use Questionnaire (AUDIT-C) 1. How often do you have a drink containing alcohol?: Never Total Score: 0 JIHAN-7 AMB Questionnaire JIHAN-7 Date JIHAN - 7 assessed: 11/06/24 Feeling nervous, anxious, or on edge: 0 = Not at all Not being able to stop or control worryin = Not at all Worrying too much about different things: 0 = Not at all Trouble relaxin = Not at all Being so restless that it is hard to sit still: 0 = Not at all Becoming easily annoyed or irritable: 0 = Not at all Feeling afraid as if something awful might happen: 0 = Not at all Total JIHAN-7 score (0-4 normal; 5-9 mild; 10-14 moderate; 15-21 severe): 0 Source: Developed by Drs. Dom Nichole, Shell Salvador, Max Chan and colleagues, with an educational mabel from [employer]. Review of Systems Const Denies body aches, Denies chills and Denies fever(s) Eyes Reports no additional complaints ENT Reports dizziness (occasional), Denies nasal congestion and Denies tinnitus Card Denies chest pain, Denies leg edema, Denies lightheadedness and Denies dyspnea Resp Denies cough and Denies dyspnea GI Denies abdominal pain, Denies diarrhea, Denies nausea and Denies vomiting Reports no additional complaints Musc Reports no additional complaints Neuro Reports dizziness (occasional) Physical exam (Primary Care) Vital Signs: Physical Exam not performed today due to nature of telehealth visit Tobacco/Smoking Status: Tobacco use Status Tobacco use date assessed 11/06/24 11/06/24 11:49 Patient Tobacco Use Status Never used Tobacco 11/06/24 11:49 Tobacco use type Cigarette 11/06/24 11:49 e-Cigarette/Vaping Use Never Used 11/06/24 11:49 PHQ-9: PHQ-9 Score PHQ-9: Total score 11 11/06/24 12:02 Depression Screening Interpretation: Positive Thrive Assessment: Date of Thrive Assessment Date Thrive assessed 11/06/24 11/06/24 11:49 Currently or been in a relationship where the following occur: No concerns reported Telehealth Telehealth Telehealth Platform: Telephone Location of provider rendering services: practice address Location of patient: address on file Patient Identification confirmed using: Name, : Yes Telehealth method: voice only Patient verbally consented to treatment: Yes Patient verbally consented to billing insurance company: Yes Patient informed of any privacy concerns related to visit: Yes Coding Level of Care Code Tele Est Pt Level 3 (34444) Diagnoses Dizziness R42 Benign paroxysmal positional vertigo H81.10 Assessment & Plan Assessment & Plan (1) Dizziness: Code(s): R42 - Dizziness and giddiness Category: Medical Plan: Patient states dizziness has been improving with new vestibular-eye connection therapy being provided by [facility]. Continue to follow with physical therapy and please reach out to office if symptoms worsen or do not improve. (2) Benign paroxysmal positional vertigo: Code(s): H81.10 - Benign paroxysmal vertigo, unspecified ear Category: Medical Plan: Ruled out by Physical therapy. Plan This note was constructed using voice recognition software. While every effort has been made to ensure accuracy and heavy forger, still areas may have been included sometimes these areas may affect the content or meeting of the given symptoms. Total time spent caring for the patient today was 20 minutes. This includes time spent before the visit reviewing the chart, time spent during the visit, and time spent after the visit and documentation.
== END 2024-11-06 13:00 | disposition home or self-care (01) ==
LOC: HO.HMCH 11:44
PROVIDERS: PCP Internal Medicine
DX: R42 Dizziness and giddiness (principal)

== ENCOUNTER 2024-12-22 07:15 | Outpatient (REF) | payer MEDICARE, OTHER, SELFPAY ==
--- OUTSIDE RECORDS SUMMARY | 2024-12-22 07:19 | XMS_ITS | Clinical Summary ---
Author Organization [facility] Address [address] [place] [address] Care Team Providers Care Chief Radiologic Technologist Name Role Phone Yoko Jolly Primary Care Provider [phone] Allergies Active Allergy Reactions Criticality Noted Date Comments Amoxicillin 01/18/2011 AMOXICILLIN (BULK); rash Ciprofibrate Maculopapular Rash Clindamycin 01/18/2011 CLINDAMYCIN HCL (BULK); Rash Neomycin 08/31/2006 Hydroxychloroquine Sulfate 6 Sulfa Antibiotics 08/31/2006 Medications * This document contains information received from the source organization and may not represent a complete record from that organization. Escitalopram Oxalate 20 MG Tab 1.5 TABLET DAILY Active Losartan Potassium 50 MG Tab 1 Tablet daily 8 Active Gabapentin 300 MG Cap 2 Tablets daily 8 Active FLUTICASONE PROPIONATE, NASAL, (FLONASE) 50 MCG/ACT Suspension when needed seasonally Active Omeprazole 40 MG CAPSULE DELAYED RELEASE TAKE 1 CAPSULE BY MOUTH EVERY DAY 8 Active Active Problems Problem Noted Date Diagnosed Date Osteoarthrosis, generalized, hand 02/13/2008 Hypertension, essential 02/13/2008 Menopause 02/13/2008 Osteoarthritis Overview (03/23/2015): on plaquenil for a few months years ago Myopia Presbyopia Family History Medical History Relation Name Comments Diabetes Maternal grandmother Hypertension Mother Other Mother arthritis also aunt and ggm Hypertension Paternal grandmother Relation Name Status Comments Maternal grandmother Mother Paternal grandmother Social History Tobacco Use Types Packs/Day Years Used Date Smoking Tobacco: Never Smokeless Tobacco: Never Alcohol Use Standard Drinks/Week Comments No 0 (1 standard drink = 0.6 oz pur e alcohol) Intimate Partner Violence Answer Date R ecorded Fear of Current or Ex-Partner Not on file Emotionally Abused Not on file 06/10/2023 Physically Abused Not on file 06/10/2023 Sexually Abused Not on file 06/10/2023 Feel Safe at Home Not on file 06/10/2023 Comments Unknown Sex and Gender Information Value Date Recorded Sex Assigned at Female 10/08/2021 10:57 AM EST Legal Sex Female 9:48 PM EDT Gender Identity Female 10/08/2021 10:57 AM EST Sexual Orientation Straight 10/08/2021 10 :57 AM EST 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 Not on file Not on file Last Filed Vital Signs Vital Sign Reading Time Taken Comments Blood Pressure 130/82 02/13/2008 1:00 PM EDT Pulse 72 02/13/2008 1:00 PM EDT Temperature - - Respiratory Rate 12 02/13/2008 1:00 PM EDT Oxygen Saturation - - Inhaled Oxygen Concentration - - Weight - - Height - - Body Mass Index - - Plan of Treatment Health Maintenance Due Date Last Done Comments Hepatitis C Screening 1950 DTaP/Tdap/Td (1 - Tdap) 1970 Mammogram/Breast Imaging 1992 Pneumococcal 50+ years (1 of 1 - PCV) 2002 Zoster (Shingrix) (1 of 2) 2002 Bone Density 2017 COVID-19 Vaccine ( - 2023-2 5 season) 2024 Influenza (#1) 2024 RSV (1 - 1-dose 75+ series) 2027 HPV Vaccine Aged Out No longer eligi ble based on patient's age to complete this topic Hep A Aged Out No longer eligi ble based on patient's age to complete this topic Hep B Aged Out No longer eligi ble based on patient's age to complete this topic Hib Aged Out No longer eligi ble based on patient's age to complete this topic Meningococcal ACWY Aged Out No longer eligible based on patient's age to complete this topic Pap Smear Discontinued Zoster (Zostavax) Discontinued Insurance [id number] MEDICARE PART B FFS MEDICARE-SUPPLEMENTAL Care Teams Chief Radiologic Technologist Relationship Specialty Start Date End Date Yoko Jolly [address] [place] [address] [place] [id number] PCP - General Internal Medicine 03/19/16
--- OUTSIDE RECORDS SUMMARY | 2024-12-22 07:19 | XMS_ITS | Clinical Summary ---
Author Organization [facility] Address [address] [place] [address] Care Team Providers Care Refueling Ramp Attendant Name Role Phone Caitlyn Cano NP Primary Care Provider [phone] Allergies Active Allergy Reactions Criticality Noted Date Comments Amoxicillin Rash Low 01/05/2023 Sulfamethoxazole-Trimethoprim Rash Low 2022 Ciprofloxacin Rash Low 01/05/2023 Clindamycin Rash Low 01/05/2023 Hydroxychloroquine Rash Low 01/05/2023 Medications Medication Sig Dispensed Refills Start Date End Date Status escitalopram (LEXAPRO) tablet 10 mg Take 3 tablets (30 mg total) by mouth daily. 0 Active losartan (COZAAR) tablet 25 mg Take 1 tablet (25 mg total) by mouth daily. 0 Active gabapentin (NEURONTIN) 100 MG capsule Take 7 capsules (700 mg total) by mouth daily. 0 Active Cetirizine HCl 10 MG CAPS Take 1 capsule by mouth daily as needed. 0 Active vitamin D3 (cholecalciferol) 25 MCG (1000 UT) tablet Take 1 tablet (25 mcg total) by mouth daily. 0 Active CALCIUM PO Take 1 tablet by mouth daily. 0 Active acetaminophen (TYLENOL) 325 MG tablet Take 2 tablets (650 mg total) by mouth every 6 (six) hours as needed for pain. 0 Active Active Problems No known active problems Social History Tobacco Use Types Packs/Day Years Used Date Smoking Tobacco: Never Smokeless Tobacco: Never Tobacco Cessation:Counseling Given: Not Answered Alcohol Use Standard Drinks/Week Comments Not Currently 0 (1 standard drink = 0.6 oz pur e alcohol) Sex and Gender Information Value Date Recorded Sex Assigned at Not on file Gender Identity Not on file Sexual Orientation Not on file Job Start Date Occupation Industry Not on file Not on file Not on file Last Filed Vital Signs Vital Sign Reading Time Taken Comments Blood Pressure 152/81 01/19/2023 11:22 AM EDT Pulse 63 01/19/2023 11:28 AM EDT Temperature 36.3 ??C (97.3 ??F) 01/19/2023 11:28 AM E DT Respiratory Rate 14 01/19/2023 11:28 AM EDT Oxygen Saturation 99% 01/19/2023 11:28 AM EDT Inhaled Oxygen Concentration - - Weight 70.3 kg (155 lb) 01/19/2023 9:20 AM EDT Height 166.4 cm (5' 5.5 ) 01/19/2023 9:20 AM EDT Body Mass Index 25.4 01/19/2023 9:20 AM EDT Plan of Treatment Health Maintenance Due Date Last Done Comments Hepatitis C Screening 1950 Depression Screening 1964 Preventative Health Evaluation 1970 Colon Cancer Screening (Colonoscopy) 1997 Breast Cancer Screening (Mammogram) 2002 Fall Risk Assessment 2017 Osteoporosis Screening (DEXA Scan) 2017 COVID-19 Vaccine ( season) 2024 01/13/2021, 12/22/2020 Influenza Vaccine (#1) 2024 , 06/16/2020, 06/19/2019, Additional history exists DTap / Tdap / Td (2 - Td or Tdap) 04/27/2026 04/27/2016 RSV Adult > 60+ Yrs or (1 - 1-dose 75+ series) 2027 Shingrix-Zoster Vaccine Completed 05/07/2019, 12/20 Pneumococcal Vaccine Completed 05/30/2020, 04/03/20 18 Hepatitis B Vaccines Aged Out No long er eligible based on patient's age to complete this topic RSV Ped < 20 months Aged Out No longe r eligible based on patient's age to complete this topic Care Teams Refueling Ramp Attendant Relationship Specialty Start Date End Date Caitlyn Cano NP [address] [place] [address] [place] [id number] PCP - General Family Medicine 01/17/23
--- OUTSIDE RECORDS SUMMARY | 2024-12-22 07:19 | XMS_ITS | Patient Health Record ---
Author Organization [facility] Address [address] [place] [address] Care Team Providers Care Patient Partner Name Role Phone chantelle sun Primary Care Provider Unavailabl e Allergies Allergen (clinical drug ingredient) Drug/Non Drug Allergy documented on EMR Reaction Allergy Type Onset Date Status sulfamethoxazole / trimethoprim Bactrim rash Drug Allergy Active amoxicillin Amoxicillin rash Drug Allergy Active hydroxychloroquine Hydroxychloroquine rash Rickey g Allergy Active neomycin Neomycin rash Drug Allergy Active Substance with sulfonamide structure and antibacterial mechanism of action (substance) Sulfa Antibiotics rash Drug Allergy Active ciprofloxacin Ciprofloxacin rash Drug Allergy Active clindamycin Clindamycin rash, hives Drug Allergy Active Reason For Referral No Information Medications Medication SIG (Take, Route, Frequency, Duration) Notes Start Date End Date Status Vitamin D3 25 MCG (1000 UT) 1 tablet Orally Once a day 3 times a week Active Acetaminophen 8 Hour 650 MG 2 tablets as needed Orally every 8 hrs Active Multivitamin - 1 tablet Orally Once a day Not-Taking Famotidine 20 MG 1 tablet at bedtime as needed Orally Once a day Active Losartan Potassium 25 MG 1 tablet Orally Once a day Active Gabapentin 600 MG 1 tablet Orally Once a day Active Escitalopram Oxalate 20 MG 1 tablet Orally Once a day 30MG Active Problems Problem Type SNOMED Code ICD Code Onset Dates Problem Status W/U Status Risk Notes Problem [id number] 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 Plan Of Treatment No Information Insurance Providers Payer Name Payer Address Payer Phone Subscriber Number Group Number Insured Name Patient Relationship to Insured Coverage Start Date Coverage End Date [employer] of [place] [address] [place] [id number] Self - patient is the insured [facility] [address] [place] [id number] Self - patient is the insured Medical (General) History Medical History History ICD Code right lateral ankle fracture hypertension osteoporosis previous right ankle fracture left ankle sprains osteopenia osteoarthritis anxiety depression fibromyalgia mood disorder Surgical History Surgery Date(Month/Year) 09/13/1983 colonoscopy laparoscopy skin graft on right foot Hospitalization History Reason Date(Month/Year) (girl) 09/13/1983
--- OUTSIDE RECORDS SUMMARY | 2024-12-22 07:19 | XMS_ITS | Clinical Summary ---
Author Organization [facility] it Address [address] [place] [address] Care Team Providers Care Pm Head Cook Name Role Phone Caitlyn Cano Primary Care Provider [phone] Immunizations Name Administration Dates Next Due Pfizer SARS-CoV-2 COVID-19, mRNA, LNP-S, preservative free 01/13/2021,12/22/2020 Surgical History Surgery Date Site/Laterality Comments SKIN GRAFT 1960 Right PROCEDURE:SKIN GRAFT;COMMENT:foot SECTION PROCEDURE: SECTION CATARACT EXTRACTION W/ INTRAOCULAR LENS IMPLANT Bilateral PROCEDURE:CATARACT EXTRACTION W/ INTRAOCULAR LENS IMPLANT OTHER SURGICAL HISTORY PROCEDURE:MOHS SURGERY TOE SURGERY 01/19/2023 Right PROCEDURE:TOE SURGERY;COMMENT:Procedure: RIGHT 2ND TOE CORRECTION HAMMERTOE; Surgeon: Todd Valencia DPM; [place] [facility] Service: Podiatry; Laterality: Right; Medical History Medical History Date Comments HLD (hyperlipidemia) DX:HLD (hyp erlipidemia) HTN (hypertension) DX:HTN (hyper tension) Depression DX:Depression Social History Tobacco Use Types Packs/Day Years Used Date Smoking Tobacco: Never Smokeless Tobacco: Never Alcohol Use Standard Drinks/Week Comments Not Currently 0 (1 standard drink = 0.6 oz pur e alcohol) Comments Unknown Sex and Gender Information Value Date Recorded Sex Assigned at Not on file Legal Sex Female 8:30 PM EST Gender Identity Not on file Sexual Orientation Not on file Obstetrics History Plan of Treatment Health Maintenance Due Date Last Done Comments Breast Cancer Screening 1952 DTaP,Tdap,and Td Vaccines (1 - Tdap) 1971 Pneumococcal Vaccine: 50+ Years (1 of 1 - PCV) 2002 Zoster Vaccines (1 of 2) 2002 Colorectal Cancer Screening: Colonoscopy 11/18/2023 Depression Screening 11/18/2023 Falls Risk Assessment 11/18/2023 Hepatitis C Screening 11/18/2023 Osteoporosis Screening (Bone Density Screening) 11/18/2023 Social Influencers of Health Screening 11/18/2023 COVID-19 Vaccine (3 - 2023-2 5 season) 2024 01/13/2021, 12/22/2020 Influenza Vaccine (#1) 2024 RSV Immunization Patients 60 + Years Old (1 - 1-dose 75+ series) 2027 HIB Vaccines Aged Out No longer eligi ble based on patient's age to complete this topic HPV Vaccines Aged Out No longer eligi ble based on patient's age to complete this topic Hepatitis A Vaccines Aged Out No long er eligible based on patient's age to complete this topic Hepatitis B Vaccines Aged Out No long er eligible based on patient's age to complete this topic IPV Vaccines Aged Out No longer eligi ble based on patient's age to complete this topic MMR Vaccines Aged Out No longer eligi ble based on patient's age to complete this topic Meningococcal ACWY Vaccine Aged Out N o longer eligible based on patient's age to complete this topic Meningococcal B Vacine Aged Out No lo nger eligible based on patient's age to complete this topic RSV Immunization Patients Under 20 months Aged Out No longer eligible b ased on patient's age to complete this topic Varicella Vaccines Aged Out No longer eligible based on patient's age to complete this topic Care Teams Pm Head Cook Relationship Specialty Start Date End Date Caitlyn Cano [address] [place] [address] [place] [id number] PCP - General 01/17/23
--- OUTSIDE RECORDS SUMMARY | 2024-12-22 07:19 | XMS_ITS | Data Portability ---
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 ? ? IMPRESSION: Ms. Way is sensitized to perennial aero-allergens, molds > dust mites. This can lead to low grade intermediate frame tender inflammation of her nasal / sinus lining. ? ? ? Mold allergy is also predisposes to bronchial asthma. ? ? ? S/P VIRAL URI ?MOLD EXPOSURE ? MODERATE ? H IGH MOLD COUNTS EUSTACHIAN TUBE DYSFUNCTION : RECOVERING ? ? ? PERSISTENT ALLERGIC RHINITIS : due to House dust mite < Mold allergy ? ? ? SINUS PRESSURE MAXILLARY > FRONTAL / POST-NASAL RHINORRHEA ? ? ? DYSPNEA W WHEEZING, WEATHER CHANGE / URIs c/w INTERMITTENT BRONCHIAL ASTHMA ? ? ? She started allergy shots since 06/2014. 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 ? ? ? PLAN: ? ? ? Pt off allergy shots > 7 weeks ? ? ? Resume allergy shots; lower dose ? ? ? Continue oral steroid taper ? ? ? Claritin-D 12 hr if ear symtpoms persist dmuppidi Not available 05/15/2015 20:25:02 05/22/2015 05/22/2015 Allergy skin tests : INHALANTS: 05/31/14 Scratch series: ? 2+ to Cladosporium, Dreschlera, 1+ to tree pollen ? ? ? (beech, Sugar maple) Intra-dermal : 2+ to mold, 1+ to pollen (TGWRW), borderline to dust mites (Df, Dp) ? ? ? IMPRESSION: ? ? ? S/P VIRAL URI ?MOLD EXPOSURE ? MODERATE ? H IGH MOLD COUNTS EUSTACHIAN TUBE DYSFUNCTION : RECOVERING ? ? ? PERSISTENT ALLERGIC RHINITIS : due to House dust mite < Mold allergy ? ? ? SINUS PRESSURE MAXILLARY > FRONTAL / POST-NASAL RHINORRHEA ? ? ? DYSPNEA W WHEEZING, WEATHER CHANGE / URIs c/w INTERMITTENT BRONCHIAL ASTHMA PLAN: ? ? ? Continue Doxycycline Claritin-D 12 hr if ear symptoms persist OR Loratidine-D 12 hr : ? ? ? 1 tab every 12 hours ? (Skip night dose if sleep disturbed) ? ? ? After symptoms settle down: ? ? ? continue previous daily meds for allergy as needed: Zetonna nasal spray / Flonase ? ? ? : 1 spray via each nostril once / twice a day ? Do not use if having nose bleeds Zyrtec (Cetirizine) 10 mg OTC once daily at bedtime Zaditor eye drops: 1 drop in each eye twice a day as needed for itchy / red eyes. Continue Albuterol MDI used in the past ? ? ? Continue allergy shots dmuppidi Not available 05/22/2015 16:39:07 Plan of Treatment Reminders Order Date Submit Date Provider Last Modified By Organization Details Last Modified Time Details Appointments None recorded. Lab None recorded. Referral None recorded. Procedures None recorded. Surgeries None recorded. Imaging None recorded. Medication Orders Loratadin e-D 5 mg-120 mg tablet,ex tended release 12 hr 015 015 dmuppidi [id number], [address], [place], [place], [id number], 5 16:39:06 Patient TargetsNo targets recorded. Patient InstructionsNo instructions recorded. Reason for Referral None Reported. Problems Name Problem SNOMED Code Status Onset Date Resolution Date Notes Provider Name and Address Organization Details Recorded Time Allergy to dust mite protein 908088189 Active Valorieyael manjarrez MA - Ollie Hyde MD 6 15:05:38 Problem Notes None recorded. Medical Equipment None Reported. Allergies Allergen ID Allergen Name Allergen Category Reaction Reaction Severity Criticality Documentation Date Start Date Code Code System Note Provider Name and Address Organization Details Recorded Time 5061 Substance with sulfonami de structure and antibacte rial mechanism of action (substanc e) medicatio n hives Not available Not available 05/31/2014 95480 8003 SNOMED Not Available Not Available Not Available 5062 Cipro medicatio n rash Not available Not available 05/31/2014 52735 3 RxNorm Not Available Not Available Not Available 5063 amoxicill in medicatio n rash Not available Not available 05/31/2014 723 RxNorm Not Available Not Available Not Available 5064 clindamyc in Not available rash Not available Not available 05/31/2014 2582 RxNorm Not Available Not Available Not Available Medications Name Sig Start Date Stop Date Status Note LastModified by Organization Details LastModified Time azithromycin 250 mg tablet active Not Available Not Available Not Available hydrocodone 5 mg-acetamino phen 325 mg tablet active Not Available Not Available Not Available Claritin 10 mg tablet Take 1 tablet every day by oral route. active Not Available Not Available No t Available Advair Diskus 100 mcg-50 mcg/dose powder for inhalation active Not Available Not Available N ot Available acetaminophe n 300 mg-codeine 30 mg tablet active Not Available Not Available Not Available triamcinolon e acetonide 0.1 % topical cream active Not Available Not Available Not Available verapamil 120 mg tablet active Not Available Not Available Not Available benzonatate 100 mg capsule active Not Available Not Available Not Available hydrocodone 7.5 mg-acetamino phen 325 mg tablet active Not Available Not Available Not Available econazole nitrate 1 % topical cream active Not Available Not Available Not Available lisinopril 10 mg tablet Take 1 tablet every day by oral route. active Not Available Not Available No t Available betamethason e dipropionate 0.05 % topical cream active Not Available Not Available Not Available gabapentin 300 mg capsule Take 1 capsule 3 times a day by oral route. active Not Available Not Available No t Available omeprazole 20 mg capsule,zoraida yed release active Not Available Not Available Not Available Iophen C-NR 10 mg-100 mg/5 mL oral liquid active Not Available Not Available Not Available gabapentin 100 mg capsule active Not Available Not Available Not Available methylpredni solone 4 mg tablets in a dose pack active Not Available Not Available No t Available fluticasone propionate 50 mcg/actuatio n nasal spray,suspen christine Inhale 1 spray every day by intranasal route. active Not Available Not Available No t Available doxycycline hyclate 100 mg tablet active Not Available Not Available No t Available naproxen 500 mg tablet active Not Available Not Available No t Available escitalopram 20 mg tablet active Not Available Not Available Not Available chlorhexidin e gluconate 0.12 % mouthwash active Not Available Not Available No t Available PreviDent 5000 Sensitive 1.1 %-5 % dental paste active Not Available Not Available Not Available Zostavax (PF) 19,400 unit/0.65 mL subcutaneous suspension active Not Available Not Available N ot Available ProAir HFA 90 mcg/actuatio n aerosol inhaler active Not Available Not Available Not Available omeprazole 20 mg tablet,delay ed release Take by oral route. active Not Available Not Available Not Available Loratadine-D 5 mg-120 mg tablet,exten ded release 12 hr Take 1 tablet every 12 hours by oral route as directed for 15 days. 2014 active Not Available Not Available Not Avai lable Zetonna 37 mcg/actuatio n nasal HFA inhaler Clarkia 1 spray twice a day by intranasal route as directed for 30 days. active Not Available Not Available No t Available Fluarix Quad (PF) 60 mcg (15 mcg x 4)/0.5 mL IM syringe active Not Available Not Available Not Available Afluria (PF) 45 mcg (15 mcg x 3)/0.5 mL IM syringe active Not Available Not Available Not Available Vitals Date Recorded Respiratory rate Body weight Body height Heart rate Body mass index (BMI) Systolic blood pressure Diastolic blood pressure Provider Name and Address Organization Details Last Updated DateTime 5 16 /min 93550.7 792 g 167.64 cm 70 /min 25.8 kg/m2 112 mm[Hg] 80 mm[Hg] Heidi Hyde MD 5 15:21:33 Date Recorded Respiratory rate Body weight Body height Heart rate Body mass index (BMI) Systolic blood pressure Diastolic blood pressure Provider Name and Address Organization Details Last Updated DateTime 5 16 /min 73419.7 792 g 167.64 cm 70 /min 25.8 kg/m2 120 mm[Hg] 76 mm[Hg] Heidi Hyde MD 5 13:07:36 Date Recorded Body height Body mass index (BMI) Body weight Provider Name and Address Organization Details Last Updated DateTime 03/23/2016 167.64 cm 26.6 kg/m2 22715.7410 5 g Raquel English SUSY Hyde MD 03/23/2016 15:05:38 Social History Question Answer Notes LastModified by Organizat ion Details LastModified Time Tobacco Smoking Status Never Smoker Not Available [facility] 08/26/2020 03:19:15 How Often Do You Travel On An Airplane? 1-2xyear Information not available 11/12/2014 What Is Your Level Of Alcohol Consumption? None [id number] Information not available 08/26/2020 Animal Exposure? No Information not available 11/12/2014 Location Of Your Home Apartment Building Condominium Information not available 06/01/2014 Basement No Information no t available 06/01/2014 Dampness/Wet No Information not available 06/01/2014 Do You Use Dehumidifier? No Information not available 06/01/2014 Air Conditioning Window Information not available 06/01/2014 Rooms With Carpeting Bedroom Information not available 06/01/2014 Mattress Foam Information no t available 11/12/2014 Upholstery Cloth-foam Information no t available 06/01/2014 Domestic Pets No Furry Pets Information not available 06/01/2014 Fluffy/Stuffed Toys No Information not available 11/12/2014 Smokers In The House No Information not available 06/01/2014 Feathers (mattresses, Pillows, Comforters, Jackets) No Information not available 06/01/2014 Cockroach Infestation No Information not available 06/01/2014 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 Mental Status None recorded. Family History Relationship Description Onset Age of this Age Resolved Age Notes LastModified by Organization Details LastModified Time Brother Allergy hayfev er, asthma dmuppidi Not available 05/22/2015 16:32:35 Father Allergy dmuppidi Not available 05/22/2015 16:32:35 Sister Allergy hayfev er, asthma s dmuppidi Not available 05/22/2015 16:32:35 Medical History Condition Response Coronary Artery Disease N Depression N Glaucoma N Anxiety Disorder N Cancer N Stroke N Headache N High Cholesterol N Rheumatoid Arthritis N Kidney Disease N Diabetes N Tuberculosis N Thyroid disease N GERD/Reflux N Hepatitis N Hypertension N Osteoporosis N Gynecological History Statement/Question Response LMP Definite Obstetrics History GPAL:G 0 P 0 0 0 0 Past Encounters Encounter ID Performer Location Encounter Start Date Encounter Closed Date Diagnosis/Indication Diagnosis SNOMED-CT Code Diagnosis ICD10 Code Diagnosis Note [id number] MD [place] Mckeon [address] [place] [address] [address] [place] [address] 05/31/2014 09:32:38 05/31/2014 11:06:25 Allergy to dust mite protein [id number] [place] [address] [place] [address] [address] [place] [address] 07/02/2014 16:02:23 07/02/2014 16:59:41 [id number] Heidi Sun [address] [place] [address] [address] [place] [address] 11/12/2014 16:30:42 11/12/2014 17:35:20 [id number] Ollie Hyde MD [place] [address] [facility], [address] [place] [address] 05/15/2015 14:54:21 05/15/2015 16:38:11 [id number] Ollie Hyde MD [place] [address] [facility] [address] [place] [address] 05/22/2015 13:05:35 05/22/2015 14:29:21 Allergy to dust mite protein [id number] Health Concerns Section Related Observation LastModified by Organization Detai ls LastModified Time None Recorded Concern Status LastModified by Organization Details LastModified Time None Recorded Advance Directives Directive None Recorded Payers Encounter Date Sequence Insurance Name Policy Number Policy Best Covered Member ID Best Member ID Guarantor Name 05/15/2015 1 [facility] (POS) [address] [id number] 05/22/2015 1 [facility] [facility] (POS) [address] [id number] OBGyn Episode No OBEpisode recorded.
[2024-12-22 07:38] LABS: Basophils Percent Auto 0.8 % (0-2); Eosinophils Absolute Auto 0.1 X10*3/uL (0.0-0.4); Eosinophils Percent Auto 2.4 % (0-4); Hemoglobin 15.3 g/dl (12.0-16.0); Imm Gran Abs Auto 0.01 X10*3/uL (0.00-0.03); Imm Gran Pct Auto 0.3 % (0.0-0.4); Lymphocytes Percent Auto 27.5 % (20-40); MANUAL DIFF FLAG NO; Mean Corpuscular HGB Conc 34.8 g/dl (31.0-35.0); Mean Corpuscular Hemoglobin 30.4 pg (27.0-33.0); Mean Corpuscular Volume 87.3 fL (80.0-98.0); Monocytes Absolute Auto 0.3 X10*3/uL (0.1-1.2); Monocytes Percent Auto 7.9 % (2-11); Neutrophils Absolute Auto 2.3 x10*3/uL (2.0-8.3); Neutrophils Percent Auto 61.1 % (45-73); Platelet Count 265 X10*3/uL (160-400); Red Blood Count 5.04 X10*6/uL (4.20-5.50); White Blood Count 3.8 X10*3/uL (4.8-10.8)
[2024-12-22 08:12] LABS: Alanine Aminotransferase 29 U/L (0-31); Albumin Level 4.4 g/dL (3.5-5.0); Alkaline Phosphatase 72 U/L (39-117); Anion Gap 12 (12-20); Aspartate Amino Transferase 34 U/L (5-31); Bilirubin Total 0.7 mg/dL (0.0-1.0); Blood Urea Nitrogen 10 mg/dL (9-16); Calcium 10.4 mg/dL (8.4-10.2); Carbon Dioxide 29 mmol/L (22-29); Chloride 103 mmol/L (96-108); Cholesterol 217 mg/dL (<200); Estimated Glomerular Filt Rate > 60; Glucose Random 96 mg/dL (60-115); HDL Cholesterol 82 mg/dL (>40); LDL Cholesterol Calculated 121 mg/dL (<100); Potassium 4.8 mmol/L (3.3-5.1); Sodium 139 mmol/L (135-145); Total Protein 6.9 g/dL (6.5-8.0); Triglycerides 70 mg/dL (<150)
[2024-12-22 08:30] LABS: Free T4 (Free Thyroxine) 1.11 ng/dL (0.71-1.85); Thyroid Stimulating Hormone 1.64 uIU/mL (0.32-4.0); Vitamin D 25-OH Total 51.4 ng/mL (>30)
[2024-12-22 08:34] LABS: Folate 13.4 ng/mL (> or = 4.0); Vitamin B12 570 pg/mL (200-900)
[2024-12-22 08:34] LABS: Appearance Urine Turbid; Color Urine Yellow; Glucose Urine UA Negative (Negative); Leukocyte Esterase Urine Trace (Negative); Nitrite Urine Negative (Negative); Specific Gravity - Urine 1.015 (1.005-1.025); UMIC TRIGGER UACC YES; Urine Blood Negative (Negative); Urine Ketones Negative (Negative); Urine Protein Negative (Neg-Trace)
[2024-12-22 08:39] LABS: Bacteria Urine None Seen (None Seen); Hyaline Casts Urine 0-2 /LPF (0-2); RBC Urine 0-2 /HPF (0-2); Squamous Epithelial Cell Urine 0-2 /HPF (0-2); WBC Urine 0-5 /HPF (0-5)
== END 2024-12-22 07:16 | disposition home or self-care (01) ==
LOC: HO.LAB 07:15
PROVIDERS: PCP Internal Medicine; Visit Provider Internal Medicine
DX: I10 Essential (primary) hypertension (principal); E78.00 Pure hypercholesterolemia, unspecified
CPT/HCPCS: 36415; 80053; 80061; 81001; 82306; 82607; 82746; 84439; 84443; 85025

== ENCOUNTER 2024-12-27 08:50 | Day surgery (SDC) | payer MEDICARE, OTHER, SELFPAY ==
[2024-12-25 13:56] VITALS: BMI 21.6
--- NOTE | 2024-12-26 08:51 | HO.ANESPROP2 ---
Documented by User: Heidi Chaudhary NP 12/26/24 08:51 HPI - Anesthesia Eval Consult details Narrative: 74yo F for Colonoscopy PMFSH Active Problems Active Problems: All Active Problems Personal history of colonic polyps (Acute) Delayed allergic reaction to red meat (Acute) Hyponatremia (Acute) Dizziness (Acute) Benign paroxysmal positional vertigo (Acute) Plantar wart, right foot (Acute) Left shoulder pain (Acute) Breast cancer screening by mammogram (Acute) Annual physical exam (Acute) Colon cancer screening (Acute) Constipation (Acute) Ankle fracture, right (Acute) Colon cancer screening (Acute) Generalized anxiety disorder (Acute) GERD (gastroesophageal reflux disease) (Acute) IBS (irritable bowel syndrome) (Acute) Adult general medical exam (Acute) Thyroid nodule (Acute) Hyperlipidemia (Acute) Osteopenia (Acute) Osteoarthritis (Acute) Hypertension (Acute) Depression (Acute) Asthma (Acute) Fibromyalgia (Acute) Past Medical History Medical History Benign paroxysmal positional vertigo Osteopenia Thyroid nodule Hyperlipidemia IBS (irritable bowel syndrome) GERD (gastroesophageal reflux disease) Depression Asthma Genital warts Osteoarthritis of fingers of both hands Osteoarthritis of carpometacarpal joint of left thumb Anxiety Mood disorder High blood pressure Fibromyalgia Family History Family History Daughter Mental health disorder Autism Sister FH: HTN (hypertension) Mother FH: HTN (hypertension) Other Substance use disorder Surgical History Surgical History Status post right foot surgery History of colonoscopy History of laparoscopy History of delivery History of skin graft Social History Social History Household Members: None Housing: Apartment Are you a primary health care administrator to a significant other at home: No Do you presently have visiting nurse or other home services: No Alcohol intake: current Comment: 2x a year Patient Tobacco Use Status: Never used Tobacco Tobacco use type: Cigarette e-Cigarette/Vaping Use: Never Used Second Hand Smoke Exposure: No Use of substances other than those prescribed or required for medical reasons: No Are you DNR?: No Advance Directives: No Advance Directives Information Provided: Yes Recently lost weight without trying: No service: No Current occupational status: retired Sexual orientation: Straight/Heterosexual Gender identity: Female Cognitive needs: No Hearing needs: No Vision needs: Yes (glasses) Meds Allergies Allergy/AdvReac Type Severity Reaction Status Date / Time amoxicillin Allergy Intermediate Rash Verified 12/25/24 13:49 ciprofloxacin Allergy Intermediate Rash Verified 12/25/24 13:49 clindamycin Allergy Intermediate rash, hives Verified 12/25/24 13:49 hydroxychloroquine Allergy Intermediate Rash Verified 12/25/24 13:49 [From Plaquenil] neomycin Allergy Intermediate Rash Verified 12/25/24 13:49 ezetimibe AdvReac Intermediate Diarrhea Verified 12/25/24 13:49 fenofibrate AdvReac Intermediate stomach Verified 12/25/24 13:49 pain, heart burn pravastatin AdvReac Intermediate Muscle Pain Verified 12/25/24 13:49 lisinopril AdvReac Mild dry cough Verified 12/25/24 13:49 bactrim Allergy Mild Rash Uncoded 11/06/24 11:45 Home Medications ?Medication ?Instructions ?Recorded ?Confirmed ?Last Taken ?Type acetaminophen 325 mg tablet 650 mg PO Q6H PRN 04/23/22 10/09/24 Unknown History dupilumab 300 mg/2 mL subcutaneous 300 mg subcut Q2W 04/25/24 12/25/24 Unknown History pen injector (DupixImmuVen) calcium carb and lactate 200 1 tab PO BID 07/02/24 10/09/24 Unknown History mg-vitamin D3 6.25 mcg (250 unit) tablet escitalopram oxalate 20 mg tablet 20 mg PO DAILY 07/02/24 12/25/24 Unknown History flaxseed oil 1,000 mg capsule 1,000 mg PO DAILY 07/02/24 10/09/24 Unknown History magnesium glycinate 400 mg PO .QD 07/02/24 10/09/24 Unknown History cetirizine 10 mg capsule (All Day 10 mg PO DAILY PRN 07/13/24 10/09/24 Unknown History Allergy (cetirizine)) gabapentin 100 mg capsule 200 mg PO BEDTIME 10/08/24 12/25/24 Unknown History Exam Height,Weight and Vital Signs: Height 5 ft 6 in Weight 60.781 kg Assessment and Plan Assessment Anesthesia Assessment: Chart Reviewed Documented by User: Juliann Weinstein MD 12/27/24 11:12 [facility] Past Medical History Medical History Benign paroxysmal positional vertigo Osteopenia Thyroid nodule Hyperlipidemia IBS (irritable bowel syndrome) GERD (gastroesophageal reflux disease) Depression Asthma Genital warts Osteoarthritis of fingers of both hands Osteoarthritis of carpometacarpal joint of left thumb Anxiety Mood disorder High blood pressure Fibromyalgia Family History Family History Daughter Mental health disorder Autism Sister FH: HTN (hypertension) Mother FH: HTN (hypertension) Other Substance use disorder Surgical History Surgical History Status post right foot surgery History of colonoscopy History of laparoscopy History of delivery History of skin graft History of Problems with Anesthesia: No Social History Social History Household Members: None Housing: Apartment Are you a primary health care administrator to a significant other at home: No Do you presently have visiting nurse or other home services: No Alcohol intake: current Comment: 2x a year Patient Tobacco Use Status: Never used Tobacco Tobacco use type: Cigarette e-Cigarette/Vaping Use: Never Used Second Hand Smoke Exposure: No Use of substances other than those prescribed or required for medical reasons: No Are you DNR?: No Advance Directives: No Advance Directives Information Provided: Yes Recently lost weight without trying: No service: No Current occupational status: retired Sexual orientation: Straight/Heterosexual Gender identity: Female Cognitive needs: No Hearing needs: No Vision needs: Yes (glasses) Meds Allergies Allergy/AdvReac Type Severity Reaction Status Date / Time amoxicillin Allergy Intermediate Rash Verified 12/25/24 13:49 ciprofloxacin Allergy Intermediate Rash Verified 12/25/24 13:49 clindamycin Allergy Intermediate rash, hives Verified 12/25/24 13:49 hydroxychloroquine Allergy Intermediate Rash Verified 12/25/24 13:49 [From Plaquenil] neomycin Allergy Intermediate Rash Verified 12/25/24 13:49 ezetimibe AdvReac Intermediate Diarrhea Verified 12/25/24 13:49 fenofibrate AdvReac Intermediate stomach Verified 12/25/24 13:49 pain, heart burn pravastatin AdvReac Intermediate Muscle Pain Verified 12/25/24 13:49 lisinopril AdvReac Mild dry cough Verified 12/25/24 13:49 bactrim Allergy Mild Rash Uncoded 11/06/24 11:45 Home Medications ?Medication ?Instructions ?Recorded ?Confirmed ?Last Taken ?Type acetaminophen 325 mg tablet 650 mg PO Q6H PRN 04/23/22 10/09/24 Unknown History dupilumab 300 mg/2 mL subcutaneous 300 mg subcut Q2W 04/25/24 12/25/24 Unknown History pen injector (Make YES! Happen) calcium carb and lactate 200 1 tab PO BID 07/02/24 10/09/24 Unknown History mg-vitamin D3 6.25 mcg (250 unit) tablet escitalopram oxalate 20 mg tablet 20 mg PO DAILY 07/02/24 12/25/24 Unknown History flaxseed oil 1,000 mg capsule 1,000 mg PO DAILY 07/02/24 10/09/24 Unknown History magnesium glycinate 400 mg PO .QD 07/02/24 10/09/24 Unknown History cetirizine 10 mg capsule (All Day 10 mg PO DAILY PRN 07/13/24 10/09/24 Unknown History Allergy (cetirizine)) gabapentin 100 mg capsule 200 mg PO BEDTIME 10/08/24 12/25/24 Unknown History Exam Airway Mallampati Class: II TM Dist: >3cm Neck ROM: Full Loose/Missing/Broken Teeth: No Heart: RRR Lungs: CTA Assessment and Plan Assessment Anesthesia Assessment: Anesthesia Plan Discussed Final Anesthetic Review History of Problems with Anesthesia: No NPO: Yes ASA Class: II Final Preanesthetic Review: Meds/Allgs Chart Reviewed, Consent Obtained/Reviewed and Anes Risks/Benef Reviewed Patient Risk: Low Procedure Risk: Low Anesthetic Plan Anesthetic Plan: MAC: Disposition: Standard PACU
[2024-12-27 09:59] VITALS: BP 137/69; PULSE 90; RESP 16; TEMP 36.7; O2SAT 97
[2024-12-27] MEDS: Lactated Ringers 1,000 ML 100 ML IVCONT (10:11)
--- NOTE | 2024-12-27 10:11 | MHC.SHP ---
Pre-Procedural Eval Section A - 24 Hr Update-Section A only Date of Service: 12/27/24 Section B - Complete if H&P > 30 days Chief Complaint: Hx of polyps Details of Present Illness: Asthma Pruritus Rash Vaginal yeast infection Dysuria Genital warts Right hip tendinitis Right hip pain Osteoarthritis of fingers of both hands Osteoarthritis of carpometacarpal joint of left thumb Left hand weakness Skin exam, screening for cancer Screening for breast cancer Left ankle strain Anxiety Right ankle sprain Screening for hypothyroidism Screening for hyperlipidemia Screening for diabetes mellitus Encounter to establish care Mood disorder High blood pressure Fibromyalgia Surgical History Status post right foot surgery History of colonoscopy History of laparoscopy History of delivery History of skin graft Present Medications: see Short Stay Collaborative assessment Allergies: Allergies Allergy/AdvReac Type Severity Reaction Status Date / Time amoxicillin Allergy Intermediate Rash Verified 12/25/24 13:49 ciprofloxacin Allergy Intermediate Rash Verified 12/25/24 13:49 clindamycin Allergy Intermediate rash, hives Verified 12/25/24 13:49 hydroxychloroquine Allergy Intermediate Rash Verified 12/25/24 13:49 [From Plaquenil] neomycin Allergy Intermediate Rash Verified 12/25/24 13:49 ezetimibe AdvReac Intermediate Diarrhea Verified 12/25/24 13:49 fenofibrate AdvReac Intermediate stomach Verified 12/25/24 13:49 pain, heart burn pravastatin AdvReac Intermediate Muscle Pain Verified 12/25/24 13:49 lisinopril AdvReac Mild dry cough Verified 12/25/24 13:49 bactrim Allergy Mild Rash Uncoded 11/06/24 11:45 Review of Systems Review of Systems Comment: Ten point ROS negative Exam Exam Comment: Gen appear: No acute distress HEENT: no icterus Chest: No overt resp distress Abd: soft, nontender, nondistended Psych: Stable affect, answering questions appropriately Neuro: A/Ox3 noted to move all extremities spontaneously Ext: no peripheral edema Plan Diagnosis/Plan: Unchanged I have reviewed the history and physical and performed a pertinent physical examination on my patient. No changes have occurred unless specified. Time Spent With Patient Time: Total time managing care of this patient today ____ minutes.
[2024-12-27 11:30] VITALS: BP 103/54; PULSE 72; RESP 18; TEMP 36.3; O2SAT 99
--- NOTE | 2024-12-27 11:39 | P.OPN-COLO_ITS ---
Colonoscopy Operative Note Operative Note Date of Service: 12/27/24 Narrative: Procedure: Colonoscopy Indication: Personal history of polyps Endoscopist: Macie Hartman MD Anesthesia Provider: Dr Nancy Weinstein Anesthesia type: MAC Instrument: Olympus [id number]-[id number] Consent: Indication, risks vs benefits, and alternatives were discussed with the patient who gave written informed consent to proceed. EKG, pulse, pulse oximetry and blood pressure were monitored throughout the procedure. Please see anesthesia flowsheet. Procedure: The patient was brought to the procedure room and placed in the left lateral decubitus position. IV medications were administered by the anesthesia provider in attendance. A digital rectal exam was performed which was normal. A distal attachment cap was affixed to the tip of the colonoscope which was then inserted through the anus and advanced through the colon to the cecum at 80 cm,and terminal ileum. Appendiceal orifice and ileocecal valve were identified. Mucosa was carefully examined under high definition white light as the instrument was slowly withdrawn in a retrograde panoramic fashion. Retroflexion was performed in rectum. The procedure was not difficult. There were no immediate obvious complications. The quality of the prep was BBPS: 2+3+3 = adequate Withdrawal time 9 minutes. Limitations: No limitations. Findings: Mucosa: Normal to cecum and terminal ileum. Protruding lesions: * Medium internal hemorrhoids without stigmata of recent bleeding. Excavated lesions: * Mild diverticulosis of sigmoid colon. Impression: 1. Normal colon mucosa 2. Diverticulosis 3. Internal hemorrhoids Recommendations: - Repeat colonoscopy in 10 years if patient in good health.
[2024-12-27 11:45] VITALS: BP 120/57; PULSE 79; RESP 18; O2SAT 99
[2024-12-27 12:00] VITALS: BP 125/64; PULSE 76; RESP 18; TEMP 36.1; O2SAT 99
== END 2024-12-27 13:28 | disposition home or self-care (01) ==
PROVIDERS: PCP Internal Medicine; Visit Provider Internal Medicine
PROC: 0DJD8ZZ Inspection of Lower Intestinal Tract, Via Natural or Artificial Opening Endoscopic (ICD-10-PCS; CPT 45378; principal; 2024-12-27 11:20)
DX: Z12.11 Encounter for screening for malignant neoplasm of colon (principal); K57.30 Diverticulosis of large intestine without perforation or abscess without bleeding; K64.8 Other hemorrhoids; Z86.0101 Personal history of adenomatous and serrated colon polyps; J45.909 Unspecified asthma, uncomplicated
CPT/HCPCS: G0105; J2003; J2704

== ENCOUNTER → 2024-12-27 08:50 | Outpatient (BNV) | payer MEDICARE, OTHER, SELFPAY | PROVIDERS: PCP Internal Medicine; Visit Provider Internal Medicine | DX: Z12.11 Encounter for screening for malignant neoplasm of colon (principal); Z86.0100 Personal history of colon polyps, unspecified; K57.30 Diverticulosis of large intestine without perforation or abscess without bleeding; K64.8 Other hemorrhoids | CPT/HCPCS: G0105 ==

== ENCOUNTER 2024-12-31 09:33 | Outpatient (AMB) | payer MEDICARE, OTHER, SELFPAY ==
--- NOTE | 2024-12-31 09:41 | A.OFFPC_ITS ---
Vital Signs 12/31/24 09:42 Height 5 ft 6 in Weight 132 lb BMI 21.3 BP 108/72 Blood Pressure Location Lt brachial Position Sitting Pulse 84 Pulse Source Pulse Oximeter Pulse Oximetry (%) 95 Oxygen Delivery Method Room Air Intake Visit Reasons: Hypertension Allergies amoxicillin Allergy (Intermediate, Verified 12/31/24 09:43) Rash ciprofloxacin Allergy (Intermediate, Verified 12/31/24 09:43) Rash clindamycin Allergy (Intermediate, Verified 12/31/24 09:43) rash, hives hydroxychloroquine [From Plaquenil] Allergy (Intermediate, Verified 12/31/24 09:43) Rash neomycin Allergy (Intermediate, Verified 12/31/24 09:43) Rash ezetimibe Adverse Reaction (Intermediate, Verified 12/31/24 09:43) Diarrhea fenofibrate Adverse Reaction (Intermediate, Verified 12/31/24 09:43) stomach pain, heart burn pravastatin Adverse Reaction (Intermediate, Verified 12/31/24 09:43) Muscle Pain lisinopril Adverse Reaction (Mild, Verified 12/31/24 09:43) dry cough bactrim Allergy (Mild, Uncoded 12/31/24 09:43) Rash Medication List - Last Reconciled 12/31/24 by Kevyn Monique MD acetaminophen 650 mg PO Q6H PRN calcium carb,lactat-vitamin D3 200 mg-6.25 mcg (250 unit) 1 tab PO BID cetirizine (All Day Allergy (cetirizine)) 5 mg PO DAILY PRN cholecalciferol (vitamin D3) 25 mcg PO DAILY dupilumab (Dupixent) 300 mg subcut Q2W escitalopram oxalate 20 mg PO DAILY famotidine 20 mg PO DAILY PRN gabapentin 200 mg PO BEDTIME multivitamin 1 tab PO .every other day Tobacco use date assessed: 11/06/24 Fall risk assessment: No Falls in past year Last assessed Fall Risk: 12/31/24 Dental Screening Dental Screen Date: 11/06/24 HPI Hypertension HPI Details BP at home has been good. concern on dizziness in am . [facility] Medical History (Updated 12/31/24 @ 09:57 by Kevyn Monique MD) Colon cancer screening Colon cancer screening Benign paroxysmal positional vertigo Osteopenia Thyroid nodule Hyperlipidemia IBS (irritable bowel syndrome) GERD (gastroesophageal reflux disease) Depression Asthma Genital warts Osteoarthritis of fingers of both hands Osteoarthritis of carpometacarpal joint of left thumb Anxiety Mood disorder High blood pressure Fibromyalgia Surgical History Status post right foot surgery History of colonoscopy History of laparoscopy History of delivery History of skin graft Family History Daughter Mental health disorder Autism Sister FH: HTN (hypertension) Mother FH: HTN (hypertension) Other Substance use disorder Social History Household Members: None Housing: Apartment Are you a primary cardiac care unit nurse to a significant other at home: No Do you presently have visiting nurse or other home services: No Alcohol intake: current Comment: 2x a year Patient Tobacco Use Status: Never used Tobacco Tobacco use type: Cigarette e-Cigarette/Vaping Use: Never Used Second Hand Smoke Exposure: No service: No Current occupational status: retired Sexual orientation: Straight/Heterosexual Gender identity: Female Cognitive needs: No Hearing needs: No Vision needs: Yes (glasses) Questionnaire PHQ-9 Over the last 2 weeks, how often have you been bothered by any of the following problems? 1. Little interest or pleasure in doing things: more than half the days 2. Feeling down, depressed, or hopeless: nearly every day 3. Trouble falling or staying asleep, or sleeping too much: several days 4. Feeling tired or having little energy: several days 5. Poor appetite or overeating: not at all 6. Feeling bad about yourself - or that you are a failure or have let yourself or your family down: more than half the days 7. Trouble concentrating on things, such as reading the newspaper or watching television: several days 8. Moving or speaking so slowly that other people could have noticed. Or the opposite - being so fidgety or restless that you have been moving around a lot more than usual: not at all 9. Thoughts that you would be better off or of hurting yourself in some way: several days Total score: 11 Depression Screening Interpretation: Positive Depression Screening Done: Yes Source: Developed by Drs. Dom Nichole, Shell Salvador, Max Chan and colleagues, with an educational mabel from [employer]. Thrive Questionnaire Date Thrive assessed: 12/31/24 I am a: Patient What is your living situation today?: I have a steady place to live Within the past 12 months, did the food you bought not last and you didn't have the money to get more?: Never true Within the past 12 months, did you worry whether your food would run out before you got money to buy more?: Never true Do you have trouble paying for medicines?: No Do you have trouble getting transportation to medical appointments?: No Do you have trouble paying your heating and electricity bill?: No Do you have trouble taking care of your child, family member or friend?: No Do you have trouble with day-to-day activities such as bathing, preparing meals, shopping, managing finances, etc.?: No Are you currently unemployed and looking for a job?: No Are you interested in more education?: No Please select the resources that you would like help with: None Currently or been in a relationship where the following occur: No concerns reported THRIVE Score: 0 AUDIT C Alcohol Use Questionnaire (AUDIT-C) 3. How often do you have six or more drinks on one occasion?: Never Total Score: 0 JIHAN-7 AMB Questionnaire JIHAN-7 Date JIHAN - 7 assessed: 11/06/24 Source: Developed by Drs. Dom Nichole, Shell Salvador, Max Chan and colleagues, with an educational mabel from [employer]. Physical exam (Primary Care) Vital Signs: Last Vital Signs Pulse 84 12/31/24 09:42 BP 108/72 12/31/24 09:42 Pulse Ox 95 12/31/24 09:42 Oxygen Delivery Method Room Air 12/31/24 09:42 BMI result Body Mass Index 21.3 Tobacco/Smoking Status: Tobacco use Status Tobacco use date assessed 11/06/24 12/31/24 09:50 Patient Tobacco Use Status Never used Tobacco 12/31/24 09:50 Tobacco use type Cigarette 12/31/24 09:50 e-Cigarette/Vaping Use Never Used 12/31/24 09:50 PHQ-9: PHQ-9 Score PHQ-9: Total score 11 12/31/24 09:50 Depression Screening Interpretation: Positive Thrive Assessment: Date of Thrive Assessment Date Thrive assessed 12/31/24 12/31/24 09:50 Currently or been in a relationship where the following occur: No concerns reported Const General: alert; No acute distress Eyes Conjunctivae: conjunctivae normal Resp Auscultation: clear to auscultation bilaterally Cardio Rate: regular rate Rhythm: regular rhythm GI Inspection: Yes normal to inspection Extrem General: Yes normal to inspection and No edema Coding Level of Care Code Est Pt Level 4 (15041) Diagnoses Asthma J45.909 Hypertension I10 Hyperlipidemia E78.5 GERD (gastroesophageal reflux disease) K21.9 Generalized anxiety disorder F41.1 Breast cancer screening by mammogram Assessment & Plan Assessment & Plan (1) Asthma: Code(s): J45.909 - Unspecified asthma, uncomplicated Category: Medical Plan: Stable (2) Hypertension: Code(s): I10 - Essential (primary) hypertension Category: Medical Plan: Continue with blood pressure medication. Decrease salt intake and exercise on losartan 25 mg once a day (3) Hyperlipidemia: Code(s): E78.5 - Hyperlipidemia, unspecified Category: Medical Plan: Avoid fried foods, chicken skin, eggs, butter margarine, pastries and meat. Be it pork or beef they have a lot of cholesterol diet controlled (4) GERD (gastroesophageal reflux disease): Code(s): K21.9 - Gastro-esophageal reflux disease without esophagitis Category: Medical Plan: Avoid the foods that causes that usually spicy foods, tomato products, juices, coffee, soda and foods that your sensitive to. After eating do not lie down, allow 3-4 hours before in lie down. And keep the head of bed above 30 degrees to avoid the acid from going up. (5) Generalized anxiety disorder: Comment: talking to Nurse (12/2023) Code(s): F41.1 - Generalized anxiety disorder Category: Medical Plan: Continue with present medication (6) Breast cancer screening by mammogram: Code(s): Z. - Encounter for screening mammogram for malignant neoplasm of breast Category: Medical Plan: Reminded about mammogram Plan History of Present Illness The patient is a 74-year-old female complaining of dizziness, first addressed in October 2024, without resolution. The dizziness, particularly noted in the morning, is believed to be linked to her antihypertensive medication, losartan, and recent adjustments in gabapentin dosage. The patient has also had physical therapy for a left shoulder sprain, with limited improvement. She has a history of asthma and generalized anxiety disorder, managed with consistent medication and lifestyle choices. The patient's internal hemorrhoids and diverticular disease were identified during a recent colonoscopy. Laboratory findings indicate mild leukopenia and elevated calcium levels (10.4 mg/dL). Current management includes dietary management of hypercholesterolemia, treatment for dry eye syndrome with Refresh drops, and use of artificial tears. Health Maintenance - Reminder given for an overdue mammogram. - Calcium supplement discontinued due to adequate serum calcium levels. - Vitamin D supplementation recommended at 2000 IU daily, particularly during winter months. - Colon cancer screening completed, showing diverticular disease and internal hemorrhoids, otherwise normal. - Patient advised on blood pressure self-monitoring with a validated machine. Social History - Engages in outdoor walking regularly. - Consumes a diet rich in fiber and hydrated adequately. Review of Systems - General: Reports dizziness particularly in the morning. - Musculoskeletal: Reports ongoing shoulder discomfort despite physical therapy. - Eyes: Reports dryness and occasional itching; uses Refresh eye drops. - Gastrointestinal: Reports occasional stomach ache and constipation, managed with prunes and Senna. Physical Exam Results - Labs: Mild leukopenia, normocytic anemia, elevated serum calcium at 10.4 mg/dL. Liver enzymes were upper normal levels. - Tests: Recent colonoscopy identified normal mucosa with diverticular disease and internal hemorrhoids. - Diagnostics: Standard panel showed normal platelet count, electrolytes, renal function, and no indication of anemia. Plan We discussed the possibility of discontinuing losartan given the patient?s stable blood pressure and persistent dizziness. It is necessary to carefully observe blood pressure fluctuations, suggesting alternative allergy treatments to minimize drowsiness. Calcium supplements are to be ceased, and vitamin D intake increased as per patient?s low likelihood of sun exposure. Dry eye management will continue with artificial tears, with potential allergy drops if necessary. The patient was reminded about the need for an overdue mammogram and will keep regular checks on blood pressure at home with a validated device. Orthopedic follow-up is scheduled for unresolved shoulder issues. Patient was informed and verbally consented to the use of an ambient scribe for clinic note documentation during this visit. Discussion Notes We reviewed the option of discontinuing losartan due to good blood pressure control and associated dizziness, emphasizing the use of home BP monitoring to check its effect. Possible change of allergy medication to non-sedating options was discussed in depth. The importance of vitamin D supplementation during the winter was underscored, especially considering the patient?s indoor lifestyle and calcium levels. The necessity of mammogram and regular colonoscopy was reiterated as part of the preventive health plan. Consent obtained for the plan to adjust allergy and hypertension medications and to follow up in three months to evaluate hypertension status without losartan. Patient Instructions - Discontinue losartan and monitor blood pressure at home. - Replace cetirizine with loratadine as a non-sedating option. - Discontinue calcium supplements. - Increase vitamin D supplements to 2000 IU daily, especially during winter. - Schedule and complete a mammogram at the earliest convenience. - Continue using Refresh eye drops; may add Alloway allergy drops if symptoms persist. - Follow up with orthopedics for left shoulder evaluation. - Return in three months for an evaluation of blood pressure management. - Maintain dietary fiber intake and hydration to manage GI symptoms. Medications: Refilled famotidine 20 mg PO DAILY PRN 60 tabs 0RF gerd K21.9 - Gastro-esophageal reflux disease without esophagitis
[2024-12-31 09:42] VITALS: BP 108/72; PULSE 84; O2SAT 95; BMI 21.3
--- OUTSIDE RECORDS SUMMARY | 2024-12-31 10:21 | XMS_ITS | Clinical Summary ---
Author Organization [facility] it Address [address] [place] [address] Care Team Providers Care Dialysis Equipment Technician Name Role Phone Caitlyn Cano Primary Care Provider [phone] Immunizations Name Administration Dates Next Due Pfizer SARS-CoV-2 COVID-19, mRNA, LNP-S, preservative free 01/13/2021,12/22/2020 Surgical History Surgery Date Site/Laterality Comments SKIN GRAFT 1960 Right PROCEDURE:SKIN GRAFT;COMMENT:foot SECTION PROCEDURE: SECTION CATARACT EXTRACTION W/ INTRAOCULAR LENS IMPLANT Bilateral PROCEDURE:CATARACT EXTRACTION W/ INTRAOCULAR LENS IMPLANT OTHER SURGICAL HISTORY PROCEDURE:MOHS SURGERY TOE SURGERY 01/19/2023 Right PROCEDURE:TOE SURGERY;COMMENT:Procedure: RIGHT 2ND TOE CORRECTION HAMMERTOE; Surgeon: Todd Valencia DPM; Location: [facility]; Service: Podiatry; Laterality: Right; Medical History [...] age to complete this topic Care Teams Dialysis Equipment Technician Relationship Specialty Start Date End Date Caitlyn Cano [address] [place] [address] [place] [phone] PCP - General 01/17/23
--- OUTSIDE RECORDS SUMMARY | 2024-12-31 10:21 | XMS_ITS | Clinical Summary ---
Author Organization [facility] Address [address] [place] [address] Care Team Providers Care Plasma Processing Technician Name Role Phone Yoko Jolly Primary Care Provider [phone] Allergies Active Allergy Reactions Criticality Noted Date [...] Pap Smear Discontinued Zoster (Zostavax) [place]continued [id number] [id number] [place]IC[place] PART B FFS MEDICARE-SUPPLEMENTAL Care Teams Plasma Processing Technician Relationship Specialty Start Date End Date Yoko Jolly [address] [place] [address] [place] [address] PCP - General Internal Medicine 03/19/16
--- OUTSIDE RECORDS SUMMARY | 2024-12-31 10:21 | XMS_ITS | Patient Health Record ---
[facility] Organization [facility] Address [address] [id number] Care Team Providers Care Smoking Tobacco Packer Hand Name Role Phone ClaudineElba reese Primary Care Provider Unavailabl e Allergies Allergen (clinical drug ingredient) Drug/Non Drug Allergy documented on EMR Reaction Allergy Type Onset Date Status amoxicillin Amoxicillin Unknown Drug Allergy Act ronald ciprofloxacin Cipro Unknown Drug Allergy Act ronald clindamycin Clindamycin HCl Unknown Drug Allergy Active Neomycin Sulfate Unknown Drug Allergy Active hydroxychloroquine Plaquenil Unknown Drug Allergy Active Reason For Referral No Information Medications Medication SIG (Take, Route, Frequency, Duration) Notes Start Date End Date Status Gabapentin & Diet Manage Prod Active prednisoLONE Acetate 1 % 1 drop into LEF T eye Ophthalmic Four time a day for 28 days 11/18/2021 Active Pantoprazole Sodium Active Allergy Active Vitamin D Active Losartan Potassium A ctive Escitalopram Oxalate Active Social History Tobacco Use: Social History Observation Description Date Details (start date - stop date) Never Smoker NA - NA Tobacco Use/Smoking Question Answer Notes Are you a nonsmoker Problems Problem Type SNOMED Code ICD Code Onset Dates Problem Status W/U Status Risk Notes Problem Cortical senile cataract (79728098) Cortical age-related cataract, 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) Active confirmed Problem Open angle with borderline findings, low risk, 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) Active confirmed Plan Of Treatment No Information Insurance Providers Payer Name Payer Address Payer Phone Subscriber Number Group Number Insured Name Patient Relationship to Insured Coverage Start Date Coverage End Date Medicare [address] [place], [place] [id number] Self - patient is the insured [employer] Medicare Enhanced [address] [id number] Self - patient is the insured Medical (General) History Medical History History ICD Code FIBROMIALGYA DEPRESSION HIGH BLOOD PRESSURE OSTEOPINIA Surgical History Surgery Date(Month/Year) CATARACT EXTRACTION WITH IMPLANT VINCE S [id number] 12/17/2021 CATARACT EXTRACTION RIGHT EYE WITH LENS IMPLANT [id number] +19.5 D 01/14/22
--- OUTSIDE RECORDS SUMMARY | 2024-12-31 10:21 | XMS_ITS | Patient Health Record ---
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 Plan Of Treatment No Information Insurance Providers Payer Name Payer Address Payer Phone Subscriber Number Group Number Insured Name Patient Relationship to Insured Coverage Start Date Coverage End Date [employer] of [place] [address] [place] [id number] Self - patient is the insured [facility] [address] [place] [id number] Self - patient is the insured Medical (General) History Medical History History ICD Code right lateral ankle fracture hypertension osteoporosis previous right ankle fracture left ankle sprains osteopenia osteoarthritis anxiety depression fibromyalgia mood disorder Surgical History Surgery Date(Month/Year) 09/13/1983 colonoscopy laparoscopy skin graft on right foot Hospitalization History Reason Date(Month/Year) (girl) 09/13/1983
--- OUTSIDE RECORDS SUMMARY | 2024-12-31 10:21 | XMS_ITS | Clinical Summary ---
Author Organization [facility] Address [address] [place] [address] Care Team Providers Care Recreational Resort Manager Name Role Phone Caitlyn Cano NP Primary Care Provider [phone] Allergies Active Allergy Reactions Criticality Noted Date [...] age to complete this topic Care Teams Recreational Resort Manager Relationship Specialty Start Date End Date Caitlyn Cano NP [address] [place] [address] [place] [id number] PCP - General Family Medicine 01/17/23
== END 2024-12-31 10:19 | disposition home or self-care (01) ==
PROVIDERS: PCP Internal Medicine; Visit Provider Internal Medicine
DX: J45.909 Unspecified asthma, uncomplicated (principal); I10 Essential (primary) hypertension; E78.5 Hyperlipidemia, unspecified; K21.9 Gastro-esophageal reflux disease without esophagitis; F41.1 Generalized anxiety disorder; Z12.31 Encounter for screening mammogram for malignant neoplasm of breast

== ENCOUNTER → 2024-12-31 09:33 | Outpatient (BNVA) | payer MEDICARE, OTHER, SELFPAY | PROVIDERS: PCP Internal Medicine; Visit Provider Internal Medicine | DX: I10 Essential (primary) hypertension (principal); J45.909 Unspecified asthma, uncomplicated; E78.5 Hyperlipidemia, unspecified; F41.1 Generalized anxiety disorder; K21.9 Gastro-esophageal reflux disease without esophagitis | CPT/HCPCS: 99212 ==

== ENCOUNTER 2025-01-01 12:14 | Outpatient (REF) | payer MEDICARE, OTHER, SELFPAY | END 2025-01-01 12:15 | disposition home or self-care (01) | LOC: HO.MAMMO 12:14 | PROVIDERS: PCP Internal Medicine; Visit Provider Internal Medicine | DX: Z12.31 Encounter for screening mammogram for malignant neoplasm of breast (principal) | CPT/HCPCS: 77063; 77067 ==

== ENCOUNTER → 2025-01-01 12:18 | Outpatient (BNV) | payer MEDICARE, OTHER, SELFPAY | PROVIDERS: PCP Internal Medicine; Visit Provider Internal Medicine | DX: Z12.31 Encounter for screening mammogram for malignant neoplasm of breast (principal) | CPT/HCPCS: 77063; 77067 ==

== ENCOUNTER 2025-01-07 13:07 | Outpatient (AMB) | payer MEDICARE, OTHER, SELFPAY ==
--- NOTE | 2025-01-07 13:10 | MHC.OFFVIS ---
Vital Signs 01/07/25 13:37 Height 5 ft 6 in Weight 132 lb BMI 21.3 Intake Visit Reasons: NewProb- LT shoulder pain Intake Note: Brigitte is a 74 year old right hand dominant female who presents today for a new problem visit to evaluate her left shoulder pain. Patient reports her pain has been present since her 30's. Hx of cortisone injection in the past that did not help. She does at home exercises as well as attending PT with very little relief, states dry needling was performed and helped a little. Her pain at times travels down her arm and she has difficulty with carrying items. Pain with ROM. Hx of left wrist fracture 10+ years ago. Allergies amoxicillin Allergy (Intermediate, Verified 01/07/25 13:37) Rash ciprofloxacin Allergy (Intermediate, Verified 01/07/25 13:37) Rash clindamycin Allergy (Intermediate, Verified 01/07/25 13:37) rash, hives hydroxychloroquine [From Plaquenil] Allergy (Intermediate, Verified 01/07/25 13:37) Rash neomycin Allergy (Intermediate, Verified 01/07/25 13:37) Rash ezetimibe Adverse Reaction (Intermediate, Verified 01/07/25 13:37) Diarrhea fenofibrate Adverse Reaction (Intermediate, Verified 01/07/25 13:37) stomach pain, heart burn pravastatin Adverse Reaction (Intermediate, Verified 01/07/25 13:37) Muscle Pain lisinopril Adverse Reaction (Mild, Verified 01/07/25 13:37) dry cough bactrim Allergy (Mild, Uncoded 01/07/25 13:37) Rash Medication List - Last Reconciled 01/07/25 by Solis Vargas PA-C acetaminophen 650 mg PO Q6H PRN cholecalciferol (vitamin D3) 25 mcg PO DAILY dupilumab (Dupixent) 300 mg subcut Q2W escitalopram oxalate 20 mg PO DAILY famotidine 20 mg PO DAILY PRN fexofenadine (Jailene Allergy) 60 mg PO DAILY gabapentin 200 mg PO BEDTIME multivitamin 1 tab PO .every other day HPI HPI NewProb- LT shoulder pain: Details: 74-year-old female presents for left shoulder pain. She has been having ongoing pain for over 3 months which is worse with overhead lifting and carrying objects. She denies nighttime pain. She states she has been to physical therapy in the past with minimal relief. [facility] Medical History (Updated 01/07/25 @ 13:52 by Solis Vargas PA-C) Colon cancer screening Colon cancer screening Benign paroxysmal positional vertigo Osteopenia Thyroid nodule Hyperlipidemia IBS (irritable bowel syndrome) GERD (gastroesophageal reflux disease) Depression Asthma Genital warts Osteoarthritis of fingers of both hands Osteoarthritis of carpometacarpal joint of left thumb Anxiety Mood disorder High blood pressure Fibromyalgia Surgical History Status post right foot surgery History of colonoscopy History of laparoscopy History of delivery History of skin graft Family History Daughter Mental health disorder Autism Sister FH: HTN (hypertension) Mother FH: HTN (hypertension) Other Substance use disorder Social History Household Members: None Housing: Apartment Are you a primary patient care secretary to a significant other at home: No Do you presently have visiting nurse or other home services: No Alcohol intake: current Comment: 2x a year Patient Tobacco Use Status: Never used Tobacco Tobacco use type: Cigarette e-Cigarette/Vaping Use: Never Used Second Hand Smoke Exposure: No service: No Current occupational status: retired Sexual orientation: Straight/Heterosexual Gender identity: Female Cognitive needs: No Hearing needs: No Vision needs: Yes (glasses) Review of Systems Const All systems reviewed & are unremarkable except as noted in HPI and below Physical Exam Vital Signs: BMI result Body Mass Index 21.3 Const General: cooperative and no acute distress Orientation/consciousness: patient oriented x3 Resp Effort & Inspection: normal respiratory effort and able to speak in complete sentences Cardio Peripheral pulses: Peripheral pulses 2+ throughout Neuro General: patient oriented x3 Extrem Other: Left shoulder normal to inspection. She has full range of motion in all planes. She has tenderness over the AC joint. Weakness with belly press. Neurovascularly intact. Results Reviewed Results Reviewed: X-rays of the left shoulder obtained today and reviewed by me show glenohumeral joint arthritis and AC joint arthritis. Assessment & Plan Assessment & Plan (1) Arthritis of right glenohumeral joint: Code(s): M19.011 - Primary osteoarthritis, right shoulder Category: Medical Plan: We discussed options today which include physical therapy. I explained the importance of working with therapy to improve her rotator cuff and periscapular stabilization. I also discussed avoiding overhead activities. If symptoms persist or worsen she can contact our office for an injection otherwise follow up as needed. Orders: Orders XR shoulder RT min 2V Today M25.511 - Pain in right shoulder XR shoulder LT min 2V Today M25.512 - Pain in left shoulder PT Evaluation and Treatment Today M19.011 - Primary osteoarthritis, right shoulder Coding Level of Care Code Est Pt Level 3 (98064) Complex EM visit Add On G2211 Diagnoses Arthritis of right glenohumeral joint M19.011
[2025-01-07 13:37] VITALS: BMI 21.3
== END 2025-01-07 13:59 | disposition home or self-care (01) ==
PROVIDERS: PCP Internal Medicine; Visit Provider Physician Assistant
DX: M19.011 Primary osteoarthritis, right shoulder (principal)
CPT/HCPCS: 99213; G2211

== ENCOUNTER 2025-01-07 13:15 | Outpatient (REF) | payer MEDICARE, OTHER, SELFPAY ==
--- NOTE | ~2025-01-07 | XR_ITS ---
EXAMINATION: XR SHOULDER 2 OR MORE VIEWS LEFT HISTORY: M25.512 - Pain in left shoulder COMPARISON: There are no prior studies available for comparison. FINDINGS: Three views of the left shoulder are submitted. Osseous mineralization is normal. There is no fracture or dislocation. There is moderate osteoarthritis of the glenohumeral and acromioclavicular joints with joint space narrowing and osteophyte formation. The soft tissues are unremarkable. XR/XR shoulder LT min 2V IMPRESSION: Moderate osteoarthritis. Electronically signed by: Dom Ledesma MD 01/08/2025 07:47 AM EDT
== END 2025-01-07 13:16 | disposition home or self-care (01) ==
LOC: HO.HOSX 13:15
PROVIDERS: Visit Provider Physician Assistant
DX: M25.511 Pain in right shoulder (principal); M19.011 Primary osteoarthritis, right shoulder; M25.512 Pain in left shoulder
CPT/HCPCS: 73030; 99212

== ENCOUNTER → 2025-01-07 13:16 | Outpatient (BNV) | payer MEDICARE, OTHER, SELFPAY | PROVIDERS: Visit Provider Radiology Diagnostic Radiology | DX: M25.512 Pain in left shoulder (principal) | CPT/HCPCS: 73030 ==

== ENCOUNTER 2025-01-29 14:40 | Outpatient (AMB) | payer MEDICARE, OTHER, SELFPAY ==
--- NOTE | 2025-01-29 15:07 | MHC.PC.OV ---
Vital Signs 01/29/25 15:08 01/29/25 15:43 Height 5 ft 6 in Weight 132 lb BMI 21.3 BP 124/62 138/80 Blood Pressure Location Lt brachial Lt brachial Position Sitting Temp 97.3 F Temp Source Temporal Artery Scan Intake Visit Reasons: Elevated blood pressure and dizziness Intake Note: Patient is here to follow up on Elevated blood pressure and dizziness. Sales Engineer Engineered Products Required: No Content Designer: Present Allergies amoxicillin Allergy (Intermediate, Verified 01/29/25 15:08) Rash ciprofloxacin Allergy (Intermediate, Verified 01/29/25 15:08) Rash clindamycin Allergy (Intermediate, Verified 01/29/25 15:08) rash, hives hydroxychloroquine [From Plaquenil] Allergy (Intermediate, Verified 01/29/25 15:08) Rash neomycin Allergy (Intermediate, Verified 01/29/25 15:08) Rash ezetimibe Adverse Reaction (Intermediate, Verified 01/29/25 15:08) Diarrhea fenofibrate Adverse Reaction (Intermediate, Verified 01/29/25 15:08) stomach pain, heart burn losartan Adverse Reaction (Intermediate, Verified 01/29/25 15:08) dizziness pravastatin Adverse Reaction (Intermediate, Verified 01/29/25 15:08) Muscle Pain lisinopril Adverse Reaction (Mild, Verified 01/29/25 15:08) dry cough bactrim Allergy (Mild, Uncoded 01/29/25 15:08) Rash Tobacco use date assessed: 01/29/25 Fall risk assessment: No Falls in past year Last assessed Fall Risk: 01/29/25 Dental Screening Dental Screen Date: 11/06/24 [facility] Medical History (Updated 01/29/25 @ 15:38 by Kevyn Monique MD) Arthritis of right glenohumeral joint Colon cancer screening Colon cancer screening Benign paroxysmal positional vertigo Osteopenia Thyroid nodule Hyperlipidemia IBS (irritable bowel syndrome) GERD (gastroesophageal reflux disease) Depression Asthma Genital warts Osteoarthritis of fingers of both hands Osteoarthritis of carpometacarpal joint of left thumb Anxiety Mood disorder High blood pressure Fibromyalgia Surgical History (Updated 01/29/25 @ 15:12 by COOPER Ramirez) Status post right foot surgery History of colonoscopy History of laparoscopy History of delivery History of skin graft Family History Daughter Mental health disorder Autism Sister FH: HTN (hypertension) Mother FH: HTN (hypertension) Other Substance use disorder Social History Household Members: None Housing: Apartment Are you a primary ostomy care nurse to a significant other at home: No Do you presently have visiting nurse or other home services: No Alcohol intake: current Comment: 2x a year Patient Tobacco Use Status: Never used Tobacco Tobacco use type: Cigarette e-Cigarette/Vaping Use: Never Used Second Hand Smoke Exposure: No service: No Current occupational status: retired Sexual orientation: Straight/Heterosexual Gender identity: Female Cognitive needs: No Hearing needs: No Vision needs: Yes (glasses) Questionnaire Thrive Questionnaire Date Thrive assessed: 12/31/24 AUDIT C Alcohol Use Questionnaire (AUDIT-C) 2. How many drinks containing alcohol do you have on a typical day when you are drinking?: 1 or 2 Total Score: 0 JIHAN-7 AMB Questionnaire JIHAN-7 Date JIHAN - 7 assessed: 11/06/24 Source: Developed by Drs. Dom Nichole, Shell Salvador, Max Chan and colleagues, with an educational mabel from [employer]. Physical exam (Primary Care) Vital Signs: Last Vital Signs Temp 97.3 F 01/29/25 15:08 BP 138/80 01/29/25 15:43 BMI result Body Mass Index 21.3 Tobacco/Smoking Status: Tobacco use Status Tobacco use date assessed 01/29/25 01/29/25 15:14 Patient Tobacco Use Status Never used Tobacco 01/29/25 15:14 Tobacco use type Cigarette 01/29/25 15:14 e-Cigarette/Vaping Use Never Used 01/29/25 15:14 Thrive Assessment: Date of Thrive Assessment Date Thrive assessed 12/31/24 01/29/25 15:14 Const General: alert; No acute distress Eyes Conjunctivae: conjunctivae normal Resp Auscultation: clear to auscultation bilaterally Cardio Rate: regular rate Rhythm: regular rhythm GI Inspection: Yes normal to inspection Extrem General: Yes normal to inspection and No edema Coding Level of Care Code Est Pt Level 4 (98729) Complex EM visit Add On G2211 Diagnoses Hypertension I10 Asthma J45.909 Hyperlipidemia E78.5 GERD (gastroesophageal reflux disease) K21.9 Primary osteoarthritis, left shoulder M19.012 Assessment & Plan Assessment & Plan (1) Hypertension: Code(s): I10 - Essential (primary) hypertension Category: Medical Plan: Continue with blood pressure medication. Decrease salt intake and exercise patient is on amlodipine 2.5 mg once a day hydro dry cough with lisinopril and dizziness with losartan (2) Asthma: Code(s): J45.909 - Unspecified asthma, uncomplicated Category: Medical Plan: Continuing with medication on Dupixent (3) Hyperlipidemia: Code(s): E78.5 - Hyperlipidemia, unspecified Category: Medical Plan: Avoid fried foods, chicken skin, eggs, butter margarine, pastries and meat. Be it pork or beef they have a lot of cholesterol LDL goal of less than 130 and triglyceride of less than 150 diet controlled. (4) GERD (gastroesophageal reflux disease): Code(s): K21.9 - Gastro-esophageal reflux disease without esophagitis Category: Medical Plan: Avoid the foods that causes that usually spicy foods, tomato products, juices, coffee, soda and foods that your sensitive to. After eating do not lie down, allow 3-4 hours before in lie down. And keep the head of bed above 30 degrees to avoid the acid from going up. (5) Primary osteoarthritis, left shoulder: Code(s): M19.012 - Primary osteoarthritis, left shoulder Category: Medical Plan History of Present Illness The patient is a 24-year-old female presenting with dizziness. Her symptoms have persisted for a significant length of time and notably worsened following the initiation of losartan for hypertension; she subsequently developed a persistent cough with lisinopril, and the regimen was adjusted to amlodipine 2.5 mg daily. Despite these changes, dizziness continues to be a primary issue, affecting her ability to drive and perform daily activities. The patient previously managed anxiety and shoulder pain with gabapentin, which she is now considering discontinuing due to potential contributory effects to her dizziness. She had brief success with physical therapy for her past dizziness problem but has chosen to pause this for her shoulder discomfort to concentrate on managing her dizziness. Her underlying conditions are well-managed with the current regimen including Dupixent for asthma, although she raises concern about dizziness as a side effect. Consistent follow-up is emphasized for chronic disease and financial considerations for medication adherence. Health Maintenance - The patient is up to date with her mammogram screenings. - December blood work showed mild chronic leukopenia, normal renal function, and slightly elevated serum calcium at 10.4 mg/dL. - Continuation of diet-controlled cholesterol management with the goal of LDL <130 mg/dL and triglycerides <150 mg/dL. - Hypertension managed with amlodipine, as blood pressure readings were largely within an acceptable range. Social History - Expresses anxiety related to global events, particularly those involving refugees. - Notably impacted by social media and television related to international conflicts, attempts to mitigate stress with reading and exercising. - Mentions reliance on Social Security for financial support within the family. Review of Systems - Cardiovascular: Reports mild hypertension; denies chest pain. - Neurological: Reports dizziness; denies vertigo. - Ear, Nose, Throat: Reports occasional ear discomfort; denies sore throat. - Musculoskeletal: Denies new joint pain; reports chronic osteoarthritis pain. - Gastrointestinal: Reports normal bowel activity with occasional constipation. - Psychological: Reports ongoing anxiety; denies depression exacerbation. Physical Exam - Cardiovascular- Blood pressure readings noted varied, including measurements at 138/80, 131/84, 127/82, and 144/80 on different occasions, reflecting mild elevation. - Neurological- Squeeze strength intact bilaterally. - Ears- Presence of earwax noted, with an open yet partially blocked auditory canal. Results - Labs: December lab work shows mild chronic leukopenia, slightly elevated calcium level at 10.4 mg/dL normalizing renal function, acceptable cholesterol levels with LDL at 121 mg/dL. - Imaging: Previous x-rays of the left shoulder showed moderate osteoarthritis changes. Plan The management plan includes discontinuing gabapentin and closely monitoring if dizziness subsequently improves. Amlodipine therapy will continue to manage hypertension with reevaluation for adjustments if dizziness persists. Fexofenadine can be paused unless allergy symptoms demand its use. Dupixent will be maintained for asthma management while considering dizziness as a potential side effect to be monitored. Initiating physical therapy for dizziness is proposed. Emphasis is placed on continuous lifestyle modifications, including diet and exercise adherence to support cardiovascular health and cholesterol control. Routine follow-up and monitoring are recommended to evaluate therapeutic effectiveness and adjust plans as necessary. Patient was informed and verbally consented to the use of an ambient scribe for clinic note documentation during this visit. Discussion Notes I discussed with the patient the potential contributing factors to her dizziness, including the role of current medications and the need to monitor side effects closely. The benefits of physical therapy were accentuated, given its success in the past. I explained the risks and side effects associated with continuing amlodipine and Dupixent, while considering potential alternatives if side effects persist. We reviewed her recent diagnostic results, emphasizing calcium and cholesterol levels, and discussed the importance of maintaining dietary and exercise routines to support cardiovascular health. Her hypertension management strategy was outlined with amlodipine, understanding that blood pressure readings vary. Further, we addressed her anxiety and stress management practices given the current socio-political climate, focusing on techniques to mitigate anxiety. Follow-up visits were encouraged to monitor her progress and response to these management strategies. Patient Instructions - Discontinue gabapentin; monitor for changes in dizziness. - Continue taking amlodipine as prescribed. - Hold fexofenadine unless allergy symptoms increase. - Attend physical therapy sessions for dizziness. - Practice lifestyle modifications, including a healthy diet and regular exercise. - Keep track of blood pressure at home and report significant changes. - Schedule regular follow-ups for monitoring and adjustments. - Engage in stress-reducing activities and limit exposure to anxiety-inducing media. Orders: Orders PT Evaluation and Treatment Today H81.10 - Benign paroxysmal vertigo, unspecified ear Medications: Refilled amlodipine 2.5 mg PO DAILY 30 tabs 1RF
[2025-01-29 15:08] VITALS: BP 124/62; TEMP 36.3; BMI 21.3
[2025-01-29 15:43] VITALS: BP 138/80
--- OUTSIDE RECORDS SUMMARY | 2025-01-29 17:48 | XMS_ITS | Clinical Summary ---
Author Organization [facility] Address [address] [place] [address] Care Team Providers Care Clinical Laboratory Scientist Name Role Phone Yoko Jolly Primary Care Provider [phone] Allergies Active Allergy Reactions Criticality Noted Date [...] Pap Smear Discontinued Zoster (Zostavax) Discontinued [place] [id number] MEDICARE PART B FFS MEDICARE-SUPPLEMENTAL Care Teams Clinical Laboratory Scientist Relationship Specialty Start Date End Date Yoko Jolly [address] [place] [address] [place] [address] PCP - General Internal Medicine 03/19/16
--- OUTSIDE RECORDS SUMMARY | 2025-01-29 17:48 | XMS_ITS | Data Portability ---
Author Organization SUSY prince MD, [place] Address [address] [facility] [id number] [place] [address] Care Team Providers Care Inclined Railway Operator Name Role Phone STACY AMADOR Primary Care Provider STACY AMADOR Referring Provider [phone] Assessment Encounter Date Assessment Date Assessment LastModified by Organization Details LastModified Time 05/15/2015 05/15/2015 ? ? ? IMPRESSION: Ms. Way is sensitized to perennial aero-allergens, molds > dust mites. This can lead to low grade buttermaker continuous churn inflammation of her nasal / sinus lining. 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 ? ? ? PLAN: ? ? ? [...] tended release 12 hr 015 015 dmuppidi [facility]/Pharmacy #[id number], [address], [place], [place], [id number], 5 16:39:06 Patient TargetsNo targets recorded. Patient InstructionsNo instructions recorded. Reason for Referral None Reported. Problems Name Problem SNOMED Code Status Onset Date Resolution Date Notes Provider Name and Address Organization Details Recorded Time Allergy to dust mite protein 038120648 Active Valorieyael manjarrez [place] - Ollie Hyde [...] n hives Not available Not available 05/31/2014 20632 8003 SNOMED Not Available Not Available Not Available 5062 Cipro medicatio n rash Not available Not available 05/31/2014 09383 3 RxNorm Not Available Not Available Not [...] Zetonna 37 mcg/actuatio n nasal HFA inhaler [place] 1 spray twice a day by intranasal [...] Details Last Updated DateTime 5 16 /min 12568.7 792 g 167.64 cm 70 /min 25.8 kg/m2 112 mm[Hg] 80 mm[Hg] Heidi Hyde MD 5 15:21:33 Date Recorded Respiratory rate Body weight Body height Heart rate Body mass index (BMI) Systolic blood pressure Diastolic blood pressure Provider Name and Address Organization Details Last Updated DateTime 5 16 /min 32367.7 792 g 167.64 cm 70 /min 25.8 kg/m2 120 mm[Hg] 76 mm[Hg] Heidi Hyde MD 5 13:07:36 Date Recorded Body height Body mass index (BMI) Body weight Provider Name and Address Organization Details Last Updated DateTime 03/23/2016 167.64 cm 26.6 kg/m2 02093.7410 5 g Raquel English SUSY Hyde MD 03/23/2016 15:05:38 Social History Question Answer Notes LastModified by Organizat ion Details LastModified Time Tobacco Smoking Status Never Smoker Not Available [facility] 08/26/2020 03:19:15 How Often Do You Travel On An Airplane? 1-2xyear Information not available 11/12/2014 What Is Your Level Of Alcohol Consumption? None [id number] Information not available 08/26/2020 Animal Exposure? No [...] not available 06/01/2014 Nature Of Your Work [employer] [place] Information not [...] Depression N Glaucoma N Anxiety Disorder N Diabetes N Tuberculosis N Cancer N Stroke N Thyroid disease N Headache N GERD/Reflux N High Cholesterol N Hepatitis N Rheumatoid Arthritis N Hypertension N Osteoporosis N Kidney Disease N Gynecological History Statement/Question Response LMP Definite Obstetrics History GPAL:G 0 P 0 0 0 0 Past Encounters Encounter ID Performer Location Encounter Start Date Encounter Closed Date Diagnosis/Indication Diagnosis SNOMED-CT Code Diagnosis ICD10 Code Diagnosis Note [id number] MD [place] Mckeon [address] [place] [address] [address] [place] [address] 05/31/2014 09:32:38 05/31/2014 11:06:25 Allergy to dust mite protein [id number] [place] [address] [place] [address] [address] [place] [address] 07/02/2014 16:02:23 07/02/2014 16:59:41 [id number] Heidi Sun [address] [place] [address] [address] [place] [address] 11/12/2014 16:30:42 11/12/2014 17:35:20 [id number] Ollie Hyde MD [place] [address] [facility], [address] [place] [address] 05/15/2015 14:54:21 05/15/2015 16:38:11 [id number] Ollie Hyde MD [place] [address] [facility] [address] [place] [address] 05/22/2015 13:05:35 05/22/2015 14:29:21 Allergy to dust mite protein [id number] Health Concerns Section Related Observation LastModified by Organization Detai ls LastModified Time None Recorded Concern Status LastModified by Organization Details LastModified Time None Recorded Advance Directives Directive None Recorded Payers Encounter Date Sequence Insurance Name Policy Number Policy Best Covered Member ID Best Member ID Guarantor Name 05/15/2015 1 [facility] ([facility]) [address] [id number] 05/22/2015 1 [facility] (POS) [address] [id number] OBGyn Episode No OBEpisode recorded."
--- OUTSIDE RECORDS SUMMARY | 2025-01-29 17:48 | XMS_ITS | Patient Health Record ---
[facility] Address [address] [id number] Care Team Providers Care Medical Device Assembler Name Role Phone ClaudineElba reese Primary Care Provider Unavailabl e Allergies Allergen (clinical drug ingredient) Drug/Non Drug Allergy documented on EMR Reaction Allergy Type Onset Date Status amoxicillin Amoxicillin Unknown Drug Allergy Act ronald ciprofloxacin Cipro Unknown Drug Allergy Act ronald clindamycin Clindamycin HCl Unknown Drug Allergy Active neomycin Neomycin Sulfate Unknown Drug Allergy Active hydroxychloroquine [...] Status Risk Notes Problem Cortical senile cataract (32079902) Cortical age-related cataract, 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) Active confirmed Problem Open angle with borderline findings, low risk, 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) Active confirmed Plan Of Treatment No Information Insurance Providers Payer Name Payer Address Payer Phone Subscriber Number Group Number Insured Name Patient Relationship to Insured Coverage Start Date Coverage End Date Medicare [address] [place], [place] [id number] [id number] Self - patient is the insured [employer] Medicare Enhanced [address] [id number] Self - patient is the insured Medical (General) History Medical History History ICD Code FIBROMIALGYA DEPRESSION HIGH BLOOD PRESSURE OSTEOPINIA Surgical History Surgery Date(Month/Year) CATARACT EXTRACTION WITH IMPLANT VINCE S [id number] 12/17/2021 CATARACT EXTRACTION RIGHT EYE WITH LENS IMPLANT [id number] +19.5 D 01/14/22
--- OUTSIDE RECORDS SUMMARY | 2025-01-29 17:48 | XMS_ITS | Clinical Summary ---
Author Organization [facility] Address [address] [place] [address] Care Team Providers Care Imaging Clerk Name Role Phone Caitlyn Cano NP Primary Care Provider [phone] Allergies Active Allergy Reactions Criticality Noted Date [...] age to complete this topic Care Teams Imaging Clerk Relationship Specialty Start Date End Date Caitlyn Cano NP [address] [place] [address] [place] [id number] PCP - General Family Medicine 01/17/23
--- OUTSIDE RECORDS SUMMARY | 2025-01-29 17:48 | XMS_ITS | Clinical Summary ---
Author Organization [facility] Address [address] [place] [address] Care Team Providers Care Metal Fabricating Shop Helper Name Role Phone Caitlyn Cano Primary Care Provider [phone] Immunizations Name Administration Dates Next Due Pfizer SARS-CoV-2 COVID-19, mRNA, LNP-S, preservative free 01/13/2021,12/22/2020 Surgical History Surgery Date Site/Laterality Comments SKIN GRAFT 1960 Right PROCEDURE:SKIN GRAFT;COMMENT:foot SECTION PROCEDURE: SECTION CATARACT EXTRACTION W/ INTRAOCULAR LENS IMPLANT Bilateral PROCEDURE:CATARACT EXTRACTION W/ INTRAOCULAR LENS IMPLANT OTHER SURGICAL HISTORY PROCEDURE:MOHS SURGERY TOE SURGERY 01/19/2023 Right PROCEDURE:TOE SURGERY;COMMENT:Procedure: RIGHT 2ND TOE CORRECTION HAMMERTOE; Surgeon: Todd Valencia DPM; Location: [facility]; Service: Podiatry; Laterality: Right; [...] 12/22/2020 Influenza Vaccine (#1) 2024 RSV Immunization Adult Patients (1 - 1-dose 75+ series) 2027 HIB [...] age to complete this topic Meningococcal B Vaccine Aged Out No l onger eligible based on patient's age to complete this topic RSV Immunization Patients Under 20 months Aged Out No longer eligible b ased on patient's age to complete this topic Varicella Vaccines Aged Out No longer eligible based on patient's age to complete this topic Care Teams Metal Fabricating Shop Helper Relationship Specialty Start Date End Date Caitlyn Cano [address] [place] [address] [place] [id number] PCP - General 01/17/23
--- OUTSIDE RECORDS SUMMARY | 2025-01-29 17:48 | XMS_ITS | Patient Health Record ---
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 Plan Of Treatment No Information Insurance Providers Payer Name Payer Address Payer Phone Subscriber Number Group Number Insured Name Patient Relationship to Insured Coverage Start Date Coverage End Date Medicare of [place] [address] [place] [id number] Self - patient is the insured [facility] [address] [place] [id number] Self - patient is the insured Medical (General) History Medical History History ICD Code right lateral ankle fracture hypertension osteoporosis previous right ankle fracture left ankle sprains osteopenia osteoarthritis anxiety depression fibromyalgia mood disorder Surgical History Surgery Date(Month/Year) 09/13/1983 colonoscopy laparoscopy skin graft on right foot Hospitalization History Reason Date(Month/Year) (girl) 09/13/1983
== END 2025-01-29 16:04 | disposition home or self-care (01) ==
LOC: HO.HMCH 14:40
PROVIDERS: PCP Internal Medicine; Visit Provider Internal Medicine
DX: I10 Essential (primary) hypertension (principal); J45.909 Unspecified asthma, uncomplicated; E78.5 Hyperlipidemia, unspecified; K21.9 Gastro-esophageal reflux disease without esophagitis; M19.012 Primary osteoarthritis, left shoulder

== ENCOUNTER → 2025-01-29 14:40 | Outpatient (BNVA) | payer MEDICARE, OTHER, SELFPAY | PROVIDERS: PCP Internal Medicine; Visit Provider Internal Medicine | DX: I10 Essential (primary) hypertension (principal); J45.909 Unspecified asthma, uncomplicated; E78.5 Hyperlipidemia, unspecified; K21.9 Gastro-esophageal reflux disease without esophagitis; M19.012 Primary osteoarthritis, left shoulder; H81.10 Benign paroxysmal vertigo, unspecified ear | CPT/HCPCS: 99212 ==

== ENCOUNTER 2025-02-12 14:00 | Outpatient (RCR) | payer MEDICARE, OTHER, SELFPAY ==
--- NOTE | 2025-01-28 12:34 | MHC.PT.EP ---
[facility] [place] Office [place] [facility] [place] [facility] [address] [phone] F: [phone] F: [phone] F: [phone] F: [phone] Physical Therapy Plan of Care Date of Evaluation: 01/24/25 Date of Surgery: Diagnosis: OA L shoulder. Assessment: Pt is a 74 y/o female with PMHx significant for Osteopenia, IBS, GERD, Asthma.OA, Mood disorder, HTN, Fibromyalgia who is referred to PT for eval and treat of OA L shoulder which is resulting in decreased tolerance for laying on her side, carrying her groceries, placing objects on high shelves, reaching her back for higine and dressing as well as dressing undershirts secondary to decreased L shoulder ROM and strength, decreased scapular posture, continuing painful exercise and pain with activitiy. Pt is deemed an appropriate candidate to receive skilled PT services to address their physical impairments in order to improve their functional ability. Frequency and Duration: The patient will be seen 2 x/ wk x 4 wks. Short Term Goals: initiate home program. L shoulder AROM to at least 140 degrees, initial: 115. Skilled Nursing Goals: I with home program. Improve SPADI by at least 13 points. Pt will be able to place objects on high shelf with managed Sx. Improve L shoulder flexion MMT by at least 1/2 MMT grade. Treatment Plan: Modalities to reduce pain, spasms and effusion. Manual therapy to restore motion and function. Therapeutic exercise to improve strength and flexibility. Neuromuscular re-education for posture and balance. Therapeutic activities to return to functional activities of daily living. Electronically signed by: Vinnie Melgar PT. Please sign and return to therapist. Thank you for your referral.
== END 2025-10-09 08:34 | disposition home or self-care (01) ==
LOC: HO.PT 14:00
PROVIDERS: PCP Internal Medicine; Visit Provider Physician Assistant
DX: M19.012 Primary osteoarthritis, left shoulder (principal)
CPT/HCPCS: 97110; 97161

== ENCOUNTER 2025-02-21 10:15 | Outpatient (AMB) | payer MEDICARE, OTHER, SELFPAY ==
--- NOTE | 2025-02-21 10:42 | A.OFFVIS_ITS ---
Vital Signs 02/21/25 10:43 Height 5 ft 6 in Weight 132 lb BMI 21.3 BP 140/78 H Blood Pressure Location Rt brachial Position Sitting Pulse 76 Pulse Source Pulse Oximeter Pulse Oximetry (%) 97 Oxygen Delivery Method Room Air Intake Visit Reasons: INP - Dizziness & Giddiness Intake Note: Patient presents follow up for dizziness. Past July became intense. Feeling very dizzy at the moment. Label Stitcher Required: No Accompanied by: Self / Same As Patient Allergies amoxicillin Allergy (Intermediate, Verified 02/21/25 10:45) Rash ciprofloxacin Allergy (Intermediate, Verified 02/21/25 10:45) Rash clindamycin Allergy (Intermediate, Verified 02/21/25 10:45) rash, hives hydroxychloroquine [From Plaquenil] Allergy (Intermediate, Verified 02/21/25 10:45) Rash neomycin Allergy (Intermediate, Verified 02/21/25 10:45) Rash ezetimibe Adverse Reaction (Intermediate, Verified 02/21/25 10:45) Diarrhea fenofibrate Adverse Reaction (Intermediate, Verified 02/21/25 10:45) stomach pain, heart burn losartan Adverse Reaction (Intermediate, Verified 02/21/25 10:45) dizziness pravastatin Adverse Reaction (Intermediate, Verified 02/21/25 10:45) Muscle Pain lisinopril Adverse Reaction (Mild, Verified 02/21/25 10:45) dry cough bactrim Allergy (Mild, Uncoded 01/29/25 15:08) Rash Medication List - Last Reconciled 02/21/25 by Courtney Barrientos, CHRISTOFER acetaminophen 650 mg PO Q6H PRN amlodipine 2.5 mg PO DAILY cholecalciferol (vitamin D3) 25 mcg PO DAILY dupilumab (Dupixent) 300 mg subcut Q2W escitalopram oxalate 20 mg PO DAILY famotidine 20 mg PO DAILY PRN gabapentin 100 mg PO BEDTIME multivitamin 1 tab PO .every other day HPI Comments Details: Right-handed 74-yr-old female presents for new in-person patient evaluation for dizziness. PMH is notable for osteopenia, OA, thyroid nodule, HTN, HLD, IBS, GERD, anxiety/depression, asthma, fibromyalgia. Patient reports reports she has had dizziness for quite some time which has been episodic but more recently has been constant for the last few weeks. She describes the dizziness as really debilitating , which is elicited by turning her head. She has difficulty describing the dizziness, and denies room spinning or not right in space or pulling dizziness. but is elicited by turning her head. She states she was told this may be a type of migraine without headache. In July of 2024, she reports she had ear evaluation for increased dizziness and HTN with BP as high as 169/98 in Jul 2024. She went to the ER- who suggested she had BPPV. She completed vestibular PT, who per pt ruled out BPPV but did continue to do v estibular/eye exercises which was helpful but she continues to have dizziness. She has tried adjusting medication doses without much effect, including: Stopped losartan, and is now on Amlodipine. She tried reducing Gabapentin from 700mg to 100mg per day for fibromyalgia- though this did not help the dizziness. She wonders if she can increase it back up to 200mg. In the past, she took magnesium glycinate which possibly though she is not certain, caused loose stools as she was taking it along an oil supplement. Also endorses increased photophobia, nausea, rare mild headaches, h/o menstrual migraine, motion sickness since childhood, shoulder pain/arthritis, depression/anxiety f/b psychiatry, asthma, nasal congestion. Has neck soreness if she exercises too much, but denies shooting pain. Last year- she had a widespread rash- eventually dx'd as atopic dermatitis by [facility], which responded to Dupixant. She does endorse stress and anxiety-related to having a daughter with autism spectrum disorder and needing to make sure her daughter is financially secure. Patient does not drive, lives in [facility], relies on transportation. However when she did drive, she did not tolerate being a passenger due to motion sickness. Denies numbness/tingling, shooting pain, difficulty sleeping. No h/o head imaging. [facility] Medical History (Updated 02/21/25 @ 13:11 by CHRISTOFER Kuhn) Menstrual migraine without status migrainosus Arthritis of right glenohumeral joint Colon cancer screening Colon cancer screening Benign paroxysmal positional vertigo Osteopenia Thyroid nodule Hyperlipidemia IBS (irritable bowel syndrome) GERD (gastroesophageal reflux disease) Depression Asthma Genital warts Osteoarthritis of fingers of both hands Osteoarthritis of carpometacarpal joint of left thumb Anxiety Mood disorder High blood pressure Fibromyalgia Surgical History Status post right foot surgery History of colonoscopy History of laparoscopy History of delivery History of skin graft Family History Daughter Mental health disorder Autism Sister FH: HTN (hypertension) Mother FH: HTN (hypertension) Other Substance use disorder Social History Household Members: None Housing: Apartment Are you a primary patient centered care specialist to a significant other at home: No Do you presently have visiting nurse or other home services: No Alcohol intake: current Comment: 2x a year Patient Tobacco Use Status: Never used Tobacco Tobacco use type: Cigarette e-Cigarette/Vaping Use: Never Used Second Hand Smoke Exposure: No service: No Current occupational status: retired Sexual orientation: Straight/Heterosexual Gender identity: Female Cognitive needs: No Hearing needs: No Vision needs: Yes (glasses) Physical Exam Vital Signs: Last Vital Signs Pulse 76 02/21/25 10:43 BP 140/78 H 02/21/25 10:43 Pulse Ox 97 02/21/25 10:43 Oxygen Delivery Method Room Air 02/21/25 10:43 BMI result Body Mass Index 21.3 Const General: no acute distress Orientation/consciousness: patient oriented x3 Resp Effort & Inspection: normal respiratory effort and able to speak in complete sentences Neuro Other: No palpable scalp tenderness Bilateral TMJ crepitus with signs of lower teeth wearing EOM intact without nystagmus End gaze nystagmus testing: Does not elicit nystagmus, however elicits dizziness after 10 seconds Bilateral posterior cervical tightness. Cervical range of motion within normal limits, however lateral rotation elicits nonradiating left posterior neck tightness. General: patient oriented x3 and deep tendon reflexes 2+ bilaterally Gait exam (Neuro): Normal gait present Motor exam (neuro): 5/5 motor strength present throughout Coordination: nkdiut-do-fcfy test normal, tandem gait normal and Romberg test negative Psych Appearance: grossly normal Mental Status: mental status grossly normal Speech and movement: Clear speech present Affect: normal affect Attitude: cooperative Thought process: Normal thought process present Assessment & Plan Assessment & Plan (1) Dizziness: Code(s): R42 - Dizziness and giddiness Category: Medical (2) Motion sickness: Code(s): T75.3XXA - Motion sickness, initial encounter Category: Medical Qualifiers: Encounter type: subsequent encounter Qualified Code(s): T75.3XXD - Motion sickness, subsequent encounter Plan Reviewed with patient that chronic dizziness can have many etiologies, including cervicogenic, cardiovascular, peripheral, central, and migraine processes. As patient is greater than 70 years old, we will need to exclude central and cardiovascular etiologies, as patient has known osteoarthritis and osteopenia we will assess cervical spine. Patient does have risk factors for vestibular migraine without headache, such as childhood motion sickness, history of menstrual migraine, however would like to see workup completed prior to making any formal diagnoses at this point. The we can start conservative migraine prevention treatment to see if this is helpful. Patient advised to undergo: Brain MRI with bilateral IAC with and without contrast to assess for secondary central etiologies of chronic dizziness. XR C-spine Bilateral carotid ultrasound We will refer patient for additional vestibular PT eval and treat. Start riboflavin 400 mg daily in the morning. Trial magnesium up to 400-500 mg daily at bedtime-may hold for loose stools. She may increase Gabapentin from 100mg to 200mg per day. Probably not on the Will follow-up upon review of above and patient to follow-up in clinic in 3-4 [facility] or sooner prn. Orders: Orders XR cervical spine w flex/ext Today M54.2 - Cervicalgia PT Evaluation and Treatment Today R42 - Dizziness and giddiness, T75.3XXA - Motion sickness, initial encounter US carotid duplex BI Today E78.5 - Hyperlipidemia, unspecified, R42 - Dizziness and giddiness MR head/brain wo/w con Today E78.5 - Hyperlipidemia, unspecified, I10 - Essential (primary) hypertension, R42 - Dizziness and giddiness Medications: New riboflavin (vitamin B2) 400 mg PO DAILY 30 days 30 tabs 6RF Coding Level of Care Code New Pt Level 4 (10890) Diagnoses Dizziness R42 Motion sickness, subsequent encounter T75.3XXD Encounter type: subsequent encounter
[2025-02-21 10:43] VITALS: BP 140/78; PULSE 76; O2SAT 97; BMI 21.3
--- OUTSIDE RECORDS SUMMARY | 2025-02-21 11:39 | XMS_ITS | Data Portability ---
Author Organization [facility] [place] Address [address] [facility] [address] [place] [address] Care Team Providers Care Truck Loader And Unloader Name Role Phone STACY AMADOR Primary Care Provider STACY AMADOR Referring Provider Assessment Encounter Date Assessment Date Assessment LastModified by Organization Details LastModified Time 05/15/2015 05/15/2015 ? ? ? IMPRESSION: Ms. Way is sensitized to perennial aero-allergens, molds > dust mites. This can lead to low grade parts counterman inflammation of her nasal / sinus lining. 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 ? ? ? PLAN: ? ? [...] tended release 12 hr 015 015 dmuppidi [id number], [address] [facility], [place], [place], [id number], 5 16:39:06 Patient TargetsNo targets recorded. Patient InstructionsNo instructions recorded. Reason for Referral None Reported. Problems Name Problem SNOMED Code Status Onset Date Resolution Date Notes Provider Name and Address Organization Details Recorded Time Allergy to dust mite protein 365401958 Active SUSY Grimes MD 6 15:05:38 Problem Notes None recorded. Medical Equipment None Reported. Allergies Allergen ID Allergen Name Allergen Category Reaction Reaction Severity Criticality Documentation Date Start Date Code Code System Note Provider Name and Address Organization Details Recorded Time 5061 Substance with sulfonami de structure and antibacte rial mechanism of action (substanc e) medicatio n hives Not available Not available 05/31/2014 26245 8003 SNOMED Ollie Hyde MD [address] [place] [address],[address], [place], [address], SUSY Hyde MD 4 10:38:48 5062 Cipro medicatio n rash Not available Not available 05/31/2014 29335 3 RxNorm Ollie Hyde MD [address] [place] [address],[address], [place], [address], SUSY Hyde MD 4 10:38:48 5063 amoxicill in medicatio n rash Not available Not available 05/31/2014 723 RxEdenilson Hyde MD [address] [place] [address],[address], [place], [address], SUSY Hyde MD 4 10:38:48 5064 clindamyc in Not available rash Not available Not available 05/31/2014 2582 RxNorm Ollie Hyde MD [address] [facility],[address], [place], [address], SUSY Hyde MD 4 10:38:48 Medications Name Sig Start Date Stop Date [...] Zetonna 37 mcg/actuatio n nasal HFA inhaler [place] 1 spray twice a day by intranasal [...] Details Last Updated DateTime 5 16 /min 00526.7 792 g 167.64 cm 70 /min 25.8 kg/m2 112 mm[Hg] 80 mm[Hg] Heidi Hyde MD 5 15:21:33 Date Recorded Respiratory rate Body weight Body height Heart rate Body mass index (BMI) Systolic blood pressure Diastolic blood pressure Provider Name and Address Organization Details Last Updated DateTime 5 16 /min 01249.7 792 g 167.64 cm 70 /min 25.8 kg/m2 120 mm[Hg] 76 mm[Hg] Heidi Hyde MD 5 13:07:36 Date Recorded Body height Body mass index (BMI) Body weight Provider Name and Address Organization Details Last Updated DateTime 03/23/2016 167.64 cm 26.6 kg/m2 02189.7410 5 g Valorie Amador Hyde MD 03/23/2016 15:05:38 Social History Question Answer Notes LastModified by Organizat ion Details LastModified Time Tobacco Smoking Status Never Smoker Not Available [facility] 08/26/2020 03:19:15 How Often Do You Travel On An Airplane? 1-2xyear Information not available 11/12/2014 What Is Your Level Of Alcohol Consumption? None [id number] Information not available 08/26/2020 Animal Exposure? No [...] not available 06/01/2014 Nature Of Your Work [employer] [place] Information not [...] available 05/22/2015 16:32:35 Medical History Condition Response Anxiety Disorder N Diabetes N Coronary Artery Disease N Tuberculosis N Cancer N Stroke N Glaucoma N Depression N Thyroid disease N Headache N GERD/Reflux N High Cholesterol N Hepatitis N Rheumatoid Arthritis N Hypertension N Osteoporosis N Kidney Disease N Gynecological History Statement/Question Response LMP Definite Obstetrics History GPAL:G 0 P 0 0 0 0 Past Encounters Encounter ID Performer Location Encounter Start Date Encounter Closed Date Diagnosis/Indication Diagnosis SNOMED-CT Code Diagnosis ICD10 Code Diagnosis Note [id number] Ollie Hyde MD [address] [place] [address] 05/31/2014 09:32:38 05/31/2014 11:06:25 Allergy to dust mite protein [id number] Ollie Hyde MD [address] [place] [address] 07/02/2014 16:02:23 07/02/2014 16:59:41 [id number] Ollie Hyde MD [address] [place] [address] 11/12/2014 16:30:42 11/12/2014 17:35:20 [id number] Ollie Hyde MD [address], [address] [place] [address] 05/15/2015 14:54:21 05/15/2015 16:38:11 [id number] Ollie Hyde MD [address] [place] [address] 05/22/2015 13:05:35 05/22/2015 14:29:21 Allergy to dust mite protein 667698717 Health Concerns Section Related Observation LastModified by Organization Detai ls LastModified Time None Recorded Concern Status LastModified by Organization Details LastModified Time None Recorded Advance Directives Directive None Recorded Payers Encounter Date Sequence Insurance Name Policy Number Policy Best Covered Member ID Best Member ID Guarantor Name 05/15/2015 1 [facility] ([facility]) [address] [id number] 05/22/2015 1 [facility] ([facility]) [address] [id number] OBGyn Episode No OBEpisode recorded.
--- OUTSIDE RECORDS SUMMARY | 2025-02-21 11:39 | XMS_ITS | Patient Health Record ---
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 Plan Of Treatment No Information Insurance Providers Payer Name Payer Address Payer Phone Subscriber Number Group Number Insured Name Patient Relationship to Insured Coverage Start Date Coverage End Date Medicare of [place] [address] [place] [id number] Self - patient is the insured [facility] [address] [place] [id number] Self - patient is the insured Medical (General) History Medical History History ICD Code right lateral ankle fracture hypertension osteoporosis previous right ankle fracture left ankle sprains osteopenia osteoarthritis anxiety depression fibromyalgia mood disorder Surgical History Surgery Date(Month/Year) 09/13/1983 colonoscopy laparoscopy skin graft on right foot Hospitalization History Reason Date(Month/Year) (girl) 09/13/1983
--- OUTSIDE RECORDS SUMMARY | 2025-02-21 11:39 | XMS_ITS | Clinical Summary ---
Author Organization [facility] Address [address] [place] [address] Care Team Providers Care Foreman Or Supervisor And Operator Name Role Phone Yoko Jolly Primary Care Provider [phone] Allergies Active Allergy Reactions Criticality Noted Date [...] ( - 2023-2 5 season) 2024 Influenza (Season Ended) 2025 RSV (1 - 1-dose 75+ series) 2027 [...] Pap Smear Discontinued Zoster (Zostavax) Discontinued Insurance [place] [id number] MEDICARE PART B FFS MEDICARE-SUPPLEMENTAL Care Teams Foreman Or Supervisor And Operator Relationship Specialty Start Date End Date Yoko Jolly [address] [place] [address] [place] [id number] PCP - General Internal Medicine 03/19/16
--- OUTSIDE RECORDS SUMMARY | 2025-02-21 11:39 | XMS_ITS | Clinical Summary ---
Author Organization [facility] Address [address] [place] [address] Care Team Providers Care Adapted Physical Education Aide Name Role Phone Caitlyn Cano NP Primary Care Provider [phone] Allergies Active Allergy Reactions Criticality Noted Date [...] age to complete this topic Care Teams Adapted Physical Education Aide Relationship Specialty Start Date End Date Caitlyn Cano NP [address] [place] [address] [place] [phone] PCP - General Family Medicine 01/17/23
--- OUTSIDE RECORDS SUMMARY | 2025-02-21 11:39 | XMS_ITS | Clinical Summary ---
Author Organization [facility] it Address [address] [place] [address] Care Team Providers Care Hard Metals Hand Engraver Name Role Phone Caitlyn Cano Primary Care Provider [phone] Immunizations Name Administration Dates Next Due Pfizer SARS-CoV-2 COVID-19, mRNA, LNP-S, preservative free 01/13/2021,12/22/2020 Surgical History Surgery Date Site/Laterality Comments SKIN GRAFT 1960 Right PROCEDURE:SKIN GRAFT;COMMENT:foot SECTION PROCEDURE: SECTION CATARACT EXTRACTION W/ INTRAOCULAR LENS IMPLANT Bilateral PROCEDURE:CATARACT EXTRACTION W/ INTRAOCULAR LENS IMPLANT OTHER SURGICAL HISTORY PROCEDURE:MOHS SURGERY TOE SURGERY 01/19/2023 Right PROCEDURE:TOE SURGERY;COMMENT:Procedure: RIGHT 2ND TOE CORRECTION HAMMERTOE; Surgeon: Todd Valencia DPM; [facility] [facility]; Service: Podiatry; Laterality: Right; Medical History [...] 5 season) 2024 01/13/2021, 12/22/2020 Influenza Vaccine (Season Ended) 2025 RSV Immunization Adult Patients (1 - 1-dose [...] age to complete this topic Care Teams Hard Metals Hand Engraver Relationship Specialty Start Date End Date Caitlyn Cano [address] [place] [address] [place] [phone] PCP - General 01/17/23
== END 2025-02-21 11:57 | disposition home or self-care (01) ==
LOC: HO.HSMS 10:17
PROVIDERS: PCP Internal Medicine; Visit Provider Nurse Practitioner Family
DX: R42 Dizziness and giddiness (principal); T75.3XXD Motion sickness, subsequent encounter
CPT/HCPCS: 99204

== ENCOUNTER → 2025-02-21 10:15 | Outpatient (BNVA) | payer MEDICARE, OTHER, SELFPAY | PROVIDERS: PCP Internal Medicine; Visit Provider Nurse Practitioner Family | DX: T75.3XXD Motion sickness, subsequent encounter (principal); R42 Dizziness and giddiness | CPT/HCPCS: 99202 ==

== ENCOUNTER → 2025-03-05 13:26 | Outpatient (BNV) | payer MEDICARE, OTHER, SELFPAY | PROVIDERS: PCP Internal Medicine; Visit Provider Radiology Diagnostic Radiology | DX: M50.30 Other cervical disc degeneration, unspecified cervical region (principal) | CPT/HCPCS: 72052 ==

== ENCOUNTER 2025-03-05 13:28 | Outpatient (REF) | payer MEDICARE, OTHER, SELFPAY ==
--- NOTE | ~2025-03-05 | XR_ITS ---
EXAMINATION: XR CERVICAL SPINE FLEXION EXTENSION HISTORY: M54.2 - Cervicalgia COMPARISON: There are no prior studies for comparison. FINDINGS: AP, bilateral oblique, open-mouth odontoid, and neutral, flexion, and extension lateral views of the cervical spine are submitted. Osseous mineralization is normal. Seven cervical vertebral bodies are identified maintaining normal height without evidence of fracture. There is slight anterolisthesis of C7 on T1. This does not change with flexion or extension. There is moderate degenerative disc disease with disc space narrowing and osteophyte formation, most prominent at C5-6 and C6-7. There is narrowing of the right C5-6 neural foramen and the left C3-4, C4-5, C5-6, and C6-7 neural foramen secondary to facet osteoarthritis and uncovertebral joint hypertrophy. The odontoid and lateral masses of C1 are intact. There is no prevertebral soft tissue swelling. XR/XR cervical spine w flex/ext IMPRESSION: 1. Moderate degenerative disc disease as described. 2. Slight anterolisthesis of C7 on T1 which does not change with flexion or extension. Electronically signed by: Dom Ledesma MD 03/06/2025 08:13 AM EDT
--- NOTE | ~2025-03-05 | MR_ITS ---
EXAMINATION: MR BRAIN IAC PROTOCOL WITHOUT AND WITH CONTRAST CLINICAL INFORMATION: Dizziness. Giddiness. COMPARISON: None available. TECHNIQUE: Multiplanar, multisequence MRI of the brain IAC protocol was obtained before and after the intravenous administration of 6 mL gadolinium based (Gadavist) without reported immediate complications.. FINDINGS: No signal abnormality or enhancing lesion in the cochlear or vestibular components of the 8th cranial nerves. No enhancing lesion in the cerebellopontine angle cisterns, perimesencephalic cisterns nor the brainstem. The anterior inferior cerebral arteries are type II, bilaterally. No restricted diffusion. No abnormal enhancement within the intra-axial or the extra-axial compartment of the cranium based upon axial T1 postcontrast sequence through the entire brain. Sellar/suprasellar region demonstrated no signal abnormality or abnormal enhancement. Craniocervical junction demonstrates a very ductal Formation. Normal position of the cerebellar tonsils. Dominant right transverse sinus and right internal jugular bulb. Bilateral multifocal patchy and punctate deep periventricular white matter hyperintense T2 FLAIR signal involving centrum semiovale and henson radiata, right subinsular region and more pronounced on the right frontal white matter. No enhancing lesion mass at the cavernous sinuses. Flow-void signal within the main vessels is normal. 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 MR/MR head/brain wo/w con IMPRESSION: No vestibular schwannoma. 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 Electronically signed by: Donato Dumont MD 03/05/2025 02:46 PM EDT
[2025-03-05] MEDS: gadobutroL 7.5 ML VIAL IVPUSH (14:26)
--- OUTSIDE RECORDS SUMMARY | 2025-03-05 14:32 | XMS_ITS | Patient Health Record ---
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) Active confirmed Plan Of Treatment No Information Insurance Providers Payer Name Payer Address Payer Phone Subscriber Number Group Number Insured Name Patient Relationship to Insured Coverage Start Date Coverage End Date Medicare [address] [place], [place] [id number] Self - patient is the insured [employer] Medicare Enhanced [address] [id number] [id number] Self - patient is the insured Medical (General) History Medical History History ICD Code FIBROMIALGYA DEPRESSION HIGH BLOOD PRESSURE OSTEOPINIA Surgical History Surgery Date(Month/Year) CATARACT EXTRACTION WITH IMPLANT VINCE S N60WF 12/17/2021 CATARACT EXTRACTION RIGHT EYE WITH LENS IMPLANT SN60WF +19.5 D 01/14/22
--- OUTSIDE RECORDS SUMMARY | 2025-03-05 14:33 | XMS_ITS | Data Portability ---
Author Organization SUSY prince MD, [place] Address [address] [facility] [address] [place] [address] Care Team Providers Care Inspector Water Pollution Control Name Role Phone STACY AMADOR Primary Care Provider [phone] STACY AMADOR Referring Provider [phone] Assessment Encounter Date Assessment Date Assessment LastModified by Organization Details LastModified Time 05/15/2015 05/15/2015 ? ? ? IMPRESSION: Ms. Way is sensitized to perennial aero-allergens, molds > dust mites. This can lead to low grade alf inflammation of her nasal / sinus lining. 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 ? ? ? PLAN: ? ? [...] tended release 12 hr 015 015 dmuppidi [facility] #[id number], [address] [facility], [place], [place], [id number], 5 16:39:06 Patient TargetsNo targets recorded. Patient InstructionsNo instructions recorded. Reason for Referral None Reported. Problems Name Problem SNOMED Code Status Onset Date Resolution Date Notes Provider Name and Address Organization Details Recorded Time Allergy to dust mite protein 100579833 Active SUSY Grimes MD 6 15:05:38 Problem Notes None recorded. Medical Equipment None Reported. Allergies Allergen ID Allergen Name Allergen Category Reaction Reaction Severity Criticality Documentation Date Start Date Code Code System Note Provider Name and Address Organization Details Recorded Time 5061 Substance with sulfonami de structure and antibacte rial mechanism of action (substanc e) medicatio n hives Not available Not available 05/31/2014 48469 8003 SNOMED Ollie Hyde MD [address] [place] [address],[address], [place], [address], SUSY Hyde MD 4 10:38:48 5062 Cipro medicatio n rash Not available Not available 05/31/2014 92890 3 RxNorm Ollie Hyde MD [address] [place] [address],[address], [place], [address], SUSY Hyde MD 4 10:38:48 5063 amoxicill in medicatio n rash Not available Not available 05/31/2014 723 RxEdenilson Hyde MD [address] [place] [address],[address], [place], [address], SUSY Hyde MD 4 10:38:48 5064 clindamyc in Not available rash Not available Not available 05/31/2014 2582 RxNorm Ollie Hyde MD [address] [facility],[address], [place], [address], SUSY Hyde MD 4 10:38:48 Medications [...] Zetonna 37 mcg/actuatio n nasal HFA inhaler [place] 1 spray twice a day by intranasal [...] Details Last Updated DateTime 5 16 /min 78397.7 792 g 167.64 cm 70 /min 25.8 kg/m2 112 mm[Hg] 80 mm[Hg] Heidi Hyde MD 5 15:21:33 Date Recorded Respiratory rate Body weight Body height Heart rate Body mass index (BMI) Systolic blood pressure Diastolic blood pressure Provider Name and Address Organization Details Last Updated DateTime 5 16 /min 17988.7 792 g 167.64 cm 70 /min 25.8 kg/m2 120 mm[Hg] 76 mm[Hg] Heidi Hyde MD 5 13:07:36 Date Recorded Body height Body mass index (BMI) Body weight Provider Name and Address Organization Details Last Updated DateTime 03/23/2016 167.64 cm 26.6 kg/m2 38924.7410 5 g Valorie Amador Hyde MD 03/23/2016 15:05:38 Social History Question Answer Notes LastModified by Organizat ion Details LastModified Time Tobacco Smoking Status Never Smoker Not Available [facility] 08/26/2020 03:19:15 How Often Do You Travel On An Airplane? 1-2xyear Information not available 11/12/2014 Animal Exposure? No Information not available 11/12/2014 Location Of Your Home Apartment Building [facility] Information not available 06/01/2014 Basement No Information [...] not available 06/01/2014 Nature Of Your Work Medical [employer] Information not available 06/01/2014 Years At Current Job 35 Information not available 11/12/2014 Heating System Unknown Informatio n not available 11/12/2014 Carpet No Information no t available 11/12/2014 Material You Work With (paper, Chemicals, Etc.) People, Paper Information not available 11/12/2014 Sex: Unknown Functional Status Question Answer Note LastModified by Organization D etails LastModified Time What is your level of alcohol consumption? None [id number] Information not available 08/26/2020 Mental Status None recorded. Family History Relationship [...] SNOMED-CT Code Diagnosis ICD10 Code Diagnosis Note [id number] Ollie Hyde MD [address] [facility] [place] [place] [address] 05/31/2014 09:32:38 05/31/2014 11:06:25 Allergy to dust mite protein [id number] 39066 Ollie Hyde MD [address] [facility] [place] [address] 07/02/2014 16:02:23 07/02/2014 16:59:41 43781 Ollie Hyde MD [address] [facility] [place] [address] 11/12/2014 16:30:42 11/12/2014 17:35:20 19315 Ollie Hyde MD [address] [facility] [place] [address] 05/15/2015 14:54:21 05/15/2015 16:38:11 18052 Ollie Hyde MD [address] [facility] [place] [address] 05/22/2015 13:05:35 05/22/2015 14:29:21 Allergy to dust mite protein [id number] Health Concerns Section Related Observation LastModified by Organization Detai ls LastModified Time None Recorded Concern Status LastModified by Organization Details LastModified Time None Recorded Advance Directives Directive None Recorded Payers Encounter Date Sequence Insurance Name Policy Number Policy Best Covered Member ID Best Member ID Guarantor Name 05/15/2015 1 [facility] (POS) [address] [id number] 05/22/2015 1 [facility] PLAN (POS) [address] [id number] OBGyn Episode No OBEpisode recorded.
--- OUTSIDE RECORDS SUMMARY | 2025-03-05 14:33 | XMS_ITS | Clinical Summary ---
Author Organization [facility] it Address [address] [place] [address] Care Team Providers Care Sterilization Tech Name Role Phone Caitlyn Cano Primary Care Provider [phone] Immunizations Name Administration Dates Next Due Pfizer SARS-CoV-2 COVID-19, mRNA, LNP-S, preservative free 01/13/2021,12/22/2020 Surgical History Surgery Date Site/Laterality Comments SKIN GRAFT 1960 Right PROCEDURE:SKIN GRAFT;COMMENT:foot SECTION PROCEDURE: SECTION CATARACT EXTRACTION W/ INTRAOCULAR LENS IMPLANT Bilateral PROCEDURE:CATARACT EXTRACTION W/ INTRAOCULAR LENS IMPLANT OTHER SURGICAL HISTORY PROCEDURE:MOHS SURGERY TOE SURGERY 01/19/2023 Right PROCEDURE:TOE SURGERY;COMMENT:Procedure: RIGHT 2ND TOE CORRECTION HAMMERTOE; Surgeon: Todd Valencia DPM; Location: [facility]; Service: Podiatry; Laterality: Right; Medical History [...] age to complete this topic Care Teams Sterilization Tech Relationship Specialty Start Date End Date Caitlyn Cano [address] [place] [address] [place] [address] PCP - General 01/17/23
--- OUTSIDE RECORDS SUMMARY | 2025-03-05 14:33 | XMS_ITS | Clinical Summary ---
Author Organization [facility] Address [address] [place] [address] Care Team Providers Care Potato Grader Name Role Phone Caitlyn Cano NP Primary Care Provider [phone] Allergies Active Allergy Reactions Criticality Noted Date [...] age to complete this topic Care Teams Potato Grader Relationship Specialty Start Date End Date Caitlyn Cano NP [address] [place] [address] [place] [address] PCP - General Family Medicine 01/17/23
--- OUTSIDE RECORDS SUMMARY | 2025-03-05 14:33 | XMS_ITS | Patient Health Record ---
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 [address] [place] [id number] Self - patient is the insured Medical (General) History Medical History History ICD Code right lateral ankle fracture hypertension osteoporosis previous right ankle fracture left ankle sprains osteopenia osteoarthritis anxiety depression fibromyalgia mood disorder Surgical History Surgery Date(Month/Year) 09/13/1983 colonoscopy laparoscopy skin graft on right foot Hospitalization History Reason Date(Month/Year) (girl) 09/13/1983
--- OUTSIDE RECORDS SUMMARY | 2025-03-05 14:33 | XMS_ITS | Clinical Summary ---
Author Organization [facility] Address [address] [place] [address] Care Team Providers Care Frit Coater Name Role Phone Yoko Jolly Primary Care Provider [phone] Allergies Active Allergy Reactions Criticality Noted Date [...] Pap Smear Discontinued Zoster (Zostavax) Discontinued [place] [id number] MEDICARE PART B FFS MEDICARE-SUPPLEMENTAL Care Teams Frit Coater Relationship Specialty Start Date End Date Yoko Jolly [address] [place] [address] [place] [address] PCP - General Internal Medicine 03/19/16
== END 2025-03-05 13:29 | disposition home or self-care (01) ==
LOC: HO.MRI 13:28
PROVIDERS: PCP Internal Medicine; Visit Provider Nurse Practitioner Family
DX: M54.2 Cervicalgia (principal); R42 Dizziness and giddiness; I10 Essential (primary) hypertension; E78.5 Hyperlipidemia, unspecified
CPT/HCPCS: 70553; 72052; A9585

== ENCOUNTER 2025-03-06 10:11 | Outpatient (REF) | payer MEDICARE, OTHER, SELFPAY ==
--- NOTE | ~2025-03-06 | US_ITS ---
CLINICAL HISTORY: R42 - Dizziness and giddiness US Bilateral Carotid Duplex Comparison: None Findings: Scattered plaques as well as tortuosity noted at level of the carotid arteries bilaterally. Color doppler and spectral tracings normal. Peak systolic velocities: Right CCA: 128 cm/s. Right ICA: Up to 188 cm/s. ICA/CCA ratio: 0.8. Right ECA: PATENT. Right vertebral artery flow ANTEGRADE. Left CCA: 130 cm/s. Left ICA: 103 cm/s. ICA/CCA ratio: 0.5. Left ECA: PATENT. Left vertebral artery flow ANTEGRADE. IMPRESSION: 50-69% STENOSIS AT LEVEL OF RIGHT ICA. LESS THAN 50% STENOSIS AT LEVEL OF THE CCAS AND LEFT ICA. This document has been electronically signed by: Henrietta Kapoor MD on 03/06/2025 12:24:51
--- OUTSIDE RECORDS SUMMARY | 2025-03-06 11:12 | XMS_ITS | Patient Health Record ---
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) Active confirmed Plan Of Treatment No Information Insurance Providers Payer Name Payer Address Payer Phone Subscriber Number Group Number Insured Name Patient Relationship to Insured Coverage Start Date Coverage End Date Medicare [address] [place], [place] [id number] [id number] Self - patient is the insured [employer] Medicare Enhanced [address] [id number] [id number] Self - patient is the insured Medical (General) History Medical History History ICD Code FIBROMIALGYA DEPRESSION HIGH BLOOD PRESSURE OSTEOPINIA Surgical History Surgery Date(Month/Year) CATARACT EXTRACTION WITH IMPLANT VINCE S N60WF 12/17/2021 CATARACT EXTRACTION RIGHT EYE WITH LENS IMPLANT SN60WF +19.5 D 01/14/22
--- OUTSIDE RECORDS SUMMARY | 2025-03-06 11:13 | XMS_ITS | Clinical Summary ---
Author Organization [facility] Address [address] [place] [address] Care Team Providers Care Simulation Tech Name Role Phone Caitlyn Cano NP Primary Care Provider [phone] Allergies Active Allergy Reactions Criticality Noted Date [...] age to complete this topic Care Teams Simulation Tech Relationship Specialty Start Date End Date Caitlyn Cano NP [address] [place] [address] [place] [address] PCP - General Family Medicine 01/17/23
--- OUTSIDE RECORDS SUMMARY | 2025-03-06 11:13 | XMS_ITS | Clinical Summary ---
Author Organization [facility] Address [address] [place] [address] Care Team Providers Care Program Advisor Name Role Phone Yoko Jolly Primary Care Provider [phone] Allergies Active Allergy Reactions Criticality Noted Date [...] Pap Smear Discontinued Zoster (Zostavax) Discontinued [place] [id number] MEDICARE PART B FFS MEDICARE-SUPPLEMENTAL Care Teams Program Advisor Relationship Specialty Start Date End Date Yoko Jolly [address] [place] [address] [place] [address] PCP - General Internal Medicine 03/19/16
--- OUTSIDE RECORDS SUMMARY | 2025-03-06 11:13 | XMS_ITS | Patient Health Record ---
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 Plan Of Treatment No Information Insurance Providers Payer Name Payer Address Payer Phone Subscriber Number Group Number Insured Name Patient Relationship to Insured Coverage Start Date Coverage End Date Medicare of [place] [address] [place] [id number] Self - patient is the insured [facility] [address] [place] [id number] Self - patient is the insured Medical (General) History Medical History History ICD Code right lateral ankle fracture hypertension osteoporosis previous right ankle fracture left ankle sprains osteopenia osteoarthritis anxiety depression fibromyalgia mood disorder Surgical History Surgery Date(Month/Year) 09/13/1983 colonoscopy laparoscopy skin graft on right foot Hospitalization History Reason Date(Month/Year) (girl) 09/13/1983
== END 2025-03-06 10:12 | disposition home or self-care (01) ==
LOC: HO.US 10:11
PROVIDERS: PCP Internal Medicine; Visit Provider Nurse Practitioner Family
DX: R42 Dizziness and giddiness (principal); E78.5 Hyperlipidemia, unspecified
CPT/HCPCS: 93880

== ENCOUNTER → 2025-03-06 10:13 | Outpatient (BNV) | payer MEDICARE, OTHER, SELFPAY | PROVIDERS: PCP Internal Medicine; Visit Provider Radiology Diagnostic Radiology | DX: R42 Dizziness and giddiness (principal) | CPT/HCPCS: 93880 ==

== ENCOUNTER 2025-03-21 15:14 | Outpatient (AMB) | payer MEDICARE, OTHER, SELFPAY ==
--- NOTE | 2025-03-21 15:32 | A.OFFVIS_ITS ---
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 Patient states she is experiencing dizziness and sensitivity to light. Started in August 2024. She had an ultrasound on March 06, 2025. Accompanied by: Self / Same As Patient Allergies amoxicillin Allergy (Intermediate, Verified 03/21/25 15:35) Rash ciprofloxacin Allergy (Intermediate, Verified 03/21/25 15:35) Rash clindamycin Allergy (Intermediate, Verified 03/21/25 15:35) rash, hives hydroxychloroquine [From Plaquenil] Allergy (Intermediate, Verified 03/21/25 15:35) Rash neomycin Allergy (Intermediate, Verified 03/21/25 15:35) Rash ezetimibe Adverse Reaction (Intermediate, Verified 03/21/25 15:35) Diarrhea fenofibrate Adverse Reaction (Intermediate, Verified 03/21/25 15:35) stomach pain, heart burn losartan Adverse Reaction (Intermediate, Verified 03/21/25 15:35) dizziness pravastatin Adverse Reaction (Intermediate, Verified 03/21/25 15:35) Muscle Pain lisinopril Adverse Reaction (Mild, Verified 03/21/25 15:35) dry cough bactrim Allergy (Mild, Uncoded 01/29/25 15:08) Rash HPI HPI TEA BLENDER/Occlusion/stenosis of carotid artery: Details: The patient is a 74-year-old female presenting with dizziness and light sensitivity. She has been experiencing dizziness for an extended period. Despite adjustments in her medication, including a reduction in gabapentin and a change from losartan to amlodipine, her dizziness persists. She reports significant sensitivity to light. Her history of essential hypertension is managed with amlodipine. The patient experienced joint pain linked to previous use of zetia and pravastatin, which she discontinued due to arthritis. She denies smoking and diabetes, and recently started taking baby aspirin. A carotid ultrasound showed mild right-sided stenosis, with a follow-up planned in six months. FOR[facility], [facility] Medical History Menstrual migraine without status migrainosus Arthritis of right glenohumeral joint Colon cancer screening Colon cancer screening Benign paroxysmal positional vertigo Osteopenia Thyroid nodule Hyperlipidemia IBS (irritable bowel syndrome) GERD (gastroesophageal reflux disease) Depression Asthma Genital warts Osteoarthritis of fingers of both hands Osteoarthritis of carpometacarpal joint of left thumb Anxiety Mood disorder High blood pressure Fibromyalgia Surgical History Status post right foot surgery History of colonoscopy History of laparoscopy History of delivery History of skin graft Family History Daughter Mental health disorder Autism Sister FH: HTN (hypertension) Mother FH: HTN (hypertension) Other Substance use disorder Social History Household Members: None Housing: Apartment Are you a primary career technical education instructor to a significant other at home: No Do you presently have visiting nurse or other home services: No Alcohol intake: current Comment: 2x a year Patient Tobacco Use Status: Never used Tobacco Tobacco use type: Cigarette e-Cigarette/Vaping Use: Never Used Second Hand Smoke Exposure: No service: No Current occupational status: retired Sexual orientation: Straight/Heterosexual Gender identity: Female Cognitive needs: No Hearing needs: No Vision needs: Yes (glasses) Review of Systems Const All systems reviewed & are unremarkable except as noted in HPI and below Reports no additional complaints ENT Reports Normal hearing present Card Denies chest pain, Denies chest pain at rest, Denies chest pain with activity and Denies pedal edema Resp Denies cough GI Denies abdominal pain Musc Denies abnormal gait, Denies muscle cramps and Denies radiating pain into limb Skin/Breast Denies skin ulcer and Denies wounds Neuro Reports Normal hearing present and Denies abnormal gait Psych Reports no additional complaints Physical Exam Const General: cooperative, healthy appearing and comfortable Orientation/consciousness: oriented to person, oriented to place and oriented to time HEENT Head: Yes normal to inspection Neck Neck: Yes normal visual inspection Carotids: no bruits Chest Chest palpation & inspection: normal inspection of the chest Resp Effort & Inspection: normal respiratory effort and able to speak in complete sentences Auscultation: clear to auscultation bilaterally, no crackles, no rales, no rhonchi and no wheezes Cardio Rate: regular rate Rhythm: regular rhythm Heart sounds: S1 normal heart sound present and S2 normal heart sound present Bruits: no carotid bruits Peripheral pulses: Peripheral pulses 2+ throughout GI Inspection: Yes normal to inspection Skin Wounds: no wounds Hair: normal Neuro General: oriented to person, oriented to place and oriented to time Cranial nerves: Yes CN's II-XII intact bilaterally and Yes Normal hearing present Cognition (Neuro): normal cognition Motor exam (neuro): 5/5 motor strength present throughout Extrem Other: venous exam: No significant superficial varicosities or spider telangiectasias, minimal edema General: No clubbing, No cyanosis and No edema Psych Appearance: grossly normal Mental Status: mental status grossly normal Speech and movement: Normal speech and movement present Results Reviewed Results Reviewed: Carotid testing dated 03/06/2025 demonstrates right-sided 50-69% stenosis with a peak systolic of 188 and left side less than 50% stenosis. Assessment & Plan Assessment & Plan (1) Carotid artery stenosis: Code(s): I65.29 - Occlusion and stenosis of unspecified carotid artery Category: Medical Qualifiers: Laterality: bilateral Qualified Code(s): I65.23 - Occlusion and stenosis of bilateral carotid arteries Plan: During our discussion, I reassured the patient that her carotid ultrasound findings showed mild right-sided stenosis, which is not concerning at this time. I emphasized the importance of a follow-up ultrasound in six months to ensure no progression. We discussed the management of her dizziness and light sensitivity, acknowledging the recent changes in her medication regimen. I advised her to continue amlodipine for hypertension and baby aspirin daily. The patient was informed that surgical intervention is not necessary, given the benign nature of her carotid findings. She will follow up with us for routine 6 month carotid surveillance. Thank you for allowing us to assist in her care. Orders: Orders US carotid duplex BI 6 Months I65.23 - Occlusion and stenosis of bilateral carotid arteries Coding Level of Care Code New Pt Level 4 (84323) Complex EM visit Add On G2211 Diagnoses Bilateral carotid artery stenosis I65.23 Laterality: bilateral
== END 2025-03-21 15:59 | disposition home or self-care (01) ==
LOC: HO.HVS 15:15
PROVIDERS: PCP Internal Medicine; Visit Provider Surgery Vascular Surgery
DX: I65.23 Occlusion and stenosis of bilateral carotid arteries (principal)
CPT/HCPCS: 99204; G2211

== ENCOUNTER → 2025-03-21 15:14 | Outpatient (BNVA) | payer MEDICARE, OTHER, SELFPAY | PROVIDERS: PCP Internal Medicine; Visit Provider Surgery Vascular Surgery | DX: I65.23 Occlusion and stenosis of bilateral carotid arteries (principal) | CPT/HCPCS: 99202 ==

== ENCOUNTER 2025-04-11 09:22 | Outpatient (AMB) | payer MEDICARE, OTHER, SELFPAY ==
--- NOTE | 2025-04-11 09:29 | A.OFFPC_ITS ---
Vital Signs 04/11/25 09:30 Height 5 ft 6 in Weight 133 lb 2 oz BMI 21.5 BP 110/72 Blood Pressure Location Rt brachial Position Sitting Pulse 73 Pulse Source Pulse Oximeter Pulse Oximetry (%) 99 Oxygen Delivery Method Room Air Intake Visit Reasons: Hypertension Sales Development Director Required: No Accompanied by: Self / Same As Patient Allergies amoxicillin Allergy (Intermediate, Verified 04/11/25 09:30) Rash ciprofloxacin Allergy (Intermediate, Verified 04/11/25 09:30) Rash clindamycin Allergy (Intermediate, Verified 04/11/25 09:30) rash, hives hydroxychloroquine (From Plaquenil) Allergy (Intermediate, Verified 04/11/25 09:30) Rash neomycin Allergy (Intermediate, Verified 04/11/25 09:30) Rash ezetimibe Adverse Reaction (Intermediate, Verified 04/11/25 09:30) Diarrhea fenofibrate Adverse Reaction (Intermediate, Verified 04/11/25 09:30) stomach pain, heart burn losartan Adverse Reaction (Intermediate, Verified 04/11/25 09:30) dizziness pravastatin Adverse Reaction (Intermediate, Verified 04/11/25 09:30) Muscle Pain lisinopril Adverse Reaction (Mild, Verified 04/11/25 09:30) dry cough bactrim Allergy (Mild, Uncoded 04/11/25 09:30) Rash Medication List - Last Reconciled 04/11/25 by Kevyn Monique MD acetaminophen 650 mg PO Q6H PRN amlodipine 2.5 mg PO DAILY aspirin 81 mg PO BEDTIME 30 days cholecalciferol (vitamin D3) 25 mcg PO DAILY dupilumab (Dupixent) 300 mg subcut Q2W escitalopram oxalate 20 mg PO DAILY famotidine 20 mg PO DAILY PRN gabapentin 100 mg PO BEDTIME multivitamin 1 tab PO .every other day riboflavin (vitamin B2) 400 mg PO DAILY 30 days verapamil ER 100 mg PO BEDTIME 30 days Tobacco use date assessed: 04/11/25 Fall risk assessment: No Falls in past year Last assessed Fall Risk: 04/11/25 Dental Screening Dental Screen Date: 04/11/25 Did you have a dental visit in the last 12 months?: Yes Did you have a dental problem in the last 6 months where you did not have access to dental care?: No Was dental information given to patient?: Patient has dentist COUNTS INCLUDE 234 BEDS AT THE [facility] Medical History Menstrual migraine without status migrainosus Arthritis of right glenohumeral joint Colon cancer screening Colon cancer screening Benign paroxysmal positional vertigo Osteopenia Thyroid nodule Hyperlipidemia IBS (irritable bowel syndrome) GERD (gastroesophageal reflux disease) Depression Asthma Genital warts Osteoarthritis of fingers of both hands Osteoarthritis of carpometacarpal joint of left thumb Anxiety Mood disorder High blood pressure Fibromyalgia Surgical History Status post right foot surgery History of colonoscopy History of laparoscopy History of delivery History of skin graft Family History Daughter Mental health disorder Autism Sister FH: HTN (hypertension) Mother FH: HTN (hypertension) Other Substance use disorder Social History Household Members: None Housing: Apartment Are you a primary director career services to a significant other at home: No Do you presently have visiting nurse or other home services: No Alcohol intake: current Comment: 2x a year Patient Tobacco Use Status: Never used Tobacco Tobacco use type: Cigarette e-Cigarette/Vaping Use: Never Used Second Hand Smoke Exposure: No service: No Current occupational status: retired Sexual orientation: Straight/Heterosexual Gender identity: Female Cognitive needs: No Hearing needs: No Vision needs: Yes (glasses) Questionnaire PHQ-9 Over the last 2 weeks, how often have you been bothered by any of the following problems? 1. Little interest or pleasure in doing things: more than half the days 2. Feeling down, depressed, or hopeless: nearly every day 3. Trouble falling or staying asleep, or sleeping too much: several days 4. Feeling tired or having little energy: several days 5. Poor appetite or overeating: not at all 6. Feeling bad about yourself - or that you are a failure or have let yourself or your family down: more than half the days 7. Trouble concentrating on things, such as reading the newspaper or watching television: several days 8. Moving or speaking so slowly that other people could have noticed. Or the opposite - being so fidgety or restless that you have been moving around a lot more than usual: not at all 9. Thoughts that you would be better off or of hurting yourself in some way: several days Total score: 11 Depression Screening Interpretation: Positive Depression Screening Done: Yes Source: Developed by Shell Sims, Max Chan and colleagues, with an educational mabel from [employer]. Thrive Questionnaire Date Thrive assessed: 04/11/25 I am a: Patient What is your living situation today?: I have a steady place to live Within the past 12 months, did the food you bought not last and you didn't have the money to get more?: Never true Within the past 12 months, did you worry whether your food would run out before you got money to buy more?: Never true Do you have trouble paying for medicines?: No Do you have trouble getting transportation to medical appointments?: Yes Do you have trouble paying your heating and electricity bill?: No Do you have trouble with day-to-day activities such as bathing, preparing meals, shopping, managing finances, etc.?: Yes Are you currently unemployed and looking for a job?: No Are you interested in more education?: No Please select the resources that you would like help with: Transportation Currently or been in a relationship where the following occur: I choose not to answer THRIVE Score: 1 AUDIT C Alcohol Use Questionnaire (AUDIT-C) 1. How often do you have a drink containing alcohol?: Never 3. How often do you have six or more drinks on one occasion?: Never Total Score: 0 JIHAN-7 AMB Questionnaire JIHAN-7 Date JIHAN - 7 assessed: 04/11/25 Feeling nervous, anxious, or on edge: 0 = Not at all Not being able to stop or control worryin = Not at all Worrying too much about different things: 0 = Not at all Trouble relaxin = Not at all Being so restless that it is hard to sit still: 0 = Not at all Becoming easily annoyed or irritable: 1 = Several days Feeling afraid as if something awful might happen: 0 = Not at all Total JIHAN-7 score (0-4 normal; 5-9 mild; 10-14 moderate; 15-21 severe): 1 Source: Developed by Shell Sims Kurt Kroenke and colleagues, with an educational mabel from [employer]. Physical exam (Primary Care) Vital Signs: Last Vital Signs Pulse 73 04/11/25 09:30 BP 110/72 04/11/25 09:30 Pulse Ox 99 04/11/25 09:30 Oxygen Delivery Method Room Air 04/11/25 09:30 BMI result Body Mass Index 21.5 Tobacco/Smoking Status: Tobacco use Status Tobacco use date assessed 04/11/25 04/11/25 09:36 Patient Tobacco Use Status Never used Tobacco 04/11/25 09:36 Tobacco use type Cigarette 04/11/25 09:36 e-Cigarette/Vaping Use Never Used 04/11/25 09:36 PHQ-9: PHQ-9 Score PHQ-9: Total score 11 04/11/25 10:08 Depression Screening Interpretation: Positive Thrive Assessment: Date of Thrive Assessment Date Thrive assessed 04/11/25 04/11/25 09:36 Currently or been in a relationship where the following occur: I choose not to answer Const General: alert; No acute distress Eyes Conjunctivae: conjunctivae normal Resp Auscultation: clear to auscultation bilaterally Cardio Rate: regular rate Rhythm: regular rhythm GI Inspection: Yes normal to inspection Extrem General: Yes normal to inspection and No edema Coding Level of Care Code Est Pt Level 4 (61634) Complex EM visit Add On G2211 Diagnoses Asthma J45.909 GERD (gastroesophageal reflux disease) K21.9 Benign paroxysmal positional vertigo H81.10 Hypertension I10 Bilateral carotid artery stenosis I65.23 Laterality: bilateral Hyperlipidemia E78.5 Generalized anxiety disorder F41.1 Constipation K59.00 Assessment & Plan Assessment & Plan (1) Asthma: Code(s): J45.909 - Unspecified asthma, uncomplicated Category: Medical Plan: Stable (2) GERD (gastroesophageal reflux disease): Code(s): K21.9 - Gastro-esophageal reflux disease without esophagitis Category: Medical Plan: Avoid the foods that causes that usually spicy foods, tomato products, juices, coffee, soda and foods that your sensitive to. After eating do not lie down, allow 3-4 hours before in lie down. And keep the head of bed above 30 degrees to avoid the acid from going up. (3) Benign paroxysmal positional vertigo: Code(s): H81.10 - Benign paroxysmal vertigo, unspecified ear Category: Medical Plan: Patient has seen Neurology and was sent for physical therapy/vestibular therapy (4) Hypertension: Code(s): I10 - Essential (primary) hypertension Category: Medical Plan: Continue with blood pressure medication. Decrease salt intake and exercise on amlodipine 2.5 mg once a day and verapamil 100 mg once a day (5) Carotid artery stenosis: Comment: February-69% STENOSIS AT LEVEL OF RIGHT ICA. LESS THAN 50% STENOSIS AT LEVEL OF THE CCAS AND LEFT ICA. Code(s): I65.29 - Occlusion and stenosis of unspecified carotid artery Category: Medical Qualifiers: Laterality: bilateral Qualified Code(s): I65.23 - Occlusion and stenosis of bilateral carotid arteries Plan: February-69% STENOSIS AT LEVEL OF RIGHT ICA. LESS THAN 50% STENOSIS AT LEVEL OF THE CCAS AND LEFT ICA. Patient has met with vascular surgeon and is for monitoring only (6) Hyperlipidemia: Code(s): E78.5 - Hyperlipidemia, unspecified Category: Medical Plan: Avoid fried foods, chicken skin, eggs, butter margarine, pastries and meat. Be it pork or beef they have a lot of cholesterol LDL goal of less than 100 and triglyceride of less than 150 (7) Generalized anxiety disorder: Comment: talking to Nurse (12/2023) Code(s): F41.1 - Generalized anxiety disorder Category: Medical Plan: Continue on Lexapro (8) Constipation: Code(s): K59.00 - Constipation, unspecified Category: Medical Plan History of Present Illness The patient is a 74-year-old female presenting for follow-up on carotid artery stenosis and routine health maintenance. The patient has a history of carotid artery stenosis, with mild right-sided stenosis. She has been under surveillance by a vascular surgeon and is scheduled for a carotid ultrasound in six months. An MRI of the brain showed no vestibular schwannoma but revealed white matter disease and small vessel occlusive disease. The patient also has a history of degenerative disc disease, with an x-ray of the cervical spine showing moderate degenerative changes and slight anterolisthesis at C7 and T1. She has been evaluated by neurology and was referred for vestibular physical therapy. The patient reports experiencing dizziness, which has improved with physical therapy. She is currently on verapamil, which has helped with migraines but causes constipation. She manages constipation with stool softeners and dietary modifications, including increased fiber intake. The patient has a history of elevated calcium levels, which led to the discontinuation of calcium supplements. Recent blood work showed mild leukopenia, normal electrolytes, and stable liver function. Her cholesterol levels are well-controlled, and she maintains a healthy diet with limited animal protein intake. Health Maintenance - Colon cancer screening with stool test completed in December 2024 - Mammogram is up to date - Blood pressure management with home monitoring advised - Dietary modifications to reduce cholesterol intake - Increased physical activity encouraged Social History - Exercise: Patient engages in walking as a form of physical activity. - Nutrition: Patient follows a diet with limited animal protein, consuming about three eggs per week. Review of Systems - Neurological: Reports dizziness, improved with physical therapy. Denies headaches. - Gastrointestinal: Reports constipation, managed with stool softeners and dietary changes. - Musculoskeletal: Reports arthritis pain, attributed to weather changes. Physical Exam Results - Labs: Mild leukopenia, normal electrolytes, stable liver function, elevated calcium at 10.4 mg/dL. - Imaging: MRI of the brain showed white matter disease and small vessel occlusive disease; no vestibular schwannoma. - Imaging: X-ray of the cervical spine showed moderate degenerative disc disease and slight anterolisthesis at C7 and T1. Plan The patient will continue with her current regimen of verapamil for migraine management, despite the side effect of constipation, which she manages with dietary changes and stool softeners. She is advised to monitor her blood pressure at home, ensuring it does not fall below 110 mmHg, and to adjust her medication if necessary, particularly the amlodipine. The patient is encouraged to maintain her dietary modifications to manage cholesterol levels and to continue with physical activity, primarily walking, to support cardiovascular health. Follow-up with the vascular surgeon is planned for continued monitoring of carotid artery stenosis, with a carotid ultrasound scheduled in six months. The patient will continue with vestibular physical therapy to address dizziness, which has shown improvement. Regular blood work will be conducted to monitor calcium levels and leukopenia, ensuring no further complications arise. Patient was informed and verbally consented to the use of an ambient scribe for clinic note documentation during this visit. Discussion Notes I discussed with the patient the importance of monitoring her blood pressure at home and adjusting her medication if it falls below 110 mmHg to avoid hypotension-related symptoms. We reviewed her current medication regimen, including verapamil for migraine management, and addressed the side effect of constipation, recommending dietary changes and stool softeners. The patient was advised to continue her dietary modifications to manage cholesterol levels and to engage in regular physical activity, such as walking, to support her cardiovascular health. We also discussed the follow-up plan with the vascular surgeon for carotid artery stenosis, including a scheduled carotid ultrasound in six months. The patient was informed about the need for regular blood work to monitor calcium levels and leukopenia. Patient Instructions - Continue taking verapamil as prescribed and manage constipation with dietary changes and stool softeners. - Monitor blood pressure at home and report if it consistently falls below 110 mmHg. - Maintain dietary modifications to manage cholesterol levels and engage in regular physical activity, such as walking. - Follow up with the vascular surgeon for carotid artery stenosis monitoring and attend the scheduled carotid ultrasound in six months. - Continue vestibular physical therapy to address dizziness. - Attend regular blood work appointments to monitor calcium levels and leukopenia.
[2025-04-11 09:30] VITALS: BP 110/72; PULSE 73; O2SAT 99; BMI 21.5
--- OUTSIDE RECORDS SUMMARY | 2025-04-11 10:03 | XMS_ITS | Patient Health Record ---
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) Active confirmed Plan Of Treatment No Information Insurance Providers Payer Name Payer Address Payer Phone Subscriber Number Group Number Insured Name Patient Relationship to Insured Coverage Start Date Coverage End Date Medicare [address] [place], [place] [id number] [id number] Self - patient is the insured [employer] Medicare Enhanced [address] [id number] Self - patient is the insured Medical (General) History Medical History History ICD Code FIBROMIALGYA DEPRESSION HIGH BLOOD PRESSURE OSTEOPINIA Surgical History Surgery Date(Month/Year) CATARACT EXTRACTION WITH IMPLANT VINCE S [id number] 12/17/2021 CATARACT EXTRACTION RIGHT EYE WITH LENS IMPLANT [id number] +19.5 D 01/14/22
== END 2025-04-11 10:27 | disposition home or self-care (01) ==
LOC: HO.HMCH 09:22
PROVIDERS: PCP Internal Medicine; Visit Provider Internal Medicine
DX: J45.909 Unspecified asthma, uncomplicated (principal); K21.9 Gastro-esophageal reflux disease without esophagitis; H81.10 Benign paroxysmal vertigo, unspecified ear; I10 Essential (primary) hypertension; I65.23 Occlusion and stenosis of bilateral carotid arteries; E78.5 Hyperlipidemia, unspecified; F41.1 Generalized anxiety disorder; K59.00 Constipation, unspecified

== ENCOUNTER → 2025-04-11 09:22 | Outpatient (BNVA) | payer MEDICARE, OTHER, SELFPAY | PROVIDERS: PCP Internal Medicine; Visit Provider Internal Medicine | DX: I10 Essential (primary) hypertension (principal); J45.909 Unspecified asthma, uncomplicated; K21.9 Gastro-esophageal reflux disease without esophagitis; H81.10 Benign paroxysmal vertigo, unspecified ear; I65.23 Occlusion and stenosis of bilateral carotid arteries; E78.5 Hyperlipidemia, unspecified; F41.1 Generalized anxiety disorder; K59.00 Constipation, unspecified | CPT/HCPCS: 99212 ==

== ENCOUNTER → 2025-05-18 16:50 | Outpatient (BNV) | payer MEDICARE, OTHER, SELFPAY | PROVIDERS: Emergency Provider Emergency Medicine Emergency Medical Services; PCP Internal Medicine; Visit Provider Radiology Diagnostic Radiology | DX: M25.562 Pain in left knee (principal) | CPT/HCPCS: 73564 ==

== ENCOUNTER 2025-05-18 17:23 | Emergency (ER) | payer MEDICARE, OTHER, SELFPAY ==
--- NOTE | ~2025-05-18 | XR_ITS ---
CLINICAL HISTORY: fall Radiographs of the left knee, 4 views Comparison: None available Findings: There is no fracture or dislocation. No joint space narrowing or osteophytosis. Trace suprapatellar enthesophyte. Bone mineralization is decreased. No knee joint effusion. Soft tissue swelling. Impression: No fracture or joint effusion. This document has been electronically signed by: Cristina Guevara MD on 05/18/2025 18:18:46
[2025-05-18 17:36] VITALS: BP 134/77; PULSE 99; RESP 18; TEMP 36.3; O2SAT 100; BMI 21.0
--- NOTE | 2025-05-18 17:49 | ED.LOWEXIN ---
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 Reports tripping over a shoe at home and landing onto her left knee. She was able to stand and ambulate herself after the fall. She denies head strike or LOC. She is not on AC, takes a baby aspirin daily. Reports 2/10 left knee pain at present. She did not trial any OTC pain meds prior to arrival. Denies any symptoms of chest pain, palpitations, HUBBARD, dizziness, vision changes prior to fall. Denies numbness/tingling/weakness of the LLE. Denies any difficulty ambulating. Ambulates with a walking stick at baseline. Related Data Home Medications ?Medication ?Instructions ?Recorded ?Confirmed acetaminophen 325 mg tablet 650 mg PO Q6H PRN 04/23/22 04/11/25 dupilumab 300 mg/2 mL subcutaneous 300 mg subcut Q2W 04/25/24 04/11/25 pen injector (Dupixent) escitalopram oxalate 20 mg tablet 20 mg PO DAILY 07/02/24 04/11/25 cholecalciferol (vitamin D3) 25 25 mcg PO DAILY 12/31/24 04/11/25 mcg (1,000 unit) capsule multivitamin 1 tab PO .every other day 12/31/24 04/11/25 gabapentin 100 mg capsule 100 mg PO BEDTIME 02/21/25 04/11/25 Previous Rx's ?Medication ?Instructions ?Recorded famotidine 20 mg tablet 20 mg PO DAILY PRN gerd #60 tabs 12/31/24 riboflavin (vitamin B2) 400 mg 400 mg PO DAILY 30 days #30 tabs 02/21/25 tablet aspirin 81 mg chewable tablet 81 mg PO BEDTIME 30 days #30 tabs 03/08/25 verapamil 100 mg capsule 24hr 100 mg PO BEDTIME 30 days #30 caps 04/23/[address],ext.release amlodipine 2.5 mg tablet 2.5 mg PO DAILY #30 tabs 04/29/25 Allergies Allergy/AdvReac Type Severity Reaction Status Date / Time amoxicillin Allergy Intermediate Rash Verified 05/18/25 17:38 ciprofloxacin Allergy Intermediate Rash Verified 05/18/25 17:38 clindamycin Allergy Intermediate rash, hives Verified 05/18/25 17:38 hydroxychloroquine (From Allergy Intermediate Rash Verified 05/18/25 17:38 Plaquenil) neomycin Allergy Intermediate Rash Verified 05/18/25 17:38 ezetimibe AdvReac Intermediate Diarrhea Verified 05/18/25 17:38 fenofibrate AdvReac Intermediate stomach Verified 05/18/25 17:38 pain, heart burn losartan AdvReac Intermediate dizziness Verified 05/18/25 17:38 pravastatin AdvReac Intermediate Muscle Pain Verified 05/18/25 17:38 lisinopril AdvReac Mild dry cough Verified 05/18/25 17:38 bactrim Allergy Mild Rash Uncoded 04/11/25 09:30 Review of Systems Review of Systems: Constitutional: No fever, chills, fatigue, night sweats, weight changes ENT/Mouth: No ear pain, hearing loss, nasal congestion, sinus pain, rhinorrhea, sore throat Eyes: No eye pain, swelling, redness, vision changes, discharge Cardio: No chest pain, palpitations, GASPAR, orthopnea, peripheral edema Pulm: No SOB, cough, sputum, wheezing, dyspnea, hemoptysis GI: No nausea, vomiting, hematemesis, abdominal pain, diarrhea, constipation, hematochezia, melena : No irregular bleeding, dysuria, frequency, urgency, hesitancy, hematuria, flank pain, urinary flow changes, urinary incontinence or retention MSK: No back pain, neck pain, joint pain, myalgias, +L knee pain Skin: No lesions, rashes Neuro: No weakness, numbness, paresthesias, LOC, dizziness, headache Psych: No anxiety/panic, depression, SI/HI, AH/VH All other systems reviewed and are negative. [facility] Past Medical History Attestation statement: The following information was validated with the patient. Source: old records reviewed and nursing notes reviewed Medical History Menstrual migraine without status migrainosus Arthritis of right glenohumeral joint Colon cancer screening Colon cancer screening Benign paroxysmal positional vertigo Osteopenia Thyroid nodule Hyperlipidemia IBS (irritable bowel syndrome) GERD (gastroesophageal reflux disease) Depression Asthma Genital warts Osteoarthritis of fingers of both hands Osteoarthritis of carpometacarpal joint of left thumb Anxiety Mood disorder High blood pressure Fibromyalgia Surgical History Status post right foot surgery History of colonoscopy History of laparoscopy History of delivery History of skin graft Family History Family History Daughter Mental health disorder Autism Sister FH: HTN (hypertension) Mother FH: HTN (hypertension) Other Substance use disorder Social History Social History Household Members: None Housing: Apartment Are you a primary professional healthcare representative to a significant other at home: No Do you presently have visiting nurse or other home services: No Alcohol intake: current Comment: 2x a year Patient Tobacco Use Status: Never used Tobacco Tobacco use type: Cigarette e-Cigarette/Vaping Use: Never Used Second Hand Smoke Exposure: No service: No Current occupational status: retired Sexual orientation: Straight/Heterosexual Gender identity: Female Cognitive needs: No Hearing needs: No Vision needs: Yes (glasses) Physical Exam Vital Signs: Vital Signs: Last Vital Signs Temp 97.3 F 05/18/25 17:36 Pulse 99 05/18/25 17:36 Resp 18 05/18/25 17:36 BP 134/77 05/18/25 17:36 Pulse Ox 100 05/18/25 17:36 O2 Del Method Room Air 05/18/25 17:36 BMI result Body Mass Index 21.0 Vital signs stable General: Well appearing, in no acute distress. Skin: Warm, dry, intact. No rashes or lesions. Head: Normocephalic, atraumatic. EENT: Hearing is intact b/l. Conjunctiva clear. Sclera is anicteric. PERRLA. EOM intact. Moist mucous membranes.? Cardiac: Chest wall symmetric. RRR Lungs: Normal respiratory effort without accessory muscle use. CTA bilaterally. Back: No midline spinous or paraspinal tenderness. No step off deformity. Ext: +no overlying deformity to left knee. No overlying skin changes or abrasions. Full ROM intact to left knee with extension and flexion. No pain elicited. Strong popliteal pulse. Sensation intact. Portal palpable deformity or crepitus. No high-riding patella. Neuro: AOx3. Normal speech. Ambulating with steady gait. Course Course Course Narrative: X-ray left knee unremarkable. Her exam is benign. Likely contusion. Advised Tylenol and Motrin at home. Zhao wrap applied. educated on RICE therapy. she is ambulating with steady gait assisted by her walking stick which is her baseline. Patient has remained stable throughout ED visit today. Discussed worrisome signs and symptoms and when to return to the ED. All questions answered at this time. Patient is agreeable with disposition and stable for discharge. 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 Vital signs stable, afebrile. on exam, no overlying deformity to left knee. No overlying skin changes or abrasions. Full ROM intact to left knee with extension and flexion. No pain elicited. Strong popliteal pulse. Sensation intact. Portal palpable deformity or crepitus. No high-riding patella. Differential diagnosis includes contusion, fracture. Lower suspicion for dislocation. Unlikely neurovascular compromise, threat to limb, compartment syndrome. Plan for xrays. Patient declining pain control. Differential Diagnosis Differential Diagnoses: The differential diagnosis associated with the presentation includes as above. Admission/Observation Not indicated Independent Interpretation I performed an independent interpretation of an: Plain X-Ray Interpretation: X-ray left knee without fracture Radiology Impression Discussion of test interpretation with radiology: I have reviewed the radiologist's reading. Radiologist Impression: Date of Service: 05/18/25 Procedure(s): XR knee LT 4V Accession Number(s): [id number] cc: Generic ED Physician; Kevyn Monique MD~ CLINICAL HISTORY: fall Radiographs of the left knee, 4 views Comparison: None available Findings: There is no fracture or dislocation. No joint space narrowing or osteophytosis. Trace suprapatellar enthesophyte. Bone mineralization is decreased. No knee joint effusion. Soft tissue swelling. Impression: No fracture or joint effusion. This document has been electronically signed by: Cristina Guevara MD on 05/18/2025 18:18:46 External Record Review External record reviewed: Inpatient record Prescription Management I considered prescription management with: Pain Medication Social Determinants Patient?s care significantly limited by Social Determinants of Health including: Other Social Determinant of Health Critical Care Time Critical Care Time Critical Care Time: No Discharge Plan Discharge Clinical Impression: Contusion of knee, left Patient Disposition: Home, Self-Care Instructions: Contusion in Adults (ED) Additional Instructions: You were evaluated in the ED today for left knee pain after a trip and fall. The xray of your left knee does not show any fracture. Your exam is not concerning for any ligament or tendon injury. You have a contusion. You were provided with an ZHAO wrap to help with compression. Utilize rice therapy -rest, ice (or heat), compress, elevate the left knee. You may take 600mg ibuprofen every 6 hours or Tylenol 650mg every 6 hours as needed for pain. If needed, you can alternate these medications so that you take one medication every 3 hours. For example, at noon take ibuprofen, then at 3pm take Tylenol, then at 6pm take ibuprofen. Follow up with your outpatient providers as needed. Return with any new or worsening symptoms. Prescriptions: No Action aspirin 81 mg tablet,chewable 81 mg PO BEDTIME 30 Days Qty: 30 6RF verapamil 100 mg capsule, [address] 100 mg PO BEDTIME 30 Days Qty: 30 1RF amlodipine 2.5 mg tablet 2.5 mg PO DAILY Qty: 30 1RF acetaminophen 325 mg tablet 650 mg PO Q6H PRN escitalopram oxalate 20 mg tablet 20 mg PO DAILY Dupixent Pen 300 mg/2 mL pen injector 300 mg subcut Q2W cholecalciferol (vitamin D3) 25 mcg (1,000 unit) capsule 25 mcg PO DAILY multivitamin Tablet 1 tab PO .every other day famotidine 20 mg tablet 20 mg PO DAILY PRN (Reason: gerd) Qty: 60 0RF gabapentin 100 mg capsule 100 mg PO BEDTIME riboflavin (vitamin B2) 400 mg tablet 400 mg PO DAILY 30 Days Qty: 30 6RF Referrals: Po,Kevyn Hood MD [Primary Care Provider, Internal Medicine] Discharge Date/Time: 05/18/25 18:50 Print Language: Faroese
[2025-05-18 18:46] VITALS: BP 134/77; PULSE 99; RESP 18; TEMP 36.3; O2SAT 100
--- OUTSIDE RECORDS SUMMARY | 2025-05-18 18:51 | XMS_ITS | Patient Health Record ---
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 Plan Of Treatment No Information Insurance Providers Payer Name Payer Address Payer Phone Subscriber Number Group Number Insured Name Patient Relationship to Insured Coverage Start Date Coverage End Date Medicare of [place] [address] [place] [id number] Self - patient is the insured [facility] [address] [place] [id number] Self - patient is the insured Medical (General) History Medical History History ICD Code right lateral ankle fracture hypertension osteoporosis previous right ankle fracture left ankle sprains osteopenia osteoarthritis anxiety depression fibromyalgia mood disorder Surgical History Surgery Date(Month/Year) 09/13/1983 colonoscopy laparoscopy skin graft on right foot Hospitalization History Reason Date(Month/Year) (girl) 09/13/1983
--- OUTSIDE RECORDS SUMMARY | 2025-05-18 18:51 | XMS_ITS | Patient Health Record ---
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) Active confirmed Plan Of Treatment No Information Insurance Providers Payer Name Payer Address Payer Phone Subscriber Number Group Number Insured Name Patient Relationship to Insured Coverage Start Date Coverage End Date Medicare [address] [place], [place] [id number] Self - patient is the insured [employer] Medicare Enhanced [address] [id number] [id number] Self - patient is the insured Medical (General) History Medical History History ICD Code FIBROMIALGYA DEPRESSION HIGH BLOOD PRESSURE OSTEOPINIA Surgical History Surgery Date(Month/Year) CATARACT EXTRACTION WITH IMPLANT VINCE S N60WF 12/17/2021 CATARACT EXTRACTION RIGHT EYE WITH LENS IMPLANT SN60WF +19.5 D 01/14/22
--- OUTSIDE RECORDS SUMMARY | 2025-05-18 18:51 | XMS_ITS | Clinical Summary ---
Author Organization [facility] Address [address] [place] [address] Care Team Providers Care Embossing Machine Operator Helper Name Role Phone Caitlyn Cano NP Primary Care Provider [phone] Allergies Active Allergy Reactions Criticality Noted Date [...] 63 01/19/2023 11:28 AM EDT Temperature 36.3 C (97.3 F) 01/19/2023 11:28 AM EDT Respiratory Rate 14 01/19/2023 11:28 AM EDT [...] season) 2024 01/13/2021, 12/22/2020 Influenza Vaccine (#1) 2025 , 06/16/2020, 06/19/2019, Additional history exists DTap [...] age to complete this topic Care Teams Embossing Machine Operator Helper Relationship Specialty Start Date End Date Caitlyn Cano NP [address] [place] [address] [place] [address] PCP - General Family Medicine 01/17/23
--- OUTSIDE RECORDS SUMMARY | 2025-05-18 18:51 | XMS_ITS | Clinical Summary ---
Author Organization [facility] it Address [address] [place] [address] Care Team Providers Care Sanitation Truck Driver Name Role Phone Caitlyn Cano KAROL Primary Care Provider [phone] Immunizations Name Administration Dates Next Due Pfizer [...] HAMMERTOE; Surgeon: Todd Valencia DPM; Location: [facility]; Service: Podiatry; Laterality: Right; Medical History [...] 2) 2002 Colorectal Cancer Screening: Colonoscopy 11/18/2023 Falls Risk Assessment 11/18/2023 Hepatitis C Screening 11/18/2023 Osteoporosis Screening (Bone Density Screening) 11/18/2023 Social Influencers of Health Screening 11/18/2023 COVID-19 Vaccine (3 - 2023-2 5 season) 2024 01/13/2021, 12/22/2020 Depression Screening 10/24/2024 Influenza Vaccine (#1) 2025 RSV Immunization Adult Patients (1 - [...] age to complete this topic Care Teams Sanitation Truck Driver Relationship Specialty Start Date End Date Caitlyn Cano NP [address] [place] [address] [place] [address] PCP - General 01/17/23
--- OUTSIDE RECORDS SUMMARY | 2025-05-18 18:51 | XMS_ITS | Data Portability ---
Author Organization SUSY prince MD, GOLCON[facility] Address [address] [facility] [facility] [address] [place] [address] Care Team Providers Care Software Test Developer Name Role Phone STACY AMADOR Primary Care Provider STACY AMADOR Referring Provider Assessment Encounter Date Assessment Date Assessment LastModified by Organization Details LastModified Time 05/15/2015 05/15/2015 IMPRESSION: Ms. Way is sensitized to perennial aero-allergens, molds > dust mites. This can lead to low grade correction inflammation of her nasal / sinus lining. Mold allergy is also predisposes to bronchial asthma. S/P VIRAL URI ?MOLD EXPOSURE MODERATE HIGH MOLD COUNTS EUSTACHIAN TUBE DYSFUNCTION : RECOVERING PERSISTENT ALLERGIC RHINITIS : due to House dust mite < Mold allergy SINUS PRESSURE MAXILLARY > FRONTAL / POST-NASAL RHINORRHEA DYSPNEA W WHEEZING, WEATHER CHANGE / URIs c/w INTERMITTENT BRONCHIAL ASTHMA She started allergy shots since 06/2014. 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 PLAN: Pt off allergy shots > 7 weeks Resume allergy shots; lower dose Continue oral steroid taper Claritin-D 12 hr if ear symtpoms persist dmuppidi Not available 05/15/2015 20:25:02 05/22/2015 05/22/2015 Allergy skin tests : INHALANTS: 05/31/14 Scratch series: 2+ to Cladosporium, Dreschlera, 1+ to tree pollen (beech, Sugar maple) Intra-dermal : 2+ to mold, 1+ to pollen (TGWRW), borderline to dust mites (Df, Dp) IMPRESSION: S/P VIRAL URI ?MOLD EXPOSURE MODERATE HIGH MOLD COUNTS EUSTACHIAN TUBE DYSFUNCTION : RECOVERING PERSISTENT ALLERGIC RHINITIS : due to House dust mite < Mold allergy SINUS PRESSURE MAXILLARY > FRONTAL / POST-NASAL RHINORRHEA DYSPNEA W WHEEZING, WEATHER CHANGE / URIs c/w INTERMITTENT BRONCHIAL ASTHMA PLAN: Continue Doxycycline Claritin-D 12 hr if ear symptoms persist OR Loratidine-D 12 hr : 1 tab every 12 hours (Skip night dose if sleep disturbed) After symptoms settle down: continue previous daily meds for allergy as needed: Zetonna nasal spray / Flonase : 1 spray via each nostril once / twice a day Do not use if having nose bleeds Zyrtec (Cetirizine) 10 mg OTC once daily at bedtime Zaditor eye drops: 1 drop in each eye twice a day as needed for itchy / red eyes. Continue Albuterol MDI used in the past Continue allergy shots dmuppidi Not available 05/22/2015 16:39:07 Plan of Treatment Reminders Order Date Submit Date Provider Last Modified By Organization Details Last Modified Time Details Appointments None recorded. Lab None recorded. Referral None recorded. Procedures None recorded. Surgeries None recorded. Imaging None recorded. Medication Orders Loratadin e-D 5 mg-120 mg tablet,ex tended release 12 hr 015 015 dmuppidi [id number], [address] [facility], [place], [place], [id number], 5 16:39:06 Patient TargetsNo targets recorded. Patient InstructionsNo instructions recorded. Reason for Referral None Reported. Problems Name Problem SNOMED Code Status Onset Date Resolution Date Notes Provider Name and Address Organization Details Recorded Time Allergy to dust mite protein 174947150 Active Raquel manjarrez [place] - Ollie Hyde MD 6 [...] n hives Not available Not available 05/31/2014 53716 7618 SNOMED Ollie Hyde MD [address] [place], [place] [address], [place], [address], [place] SUSY Hyde MD 4 10:38:48 5062 Cipro medicatio n rash Not available Not available 05/31/2014 80586 3 RxNorm Ollie Hyde MD [address] [facility], [address], [place], [address], SUSY Hyde MD 4 10:38:48 5063 amoxicill in medicatio n rash Not available Not available 05/31/2014 723 RxNorm Ollie Hyde MD [address] [facility], [address], [place], [address], SUSY Hyde MD 4 10:38:48 5064 clindamyc in Not available rash Not available Not available 05/31/2014 2582 RxNorm Ollie Hyde MD [address] [facility], [address], [place], [address], SUSY Hyde MD 4 10:38:48 Medications [...] Zetonna 37 mcg/actuatio n nasal HFA inhaler [place] 1 spray twice a day by intranasal route as directed for 30 days. active Not Available Not Available No t Available Fluarix Quad (PF) 60 mcg (15 mcg x 4)/0.5 mL IM syringe active Not Available Not Available Not Available Afluria (PF) 45 mcg (15 mcg x 3)/0.5 mL IM syringe active Not Available Not Available Not Available Vitals Date Recorded Body height Body mass index (BMI) Body weight Provider Name and Address Organization Details Last Updated DateTime 03/23/2016 167.64 cm 26.6 kg/m2 61049.7410 5 g Valorie Amador Hyde MD 03/23/2016 15:05:38 Date Recorded Respiratory rate Body weight Body height Heart rate Body mass index (BMI) Systolic And Diastolic Provider Name and Address Organization Details Last Updated DateTime 5 16 /min 60373.7 792 g 167.64 cm 70 /min 25.8 kg/m2 112/80 mm[Hg] Heidi Hyde MD 5 15:21:33 Date Recorded Respiratory rate Body weight Body height Heart rate Body mass index (BMI) Systolic And Diastolic Provider Name and Address Organization Details Last Updated DateTime 5 16 /min 41242.7 792 g 167.64 cm 70 /min 25.8 kg/m2 120/76 mm[Hg] Heidi Hyde MD 5 13:07:36 Social History Question Answer Notes LastModified by Organizat ion Details LastModified Time Tobacco Smoking Status Never Smoker Not Available [facility] 08/26/2020 03:19:15 How Often Do You [...] not available 06/01/2014 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 None [id number] Information not available 08/26/2020 Mental Status None [...] SNOMED-CT Code Diagnosis ICD10 Code Diagnosis Note [id number] MD CHARLEY Mckeon [address] [place] [address] [address] [place] [address] 05/31/2014 09:32:38 05/31/2014 11:06:25 Allergy to dust mite protein 410131299 [id number] MD CHARLEY Mckeon [address] [place] [address] [address] [place] [address] 07/02/2014 16:02:23 07/02/2014 16:59:41 [id number] MD GIAN Mckeon[address], [address] [facility] [address] 11/12/2014 16:30:42 11/12/2014 17:35:20 27541 MD GIAN Mckeon[address], [address] [facility] [address] 05/15/2015 14:54:21 05/15/2015 16:38:11 [id number] Ollie Hyde MD GIAN[address], [address] [facility] [address] 05/22/2015 13:05:35 05/22/2015 14:29:21 Allergy to dust mite protein 855621615 Health Concerns Section Related Observation LastModified by Organization Detai ls LastModified Time None Recorded Concern Status LastModified by Organization Details LastModified Time None Recorded Advance Directives Directive None Recorded Payers Insurance Date Sequence Insurance Name Policy Number Policy Best Covered Member ID Best Member ID Guarantor Name 03/20/2016 1 [facility] (POS) [address] [id number] OBGyn Episode No OBEpisode recorded.
--- OUTSIDE RECORDS SUMMARY | 2025-05-18 18:51 | XMS_ITS | Clinical Summary ---
Author Organization [facility] Address [address] [place] [address] Care Team Providers Care Metal Riveting Machine Operator Name Role Phone Yoko Jolly Primary Care Provider [phone] Allergies Active Allergy Reactions Criticality Noted Date [...] - 2023-2 5 season) 2024 Influenza (#1) 2025 RSV (1 - 1-dose 75+ series) 2027 HPV Vaccine (No Doses Required) Completed Hep A Aged Out No longer eligi [...] Pap Smear Discontinued Zoster (Zostavax) Discontinued Insurance MEDICARE PART B FFS MEDICARE-SUPPLEMENTAL Care Teams Metal Riveting Machine Operator Relationship Specialty Start Date End Date Yoko Jolly [address] [place] [address] [place] [address] PCP - General Internal Medicine 03/19/16
--- OUTSIDE RECORDS SUMMARY | 2025-05-18 18:51 | XMS_ITS | Patient Health Record ---
Author Organization [facility] Address [address] [place] [address] [address] [place] [address] Care Team Providers Care Scaffold Erector Name Role Phone Yoko Jolly MD Primary Care Provider Unavailabl e Reason For Referral No Information Plan Of Treatment No Information Insurance Providers Payer Name Payer Address Payer Phone Subscriber Number Group Number Insured Name Patient Relationship to Insured Coverage Start Date Coverage End Date [facility] [address] [place] [id number] Self - patient is the insured
== END 2025-05-18 18:50 | disposition home or self-care (01) ==
LOC: HO.ED 18:49
PROVIDERS: Emergency Provider Emergency Medicine Emergency Medical Services; PCP Internal Medicine
DX: S80.02XA Contusion of left knee, initial encounter (principal); W01.0XXA Fall on same level from slipping, tripping and stumbling without subsequent striking against object, initial encounter; M25.562 Pain in left knee; Y93.89 Activity, other specified; Y92.039 Unspecified place in apartment as the place of occurrence of the external cause; Y99.9 Unspecified external cause status
CPT/HCPCS: 73564; 99282; 99283

== ENCOUNTER 2025-05-24 12:01 | Outpatient (AMB) | payer MEDICARE, OTHER, SELFPAY ==
--- NOTE | 2025-05-24 11:55 | A.OFFVIS_ITS ---
Vital Signs 05/24/25 11:55 Height 5 ft 6 in Intake Visit Reasons: FU casie Valdez ([phone]) Intake Note: Patient presents follow up for dizziness. Past July became intense. Feeling very dizzy at the moment. Weapons Designer Required: No Accompanied by: Self / Same As Patient Allergies amoxicillin Allergy (Intermediate, Verified 05/24/25 11:56) Rash ciprofloxacin Allergy (Intermediate, Verified 05/24/25 11:56) Rash clindamycin Allergy (Intermediate, Verified 05/24/25 11:56) rash, hives hydroxychloroquine (From Plaquenil) Allergy (Intermediate, Verified 05/24/25 11:56) Rash neomycin Allergy (Intermediate, Verified 05/24/25 11:56) Rash ezetimibe Adverse Reaction (Intermediate, Verified 05/24/25 11:56) Diarrhea fenofibrate Adverse Reaction (Intermediate, Verified 05/24/25 11:56) stomach pain, heart burn losartan Adverse Reaction (Intermediate, Verified 05/24/25 11:56) dizziness pravastatin Adverse Reaction (Intermediate, Verified 05/24/25 11:56) Muscle Pain lisinopril Adverse Reaction (Mild, Verified 05/24/25 11:56) dry cough bactrim Allergy (Mild, Uncoded 04/11/25 09:30) Rash Medication List - Last Reconciled 05/24/25 by CHRISTOFER Kuhn acetaminophen 650 mg PO Q6H PRN amlodipine 2.5 mg PO DAILY aspirin 81 mg PO BEDTIME 30 days cholecalciferol (vitamin D3) 25 mcg PO DAILY dupilumab (Dupixent) 300 mg subcut Q2W escitalopram oxalate 15 mg PO DAILY famotidine 20 mg PO DAILY PRN gabapentin 100 mg PO BEDTIME multivitamin 1 tab PO .every other day riboflavin (vitamin B2) 400 mg PO DAILY 30 days verapamil ER 120 mg PO DAILY 30 days HPI Comments Details: Right-handed 74-yr-old female presents for urgent f/u of dizziness. Since last visit, patient was started on verapamil. She is not consistently taking gabapentin. Pt reports that initially her dizziness and photophobia had improved after starting the verapamil, however more recently the dizziness and photophobia has increased again. She states her psychiatric provider had suggested reaching out to us, to consider increasing the verapamil. She denies any current orthostatic lightheadedness. Blood pressure usually normotensive, today 130/70. Has a BP cuff at home. She is compliant with her amlodipine 2.5 mg in the morning. Her carotid ultrasound, showed moderate right ICA stenosis. Patient was advised to start baby aspirin. Patient also had vascular consult, who plans to do repeat carotid ultrasound in 6 months and to continue the verapamil and aspirin. She did try the FL-41 theraspecs, but this seemed to cause a headache and worsened her dizziness. She is returning them, but trying a different type of light blocking filter. 03/06/25 IMPRESSION: 50-69% STENOSIS AT LEVEL OF RIGHT ICA. LESS THAN 50% STENOSIS AT LEVEL OF THE CCAS AND LEFT ICA. 03/05/25, MR/MR head/brain wo/w con IMPRESSION: No vestibular schwannoma. 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 Right-handed 74-yr-old female presents for new in-person patient evaluation for dizziness. PMH is notable for osteopenia, OA, thyroid nodule, HTN, HLD, IBS, GERD, anxiety/depression, asthma, fibromyalgia. Patient reports reports she has had dizziness for quite some time which has been episodic but more recently has been constant for the last few weeks. She describes the dizziness as really debilitating , which is elicited by turning her head. She has difficulty describing the dizziness, and denies room spinning or not right in space or pulling dizziness. but is elicited by turning her head. She states she was told this may be a type of migraine without headache. In July of 2024, she reports she had ear evaluation for increased dizziness and HTN with BP as high as 169/98 in Jul 2024. She went to the ER- who suggested she had BPPV. She completed vestibular PT, who per pt ruled out BPPV but did continue to do vestibular/eye exercises which was helpful but she continues to have dizziness. She has tried adjusting medication doses without much effect, including: Stopped losartan, and is now on Amlodipine. She tried reducing Gabapentin from 700mg to 100mg per day for fibromyalgia- though this did not help the dizziness. She wonders if she can increase it back up to 200mg. In the past, she took magnesium glycinate which possibly though she is not certain, caused loose stools as she was taking it along an oil supplement. Also endorses increased photophobia, nausea, rare mild headaches, h/o menstrual migraine, motion sickness since childhood, shoulder pain/arthritis, depression/anxiety f/b psychiatry, asthma, nasal congestion. Has neck soreness if she exercises too much, but denies shooting pain. Last year- she had a widespread rash- eventually dx'd as atopic dermatitis by [facility], which responded to Dupixant. She does endorse stress and anxiety-related to having a daughter with autism spectrum disorder and needing to make sure her daughter is financially secure. Patient does not drive, lives in [facility], relies on transportation. However when she did drive, she did not tolerate being a passenger due to motion sickness. Denies numbness/tingling, shooting pain, difficulty sleeping. No h/o head imaging. COUNTS INCLUDE 234 BEDS AT THE [facility] Medical History Menstrual migraine without status migrainosus Arthritis of right glenohumeral joint Colon cancer screening Colon cancer screening Benign paroxysmal positional vertigo Osteopenia Thyroid nodule Hyperlipidemia IBS (irritable bowel syndrome) GERD (gastroesophageal reflux disease) Depression Asthma Genital warts Osteoarthritis of fingers of both hands Osteoarthritis of carpometacarpal joint of left thumb Anxiety Mood disorder High blood pressure Fibromyalgia Surgical History Status post right foot surgery History of colonoscopy History of laparoscopy History of delivery History of skin graft Family History Daughter Mental health disorder Autism Sister FH: HTN (hypertension) Mother FH: HTN (hypertension) Other Substance use disorder Social History Household Members: None Housing: Apartment Are you a primary resident care assistant to a significant other at home: No Do you presently have visiting nurse or other home services: No Alcohol intake: current Comment: 2x a year Patient Tobacco Use Status: Never used Tobacco Tobacco use type: Cigarette e-Cigarette/Vaping Use: Never Used Second Hand Smoke Exposure: No service: No Current occupational status: retired Sexual orientation: Straight/Heterosexual Gender identity: Female Cognitive needs: No Hearing needs: No Vision needs: Yes (glasses) Physical Exam Const General: no acute distress Orientation/consciousness: patient oriented x3 Resp Effort & Inspection: normal respiratory effort and able to speak in complete sentences Neuro General: patient oriented x3 Psych Speech and movement: Clear speech present Attitude: cooperative Thought process: Normal thought process present Telehealth Telehealth Telehealth Platform: Telephone Location of provider rendering services: practice address Location of patient: address on file Patient Identification confirmed using: Name, : Yes Telehealth method: voice only Patient verbally consented to treatment: Yes Patient verbally consented to billing insurance company: Yes Patient informed of any privacy concerns related to visit: Yes Minutes spent on Phone/Video with Pt.: 17 Assessment & Plan Assessment & Plan (1) Dizziness: Code(s): R42 - Dizziness and giddiness Category: Medical (2) Motion sickness: Code(s): T75.3XXA - Motion sickness, initial encounter Category: Medical Qualifiers: Encounter type: subsequent encounter Qualified Code(s): T75.3XXD - Motion sickness, subsequent encounter (3) Hypertension: Code(s): I10 - Essential (primary) hypertension Category: Medical (4) Carotid artery stenosis: Comment: February-69% STENOSIS AT LEVEL OF RIGHT ICA. LESS THAN 50% STENOSIS AT LEVEL OF THE CCAS AND LEFT ICA. Code(s): I65.29 - Occlusion and stenosis of unspecified carotid artery Category: Medical Qualifiers: Laterality: bilateral Qualified Code(s): I65.23 - Occlusion and stenosis of bilateral carotid arteries (5) Vertigo: Code(s): R42 - Dizziness and giddiness Category: Medical Plan Both dizziness and photophobia improved with initiation of verapamil therapy, which suggest that patient's symptoms are due to a vestibular migraine. However, patient does have moderate right ICA stenosis, and mild left ICA stenosis. Reviewed brain MRI with and without contrast- no findings to account for patient's symptoms, No vestibular schwannoma. 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 Patient advised to undergo: EKG XR C-spine as ordered Bilateral carotid ultrasound- in August as ordered by vascular Increase verapamil ER from 100 mg daily to 120 mg daily at bedtime Aspirin 81 mg chewable at bedtime Riboflavin 400 mg daily in the morning. Magnesium up to 400-500 mg daily at bedtime-may hold for loose stools. She is not consistently taking Gabapentin from 100mg to 200mg per day. Will follow-up upon review of above and patient to follow-up in clinic as scheduled Orders: Orders ECG 12 lead EKG Today I10 - Essential (primary) hypertension, I65.23 - Occlusio n and stenosis of bilateral carotid arteries, R42 - Dizziness and giddiness Medications: New verapamil ER 120 mg PO DAILY 30 days 30 caps 1RF verapamil ER 120 mg PO BEDTIME 30 caps 1RF 30 days Discontinued verapamil ER Discontinued Reason: Doctor's Order 100 mg PO BEDTIME 30 days 30 caps 1RF Coding Level of Care Code Tele Est Pt Level 4 (00551) Diagnoses Dizziness R42 Motion sickness, subsequent encounter T75.3XXD Encounter type: subsequent encounter Hypertension I10 Bilateral carotid artery stenosis I65.23 Laterality: bilateral Vertigo R42
--- OUTSIDE RECORDS SUMMARY | 2025-05-24 12:03 | XMS_ITS | Clinical Summary ---
Author Organization [facility] it Address [address] [place] [address] Care Team Providers Care Control Operator Flow Coat Name Role Phone Caitlyn Cano KAROL Primary Care Provider [phone] Immunizations Name Administration Dates Next Due Pfizer SARS-CoV-2 COVID-19, mRNA, LNP-S, preservative free 01/13/2021,12/22/2020 Surgical History Surgery Date Site/Laterality Comments SKIN GRAFT 1960 Right PROCEDURE:SKIN GRAFT;COMMENT:foot SECTION PROCEDURE: SECTION CATARACT EXTRACTION W/ INTRAOCULAR LENS IMPLANT Bilateral PROCEDURE:CATARACT EXTRACTION W/ INTRAOCULAR LENS IMPLANT OTHER SURGICAL HISTORY PROCEDURE:MOHS SURGERY TOE SURGERY 01/19/2023 Right PROCEDURE:TOE SURGERY;COMMENT:Procedure: RIGHT 2ND TOE CORRECTION HAMMERTOE; Surgeon: Todd Valencia DPM; Location: [facility]; Service: Podiatry; Laterality: Right; Medical History [...] age to complete this topic Care Teams Control Operator Flow Coat Relationship Specialty Start Date End Date Caitlyn Cano NP [address] [place] [address] [place] [address] PCP - General 01/17/23
--- OUTSIDE RECORDS SUMMARY | 2025-05-24 12:03 | XMS_ITS | Patient Health Record ---
Author Organization [facility] Address [address] [place] [address] [address] [place] [address] Care Team Providers Care Tracer Clerk Name Role Phone Yoko Jolly MD Primary Care Provider Unavailabl e Reason For Referral No Information Plan Of Treatment No Information Insurance Providers Payer Name Payer Address Payer Phone Subscriber Number Group Number Insured Name Patient Relationship to Insured Coverage Start Date Coverage End Date [facility] [address] [place] [id number] Self - patient is the insured
--- OUTSIDE RECORDS SUMMARY | 2025-05-24 12:03 | XMS_ITS | Patient Health Record ---
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 Plan Of Treatment No Information Insurance Providers Payer Name Payer Address Payer Phone Subscriber Number Group Number Insured Name Patient Relationship to Insured Coverage Start Date Coverage End Date Medicare of [place] [address] [place] [id number] Self - patient is the insured [facility] [address] [place] [id number] Self - patient is the insured Medical (General) History Medical History History ICD Code right lateral ankle fracture hypertension osteoporosis previous right ankle fracture left ankle sprains osteopenia osteoarthritis anxiety depression fibromyalgia mood disorder Surgical History Surgery Date(Month/Year) 09/13/1983 colonoscopy laparoscopy skin graft on right foot Hospitalization History Reason Date(Month/Year) (girl) 09/13/1983
--- OUTSIDE RECORDS SUMMARY | 2025-05-24 12:03 | XMS_ITS | Patient Health Record ---
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) Active confirmed Plan Of Treatment No Information Insurance Providers Payer Name Payer Address Payer Phone Subscriber Number Group Number Insured Name Patient Relationship to Insured Coverage Start Date Coverage End Date Medicare [address] [place], [place] [id number] Self - patient is the insured [facility] Medicare Enhanced [address] [id number] Self - patient is the insured Medical (General) History Medical History History ICD Code FIBROMIALGYA DEPRESSION HIGH BLOOD PRESSURE OSTEOPINIA Surgical History Surgery Date(Month/Year) CATARACT EXTRACTION WITH IMPLANT VINCE S N60WF 12/17/2021 CATARACT EXTRACTION RIGHT EYE WITH LENS IMPLANT SN60WF +19.5 D 01/14/22
--- OUTSIDE RECORDS SUMMARY | 2025-05-24 12:03 | XMS_ITS | Clinical Summary ---
Author Organization [facility] Address [address] [place] [address] Care Team Providers Care Commercial Representative Name Role Phone Yoko Jolly Primary Care Provider [phone] Allergies Active Allergy Reactions Criticality Noted Date [...] MEDICARE PART B FFS MEDICARE-SUPPLEMENTAL Care Teams Commercial Representative Relationship Specialty Start Date End Date Yoko Jolly [address] [place] [address] [place] [address] PCP - General Internal Medicine 03/19/16
--- OUTSIDE RECORDS SUMMARY | 2025-05-24 12:03 | XMS_ITS | Clinical Summary ---
Author Organization [facility] Address [address] [place] [address] Care Team Providers Care Security System Sales Consultant Name Role Phone Caitlyn Cano NP Primary Care Provider [phone] Allergies Active Allergy Reactions Criticality Noted Date [...] age to complete this topic Care Teams Security System Sales Consultant Relationship Specialty Start Date End Date Caitlyn Cano NP [address] [place] [address] [place] [address] PCP - General Family Medicine 01/17/23
== END 2025-05-24 13:02 | disposition home or self-care (01) ==
LOC: HO.HSMS 12:01
PROVIDERS: PCP Internal Medicine; Visit Provider Nurse Practitioner Family
DX: R42 Dizziness and giddiness (principal); T75.3XXD Motion sickness, subsequent encounter; I10 Essential (primary) hypertension; I65.23 Occlusion and stenosis of bilateral carotid arteries
CPT/HCPCS: 99214

== ENCOUNTER → 2025-05-28 10:37 | Outpatient (REF) | payer MEDICARE, OTHER, SELFPAY ==
--- NOTE | 2025-05-28 10:44 | ECG_ITS ---
Test Reason : DIZZINESS Blood Pressure : */* mmHG Vent. Rate : 69 BPM Atrial Rate : 69 BPM P-R Int : 146 ms QRS Dur : 88 ms QT Int : 400 ms P-R-T Axes : 75 -16 60 degrees QTcB Int : 428 ms Normal sinus rhythm Normal ECG When compared with ECG of 10-Aug-2024 13:40, No significant change was found Referred By: Courtney Barrientos Electronically Signed By: ALEX SANDERS
--- OUTSIDE RECORDS SUMMARY | 2025-05-28 11:18 | XMS_ITS | Patient Health Record ---
Author Organization [facility] Address [address] [place] [address] [address] [place] [address] Care Team Providers Care Sand Cutter Name Role Phone Yoko Jolly MD Primary Care Provider Unavailabl e Reason For Referral No Information Plan Of Treatment No Information Insurance Providers Payer Name Payer Address Payer Phone Subscriber Number Group Number Insured Name Patient Relationship to Insured Coverage Start Date Coverage End Date [facility] [address] [place] [address] [id number] Self - patient is the insured
--- OUTSIDE RECORDS SUMMARY | 2025-05-28 11:18 | XMS_ITS | Clinical Summary ---
Author Organization [facility] Address [address] [place] [address] Care Team Providers Care Steam Box Hand Name Role Phone Caitlyn Cano NP Primary Care Provider [phone] Allergies Active Allergy Reactions Criticality Noted Date [...] age to complete this topic Care Teams Steam Box Hand Relationship Specialty Start Date End Date Caitlyn Cano NP [address] [place] [address] [place] [address] PCP - General Family Medicine 01/17/23
--- OUTSIDE RECORDS SUMMARY | 2025-05-28 11:18 | XMS_ITS | Clinical Summary ---
Author Organization [facility] it Address [address] [place] [address] Care Team Providers Care Lining Caser Name Role Phone Caitlyn Cano KAROL Primary Care Provider [phone] Immunizations Name Administration Dates Next Due Pfizer SARS-CoV-2 COVID-19, mRNA, LNP-S, preservative free 01/13/2021,12/22/2020 Surgical History Surgery Date Site/Laterality Comments SKIN GRAFT 1960 Right PROCEDURE:SKIN GRAFT;COMMENT:foot SECTION PROCEDURE: SECTION CATARACT EXTRACTION W/ INTRAOCULAR LENS IMPLANT Bilateral PROCEDURE:CATARACT EXTRACTION W/ INTRAOCULAR LENS IMPLANT OTHER SURGICAL HISTORY PROCEDURE:MOHS SURGERY TOE SURGERY 01/19/2023 Right PROCEDURE:TOE SURGERY;COMMENT:Procedure: RIGHT 2ND TOE CORRECTION HAMMERTOE; Surgeon: Todd Valencia DPM; Location: [facility]; Service: Podiatry; Laterality: [...] age to complete this topic Care Teams Lining Caser Relationship Specialty Start Date End Date Caitlyn Cano NP [address] [place] [address] [place] [address] PCP - General 01/17/23
--- OUTSIDE RECORDS SUMMARY | 2025-05-28 11:18 | XMS_ITS | Patient Health Record ---
Author Organization [facility] Address [address] [id number] Care Team Providers Care Purchasing Administrative Assistant Name Role Phone ClaudineElba reese Primary Care Provider Unavailabl e Allergies Allergen (clinical drug ingredient) Drug/Non Drug Allergy documented on EMR Reaction Allergy Type Onset Date Status amoxicillin Amoxicillin Unknown Drug Allergy Act ronald ciprofloxacin Cipro Unknown Drug Allergy Act ronadl clindamycin Clindamycin HCl Unknown Drug Allergy Active [...] Status Risk Notes Problem Cortical senile cataract (15694771) Cortical age-related cataract, 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) Active confirmed Problem Open angle with borderline findings, low risk, 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) Active confirmed Plan Of Treatment No Information Insurance Providers Payer Name Payer Address Payer Phone Subscriber Number Group Number Insured Name Patient Relationship to Insured Coverage Start Date Coverage End Date Medicare [address] [place], [place] [id number] [id number] Self - patient is the insured [facility] Medicare Enhanced [address] [id number] [id number] Self - patient is the insured Medical (General) History Medical History History ICD Code FIBROMIALGYA DEPRESSION HIGH BLOOD PRESSURE OSTEOPINIA Surgical History Surgery Date(Month/Year) CATARACT EXTRACTION WITH IMPLANT VINCE S N60WF 12/17/2021 CATARACT EXTRACTION RIGHT EYE WITH LENS IMPLANT SN60WF +19.5 D 01/14/22
--- OUTSIDE RECORDS SUMMARY | 2025-05-28 11:18 | XMS_ITS | Patient Health Record ---
Author Organization [facility] Address [address] [facility] [address] [place] [address] Care Team Providers Care Car Unloader Name Role Phone chantelle sun Primary Care [...] of [place] [address] [place] [id number] Self - patient is the insured [facility] [address] [place] [id number] Self - patient is the insured Medical (General) History Medical History History ICD Code right lateral ankle fracture hypertension osteoporosis previous right ankle fracture left ankle sprains osteopenia osteoarthritis anxiety depression fibromyalgia mood disorder Surgical History Surgery Date(Month/Year) 09/13/1983 colonoscopy laparoscopy skin graft on right foot Hospitalization History Reason Date(Month/Year) (girl) 09/13/1983
--- OUTSIDE RECORDS SUMMARY | 2025-05-28 11:18 | XMS_ITS | Clinical Summary ---
Author Organization [facility] Address [address] [place] [address] Care Team Providers Care Log Haul Chain Feeder Name Role Phone Yoko Jolly Primary Care Provider [phone] Allergies Active Allergy Reactions Criticality Noted Date [...] MEDICARE PART B FFS MEDICARE-SUPPLEMENTAL Care Teams Log Haul Chain Feeder Relationship Specialty Start Date End Date Yoko Jolly [address] [place] [address] [place] [address] PCP - General Internal Medicine 03/19/16
== END ==
LOC: HO.CARD 10:37
PROVIDERS: Visit Provider Nurse Practitioner Family
DX: R42 Dizziness and giddiness (principal); I65.23 Occlusion and stenosis of bilateral carotid arteries; I10 Essential (primary) hypertension
CPT/HCPCS: 93005

== ENCOUNTER → 2025-05-28 10:44 | Outpatient (BNV) | payer MEDICARE, OTHER, SELFPAY | PROVIDERS: Visit Provider Internal Medicine | DX: R42 Dizziness and giddiness (principal) | CPT/HCPCS: 93010 ==

== ENCOUNTER 2025-06-29 09:17 | Outpatient (REF) | payer MEDICARE, OTHER, SELFPAY ==
--- OUTSIDE RECORDS SUMMARY | 2025-06-29 09:19 | XMS_ITS | Encounter Summary ---
Author Organization [facility] Address [address] [facility] [address] [place] [address] Phone Care Team Providers Care Clerk Name Role Phone Elba Allison MD Primary Care Provider [phone] Asia Jolley [facility] [phone] Encounter Details Date Type Department Care Team (Late st Contact Info) Description 04/29/2021 Ancillary Orders [facility] [address] [place] [address] Cristela Bello NP [address] [place], [place] [id number] [email or web address] Mastitis; Mass of right breast Social History Tobacco Use Types Packs/Day Years Used Date Smoking Tobacco: Never Smokeless Tobacco: Never Comments Unknown Sex and Gender Information Value Date Recorded Sex Assigned at Female 03/04/2021 7:31 AM EDT Legal Sex Female 6:04 PM EST Gender Identity Female 03/04/2021 7:31 AM EDT Sexual Orientation Straight 03/04/2021 7: 31 AM EDT documented as of this encounter Plan of Treatment Not on file documented as of this encounter Results * (ABNORMAL) BI US BREAST LIMITED (RIGHT) (05/01/2021 1:07 PM EDT) Anatomical Region Laterality Modality Breast Right, Breast Bilateral Right U ltrasound 05/01/2021 2:00 PM EDT Impressions 05/01/2021 2:26 PM EDT Right Breast: 1.4 cm intraductal mass in the right breast is suspicious. Right Assessment: BI-RADS 4B Moderate Suspicion for Malignancy. Right Recommendation: Right Ultrasound Biopsy Right Recommendation Due Date: To Be Scheduled OVERALL Assessment: BI-RADS 4B Moderate Suspicion for Malignancy. Results were discussed with the patient at the time of the study. A biopsy is recommended and has been scheduled. The recommendation above has been entered into a reminder system to monitor and facilitate patient compliance. Narrative 05/01/2021 2:26 PM EDT Indication: 70-year-old woman on antibiotics for presumed right mastitis with improvement of symptoms presents for evaluation of a tender palpable area of concern in the right breast. TECHNIQUE: Real-time ultrasound was performed using a high-frequency linear array transducer. Digital Mammography and tomosynthesis were used to obtain images. Computer Aided Detection was used to aid in interpretation. COMPARISON: Comparison is made with relevant prior imaging in PACS. Density: There are scattered fibroglandular densities. FINDINGS: Right Breast: Focused ultrasound of the right breast was performed at 8:00 1 cm from the nipple in the area of palpable/clinical concern, as indicated by the patient. There is a hypoechoic intraductal mass measuring 1.4 x 0.4 x 1.1 cm with internal vascularity. Diagnostic right breast mammogram was subsequently performed to evaluate the right breast, including the subareolar breast tissue. Mammographic appearance of the right breast is stable in comparison to the September 08 2020 mammogram. Procedure Note Adama Allen MD - 05/01/2021 Indication: 70-year-old woman on antibiotics for presumed right mastitis withimprovement of symptoms presents for evaluation of a tender palpable areaof concern in the right breast. TECHNIQUE: Real-time ultrasound was performed using a high-frequency linear arraytransducer. Digital Mammography and tomosynthesis were used to obtainimages. Computer Aided Detection was used to aid in interpretation. COMPARISON: Comparison is made with relevant prior imaging in PACS. Density: There are scattered fibroglandular densities. FINDINGS: Right Breast: Focused ultrasound of the right breast was performed at 8:00 1 cm from thenipple in the area of palpable/clinical concern, as indicated by thepatient. There is a hypoechoic intraductal mass measuring 1.4 x 0.4 x 1.1cm with internal vascularity. Diagnostic right breast mammogram was subsequently performed to evaluatethe right breast, including the subareolar breast tissue. Mammographicappearance of the right breast is stable in comparison to the August mammogram. IMPRESSION: Right Breast: 1.4 cm intraductal mass in the right breast is suspicious. Right Assessment: BI-RADS 4B Moderate Suspicion for Malignancy. Right Recommendation: Right Ultrasound Biopsy Right Recommendation Due Date: To Be Scheduled OVERALL Assessment: BI-RADS 4B Moderate Suspicion for Malignancy. Results were discussed with the patient at the time of the study. A biopsyis recommended and has been scheduled. The recommendation above has been entered into a reminder system tomonitor and facilitate patient compliance. us Cristela Bello SUPPLIER QUALITY MANAGER IMG US BREAST Final Result documented in this encounter Visit Diagnoses Diagnosis Mastitis Inflammatory disease of breast Mass of right breast Lump or mass in breast Mastitis Inflammatory disease of breast Mass of right breast Lump or mass in breast documented in this encounter Additional Health Concerns Assessment Noted Time PHQ-9 Depression Total Score: 13 021 11:43 AM EDT PHQ-2 Depression Total Score: 6 04/09/20 21 11:43 AM EDT documented as of this encounter Care Teams Clerk Relationship Specialty Start Date End Date Elba Allison MD [email or web address] PCP - General Endocrinology 11/23/19 Asia Jolley, [place] [id number] iCMP Social Work 07/07/21 02/28/22 documented as of this encounter Additional Source Comments The information contained in this document represents components of the legal health record. It is not the complete legal health record.[facility]
--- OUTSIDE RECORDS SUMMARY | 2025-06-29 09:19 | XMS_ITS | Encounter Summary ---
Author Organization [facility] Address [address] [facility] [address] [place] [address] Phone Care Team Providers Care Wine Cellar Worker Name Role Phone Elba Allison MD Primary Care Provider [phone] Asia Jolley [facility] [phone] Encounter Details Date Type Department Care Team (Late st Contact Info) Description 05/04/2021 Ancillary Orders [facility] [address] [place] [address] Cristela Bello NP [address] [place], [place] [id number] [email or web address] Mastitis; Mass of right breast; Follow-up exam Social History Tobacco Use Types Packs/Day Years [...] on file documented as of this encounter Visit Diagnoses Diagnosis Mastitis Inflammatory disease of breast Mass of right breast Lump or mass in breast Follow-up exam Unspecified follow-up examination documented in this encounter Additional Health Concerns Assessment Noted Time PHQ-9 Depression Total Score: 13 021 11:43 AM EDT PHQ-2 Depression Total Score: 6 04/09/20 21 11:43 AM EDT documented as of this encounter Care Teams Wine Cellar Worker Relationship Specialty Start Date End Date Elba Allison MD PCP - General Endocrinology 11/23/19 Asia Jolley, [address] [address] iCMP Social Work 07/07/21 02/28/22 documented as of this encounter Additional Source Comments The information contained in this document represents components of the legal health record. It is not the complete legal health record.[facility]
--- OUTSIDE RECORDS SUMMARY | 2025-06-29 09:19 | XMS_ITS | Clinical Summary ---
Author Organization [facility] Address [address] [place] [address] Care Team Providers Care Sanitary Inspector Name Role Phone Yoko Jolly Primary Care Provider [phone] Allergies Active Allergy Reactions Criticality Noted Date [...] COVID-19 Vaccine ( - 2023-2 5 season) 2025 Influenza (#1) 2025 RSV (1 - 1-dose [...] MEDICARE PART B FFS MEDICARE-SUPPLEMENTAL Care Teams Sanitary Inspector Relationship Specialty Start Date End Date Yoko Jolly [address] [place] [address] [place] [address] PCP - General Internal Medicine 03/19/16
--- OUTSIDE RECORDS SUMMARY | 2025-06-29 09:19 | XMS_ITS | Clinical Summary ---
Author Organization [facility] Address [address] [place] [address] Care Team Providers Care Metal Organ Pipe Maker Name Role Phone Caitlyn Cano NP Primary Care Provider [phone] Allergies Active Allergy Reactions Criticality Noted Date [...] (DEXA Scan) 2017 COVID-19 Vaccine ( season) 2025 01/13/2021, 12/22/2020 Influenza Vaccine (#1) 2025 , [...] to complete this topic Care Teams Metal Organ Pipe Maker Relationship Specialty Start Date End Date Caitlyn Cano NP [address] [place] [address] [place] [address] PCP - General Family Medicine 01/17/23
--- OUTSIDE RECORDS SUMMARY | 2025-06-29 09:19 | XMS_ITS | Encounter Summary ---
Author Organization [facility] Address [address] [facility] [address] [place] [address] Phone Care Team Providers Care Garment Presser Name Role Phone Elba Allison MD Primary Care Provider [phone] Asia Jolley [facility] [phone] Encounter Details Date Type Department Care Team (Late st Contact Info) Description 05/01/2021 Ancillary Orders [facility] [address] [place], [place] [id number] System, Provider Not In, [place] [address] Social History Tobacco Use Types Packs/Day Years [...] documented as of this encounter Results * Mammogram Outside (No Interpretation) (09/08/2020 12:00 AM EST) Narrative [facility] IMG INTERFACES - 05/01/2021 9:12 AM EDT This study is for PACS storage only and not for interpretation. us Provider Not In System PhD IMG OUTSIDE IMAGING W /OUT INTERPRETATION Final Result Performing Organization Address [facility] de Phone Number NW IMG INTERFACES * Mammogram Outside (No Interpretation) (09/03/2019 12:00 AM EST) Narrative [facility] - 05/01/2021 9:12 AM EDT This study is for PACS storage only and not for interpretation. us Provider Not In System PhD IMG OUTSIDE IMAGING W /OUT INTERPRETATION Final Result Performing Organization Address [facility] de Phone Number [facility] IMG INTERFACES * Mammogram Outside (No Interpretation) (07/04/2018 12:00 AM EDT) Narrative [facility] - 05/01/2021 9:13 AM EDT This study is for PACS storage only and not for interpretation. us Provider Not In System PhD IMG OUTSIDE IMAGING W /OUT INTERPRETATION Final Result Performing Organization Address [facility] de Phone Number [facility] IMG INTERFACES * Mammogram Outside (No Interpretation) (04/08/2017 12:00 AM EDT) Narrative [facility] IMG INTERFACES - 05/01/2021 9:13 AM EDT This study is for PACS storage only and not for interpretation. us Provider Not In System PhD IMG OUTSIDE IMAGING W /OUT INTERPRETATION Final Result Performing Organization Address [facility] de Phone Number [facility] IMG INTERFACES * US Breast Outside (No Interpretation) (10/08/2016 12:05 AM EST) Narrative [facility] - 05/01/2021 9:14 AM EDT This study is for PACS storage only and not for interpretation. us Provider Not In System PhD IMG OUTSIDE IMAGING W /OUT INTERPRETATION Final Result Performing Organization Address [facility] de Phone Number [facility] IMG INTERFACES * Mammogram Outside (No Interpretation) (10/08/2016 12:00 AM EST) Narrative [facility] - 05/01/2021 9:14 AM EDT This study is for PACS storage only and not for interpretation. us Provider Not In System PhD IMG OUTSIDE IMAGING W /OUT INTERPRETATION Final Result Performing Organization Address [facility] de Phone Number [facility] IMG INTERFACES * US Breast Outside (No Interpretation) (04/22/2016 12:05 AM EDT) Narrative [facility] - 05/01/2021 9:15 AM EDT This study is for PACS storage only and not for interpretation. us Provider Not In System PhD IMG OUTSIDE IMAGING W /OUT INTERPRETATION Final Result Performing Organization Address [facility] de Phone Number [facility] IMG INTERFACES * Mammogram Outside (No Interpretation) (04/22/2016 12:00 AM EDT) Narrative [facility]FAC[facility] - 05/01/2021 9:15 AM EDT This study is for PACS storage only and not for interpretation. us Provider Not In System PhD IMG OUTSIDE IMAGING W /OUT INTERPRETATION Final Result Performing Organization Address [facility] de Phone Number NW IMG INTERFACES * Mammogram Outside (No Interpretation) (04/12/2016 12:05 AM EDT) Narrative [facility]FAC[facility] - 05/01/2021 9:16 AM EDT This study is for PACS storage only and not for interpretation. us Provider Not In System PhD IMG OUTSIDE IMAGING W /OUT INTERPRETATION Final Result Performing Organization Address [facility] de Phone Number NW IMG INTERFACES * US Breast Outside (No Interpretation) (04/12/2016 12:00 AM EDT) Narrative [facility]G INTERFAC[facility] - 05/01/2021 9:16 AM EDT This study is for PACS storage only and not for interpretation. us Provider Not In System PhD IMG OUTSIDE IMAGING W /OUT INTERPRETATION Final Result Performing Organization Address [facility] de Phone Number [facility] IMG INTERFACES * Mammogram Outside (No Interpretation) (03/19/2016 12:00 AM EDT) Narrative [facility]G INTERFAC[facility] - 05/01/2021 9:16 AM EDT This study is for PACS storage only and not for interpretation. us Provider Not In System PhD IMG OUTSIDE IMAGING W /OUT INTERPRETATION Final Result Performing Organization Address [facility] de Phone Number [facility] IMG INTERFACES * Mammogram Outside (No Interpretation) (02/24/2015 12:00 AM EDT) Narrative [facility] IMG INTERFAC[facility] - 05/01/2021 9:17 AM EDT This study is for PACS storage only and not for interpretation. us Provider Not In System PhD IMG OUTSIDE IMAGING W /OUT INTERPRETATION Final Result Performing Organization Address [facility] Phone Number [facility]G INTERFAC[facility] * Mammogram Outside (No Interpretation) (01/07/2014 12:00 AM EDT) Narrative [facility]G INTERFAC[facility] - 05/01/2021 9:17 AM EDT This study is for PACS storage only and not for interpretation. us Provider Not In System PhD IMG OUTSIDE IMAGING W /OUT INTERPRETATION Final Result Performing Organization Address [facility] de Phone Number [facility] IMG INTERFACES documented in this encounter Visit Diagnoses Not on filedocumented in this encounter Additional Health Concerns Assessment Noted Time PHQ-9 Depression Total Score: 13 021 11:43 AM EDT PHQ-2 Depression Total Score: 6 04/09/20 21 11:43 AM EDT documented as of this encounter Care Teams Garment Presser Relationship Specialty Start Date End Date Elba Allison MD PCP - General Endocrinology 11/23/19 Asia Jolley, [place] [address] [email or web address] Social Work 07/07/21 02/28/22 documented as of this encounter Additional Source Comments The information contained in this document represents components of the legal health record. It is not the complete legal health record.[facility]
--- OUTSIDE RECORDS SUMMARY | 2025-06-29 09:19 | XMS_ITS | Patient Health Record ---
Author Organization [facility] Address [address] [place] [address] [address] [place] [address] Care Team Providers Care Building Associate Name Role Phone Ykoo Jolly MD Primary Care Provider Unavailabl e Reason For Referral No Information Plan Of Treatment No Information Insurance Providers Payer Name Payer Address Payer Phone Subscriber Number Group Number Insured Name Patient Relationship to Insured Coverage Start Date Coverage End Date [facility] [address] [place] [id number] Self - patient is the insured
--- OUTSIDE RECORDS SUMMARY | 2025-06-29 09:19 | XMS_ITS | Clinical Summary ---
Author Organization [facility] it Address [address] [place] [address] Care Team Providers Care Counseling Director Name Role Phone Caitlyn Cano KAROL Primary Care Provider [phone] Immunizations Name Administration Dates Next Due Pfizer SARS-CoV-2 COVID-19, mRNA, LNP-S, preservative free 01/13/2021,12/22/2020 Surgical History Surgery Date Site/Laterality Comments SKIN GRAFT 1960 Right PROCEDURE:SKIN GRAFT;COMMENT:foot SECTION PROCEDURE: SECTION CATARACT EXTRACTION W/ INTRAOCULAR LENS IMPLANT Bilateral PROCEDURE:CATARACT EXTRACTION W/ INTRAOCULAR LENS IMPLANT OTHER SURGICAL HISTORY PROCEDURE:MOHS SURGERY TOE SURGERY 01/19/2023 Right PROCEDURE:TOE SURGERY;COMMENT:Procedure: RIGHT 2ND TOE CORRECTION HAMMERTOE; Surgeon: Todd Valencia DPM; Location: [facility]; Service: Podiatry; Laterality: Right; Medical History [...] 11/18/2023 Social Influencers of Health Screening 11/18/2023 Depression Screening 10/24/2024 COVID-19 Vaccine (3 - 2024-2 6 season) 2025 01/13/2021, 12/22/2020 Influenza Vaccine (#1) 2025 RSV Immunization Adult [...] age to complete this topic Care Teams Counseling Director Relationship Specialty Start Date End Date Caitlyn Cano NP [address] [place] [address] [place] [address] PCP - General 01/17/23
--- OUTSIDE RECORDS SUMMARY | 2025-06-29 09:19 | XMS_ITS | Encounter Summary ---
Author Organization [facility] Address [address] [facility] [address] [place] [address] Phone Care Team Providers Care Privacy Manager Name Role Phone Elba Allison MD Primary Care Provider [phone] Asia Jolley [facility] [phone] Encounter Details Date Type Department Care Team (Late st Contact Info) Description 05/04/[address] [facility] [address] [place] [address] Esha Adams MD [address] [place] [address] [email or web address] Social History Tobacco Use Types Packs/Day Years [...] documented as of this encounter Visit Diagnoses Not on filedocumented in this encounter Additional Health Concerns Assessment Noted Time PHQ-9 Depression Total Score: 13 04/09/ 021 11:43 AM EDT PHQ-2 Depression Total Score: 6 06/17/20 21 11:43 AM EDT documented as of this encounter Care Teams Privacy Manager Relationship Specialty Start Date End Date Elba Allison MD [email or web address] PCP - General Endocrinology 11/23/19 Asia Jolley, [address] [place] [address] [email or web address] Social Work 07/07/21 02/28/22 documented as of this encounter Additional Source Comments The information contained in this document represents components of the legal health record. It is not the complete legal health record.[facility]
--- OUTSIDE RECORDS SUMMARY | 2025-06-29 09:19 | XMS_ITS | Clinical Summary ---
Author Organization [facility] Address [address] [address] Phone Care Team Providers Care Foot Gatherer Name Role Phone Elba Allison MD Primary Care Provider [phone] Allergies Active Allergy Reactions Criticality Noted Date Comments Amoxicillin 05/11/2018 Ciprofloxacin Rash Low 05/11/2018 Clindamycin Rash Low 11/26/2019 Clindamycin Hcl 05/11/2018 Neomycin Other (See Comments) 12/15/2009 local irritation Hydroxychloroquine 05/11/2018 Sulfa (Sulfonamide Antibiotics) Hives 12/15/2009 Medications ergocalciferol 400 unit tablet Take 2.5 tablets by mouth 3 (three) times a week. 0 Active acetaminophen (TYLENOL) 500 MG tablet Take 500 mg by mouth every 6 (six) hours as needed for pain (specific location in comments). Active escitalopram oxalate (LEXAPRO) 20 MG tablet Take 1.5 tablets (30 mg total) by mouth daily. 90 tablet 3 0 Active Saccharomyces boulardii (FLORASTOR) 250 mg capsuleIndicatio ns:Carbuncle of left leg Take 1 capsule (250 mg total) by mouth 2 (two) times a day. 60 capsule 0 Active Additional Information Patient not taking.Reported on 12/15/2021 albuterol 90 mcg/actuation inhalerIndicatio ns:Mild intermittent asthma without complication Inhale 2 puffs into the lungs every 6 (six) hours as needed for wheezing. 6.7 g 1 1 Active losartan (COZAAR) 25 MG tabletIndication s:Hypertension, unspecified type Take 1 tablet (25 mg total) by mouth daily. 90 tablet 3 1 Active gabapentin (NEURONTIN) 600 MG tablet 700 mg daily. 600 MG TABLET +100 MG TABLET= 700MG NIGHTLY 1 Active Active Problems Patient Care Coordination No te Formatting of this note migh t be different from the original. Previous snapshot incorrect -- please disregard previous entry Corrected entry: Patient is high risk for these reasons: multiple medical problems Living Situation: alone Functional Status (ADL's/iADLs): independent with some difficulty w/ flareups Family/Social Supports: friends Goals of Care (HCP/Molst): to be discussed Is this patient appropriate for the Serious Illness Conversation? na Community Supports (e.g. 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 Will send for culture. Declines BD swab today. Start Diflucan 1 dose now, another in 2 days with no resolution in symptoms. Will treat with positive culture. 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 At high risk Will proceed with SARS COVID-19 test today Allergies 03/19/2020 Pain in joint, multiple sites 03/10/2020 Chronic nonintractable headache 03/03/2020 Assessment & Plan (03/03/2020 12:09 PM EDT): S/p 1st reclast infusion 02/26/20 Her sxs reported on HPI today is most likely s/e from infusion which is very common She will try tylenol for HUBBARD and joint aches She will call back if sxs persist or worsen Other osteoporosis without current pathological fracture 02/13/2020 Assessment & Plan (03/03/2020 12:09 PM EDT): S/p 1st reclast infusion 02/26/20 Her sxs reported on HPI today is most likely s/e from infusion which is very common She will try tylenol for HUBBARD and joint aches She will call back if sxs persist or worsen Rash and other nonspecific skin eruption 020 Multinodular goiter (nontoxic) 12/20/2019 Chronic gastritis 12/20/2019 Left shoulder pain 11/30/2019 Osteopenia 11/26/2019 Assessment & Plan (05/30/2020 11:26 AM EDT): DXA UTD. Continue with Reclast infusions. Thyroid nodule, uninodular 11/26/2019 Overview (04/29/2021): Repeat ultrasound from 03/2021 stable Assessment & Plan (05/30/2020 11:26 AM EDT): Labs stable. Will monitor with serial thyroid US. Due 2020. House dust mite allergy 11/26/2019 Myopia 11/26/2019 Presbyopia 11/26/2019 Bilateral impacted cerumen 11/26/2019 Primary osteoarthritis involving multiple joints 12/15/2009 Overview (12/14/2014): Osteoarthritis; hands Assessment & Plan (05/30/2020 11:27 AM EDT): Followed by Dr. Winston. Bursitis 12/15/2009 Overview (12/14/2014): Bursitis; mild Gastroesophageal reflux disease 12/15/2009 Overview (12/14/2014): Gastroesophageal reflux disease Assessment & Plan (04/29/2021 1:12 PM EDT): Symptoms improved with pepcid. She is scheduled for endoscopy this coming Jun 2021. Hypertensive disorder 12/15/2009 Overview (04/29/2021): Hypertension stable on Losartan 50mg Assessment & Plan (05/30/2020 11:26 AM EDT): Normotensive in clinic. Asthma 12/15/2009 Overview (12/14/2014): Asthma; history of Anserine bursitis 12/15/2009 Overview (12/14/2014): Anserine bursitis; right greater than left Depressive disorder 12/15/2009 Overview (04/29/2021): This is chronic for her and she does have excellent insight into her mental health. No suicide contract signed and copy given to patient, she denies active suicidality or plan.. 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 Assessment & Plan (04/29/2021 1:13 PM EDT): Stable on Lexapro and Gabapentin. Unable to connect with a therapist despite trying multiple times. Will refer to SU[facility] Leyva for assistance. Assessment & Plan (05/30/2020 11:25 AM EDT): Encouraged her to f/up with Dr. Romero regarding med management and addition to help with her increased anxiety symptoms. Continue with weekly counseling. Menopause 02/13/2008 Osteoarthrosis, generalized, hand 02/13/2008 Immunizations Immunization Administration Dates Next Due COVID-19 (Pre) Pfizer Vaccine, mRNA, PF ,12/22/2020 Hepatitis A, Adult 05/03/2018,04/27/2016 Ig, Unspecified Formulation 04/29/2016, 6 Immune Globulin 04/27/2016 Influenza High-Dose Quadrivalent Preservative Fr ee IM 07/10/2021 Influenza Quadrivalent MDCK Preservative Free IM 07/04/2017 Influenza Quadrivalent Preservative Free IM 08/25 Influenza Recombinant Bebe valent Preservative Free IM 06/16/2020 Influenza Trivalent Adjuvanted Preservative free IM 06/19/2019,06/29/2018 Pneumococcal conjugate PCV13 05/30/2020 Pneumococcal polysaccharide PPSV23 04/03/2018 Tdap 04/27/2016 Typhoid, ViCPs 04/27/2016 Typhoid, unspecified formulation 04/03/2018 Yellow Fever 04/18/2018 Zoster recombinant 05/07/2019,12/20/2018 Social History Tobacco Use Types Packs/Day Years Used Date Smoking Tobacco: Never Smokeless Tobacco: Never Alcohol Use Standard Drinks/Week Comments Not Currently 0 (1 standard drink = 0.6 oz pur e alcohol) Education Answer Date Recorded Are you interested in more education? Not on karissa e 02/27/2023 Are you concerned about learning? Not on file 02/27/2023 No 02/27/2023 No 02/27/2023 Digital Access Answer Date Recorded No 03/19/2023 No 03/19/2023 No 03/19/2023 Reliable internet access at home? Not on file 03/19/2023 Device with a working camera? Not on file Comments Unknown Sex and Gender Information Value Date Recorded Sex Assigned at Female 03/04/2021 7:31 AM EDT Legal Sex Female 6:04 PM EST Gender Identity Female 03/04/2021 7:31 AM EDT Sexual Orientation Straight 03/04/2021 7: 31 AM EDT Last Filed Vital Signs Vital Sign Reading Time Taken Comments Blood Pressure 102/65 10/09/2021 10:32 AM EST Pulse 86 10/09/2021 10:32 AM EST Temperature 36.4 C (97.6 F) 05/22/2021 11:47 AM EDT Respiratory Rate 10 11/03/2017 1:55 PM EST Oxygen Saturation 98% 10/09/2021 10:32 AM EST Inhaled Oxygen Concentration - - Weight 68 kg (150 lb) 12/15/2021 3:15 PM EST Height 165.1 cm (5' 5 ) 12/15/2021 3:15 PM EST Body Mass Index 24.96 12/15/2021 3:15 PM EST Plan of Treatment Health Maintenance Due Date Last Done Comments BLOOD PRESSURE 1950 COLOGUARD 1997 FIT TEST 1997 FOBT 1997 SIGMOIDOSCOPY 1997 VIRTUAL COLONOSCOPY 1997 RSV VACCINE (1 - Risk 60-74 years 1-dose series) 2012 MAMMOGRAM 09/08/2022 09/08/2020, 08/24, 10/19/2019, Additional history exists CREATININE LEVEL 10/09/2022 10/09/2021, , 02/27/2021, Additional history exists DEPRESSION SCREENING 10/09/2022 10/09/2021, 04/09/20 21 POTASSIUM LEVEL 10/09/2022 10/09/2021, 03/24, 02/27/2021, Additional history exists COVID-19 VACCINE ( season) 2024 07/17/2021, 01/13/2021, 12/22/2020 LIPID PANEL 04/07/2026 04/07/2021, 08/0 04/2020, 11/26/2019 Adult Td,Tdap Booster 04/27/2026 04/27/2016 COLONOSCOPY 12/20/2027 12/20/2017 COLORECTAL CANCER SCREENING 12/20/2027 HEPATITIS A VACCINES Aged Out 05/03/2018, 04/27/20 16 No longer eligible based on patient's age to complete this topic ZOSTER VACCINES Completed 05/07/2019, 12/20/2018 PNEUMOCOCCAL VACCINES (50+ years) Completed 05/30/2020, 04/03/2018 SMOKING STATUS SCREENING (Once After 26 Yrs) Completed 12/15/2021 OSTEOPOROSIS SCREENING INITIAL (ONE-TIME) Completed 04/16/2022, 12/06/2019 HIB VACCINES Aged Out No longer eligi ble based on patient's age to complete this topic MENINGOCOCCAL VACCINES (ACWY) Aged Out No longer eligible based on patient's age to complete this topic MENINGOCOCCAL VACCINES (B) Aged Out N o longer eligible based on patient's age to complete this topic Goals Goal Patient Goal Type Associated Problems Recent Progress Patient-Stated? Author Use informal and formal support systems Care Plan Family and Community Support Asia Hernández LICSW Note: Barriers: {PHS AMB OP Care Plan Barriers:08606} Establish reunification of family members Care Plan Family and Community Support No Asia Jolley LICSW Seek support with significant life events Care Plan Family and Community Support No Novelty, Asia D, COMMUNICATIONS DEPARTMENT CHAIR Obtain housing /long-term Care Plan Complex Social Issues No Asia Jolley, COMMUNICATIONS DEPARTMENT CHAIR Identify financial resources Care Plan Complex Social Issues No Asia Jolley, COMMUNICATIONS DEPARTMENT CHAIR Identify transportation resources Care Plan Complex Social Issues No Asia Jolley, COMMUNICATIONS DEPARTMENT CHAIR Identify adequate food/nutrition resources Care Plan Complex Social Issues No Asia Jolley, COMMUNICATIONS DEPARTMENT CHAIR Investigate education opportunities Care Plan Complex Social Issues No Asia Jolley, COMMUNICATIONS DEPARTMENT CHAIR Investigate employment opportunities Care Plan Complex Social Issues No Asia Jolley, COMMUNICATIONS DEPARTMENT CHAIR Identify daycare or elder services resources Care Plan Complex Social Issues No Asia Jolley, COMMUNICATIONS DEPARTMENT CHAIR Connect with community resource Care Plan Complex Social Issues No Asia Jolley, COMMUNICATIONS DEPARTMENT CHAIR Medical Devices Implanted Type Area Hot Dog Vender Device Identifier Shelf Expiration Date Model / Serial / Lot Marker Biopsy [id number] Breast Tissue Ultraclip Titanium Dual Trigger Ultrasound Enhanced Ribbon Cs/5ea - Uom Issue Use Ps # [id number] - [id number] Implanted:Qty: 1 on 05/22/2021 at [facility] [employer] [id number] / / Procedures Procedure Name Priority Date/Time Associated Diagnosis Comments BD DXA SCREENING Routine 04/16/2022 2:07 PM EDT Osteopenia, unspecified location BASIC METABOLIC PANEL Routine 10/09/2021 4:59 PM EST Hypertension, unspecified type LIPID PANEL Routine 04/07/2021 10:17 AM EDT Hypertension, unspecified type Thyroid nodule, uninodular Mild intermittent asthma, unspecified whether complicated MAMMOGRAPHY Routine 09/08/2020 COLONOSCOPY FOR RESULT ENTRY ONLY Routine 12/20/2017 from Last 3 Months or Most Recently Relevant to Health Maintenance Results * DXA Screening (04/16/2022 2:07 PM EDT) Anatomical Region Laterality Modality Bone Density Bone Density Narrative 04/16/2022 2:07 PM EDT Patient Name / ID : SEAMUS Sun / [id number] Patient Birthdate: 1950 00:00:00 Exam Date : 04/16/2022 13:36:00 Accession No. : [id number] Referring Physician: GIOVANNA Audit Consultant : Neelam Mueller Report Date : 04/16/2022 14:07:31 [FINAL REPORT] History: Postmenopausal. Technique: BONE DENSITOMETRY: Scans of the lumbar spine and left hip were performed on a [employer] Discovery SL unit. W.H.O. Classification is based on the lowest measured density at the spine, femoral neck, or total hip. T score between -1.0 and -2.5 classified as osteopenia, and below -2.5 classified as osteoporosis. This classification has prognostic significance with respect to postmenopausal women and older men. Findings: Bone mineral density measurements and associated T and Z scores, respectively are as follows: Lumbar spine: L1-L4 BMD: 0.849 g/cm2 T-Score: -1.8 Z-Score: 0.3 5.2 percent increase since prior Left femoral neck: BMD: 0.662 g/cm2 T-Score: -1.7 Z-Score: 0.1 6.1 percent increase since prior Left hip total: BMD: 0.753 g/cm2 T-Score: -1.5 Z-Score: -0.1 1.2 percent increase since prior Lowest measured bone density places the patient in the W.H.O osteopenic range. Impression: Osteopenia with improvement since prior Ten year fracture risk Major osteoporotic fracture 10 percent Hip fracture 1.6 percent Electronically signed by: Neelam Mueller Dictated: 04/16/2022 14:07 Cristela Bello OSHA INSPECTOR IMG BD BONE DENSITY D EXA Final Result * Basic metabolic panel (10/09/2021 4:59 PM EST) Sodium 138 135 - 146 mEq/L [facility] Potassium 4.2 3.5 - 5.3 mEq/L [facility] Chloride 100 98 - 107 mEq/L [facility] CO2 27 20 - 31 mEq/L [facility] ANIONGAP 11 4 - 14 [facility] Glucose 83 70 - 99 mg/dL [facility] BUN 16 6 - 20 mg/dL [facility] Creatinine 0.7 <1.1 mg/dL [facility] GFR 87 >60 mL/min/1.7 3m^2 [facility] Comment:(If patient is Afric an Bangladeshi, multiply reported result by 1.21) Calcium 9.6 8.4 - 10.2 mg/dL [facility] Blood 10/09/2021 4:59 PM EST 10/09/2021 4:59 PM EST Narrative [facility] - 10/09/2021 5:54 PM EST Unless otherwise noted, Testing performed through [facility], [place] [address] Barry Watson, PhD, Draw End Hand No Cristela Bello NP LAB BLOOD ORDERABLES Edited Result - Final Performing Organization Address City/[facility] [place] [address] * (ABNORMAL) Lipid panel (04/07/2021 10:17 AM EDT) Pathologist [facility] Cholesterol 228(Abnor lisa H) <200 mg/dL [facility] Triglycerides 69 <150 mg/dL [facility] Cholesterol, HDL 80 >40 mg/dL [facility] LDLC 134(Abnor lisa H) <129 mg/dL [facility] Cholesterol/HDL Ratio 2.85 <4.43 [facility] Blood 04/07/2021 10:1 7 AM EDT 04/07/2021 10:17 AM EDT Cristela Bello NP LAB BLOOD ORDERABLES Edited Result - Final Performing Organization Address City/[facility]/[place] [address] * MAMMOGRAPHY FOR RESULT ENTRY ONLY (09/08/2020) Historical Provider HEALTH MAINTENANCE Final Result * COLONOSCOPY FOR RESULT ENTRY ONLY (12/20/2017) Pathologist [facility] Colonoscopy POLYPS F/U IN 5 YRS Historical Provider HEALTH MAINTENANCE Final Result from Last 3 Months or Most Recently Relevant to Health Maintenance Additional Health Concerns Active Problems Noted Date Diagnosed Date Family and Community Support 09/02/2021 Complex Social Issues 09/02/2021 Insurance MEDICARE PART A & B Member Subscriber Plan / Payer (Ef fective 2017-Present) Name:WayJose almaraztanika Sun Member ID:[id number] Relation to Subscriber:Self Name:ASHANTI WAY Dino Subscriber ID:[id number] Payer ID:[id number] Group ID:Not on file Type:Medicare Address: [employer] [id number] [place] MEDICARE ENHANCE SUPPLEMENT MEDICARE PART A & B [facility] MEDICARE ENHANCE SUPPLEMENT MEDICARE PART A & B [facility] MEDICARE ENHANCE SUPPLEMENT MEDICARE PART A & B [id number] [place] [address] MEDICARE ENHANCE SUPPLEMENT MEDICARE PART A & B Member Subscriber Plan / Payer [facility]-Present) Name:Ashanti Way Member ID:[id number] Relation to Subscriber:Self Name:ASHANTI WAY Subscriber ID:[id number] Payer ID:[id number] Group ID:Not on file Type:Medicare Address: [employer] [address] [place] [address] [facility] MEDICARE ENHANCE SUPPLEMENT MEDICARE PART A & B [facility] MEDICARE ENHANCE SUPPLEMENT MEDICARE PART A & B [facility] MEDICARE ENHANCE SUPPLEMENT MEDICARE PART A & B [facility] MEDICARE ENHANCE SUPPLEMENT MEDICARE PART A & B MEDICARE ENHANCE SUPPLEMENT MEDICARE PART A & B [facility] MEDICARE ENHANCE SUPPLEMENT [employer] [id number] MEDICARE PART A & B [employer] MEDIC[employer] ENHANCE SUPPLEMENT Care Teams Foot Gatherer Relationship Specialty Start Date End Date Elba Allison MD PCP - General Endocrinology 11/23/19 Additional Source Comments The information contained in this document represents components of the legal health record. It is not the complete legal health record.[facility]
--- OUTSIDE RECORDS SUMMARY | 2025-06-29 09:19 | XMS_ITS | Encounter Summary ---
Author Organization [facility] Address [address] [facility] [address] [place] [address] Phone Care Team Providers Care Converting Operator Name Role Phone Elba Allison MD Primary Care Provider [phone] Asia Jolley [facility] [phone] Encounter Details Date Type Department Care Team (Late st Contact Info) Description 05/01/2021 Procedure Pass [facility], Breast Ultrasound [address] [place] [address] Social History Tobacco Use Types Packs/Day Years [...] documented as of this encounter Care Teams Converting Operator Relationship Specialty Start Date End Date Elba Allison MD [email or web address] PCP - General Endocrinology 11/23/19 Asia Jolley, [address] [address] [email or web address] Social Work 07/07/21 02/28/22 documented as of this encounter Additional Source Comments The information contained in this document represents components of the legal health record. It is not the complete legal health record.[facility]
--- OUTSIDE RECORDS SUMMARY | 2025-06-29 09:19 | XMS_ITS | Encounter Summary ---
Author Organization [facility] Address [address] [facility] [address] [place] [address] Phone Care Team Providers Care Healthcare Science Specialist Name Role Phone Elba Allison MD Primary Care Provider [phone] Asia Jolley [facility] Encounter Details Date Type Department Care Team (Late st Contact Info) Description 04/30/2021 Procedure Pass [facility]- Breast Imaging, [facility] [address] [place] [id number] Social History Tobacco Use Types Packs/Day Years [...] documented as of this encounter Care Teams Healthcare Science Specialist Relationship Specialty Start Date End Date Elba Allison MD [email or web address] PCP - General Endocrinology 11/23/19 Asia Jolley, [address] [address] [email or web address] Work 07/07/21 02/28/22 documented as of this encounter Additional Source Comments The information contained in this document represents components of the legal health record. It is not the complete legal health record.[facility]
--- OUTSIDE RECORDS SUMMARY | 2025-06-29 09:19 | XMS_ITS | Encounter Summary ---
Author Organization [facility] Address [address] [employer] [facility] [address] [place] [address] Phone Care Team Providers Care Adolescent Psychiatrist Name Role Phone Elba Allison MD Primary Care Provider [phone] Asia Jolley [facility] [phone] Encounter Details Date Type Department Care Team (Late st Contact Info) Description 04/30/2021 Ancillary Orders [facility] [address] [place] [address] Cristela Bello NP [address] [place], [place] [id number] [email or web address] Mastitis; Mass of right breast [...] of this encounter Results * (ABNORMAL) BI MAMMOGRAM DIAGNOSTIC WITH TOMOSYNTHESIS WITH CAD (RIGHT) (05/01/2021 1:59 PM EDT) Anatomical Region Laterality Modality Breast Right, Breast Bilateral Right M ammography 05/01/2021 2:00 PM EDT Impressions 05/01/2021 2:26 [...] reminder system tomonitor and facilitate patient compliance. Cristela Bello EARLY MORNING BABYSITTER IMG MG EXAMS Final Result documented in this encounter Visit [...] documented as of this encounter Care Teams Adolescent Psychiatrist Relationship Specialty Start Date End Date Elba Allison MD PCP - General Endocrinology 11/23/19 Asia Jolley, [address] [address] iCMP Social Work 07/07/21 02/28/22 documented as of this encounter Additional Source Comments The information contained in this document represents components of the legal health record. It is not the complete legal health record.[facility]
--- OUTSIDE RECORDS SUMMARY | 2025-06-29 09:19 | XMS_ITS | Patient Health Record ---
Author Organization [facility] Address [address] [facility] [address] [place] [address] Care Team Providers Care Behavioral Health Associate Name Role Phone chantelle sun Primary Care [...] of [place] [address] [place] [id number] Self - patient is the insured [facility] [address] [place] [id number] Self - patient is the insured Medical (General) History Medical History History ICD Code right lateral ankle fracture hypertension osteoporosis previous right ankle fracture left ankle sprains osteopenia osteoarthritis anxiety depression fibromyalgia mood disorder Surgical History Surgery Date(Month/Year) 09/13/1983 colonoscopy laparoscopy skin graft on right foot Hospitalization History Reason Date(Month/Year) (girl) 09/13/1983
--- OUTSIDE RECORDS SUMMARY | 2025-06-29 09:19 | XMS_ITS ---
Care Plan Created on: June 29, [address] : 1950 Sex: Female Author Organization [facility] Address [address] [place] [address] Phone Care Team Providers Care Grain Mill Products Inspector Name Role Phone Elba Allison MD Primary Care Provider [phone] Active Problems Patient Care Coordination No te [...] Pharmacy Needs: no issues Financial Concerns: assessing long term care social worker needs Other Supports and Care Needs: housing [...] very common She will try tylenol for HUBBADR and joint aches She will call back [...] denies active suicidality or plan.. Followed By audio production instructor. Assessment & Plan (04/29/2021 1:13 PM EDT): Stable on Lexapro and Gabapentin. Unable to connect with a therapist despite trying multiple times. Will refer to Asia Jolley [facility] for assistance. Assessment & Plan (05/30/2020 11:25 AM EDT): Encouraged her to f/up with Dr. Romero regarding med management and addition to help with her increased anxiety symptoms. Continue with weekly counseling. Menopause 02/13/2008 Osteoarthrosis, generalized, hand 02/13/2008 Additional Health Concerns Active Problems Noted Date Diagnosed Date Family and Community Support 09/02/2021 Complex Social Issues 09/02/2021 Goals Goal Patient Goal Type Associated Problems Recent Progress Patient-Stated? Author Use informal and formal support systems Care Plan Family and Community Support No Asia Jolley, RECEIVING LEAD Note: Barriers: {PHS AMB OP Care Plan Barriers:21535} Establish reunification of family members Care Plan Family and Community Support No Asia Jolley, RECEIVING LEAD Seek support with significant life events Care Plan Family and Community Support No Asia Jolley, RECEIVING LEAD Obtain [place] [facility] Care Plan Complex Social Issues No Asia Jolley, RECEIVING LEAD Identify financial resources Care Plan Complex Social Issues No Asia Jolley, RECEIVING LEAD Identify transportation resources Care Plan Complex Social Issues No Asia Jolley, RECEIVING LEAD Identify adequate food/nutrition resources Care Plan Complex Social Issues No Asia Jolley, RECEIVING LEAD Investigate education opportunities Care Plan Complex Social Issues No Asia Jolley, RECEIVING LEAD Investigate employment opportunities Care Plan Complex Social Issues No Asia Jolley, RECEIVING LEAD Identify daycare or elder services resources Care Plan Complex Social Issues No Asia Jolley, RECEIVING LEAD Connect with community resource Care Plan Complex Social Issues No Asia Jolley, RECEIVING LEAD Interventions Care Plan Interventions Intervention Entry Date Outcome Education regarding disease/condition management 09/02/2021 Support parent/family caregiver around treatment recommendations 09/02/2021 Refer to appropriate community resources 09/02/2021 Support parent/family caregiver around treatment recommendations 09/02/2021 Related Goals and Interventions Goal Associated Intervent ions Use informal and formal support systems Refer to appropriate community resources; Support parent/family caregiver around treatment recommendations Identify daycare or elder se rvices resources Education regarding disease/condition management; Support parent/family caregiver around treatment recommendations
--- OUTSIDE RECORDS SUMMARY | 2025-06-29 09:19 | XMS_ITS | Patient Health Record ---
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 Plan Of Treatment No Information Insurance Providers Payer Name Payer Address Payer Phone Subscriber Number Group Number Insured Name Patient Relationship to Insured Coverage Start Date Coverage End Date Medicare [address] [place], [place] [id number] [id number] Self - patient is the insured [employer] Medicare Enhanced [address] [id number] [id number] Self - patient is the insured Medical (General) History Medical History History ICD Code FIBROMIALGYA DEPRESSION HIGH BLOOD PRESSURE OSTEOPINIA Surgical History Surgery Date(Month/Year) CATARACT EXTRACTION WITH IMPLANT VINCE S N60WF 12/17/2021 CATARACT EXTRACTION RIGHT EYE WITH LENS IMPLANT SN60WF +19.5 D 01/14/22
--- OUTSIDE RECORDS SUMMARY | 2025-06-29 09:19 | XMS_ITS | Encounter Summary ---
Author Organization [facility] Address [address] [facility] [address] [place] [address] Phone Care Team Providers Care Byproducts Operator Name Role Phone Elba Allison MD Primary Care Provider + Asia Jolley [facility] Unavailable [phone] Reason for Referral * Outpatient Procedure - Closed Specialty Diagnoses / Procedures Referred By Jovan haji Referred To Contact Radiology Diagnoses Mastitis Mass of right breast Follow-up exam Procedures SNF Breast Abscess Drainage (Right) Elba Allison MD Phone: tel: fax: mailto:[email or web address] Referral ID Status Reason Start Date Expiration Date Visits Re quested Visits Authorized [id number] Closed 05/22/2021 05/22/2022 1 1 Encounter Details Date Type Department Care Team (Late st Contact Info) Description 05/22/2021 Ancillary Orders [facility] [address] [place] [address] Elba Allison MD [address] [place] [id number] [email or web address] Mastitis; Mass of right breast; Follow-up exam [...] documented as of this encounter Results * SNF Breast Abscess Drainage (Right) (05/22/2021 1:15 PM EDT) Anatomical Region Laterality Modality Breast Right, Breast Bilateral Right U ltrasound 05/22/2021 4:06 PM EDT Addenda Addendum by Myrna Hidalgo MD on 05/27/2021 8:58 AM EDT ADDENDUM: Ultrasound-guided core biopsy and aspiration of right breast mass at 8:00, 1 cm from the nipple: Pathology findings: Abscess. Fibrocystic changes. This result is: Benign and concordant. Recommendation: Continued clinical follow-up is recommended. Communication of results: The results and recommendation were called to the patient by Dr. Hidalgo via phone on 05/27/2021 and communicated to Savita Hernandez CNP via secure [employer] message. Impressions 05/22/2021 4:10 PM EDT Ultrasound-guided core biopsy and aspiration of right breast mass at 8:00, 1 cm from the nipple: Pathology findings: Pending and will be reported in an addendum This result is: Pending and will be reported in an addendum Recommendation: Pending Communication of results: Pending END OF REPORT Narrative 05/22/2021 4:10 PM EDT Indication: Recent imaging demonstrates a mass in the right breast at 8:00, 1 cm from the nipple, for which ultrasound-guided core biopsy is recommended. Pertinent imaging studies and/or documents were reviewed. The patient identification and procedure were verified. The patient's known allergies, current medications and adverse medication reactions were reviewed. The procedure was explained to the patient, including benefits, risks, and alternatives, and written consent was obtained. A safety pause was observed immediately prior to the procedure. ULTRASOUND-GUIDED CORE BIOPSY OF THE RIGHT BREAST WITH MARKER: The patient was positioned and images of the target were obtained. The breast was prepped for the procedure using standard aseptic technique. Local anesthesia was achieved with injection of 4 cc of 1% lidocaine in the skin, superficial and deeper tissues. The target was first aspirated with a 13-gauge needle. Less than 1 cc of thick white and blood-tinged fluid was aspirated and sent for microbiology. The mass was then biopsied under ultrasound guidance using a lateral approach, a 13-gauge introducer, and a 14-gauge automated biopsy device. Multiple tissue samples were obtained. Adequate lesion sampling was confirmed by orthogonal ultrasound images. A ribbon-shaped tissue marker was placed and was directly observed to deploy at the biopsy site. Subsequent CC and lateral digital mammographic views demonstrate the marker at the expected location of the biopsy site. The patient tolerated the procedure well. There were no immediate complications. Discharge instructions were reviewed and all patient questions were answered. The patient left the department in good condition. Procedure Note Myrna Hidalgo MD - 05/22/2021 Indication: Recent imaging demonstrates a mass in the right breast at 8:00, 1 cm fromthe nipple, for which ultrasound-guided core biopsy is recommended. Pertinent imaging studies and/or documents were reviewed. The patientidentification and procedure were verified. The patient's known allergies,current medications and adverse medication reactions were reviewed. Theprocedure was explained to the patient, including benefits, risks, andalternatives, and written consent was obtained. A safety pause wasobserved immediately prior to the procedure. ULTRASOUND-GUIDED CORE BIOPSY OF THE RIGHT BREAST WITH MARKER: The patient was positioned and images of the target were obtained. Thebreast was prepped for the procedure using standard aseptic technique.Local anesthesia was achieved with injection of 4 cc of 1% lidocaine inthe skin, superficial and deeper tissues. The target was first aspiratedwith a 13-gauge needle. Less than 1 cc of thick white and blood-tingedfluid was aspirated and sent for microbiology. The mass was then biopsiedunder ultrasound guidance using a lateral approach, a 13-gauge introducer,and a 14-gauge automated biopsy device. Multiple tissue samples wereobtained. Adequate lesion sampling was confirmed by orthogonal ultrasoundimages. A ribbon-shaped tissue marker was placed and was directly observed todeploy at the biopsy site. Subsequent CC and lateral digital mammographicviews demonstrate the marker at the expected location of the biopsysite. The patient tolerated the procedure well. There were no immediatecomplications. Discharge instructions were reviewed and all patientquestions were answered. The patient left the department in goodcondition. IMPRESSION: Ultrasound-guided core biopsy and aspiration of right breast mass at 8:00,1 cm from the nipple: Pathology findings: Pending and will be reported in an addendum This result is: Pending and will be reported in an addendum Recommendation: Pending Communication of results: Pending END OF REPORT us Elba Allison MD IMG BI IRP GUIDED BREAST PROC Ed ited Result - Final documented in this encounter Visit Diagnoses Diagnosis Mastitis Inflammatory disease of breast Mass of right breast Lump or mass in breast Follow-up exam Unspecified follow-up examination Mastitis Inflammatory disease of breast Mass of right breast Lump or mass in breast Follow-up exam Unspecified follow-up examination documented in this encounter Additional Health Concerns Assessment Noted Time PHQ-9 Depression Total Score: 13 021 11:43 AM EDT PHQ-2 Depression Total Score: 6 04/09/20 21 11:43 AM EDT documented as of this encounter Care Teams Byproducts Operator Relationship Specialty Start Date End Date Elba Allison MD PCP - General Endocrinology 11/23/19 Asia Jolley, [place] [address] [employer] Social Work 07/07/21 02/28/22 documented as of this encounter Additional Source Comments The information contained in this document represents components of the legal health record. It is not the complete legal health record.[facility]
--- OUTSIDE RECORDS SUMMARY | 2025-06-29 09:19 | XMS_ITS | Encounter Summary ---
Author Organization [facility] Address [address] [facility] [address] [place] [address] Phone Care Team Providers Care Plasma Center Technician Name Role Phone Elba Allison MD Primary Care Provider [phone] Asia Jolley [facility] [phone] Encounter Details Date Type Department Care Team (Late st Contact Info) Description 04/29/2021 Procedure Pass [facility], Breast Ultrasound [address] [place] [address] Social History Tobacco Use Types Packs/Day Years [...] documented as of this encounter Care Teams Plasma Center Technician Relationship Specialty Start Date End Date Elba Allison MD PCP - General Endocrinology 11/23/19 Asia Jolley, [address] [address] [email or web address] [email or web address] Social Work 07/07/21 02/28/22 documented as of this encounter Additional Source Comments The information contained in this document represents components of the legal health record. It is not the complete legal health record.[facility]
--- OUTSIDE RECORDS SUMMARY | 2025-06-29 09:19 | XMS_ITS | Encounter Summary ---
Author Organization [facility] Address [address] [facility] [address] [place] [address] Phone Care Team Providers Care High Value Associate Name Role Phone Elba Allison MD Primary Care Provider + Asia Jolley [facility] Unavailable [phone] Reason for Referral * Outpatient Procedure - Closed Specialty Diagnoses / Procedures Referred By Jovan haji Referred To Contact Radiology Diagnoses Mastitis Mass of right breast Follow-up exam Procedures CARE HOME Biopsy of Breast (Right) Elba Allison MD Phone: tel: fax: mailto:[email or web address] Referral ID Status Reason Start Date Expiration Date Visits Re quested Visits Authorized [id number] Closed 05/04/2021 05/04/2022 1 1 Encounter Details Date Type Department Care Team (Late st Contact Info) Description 05/04/2021 Ancillary Orders [facility] [address] [place] [address] Elba Allison MD [address] [place] [phone] [email or web address] Mastitis; Mass of right breast; Follow-up exam [...] documented as of this encounter Results * CARE HOME Biopsy of Breast (Right) (05/22/2021 1:19 PM EDT) Anatomical Region Laterality Modality Breast [...] communicated to Savita Hernandez CNP via secure [employer] message. Impressions 05/22/2021 4:10 PM EDT Ultrasound-guided [...] documented as of this encounter Care Teams High Value Associate Relationship Specialty Start Date End Date Elba Allison MD PCP - General Endocrinology 11/23/19 Asia Jolley, [place] [address] [employer] Social Work 07/07/21 02/28/22 documented as of this encounter Additional Source Comments The information contained in this document represents components of the legal health record. It is not the complete legal health record.[facility]
--- OUTSIDE RECORDS SUMMARY | 2025-06-29 09:19 | XMS_ITS | Encounter Summary ---
Author Organization [facility] Address [address] [facility] [address] [place] [address] Phone Care Team Providers Care Hair Spring Winder Name Role Phone Elba Allison MD Primary Care Provider + Asia Jolley [facility] [phone] Reason for Referral * Outpatient Procedure - Closed Specialty Diagnoses / Procedures Referred By Jovan haji Referred To Contact Radiology Diagnoses Mastitis Mass of right breast Follow-up exam Procedures Mammogram Diagnostic Post Procedure (Right) Ebla Allison MD Phone: tel: fax: mailto:[email or web address] Referral ID Status Reason Start Date Expiration Date Visits Re quested Visits Authorized [id number] Closed 05/22/2021 05/22/2022 1 1 Encounter Details Date Type Department Care Team (Late st Contact Info) Description 05/22/2021 Ancillary Orders [facility] [address] [place] [address] Elba Allison MD [address] [place] [phone] [email or web address] Mastitis; Mass of right breast; Follow-up exam [...] documented as of this encounter Results * BI MAMMOGRAM DIAGNOSTIC POST PROCEDURE WITH TOMOSYNTHESIS WITH CAD (RIGHT) (05/22/2021 1:19 PM EDT) Anatomical Region Laterality Modality Breast Right, Breast Bilateral Right M ammography 05/22/2021 4:06 PM EDT Addenda Addendum by [...] communicated to Savita Hernandez CNP via secure [employer] message. Impressions 05/22/2021 4:10 PM EDT Ultrasound-guided [...] Communication of results: Pending END OF REPORT Elba Allison MD IM MG EXAMS Edited Result - Final documented in this encounter [...] documented as of this encounter Care Teams Hair Spring Winder Relationship Specialty Start Date End Date Elba Allison MD PCP - General Endocrinology 11/23/19 Asia Jolley, [place] [address] iC[employer] Social Work 07/07/21 02/28/22 documented as of this encounter Additional Source Comments The information contained in this document represents components of the legal health record. It is not the complete legal health record.[facility]
--- OUTSIDE RECORDS SUMMARY | 2025-06-29 09:19 | XMS_ITS | Encounter Summary ---
Author Organization [facility] Address [address] [facility] [address] [place] [address] Phone Care Team Providers Care Video Presentation Operator Name Role Phone Elba Allison MD Primary Care Provider [phone] Asia Jolley [facility] [phone] Encounter Details Date Type Department Care Team (Late st Contact Info) Description 05/01/2021 Ancillary Orders [facility] [address] [place] [address] Cristela Bello NP [address] [place] [address] [email or web address] Mastitis; Mass of right breast; [...] * (ABNORMAL) BI US BREAST LIMITED (RIGHT) (05/22/2021 11:16 AM EDT) Anatomical Region Laterality Modality Breast Right, Breast Bilateral Right U ltrasound 05/22/2021 12:0 2 PM EDT Impressions 05/22/2021 12:36 PM EDT Right Breast: 1 cm mass in the 8 o'clock right breast 1 cm from the nipple is suspicious. Right Assessment: BI-RADS 4B Moderate Suspicion for Malignancy. Right Recommendation: Right Ultrasound Biopsy. Right Recommendation Due Date: At This Time. Patient is scheduled for an ultrasound guided core biopsy to be performed today May 22, 2021. Results and biopsy recommendations were discussed with the patient at the time of the study. A procedure is recommended as above and has been scheduled. OVERALL Assessment: BI-RADS 4B Moderate Suspicion for Malignancy. Narrative 05/22/2021 12:36 PM EDT Indication: The 70-year-old woman presents for diagnostic ultrasound evaluation of a palpable area of concern in the right breast which was previously evaluated May 01, 2021, for which ultrasound guided core biopsy was recommended at that time, along with a referral to [facility]. She presents today for her scheduled diagnostic ultrasound and US-guided core biopsy. She will also be seen at the [facility] today. TECHNIQUE: Real-time ultrasound was performed using a high-frequency linear-array transducer. COMPARISON: Correlation is made with relevant prior imaging in PACS. FINDINGS: Right Breast: Focused ultrasound of the right breast was performed at 8:00 1 cm from the nipple in the area of clinical concern. There is a heterogeneous hypoechoic irregular subdermal mass adjacent to the nipple measuring 1.0 x 1.0 x 0.8 cm, for which the recommendation for ultrasound guided core biopsy remains. Procedure Note Adama Allen MD - 05/22/2021 Indication: The 70-year-old woman presents for diagnostic ultrasound evaluation of apalpable area of concern in the right breast which was previouslyevaluated May 01, 2021, for which ultrasound guided core biopsy wasrecommended at that time, along with a referral to the [facility].She presents today for her scheduled diagnostic ultrasound and US-guidedcore biopsy. She will also be seen at [facility] today. TECHNIQUE: Real-time ultrasound was performed using a high-frequency linear- arraytransducer. COMPARISON: Correlation is made with relevant prior imaging in PACS. FINDINGS: Right Breast: Focused ultrasound of the right breast was performed at 8:00 1 cm from thenipple in the area of clinical concern. There is a heterogeneoushypoechoic irregular subdermal mass adjacent to the nipple measuring 1.0 x1.0 x 0.8 cm, for which the recommendation for ultrasound guided corebiopsy remains. IMPRESSION: Right Breast: 1 cm mass in the 8 o'clock right breast 1 cm from thenipple is suspicious. Right Assessment: BI-RADS 4B Moderate Suspicion for Malignancy. Right Recommendation: Right Ultrasound Biopsy. Right Recommendation Due Date: At This Time. Patient is scheduled for anultrasound guided core biopsy to be performed today May 22, 2021. Results and biopsy recommendations were discussed with the patient at thetime of the study. A procedure is recommended as above and has beenscheduled. OVERALL Assessment: BI-RADS 4B Moderate Suspicion for Malignancy. us Cristela Bello NP IMG US BREAST Final Result documented in [...] documented as of this encounter Care Teams Video Presentation Operator Relationship Specialty Start Date End Date Elba Allison MD PCP - General Endocrinology 11/23/19 Asia Jolley, [place] [address] [employer] Social Work 07/07/21 02/28/22 documented as of this encounter Additional Source Comments The information contained in this document represents components of the legal health record. It is not the complete legal health record.[facility]
--- OUTSIDE RECORDS SUMMARY | 2025-06-29 09:19 | XMS_ITS | Encounter Summary ---
Author Organization [facility] Address [address] [facility] [address] [place] [address] Phone Care Team Providers Care Benzene Washer Name Role Phone Elba Allison MD Primary Care Provider [phone] Asia Jolley [facility] [phone] Encounter Details Date Type Department Care Team (Late st Contact Info) Description 04/30/2021 Ancillary Orders [facility] [address] [place] [address] Cristela Bello NP [address] [place] [address] [email or web address] Mastitis; Mass of right breast [...] documented as of this encounter Care Teams Benzene Washer Relationship Specialty Start Date End Date Elba Allison MD [email or web address] PCP - General Endocrinology 11/23/19 Asia Jolley, [place] [address] [email or web address] iCMP Social Work 07/07/21 02/28/22 documented as of this encounter Additional Source Comments The information contained in this document represents components of the legal health record. It is not the complete legal health record.[facility]
[2025-06-29 09:49] LABS: MANUAL DIFF FLAG NO
[2025-06-29 11:24] LABS: Hematocrit 44.8 % (37.0-47.0); Hemoglobin 15.5 g/dl (12.0-16.0); Imm Gran Abs Auto 0.01 X10*3/uL (0.00-0.03); Imm Gran Pct Auto 0.2 % (0.0-0.4); Lymphocytes Absolute Auto 0.9 X10*3/uL (1.2-4.9); Mean Corpuscular HGB Conc 34.6 g/dl (31.0-35.0); Mean Corpuscular Hemoglobin 29.9 pg (27.0-33.0); Mean Corpuscular Volume 86.5 fL (80.0-98.0); NRBC Abs Auto 0.000 X10*3/uL (0.0-0.012); NRBC Pct Auto 0.0 /100WBC (0.0-0.2); Platelet Count 271 X10*3/uL (160-400); Red Blood Count 5.18 X10*6/uL (4.20-5.50); White Blood Count 4.4 X10*3/uL (4.8-10.8)
[2025-06-29 11:34] LABS: Appearance Urine Clear; Glucose Urine UA Negative (Negative); PH 7.0 (5.0-9.0); Specific Gravity - Urine 1.015 (1.005-1.025); UMIC TRIGGER UACC YES
[2025-06-29 12:24] LABS: Alanine Aminotransferase 25 U/L (0-31); Albumin Level 4.5 g/dL (3.5-5.0); Alkaline Phosphatase 85 U/L (39-117); Anion Gap 12 (12-20); Aspartate Amino Transferase 30 U/L (5-31); Blood Urea Nitrogen 12 mg/dL (9-16); Calcium 10.2 mg/dL (8.4-10.2); Carbon Dioxide 27 mmol/L (22-29); Chloride 104 mmol/L (96-108); Cholesterol 220 mg/dL (<200); Estimated Glomerular Filt Rate > 60; HDL Cholesterol 82 mg/dL (>40); Potassium 4.8 mmol/L (3.3-5.1); Sodium 138 mmol/L (135-145); Total Protein 6.5 g/dL (6.5-8.0); Triglycerides 64 mg/dL (<150)
[2025-06-29 12:31] LABS: Free T4 (Free Thyroxine) 1.18 ng/dL (0.71-1.85); Thyroid Stimulating Hormone 1.55 uIU/mL (0.32-4.0)
[2025-06-29 12:48] LABS: Folate 14.0 ng/mL (> or = 4.0); Vitamin B12 508 pg/mL (200-900)
== END 2025-06-29 09:18 | disposition home or self-care (01) ==
LOC: HO.LAB 09:17
PROVIDERS: PCP Internal Medicine; Visit Provider Internal Medicine
DX: E78.00 Pure hypercholesterolemia, unspecified (principal)
CPT/HCPCS: 36415; 80053; 80061; 81001; 82306; 82607; 82746; 84439; 84443; 85025; 85652; 86140

== ENCOUNTER 2025-07-08 10:13 | Outpatient (AMB) | payer MEDICARE, OTHER, SELFPAY ==
[2025-07-08 10:17] VITALS: BP 112/68; PULSE 88; O2SAT 97; BMI 21.1
--- NOTE | 2025-07-08 10:17 | MHC.PC.OV ---
Vital Signs 07/08/25 10:17 Height 5 ft 6 in Weight 131 lb BMI 21.1 BP 112/68 Blood Pressure Location Lt brachial Position Sitting Pulse 88 Pulse Source Pulse Oximeter Pulse Oximetry (%) 97 Oxygen Delivery Method Room Air Intake Visit Reasons: Annual Exam Allergies amoxicillin Allergy (Intermediate, Verified 07/08/25 10:18) Rash ciprofloxacin Allergy (Intermediate, Verified 07/08/25 10:18) Rash clindamycin Allergy (Intermediate, Verified 07/08/25 10:18) rash, hives hydroxychloroquine (From Plaquenil) Allergy (Intermediate, Verified 07/08/25 10:18) Rash neomycin Allergy (Intermediate, Verified 07/08/25 10:18) Rash ezetimibe Adverse Reaction (Intermediate, Verified 07/08/25 10:18) Diarrhea fenofibrate Adverse Reaction (Intermediate, Verified 07/08/25 10:18) stomach pain, heart burn losartan Adverse Reaction (Intermediate, Verified 07/08/25 10:18) dizziness pravastatin Adverse Reaction (Intermediate, Verified 07/08/25 10:18) Muscle Pain lisinopril Adverse Reaction (Mild, Verified 07/08/25 10:18) dry cough bactrim Allergy (Mild, Uncoded 07/08/25 10:18) Rash Medication List - Last Reconciled 07/08/25 by Kevyn Monique MD acetaminophen 650 mg PO Q6H PRN amlodipine 2.5 mg PO DAILY cholecalciferol (vitamin D3) 50 mcg PO DAILY dupilumab (Dupixent) 300 mg subcut Q2W escitalopram oxalate 20 mg PO DAILY famotidine 20 mg PO DAILY PRN flaxseed oil 1,000 mg PO DAILY gabapentin 200 mg PO BEDTIME magnesium carb,citrate,oxide (Magnesium Complex) mg PO multivitamin 1 tab PO .every other day riboflavin (vitamin B2) 400 mg PO DAILY 30 days verapamil ER 120 mg PO DAILY 90 days Tobacco use date assessed: 04/11/25 Fall risk assessment: 1 Fall in past year Last assessed Fall Risk: 07/08/25 Dental Screening Dental Screen Date: 04/11/25 HPI Annual Exam HPI Details occ dizzy, PFSH Medical History Menstrual migraine without status migrainosus Arthritis of right glenohumeral joint Colon cancer screening Colon cancer screening Benign paroxysmal positional vertigo Osteopenia Thyroid nodule Hyperlipidemia IBS (irritable bowel syndrome) GERD (gastroesophageal reflux disease) Depression Asthma Genital warts Osteoarthritis of fingers of both hands Osteoarthritis of carpometacarpal joint of left thumb Anxiety Mood disorder High blood pressure Fibromyalgia Surgical History Status post right foot surgery History of colonoscopy History of laparoscopy History of delivery History of skin graft Family History Daughter Mental health disorder Autism Sister FH: HTN (hypertension) Mother FH: HTN (hypertension) Other Substance use disorder Social History (Updated 07/08/25 @ 10:56 by Kevyn Monique MD) Household Members: None Housing: Apartment Are you a primary administrator health care facility to a significant other at home: No Do you presently have visiting nurse or other home services: No Alcohol intake: never Comment: 2x a year Patient Tobacco Use Status: Never used Tobacco Tobacco use type: Cigarette e-Cigarette/Vaping Use: Never Used Second Hand Smoke Exposure: No service: No Current occupational status: retired Sexual orientation: Straight/Heterosexual Gender identity: Female Cognitive needs: No Hearing needs: No Vision needs: Yes (glasses) Questionnaire PHQ-9 Over the last 2 weeks, how often have you been bothered by any of the following problems? 1. Little interest or pleasure in doing things: several days 2. Feeling down, depressed, or hopeless: more than half the days 3. Trouble falling or staying asleep, or sleeping too much: several days 4. Feeling tired or having little energy: several days 5. Poor appetite or overeating: several days 6. Feeling bad about yourself - or that you are a failure or have let yourself or your family down: several days 7. Trouble concentrating on things, such as reading the newspaper or watching television: several days 8. Moving or speaking so slowly that other people could have noticed. Or the opposite - being so fidgety or restless that you have been moving around a lot more than usual: not at all 9. Thoughts that you would be better off or of hurting yourself in some way: not at all Total score: 8 Depression Screening Interpretation: Positive Depression Screening Done: Yes Source: Developed by Drs. Dom Nichole, Shell Salvador, Max Chan and colleagues, with an educational mabel from [employer]. Thrive Questionnaire Date Thrive assessed: 04/04/25 I am a: Patient What is your living situation today?: I have a steady place to live Within the past 12 months, did the food you bought not last and you didn't have the money to get more?: Never true Within the past 12 months, did you worry whether your food would run out before you got money to buy more?: Never true Do you have trouble paying for medicines?: No Do you have trouble getting transportation to medical appointments?: Yes Do you have trouble paying your heating and electricity bill?: No Do you have trouble taking care of your child, family member or friend?: No Do you have trouble with day-to-day activities such as bathing, preparing meals, shopping, managing finances, etc.?: Yes Are you currently unemployed and looking for a job?: No Are you interested in more education?: No Please select the resources that you would like help with: Transportation Currently or been in a relationship where the following occur: I choose not to answer THRIVE Score: 1 AUDIT C Alcohol Use Questionnaire (AUDIT-C) 1. How often do you have a drink containing alcohol?: Never 3. How often do you have six or more drinks on one occasion?: Never Total Score: 0 JIHAN-7 AMB Questionnaire JIHAN-7 Date JIHAN - 7 assessed: 04/11/25 Feeling nervous, anxious, or on edge: 1 = Several days Not being able to stop or control worryin = Not at all Worrying too much about different things: 3 = Nearly every day Trouble relaxin = Not at all Being so restless that it is hard to sit still: 0 = Not at all Becoming easily annoyed or irritable: 0 = Not at all Feeling afraid as if something awful might happen: 0 = Not at all Total JIHAN-7 score (0-4 normal; 5-9 mild; 10-14 moderate; 15-21 severe): 4 Source: Developed by Drs. Dom Nichole, Shell Salvador, Max Chan and colleagues, with an educational mabel from [employer]. JIHAN-7 Assessment Billing JIHAN-7 Assessment Tool: JIHAN-7 Assessment 75111 Review of Systems Const Denies poor appetite and Denies weakness Eyes Denies no additional complaints ENT Reports Normal hearing present, Denies dizziness, Denies nasal congestion, Denies tinnitus and Denies sore throat Card Denies chest pain, Denies syncope, Denies rapid heart rate and Denies dyspnea Resp Denies cough and Denies dyspnea GI Denies change in stool character, Reports constipation, Denies diarrhea, Denies nausea and Denies vomiting Denies urinary frequency, Denies difficulty voiding and Denies dysuria Neuro Reports Normal hearing present, Denies confusion, Denies dizziness, Denies syncope and Denies weakness Psych Denies confusion Physical exam (Primary Care) Vital Signs: Last Vital Signs Pulse 88 07/08/25 10:17 BP 112/68 07/08/25 10:17 Pulse Ox 97 07/08/25 10:17 Oxygen Delivery Method Room Air 07/08/25 10:17 BMI result Body Mass Index 21.1 Tobacco/Smoking Status: Tobacco use Status Tobacco use date assessed 04/11/25 07/08/25 10:23 Patient Tobacco Use Status Never used Tobacco 07/08/25 10:56 Tobacco use type Cigarette 07/08/25 10:56 e-Cigarette/Vaping Use Never Used 07/08/25 10:56 PHQ-9: PHQ-9 Score PHQ-9: Total score 8 07/08/25 10:49 Depression Screening Interpretation: Positive Thrive Assessment: Date of Thrive Assessment Date Thrive assessed 04/04/25 07/08/25 10:23 Currently or been in a relationship where the following occur: I choose not to answer Const General: alert and awake; No confusion Orientation/consciousness: No confusion [facility] Head: Yes normocephalic Ears: external ears normal and TM's normal bilaterally Face and sinus: Yes normal facial exam Mouth: moist mucous membranes Throat: Yes tonsils normal Eyes Conjunctivae: conjunctivae normal Pupils: Equal, round and reactive pupils present and Pupil accommodation reflex normal Direct Ophthalmoscopy: normal light reflex Neck Neck: No lymphadenopathy Thyroid: Thyroid normal Chest Chest palpation & inspection: normal inspection of the chest Resp Effort & Inspection: normal respiratory effort and no audible wheezes Auscultation: clear to auscultation bilaterally, no crackles, no wheezes and lung sounds not diminished Cardio Rate: regular rate Rhythm: regular rhythm Peripheral pulses: radial pulses present and dorsalis pedis present GI Palpation (GI): no masses Auscultation: normal bowel sounds and normoactive bowel sounds Rectal Exam - Female: deferred Skin General skin exam: no rashes or lesions noted Rashes: no rashes Neuro General: deep tendon reflexes 2+ bilaterally and No confusion Cranial nerves: Yes Equal, round and reactive pupils present, Yes Midline tongue present, Yes Normal hearing present and Yes Ability to bilaterally elevate shoulders present Cognition (Neuro): normal cognition Gait exam (Neuro): Normal gait present Motor exam (neuro): 5/5 motor strength present throughout Deep tendon reflexes (DTR's): Right brachioradialis reflex intensity grade: 2+, Left brachioradialis reflex intensity grade: 2+, Right patellar reflex intensity grade: 2+ and Left patellar reflex intensity grade: 2+ Extrem General: No edema Coding Level of Care Code Est Pt Prev Care >65y(97169) Diagnoses Annual physical exam Z00.00 Asthma J45.909 GERD (gastroesophageal reflux disease) K21.9 Bilateral carotid artery stenosis I65.23 Laterality: bilateral Hyperlipidemia E78.5 Hypertension I10 Generalized anxiety disorder F41.1 Migraine G43.909 Constipation K59.00 Hematuria R31.9 Nasal polyp J33.9 Additional Codes JIHAN-7 Assessment Billing - JIHAN-7 Assessment Tool: JIHAN-7 Assessment 23198 ([id number]) Assessment & Plan Assessment & Plan (1) Annual physical exam: Code(s): Z00.00 - Encounter for general adult medical examination without abnormal findings Category: Medical Plan: Patient is advised to eat healthy, keep well hydrated, keep active and have adequate sleep. (2) Asthma: Code(s): J45.909 - Unspecified asthma, uncomplicated Category: Medical Plan: Patient on Dupixent (3) GERD (gastroesophageal reflux disease): Code(s): K21.9 - Gastro-esophageal reflux disease without esophagitis Category: Medical Plan: Avoid the foods that causes that usually spicy foods, tomato products, juices, coffee, soda and foods that your sensitive to. After eating do not lie down, allow 3-4 hours before in lie down. And keep the head of bed above 30 degrees to avoid the acid from going up. (4) Carotid artery stenosis: Comment: February-69% STENOSIS AT LEVEL OF RIGHT ICA. LESS THAN 50% STENOSIS AT LEVEL OF THE CCAS AND LEFT ICA. Code(s): I65.29 - Occlusion and stenosis of unspecified carotid artery Category: Medical Qualifiers: Laterality: bilateral Qualified Code(s): I65.23 - Occlusion and stenosis of bilateral carotid arteries Plan: Continuing to monitor (5) Hyperlipidemia: Code(s): E78.5 - Hyperlipidemia, unspecified Category: Medical Plan: Avoid fried foods, chicken skin, eggs, butter margarine, pastries and meat. Be it pork or beef they have a lot of cholesterol LDL goal of less than 130 and triglyceride of less than 150 patient is on diet control (6) Hypertension: Code(s): I10 - Essential (primary) hypertension Category: Medical Plan: Continue with blood pressure medication. Decrease salt intake and exercise on amlodipine 2.5 mg once a day and verapamil for migraine 120 mg once a day (7) Generalized anxiety disorder: Comment: talking to Nurse (12/2023) Code(s): F41.1 - Generalized anxiety disorder Category: Medical Plan: Continue with counseling and therapy (8) Migraine: Code(s): G43.909 - Migraine, unspecified, not intractable, without status migrainosus Category: Medical Plan: Continue with verapamil, be to (9) Constipation: Code(s): K59.00 - Constipation, unspecified Category: Medical (10) Hematuria: Code(s): R31.9 - Hematuria, unspecified Category: Medical (11) Nasal polyp: Comment: Jo mireles Code(s): J33.9 - Nasal polyp, unspecified Category: Medical Plan History of Present Illness The patient is a 75-year-old female presenting for a follow-up and physical examination. The patient has a history of fibromyalgia, asthma, hypertension, osteopenia, hypercholesterolemia, gastroesophageal reflux disease, and generalized anxiety disorder. She has been managing these conditions with various medications, including amlodipine for hypertension and verapamil for migraines. In May, the patient experienced dizziness and photophobia, which improved with the initiation of immunotherapy, suggesting a diagnosis of vestibular migraine. She was advised to undergo a cervical spine x-ray and carotid ultrasound due to moderate right and mild left internal carotid artery stenosis. The patient reported a knee contusion in April, which was evaluated with an x-ray showing no fracture. She also has a history of leukopenia, noted in blood work from June, with normal blood count and electrolytes. The patient has experienced constipation since childhood, which has worsened over time. She manages this with Senna and stool softeners, and is advised to maintain adequate hydration and fiber intake. The patient has significant ear wax accumulation, with 40% blockage in one ear and 70% in the other, which requires cleaning. Health Maintenance - Mammogram up to date - Colonoscopy performed in December 2024 - Echocardiogram in May 2025 showing normal sinus rhythm - Vaccinations: Shingles, tetanus, RSV, pneumonia, flu, and COVID-19 discussed Social History - Alcohol: Does not consume alcohol - Tobacco: Smoked briefly as a teenager, no current use - Exercise: Primarily walking, no gym or muscle exercises currently Review of Systems - General: Denies fever, nausea, or vomiting - Cardiovascular: Denies chest pain or syncope - Respiratory: Denies dyspnea or cough - Gastrointestinal: Reports constipation, denies heartburn - Neurological: Reports dizziness, denies headaches - Genitourinary: Reports mild hematuria, denies dysuria - Musculoskeletal: Reports knee pain, denies joint swelling - Dermatological: Reports photosensitivity Physical Exam General: Cooperative, healthy appearing, comfortable, no acute distress and well developed Orientation: Patient oriented x3 Limitations: No limitations Head: Normal to inspection Ears: Hearing grossly normal bilaterally, but with significant ear wax buildup (40% in one ear, 70% in the other) Nose: Normal external nose present, but patient reports a small growth inside the nose that swells in the evening Face and sinus: Normal facial exam Eyes: Appearance normal, both eyes and all related structures, but patient reports photosensitivity Neck: Normal visual inspection and Yes full ROM Respiratory: Normal respiratory effort and able to speak in complete sentences. Clear to auscultation bilaterally Cardiovascular: Regular rate and rhythm. Normal S1 and S2 GI: Normal to inspection. Soft to palpation and nontender, but patient reports constipation Skin: No rashes or lesions noted, patient on Dupixent for skin Neuro: Patient oriented x3 Extremities: Normal to inspection, but patient reports knee and ankle pain, uses a walking stick for stability Results - Labs: Mild leukopenia, normal blood count, normal electrolytes, normal renal function, normal liver function, LDL 126 mg/dL, high HDL, normal B12, vitamin D, folic acid, and thyroid levels - Urinalysis: Mild hematuria - Imaging: Echocardiogram showing normal sinus rhythm - Imaging: X-ray of knee showing no fracture Plan Patient was informed and verbally consented to the use of an ambient scribe for clinic note documentation during this visit. 1. Fibromyalgia The patient continues to manage fibromyalgia with current medications and lifestyle modifications. 2. Asthma The patient reports no current issues with asthma and does not require inhalers. 3. Hypertension Hypertension is managed with amlodipine 2.5 mg daily, with blood pressure reported as stable. 4. Osteopenia The patient has not had a recent bone density test and is advised to schedule one. 5. Hypercholesterolemia The patient is on diet control with an LDL goal of less than 130 mg/dL and triglycerides less than 150 mg/dL. 6. Gastroesophageal Reflux Disease (Gerd) GERD is managed with famotidine as needed, with no current symptoms reported. 7. Generalized Anxiety Disorder The patient is on Lexapro 20 mg daily for anxiety management. 8. Vestibular Migraine Symptoms improved with immunotherapy; verapamil 120 mg daily is continued for management. 9. Right Internal Carotid Artery Stenosis Moderate stenosis noted; advised to undergo carotid ultrasound for further evaluation. 10. Left Internal Carotid Artery Stenosis Mild stenosis noted; advised to undergo carotid ultrasound for further evaluation. 11. Knee Contusion The knee contusion was evaluated with an x-ray showing no fracture; no further intervention required. 12. Leukopenia Mild leukopenia noted in recent blood work; monitoring will continue. 13. Hematuria Mild hematuria noted; advised to undergo kidney ultrasound and urine cytology for further evaluation. 14. Photosensitivity Photosensitivity persists but has improved; further management options are being explored with neurology. 15. Constipation Chronic constipation managed with Senna and stool softeners; advised to increase water and fiber intake. 16. Ear Wax Accumulation Significant ear wax accumulation noted; advised to schedule cleaning. Discussion Notes During the visit, we discussed the patient's current management of fibromyalgia, asthma, hypertension, and other chronic conditions. We reviewed the need for a bone density test and the management of hypercholesterolemia through diet control. The patient was advised to continue current medications and to follow up with neurology for photosensitivity management. Patient Instructions - Continue current medications as prescribed. - Schedule a bone density test. - Follow up with neurology for photosensitivity management. - Maintain a diet to control cholesterol levels. - Increase water and fiber intake to manage constipation. - Schedule an ear cleaning for wax removal. Orders: Orders Urine Cytology Today R31.9 - Hematuria, unspecified US renal BI Today R31.9 - Hematuria, unspecified XR DEXA axial skeleton Today M81.0 - Age-related osteoporosis without current pathological fracture, S82.891A - Other fracture of right lower leg, initial encounter for closed fracture Referrals Ear/Nose/Throat Referral J33.9 - Nasal polyp, unspecified
--- OUTSIDE RECORDS SUMMARY | 2025-07-08 12:59 | XMS_ITS | Clinical Summary ---
Author Organization [facility] it Address [address] [place] [address] Care Team Providers Care Blood Bank Attendant Name Role Phone Caitlyn Cano KAROL Primary Care Provider [phone] Immunizations Name Administration Dates Next Due Pfizer SARS-CoV-2 COVID-19, mRNA, LNP-S, preservative free 01/13/2021,12/22/2020 Surgical History Surgery Date Site/Laterality Comments SKIN GRAFT 1960 Right PROCEDURE:SKIN GRAFT;COMMENT:foot SECTION PROCEDURE: SECTION CATARACT EXTRACTION W/ INTRAOCULAR LENS IMPLANT Bilateral PROCEDURE:CATARACT EXTRACTION W/ INTRAOCULAR LENS IMPLANT OTHER SURGICAL HISTORY PROCEDURE:MOHS SURGERY TOE SURGERY 01/19/2023 Right PROCEDURE:TOE SURGERY;COMMENT:Procedure: RIGHT 2ND TOE CORRECTION HAMMERTOE; Surgeon: Todd Valencia DPM; Location: [facility]; Service: Podiatry; Laterality: Right; Medical History [...] age to complete this topic Care Teams Blood Bank Attendant Relationship Specialty Start Date End Date Caitlyn Cano NP [address] [place] [address] [place] [address] PCP - General 01/17/23
--- OUTSIDE RECORDS SUMMARY | 2025-07-08 12:59 | XMS_ITS | Clinical Summary ---
Author Organization [facility] Address [address] [place] [address] Care Team Providers Care Software Technician Name Role Phone Yoko Jolly Primary Care Provider [phone] Allergies Active Allergy Reactions Criticality Noted Date [...] MEDICARE PART B FFS MEDICARE-SUPPLEMENTAL Care Teams Software Technician Relationship Specialty Start Date End Date Yoko Jolly [address] [place] [address] [place] [address] PCP - General Internal Medicine 03/19/16
--- OUTSIDE RECORDS SUMMARY | 2025-07-08 12:59 | XMS_ITS | Patient Health Record ---
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) Active confirmed Plan Of Treatment No Information Insurance Providers Payer Name Payer Address Payer Phone Subscriber Number Group Number Insured Name Patient Relationship to Insured Coverage Start Date Coverage End Date Medicare [address] [place], [place] [id number] Self - patient is the insured [employer] Medicare Enhanced [address] [id number] Self - patient is the insured Medical (General) History Medical History History ICD Code FIBROMIALGYA DEPRESSION HIGH BLOOD PRESSURE OSTEOPINIA Surgical History Surgery Date(Month/Year) CATARACT EXTRACTION WITH IMPLANT VINCE S [id number] 12/17/2021 CATARACT EXTRACTION RIGHT EYE WITH LENS IMPLANT [id number] +19.5 D 01/14/22
--- OUTSIDE RECORDS SUMMARY | 2025-07-08 12:59 | XMS_ITS | Clinical Summary ---
Author Organization [facility] Address [address] [place] [address] Care Team Providers Care Finance Officer Name Role Phone Caitlyn Cano NP Primary Care Provider [phone] Allergies Active Allergy Reactions Criticality Noted Date [...] age to complete this topic Care Teams Finance Officer Relationship Specialty Start Date End Date Caitlyn Cano NP [address] [place] [address] [place] [address] PCP - General Family Medicine 01/17/23
--- OUTSIDE RECORDS SUMMARY | 2025-07-08 12:59 | XMS_ITS | Patient Health Record ---
Author Organization [facility] Address [address] [facility] [address] [place] [address] Care Team Providers Care Operator Vacuum Name Role Phone chantelle sun Primary Care [...] of [place] [address] [place] [address] [id number] Self - patient is the insured [facility] [address] [place] [id number] Self - patient is the insured Medical (General) History Medical History History ICD Code right lateral ankle fracture hypertension osteoporosis previous right ankle fracture left ankle sprains osteopenia osteoarthritis anxiety depression fibromyalgia mood disorder Surgical History Surgery Date(Month/Year) 09/13/1983 colonoscopy laparoscopy skin graft on right foot Hospitalization History Reason Date(Month/Year) (girl) 09/13/1983
== END 2025-07-08 11:16 | disposition home or self-care (01) ==
LOC: HO.HMCH 10:14
PROVIDERS: PCP Internal Medicine; Visit Provider Internal Medicine
DX: Z00.00 Encounter for general adult medical examination without abnormal findings (principal); J45.909 Unspecified asthma, uncomplicated; K21.9 Gastro-esophageal reflux disease without esophagitis; I65.23 Occlusion and stenosis of bilateral carotid arteries; E78.5 Hyperlipidemia, unspecified; I10 Essential (primary) hypertension; F41.1 Generalized anxiety disorder; G43.909 Migraine, unspecified, not intractable, without status migrainosus; K59.00 Constipation, unspecified; R31.9 Hematuria, unspecified; J33.9 Nasal polyp, unspecified

== ENCOUNTER 2025-07-08 10:13 | Outpatient (REF) | payer MEDICARE, OTHER, SELFPAY ==
[2025-07-08 14:06] LABS: Appearance Urine Clear; Glucose Urine UA Negative (Negative); PH 6.0 (5.0-9.0); Specific Gravity - Urine <= 1.005 (1.005-1.025)
--- OUTSIDE RECORDS SUMMARY | 2025-07-08 18:50 | XMS_ITS | Encounter Summary ---
Author Organization [facility] Address [address] [facility] [address] [place] [address] Phone Care Team Providers Care Contact Worker Name Role Phone Elba Allison MD Primary Care Provider + Asia Jolley [facility] Unavailable [phone] Reason for Referral * Outpatient Procedure - Closed Specialty Diagnoses / Procedures Referred By Jovan haji Referred To Contact Radiology Diagnoses Mastitis Mass of right breast Follow-up exam Procedures PRISON Biopsy of Breast (Right) Elba Allison MD Phone: tel: fax: [email or web address] Referral ID Status Reason Start Date Expiration Date Visits Re quested Visits Authorized [id number] Closed 05/04/2021 05/04/2022 1 1 Encounter Details Date Type Department Care Team (Late st Contact Info) Description 05/04/2021 Ancillary Orders [facility] [address] [place] [address] Elba Allison MD [address] [place] [address] [email or web address] Mastitis; Mass of right breast; Follow-up exam [...] documented as of this encounter Results * PRISON Biopsy of Breast (Right) (05/22/2021 1:19 PM [...] communicated to Savita Hernandez CNP via secure [employer] message. Impressions 05/22/2021 4:10 PM EDT Ultrasound-guided [...] documented as of this encounter Care Teams Contact Worker Relationship Specialty Start Date End Date Elba Allison MD PCP - General Endocrinology 11/23/19 Asia Jolley, [place] [address] iCMP Social Work 07/07/21 02/28/22 documented as of this encounter Additional Source Comments The information contained in this document represents components of the legal health record. It is not the complete legal health record.[facility]
--- OUTSIDE RECORDS SUMMARY | 2025-07-08 18:50 | XMS_ITS | Encounter Summary ---
Author Organization [facility] Address [address] [facility] [address] [place] [address] Phone Care Team Providers Care Custody Assistant Name Role Phone Elba Allison MD Primary Care Provider [phone] Asia Jolley [facility] [phone] Encounter Details Date Type Department Care Team (Late st Contact Info) Description 05/04/2021 Ancillary Orders [facility] [address] [place] [address] Esha Adams MD [address] [place] [address] [email or web address] Social History Tobacco Use Types Packs/Day [...] documented as of this encounter Care Teams Custody Assistant Relationship Specialty Start Date End Date Elba Allison MD [email or web address] PCP - General Endocrinology 11/23/19 Asia Jolley, [address] [place] [address] [email or web address] iCMP Social Work 07/07/21 02/28/22 documented as of this encounter Additional Source Comments The information contained in this document represents components of the legal health record. It is not the complete legal health record.[facility]
--- OUTSIDE RECORDS SUMMARY | 2025-07-08 18:51 | XMS_ITS | Clinical Summary ---
Author Organization [facility] Address [address] [employer] [address] [address] Phone Care Team Providers Care Citizenship Teacher Name Role Phone Elba Allison MD Primary Care Provider [phone] Allergies Active Allergy Reactions Criticality Noted Date [...] Pharmacy Needs: no issues Financial Concerns: assessing half-way needs Other Supports and Care Needs: housing [...] denies active suicidality or plan.. Followed By admissions officer. Assessment & Plan (04/29/2021 1:13 PM EDT): [...] 10/09/2022 10/09/2021, 03/24, 02/27/2021, Additional history exists INFLUENZA VACCINE (#1) 2025 , 06/16/2020, 06/19/2019, Additional history exists COVID-19 VACCINE (2024- season) 2025 07/17/2021, 01/13/2021, 12/22/2020 LIPID PANEL 04/07/2026 04/07/2021, [...] Care Plan Family and Community Support Asia Hernández, [facility] Note: Barriers: {PHS AMB OP Care Plan Barriers:40206} Establish reunification of family members Care Plan Family and Community Support No Asia Jolley, NEUROLOGY TEACHER Seek support with significant life events Care Plan Family and Community Support No Asia Jolley, NEUROLOGY TEACHER Obtain housing /custodial Care Plan Complex Social Issues No SamreenAsia hunter, NEUROLOGY TEACHER Identify financial resources Care Plan Complex Social Issues No Asia Jolley, NEUROLOGY TEACHER Identify transportation resources Care Plan Complex Social Issues No SamreenAsia hunter, NEUROLOGY TEACHER Identify adequate food/nutrition resources Care Plan Complex Social Issues No Asia Jolley, NEUROLOGY TEACHER Investigate education opportunities Care Plan Complex Social Issues No Warm [place] Springss[place] hunter, NEUROLOGY TEACHER Investigate employment opportunities Care Plan Complex Social Issues No Asia Jolley, NEUROLOGY TEACHER Identify daycare or elder services resources Care Plan Complex Social Issues No Asia Jolley, NEUROLOGY TEACHER Connect with community resource Care Plan Complex Social Issues No SamreenAsia hunter, NEUROLOGY TEACHER Medical Devices Implanted Type Area Industrial Psychology Teacher Device Identifier Shelf Expiration Date Model / Serial / Lot Marker Biopsy [id number] Breast Tissue Ultraclip Titanium Dual Trigger Ultrasound Enhanced Ribbon Cs/5ea - Uom Issue Use Ps # [id number] - [id number] Implanted:Qty: 1 on 05/22/2021 at [facility] [employer] [id number] / / Procedures Procedure Name Priority Date/Time [...] PM EDT Patient Name / ID : DAWIT Sun / [id number] Patient Birthdate: 1950 00:00:00 Exam Date : 04/16/2022 13:36:00 Accession No. : [id number] Referring Physician: GIOVANNA Brinell Tester : Neelam Mueller Report Date : 04/16/2022 14:07:31 [FINAL REPORT] History: Postmenopausal. Technique: BONE DENSITOMETRY: Scans of the lumbar spine and left hip were performed on a Switchcam SL unit. W.H.O. Classification is based on [...] Neelam Mueller Dictated: 04/16/2022 14:07 Cristela Bello INSULATION APPLICATOR IMG BD BONE DENSITY D EXA Final Result * Basic metabolic panel (10/09/2021 4:59 PM EST) Sodium 138 135 - 146 mEq/L [employer] [facility] Potassium 4.2 3.5 - 5.3 mEq/L [facility] Chloride 100 98 - 107 mEq/L [facility] CO2 27 20 - 31 mEq/L [facility] ANIONGAP 11 4 - 14 [facility] Glucose 83 70 - 99 mg/dL [facility] BUN 16 6 - 20 mg/dL [facility] Creatinine 0.7 <1.1 mg/dL [facility] GFR 87 >60 mL/min/1.7 3m^2 [facility] Comment:(If patient is Afric an [place], multiply reported result by 1.21) Calcium 9.6 8.4 - 10.2 mg/dL [facility] Blood 10/09/2021 4:59 PM EST 10/09/2021 4:59 PM EST Narrative [facility] - 10/09/2021 5:54 PM EST Unless otherwise noted, Testing performed through [facility], [place] [address] Barry Watson, PhD, Sales Apprentice No Cristela Bello NP LAB BLOOD ORDERABLES Edited Result - Final Performing Organization Address [facility] [place] [address] * (ABNORMAL) Lipid panel (04/07/2021 10:17 AM EDT) Cholesterol 228(Abnor lisa H) <200 mg/dL [facility] Triglycerides 69 <150 mg/dL [facility] Cholesterol, HDL 80 >40 mg/dL [facility] LDLC 134(Abnor lisa H) <129 mg/dL [facility] Cholesterol/HDL Ratio 2.85 <4.43 [facility] Blood 04/07/2021 10:1 7 AM EDT 04/07/2021 10:17 AM EDT Cristela Bello INSULATION APPLICATOR LAB BLOOD ORDERABLES [place] [address] * MAMMOGRAPHY FOR RESULT ENTRY ONLY (09/08/2020) Historical Provider HEALTH MAINTENANCE Final Result * COLONOSCOPY FOR RESULT ENTRY ONLY (12/20/2017) Colonoscopy POLYPS F/U IN 5 YRS us Historical Provider HEALTH MAINTENANCE Final Result from Last 3 Months or Most Recently Relevant to Health Maintenance Additional Health Concerns Active Problems Noted Date Diagnosed Date Family and Community Support 09/02/2021 Complex Social Issues 09/02/2021 Insurance MEDICARE PART A & B [employer] [facility] MEDIC[employer] ENHANCE SUPPLEMENT MEDICARE PART A & B [facility] MEDICARE ENHANCE SUPPLEMENT MEDICARE PART A & B [facility] MEDICARE ENHANCE SUPPLEMENT MEDICARE PART A & B [facility] MEDICARE ENHANCE SUPPLEMENT MEDICARE PART A & B [facility] MEDICARE ENHANCE SUPPLEMENT [facility] Address: [address] [place] [address] MEDICARE PART A & B [facility] MEDICARE ENHANCE SUPPLEMENT [facility] Address: [address] [place] [address] MEDICARE PART A & B [facility] MEDICARE ENHANCE SUPPLEMENT MEDICARE PART A & B Member Subscriber Plan / [facility]) Name:Ashanti Way Member ID:[id number] Relation to Subscriber:Self Name:ASHANTI WAY Subscriber ID:[id number] Payer ID:[id number] Group ID:Not on file Type:Medicare Address: [employer] [address] [place] [address] [facility] MEDICARE ENHANCE SUPPLEMENT Member Subscriber Plan / Payer ([facility]2017-Present) Name:Ashanti Way Relation to Subscriber:Self Name:ASHANTI WAY Payer ID:[id number] (NAIC) Group ID:Not on file Type:O Address: [address] [place] [address] MEDICARE PART A & B [id number] [place] [address] MEDICARE ENHANCE SUPPLEMENT MEDICARE PART A & B [facility] MEDICARE ENHANCE SUPPLEMENT [facility] Address: [address] [place] [id number] MEDICARE PART A & B [employer] MEDICARE ENHANCE SUPPLEMENT [facility] Address: [address] [place] [address] Care Teams Citizenship Teacher Relationship Specialty Start Date End Date Elba Allison MD PCP - General Endocrinology 11/23/19 Additional Source Comments The information contained in this document represents components of the legal health record. It is not the complete legal health record.[facility]
--- OUTSIDE RECORDS SUMMARY | 2025-07-08 18:51 | XMS_ITS | Encounter Summary ---
Author Organization [facility] Address [address] [employer] [place] [facility] [address] [place] [address] Phone Care Team Providers Care Bellman Name Role Phone Elba Allison MD Primary Care Provider [phone] Asia Jolley [facility] [phone] Encounter Details Date Type Department Care Team (Late st Contact Info) Description 04/29/2021 Ancillary Orders [facility] [address] [place] [address] Cristela Bello NP [address] [place], [place] [id number] [email or web address] Mastitis; Mass of right breast [...] and facilitate patient compliance. us Cristela Bello GENERATOR OPERATOR STRAIGHT BEVEL GEAR IMG US BREAST Final Result documented in [...] documented as of this encounter Care Teams Bellman Relationship Specialty Start Date End Date Elba Allison MD PCP - General Endocrinology 11/23/19 Asia Jolley, [place] [phone] iCMP Social Work 07/07/21 02/28/22 documented as of this encounter Additional Source Comments The information contained in this document represents components of the legal health record. It is not the complete legal health record.[facility]
--- OUTSIDE RECORDS SUMMARY | 2025-07-08 18:51 | XMS_ITS | Encounter Summary ---
Author Organization [facility] Address [address] [employer] [facility] [address] [place] [address] Phone Care Team Providers Care Lawn Care Technician Name Role Phone Elba Allison MD Primary Care Provider [phone] Asia Jolley [facility] [phone] Encounter Details Date Type Department Care Team (Late st Contact Info) Description 05/01/2021 Procedure Pass [facility], Breast Ultrasound [address] [place] [address] Social History Tobacco Use Types Packs/Day Years [...] documented as of this encounter Care Teams Lawn Care Technician Relationship Specialty Start Date End Date Elba Allison MD [email or web address] PCP - General Endocrinology 11/23/19 Asia Jolley, [address] [address] [email or web address] iCMP Social Work 07/07/21 02/28/22 documented as of this encounter Additional Source Comments The information contained in this document represents components of the legal health record. It is not the complete legal health record.[facility]
--- OUTSIDE RECORDS SUMMARY | 2025-07-08 18:51 | XMS_ITS | Encounter Summary ---
Author Organization [facility] Address [address] [facility] [address] [place] [address] Phone Care Team Providers Care Asphalt Still Operator Name Role Phone Elab Allison MD Primary Care Provider [phone] Asia Jolley [facility] [phone] Encounter Details Date Type Department Care Team (Late st Contact Info) Description 04/29/2021 Procedure Pass [facility], Breast Ultrasound [address] [place] [address] Social History Tobacco Use Types Packs/Day Years [...] documented as of this encounter Care Teams Asphalt Still Operator Relationship Specialty Start Date End Date Elba Allison MD PCP - General Endocrinology 11/23/19 Asia Jolley, [address] [address] [email or web address] iCMP Social Work 07/07/21 02/28/22 documented as of this encounter Additional Source Comments The information contained in this document represents components of the legal health record. It is not the complete legal health record.[facility]
--- OUTSIDE RECORDS SUMMARY | 2025-07-08 18:51 | XMS_ITS | Encounter Summary ---
Author Organization [facility] Address [address] [facility] [address] [facility] [address] [place] [address] Phone Care Team Providers Care Defensive Fire Control Systems Operator Name Role Phone Elba Allison MD Primary Care Provider [phone] Asia Jolley [facility] [phone] Encounter Details Date Type Department Care Team (Late st Contact Info) Description 04/30/2021 Procedure Pass [facility]- Breast Imaging, [facility] [address] [place] [id number] Social History Tobacco Use Types Packs/Day Years [...] documented as of this encounter Care Teams Defensive Fire Control Systems Operator Relationship Specialty Start Date End Date Elba Allison MD [email or web address] PCP - General Endocrinology 11/23/19 Asia Jolley, [address] [address] [email or web address] iCMP Social Work 07/07/21 02/28/22 documented as of this encounter Additional Source Comments The information contained in this document represents components of the legal health record. It is not the complete legal health record.[facility]
--- OUTSIDE RECORDS SUMMARY | 2025-07-08 18:51 | XMS_ITS | Encounter Summary ---
Author Organization [facility] Address [address] [facility] [address] [place] [address] Phone Care Team Providers Care Patient Intake Coordinator Name Role Phone Elba Allison MD Primary Care Provider + Asia Jolley [facility] Unavailable [phone] Reason for Referral * Outpatient Procedure - Closed Specialty Diagnoses / Procedures Referred By Jovan haji Referred To Contact Radiology Diagnoses Mastitis Mass of right breast Follow-up exam Procedures CORRECTION Breast Abscess Drainage (Right) Elba Allison MD Phone: tel: fax: mailto:[email or web address] Referral ID Status Reason Start Date Expiration Date Visits Re quested Visits Authorized [id number] Closed 05/22/2021 05/22/2022 1 1 Encounter Details Date Type Department Care Team (Late st Contact Info) Description 05/22/2021 Ancillary Orders [facility] [address] [place] [address] Elba Allison MD [address] [place] [phone] [email or web address] Mastitis; Mass of right breast; Follow-up exam [...] documented as of this encounter Results * CORRECTION Breast Abscess Drainage (Right) (05/22/2021 1:15 PM [...] communicated to Savita Hernandez CNP via secure [employer] message. Impressions 05/22/2021 4:10 PM EDT Ultrasound-guided [...] documented as of this encounter Care Teams Patient Intake Coordinator Relationship Specialty Start Date End Date Elba Allison MD PCP - General Endocrinology 11/23/19 Asia Jolley, [place] [address] iCMP Social Work 07/07/21 02/28/22 documented as of this encounter Additional Source Comments The information contained in this document represents components of the legal health record. It is not the complete legal health record.[facility]
--- OUTSIDE RECORDS SUMMARY | 2025-07-08 18:51 | XMS_ITS | Encounter Summary ---
Author Organization [facility] Address [address] [employer] [facility] [address] [place] [address] Phone Care Team Providers Care Trim Mounter Name Role Phone Elba Allison MD Primary Care Provider + Asia Jolley [facility] [phone] Reason for Referral * Outpatient Procedure - Closed Specialty Diagnoses / Procedures Referred By Jovan haji Referred To Contact Radiology Diagnoses Mastitis Mass of right breast Follow-up exam Procedures Mammogram Diagnostic Post Procedure (Right) Elba Allison MD Phone: tel: fax: [email or web address]:[email or web address] Referral ID Status Reason Start Date Expiration Date Visits Re quested Visits Authorized [id number] Closed 05/22/2021 05/22/2022 1 1 Encounter Details Date Type Department Care Team (Late st Contact Info) Description 05/22/2021 Ancillary Orders [facility] [address] [place] [address] Elba Allison MD [address] [place] [phone] [email or web address] Mastitis; Mass of right breast; Follow-up exam [...] communicated to Savita Hernandez CNP via secure [employer] message. Impressions 05/22/2021 4:10 PM EDT Ultrasound-guided [...] documented as of this encounter Care Teams Trim Mounter Relationship Specialty Start Date End Date Elba Allison MD PCP - General Endocrinology 11/23/19 Asia Jolley, [place] [address] iCMP Social Work 07/07/21 02/28/22 documented as of this encounter Additional Source Comments The information contained in this document represents components of the legal health record. It is not the complete legal health record.[facility]
--- OUTSIDE RECORDS SUMMARY | 2025-07-08 18:51 | XMS_ITS | Encounter Summary ---
Author Organization [facility] Address [address] [facility] [address] [place] [address] Phone Care Team Providers Care Coat Agent Name Role Phone Elba Allison MD Primary Care Provider [phone] Asia Jolley [facility] [phone] Encounter Details Date Type Department Care Team (Late st Contact Info) Description 05/01/2021 Ancillary Orders [facility] [address] [place] [address] Cristela Bello NP [address] [place] [address] [email or web address] Mastitis; Mass of [...] documented as of this encounter Care Teams Coat Agent Relationship Specialty Start Date End Date Elba Allison MD PCP - General Endocrinology 11/23/19 Asia Jolley, [place] [address] iCMP Social Work 07/07/21 02/28/22 documented as of this encounter Additional Source Comments The information contained in this document represents components of the legal health record. It is not the complete legal health record.[facility]
--- OUTSIDE RECORDS SUMMARY | 2025-07-08 18:51 | XMS_ITS | Patient Health Record ---
Author Organization [facility] Address [address] [place] [address] [address] [place] [address] Care Team Providers Care Hostler Helper Name Role Phone Yoko Jolly MD Primary Care Provider Unavailabl e Reason For Referral No Information Plan Of Treatment No Information Insurance Providers Payer Name Payer Address Payer Phone Subscriber Number Group Number Insured Name Patient Relationship to Insured Coverage Start Date [facility]age End Date [facility] [address] [place] [id number] Self - patient is the insured
--- OUTSIDE RECORDS SUMMARY | 2025-07-08 18:51 | XMS_ITS | Encounter Summary ---
Author Organization [facility] Address [address] [facility] [address] [place] [address] Phone Care Team Providers Care Service Desk Specialist Name Role Phone Elba Allison MD Primary Care Provider [phone] Asia Jolley [facility] [phone] Encounter Details Date Type Department Care Team (Late st Contact Info) Description 05/04/2021 Ancillary Orders [facility] [address] [place] [address] Cristela Bello NP [address] [place], [place] [id number] [email or web address] Mastitis; Mass of right breast; [...] documented as of this encounter Care Teams Service Desk Specialist Relationship Specialty Start Date End Date Elba Allison MD PCP - General Endocrinology 11/23/19 Asia Jolley, [address] [address] iCMP Social Work 07/07/21 02/28/22 documented as of this encounter Additional Source Comments The information contained in this document represents components of the legal health record. It is not the complete legal health record.[facility]
--- OUTSIDE RECORDS SUMMARY | 2025-07-08 18:51 | XMS_ITS | Encounter Summary ---
Author Organization [facility] Address [address] [facility] [address] [place] [address] Phone Care Team Providers Care House Piping Inspector Name Role Phone Elba Allison MD Primary Care Provider [phone] Asia Jolley [facility] [phone] Encounter Details Date Type Department Care Team (Late st Contact Info) Description 05/01/2021 Ancillary Orders [facility] [address] [place], [place] [id number] System, Provider [place] In, [place] [address] Social History Tobacco Use Types Packs/Day Years [...] (No Interpretation) (09/08/2020 12:00 AM EST) Narrative [facility] IMG INTERFACES - 05/01/2021 9:12 AM EDT This study is for PACS storage only and not for interpretation. us Provider Not In System PhD IMG OUTSIDE IMAGING W /OUT INTERPRETATION Final Result Performing Organization Address [facility] de Phone Number NW IMG INTERFACES * Mammogram Outside (No Interpretation) (09/03/2019 12:00 AM EST) Narrative [facility] IMG INTERFACES - 05/01/2021 9:12 AM EDT This study is for PACS storage only and not for interpretation. us Provider Not In System PhD IMG OUTSIDE IMAGING W /OUT INTERPRETATION Final Result Performing Organization Address [facility] de Phone Number NW IMG INTERFACES * Mammogram Outside (No Interpretation) (07/04/2018 12:00 AM EDT) Narrative [facility] IMG INTERFACES - 05/01/2021 9:13 AM EDT This study is for PACS storage only and not for interpretation. us Provider Not In System PhD IMG OUTSIDE IMAGING W /OUT INTERPRETATION Final Result Performing Organization Address [facility] de Phone Number NW IMG INTERFACES * Mammogram Outside (No Interpretation) (04/08/2017 12:00 AM EDT) Narrative [facility] IMG INTERFACES - 05/01/2021 9:13 AM EDT This study is for PACS storage only and not for interpretation. us Provider Not In System PhD IMG OUTSIDE IMAGING W /OUT INTERPRETATION Final Result Performing Organization Address [facility] de Phone Number NW IMG INTERFACES * US Breast Outside (No Interpretation) (10/08/2016 12:05 AM EST) Narrative [facility] IMG INTERFACES - 05/01/2021 9:14 AM EDT This study is for PACS storage only and not for interpretation. us Provider Not In System PhD IMG OUTSIDE IMAGING W /OUT INTERPRETATION Final Result Performing Organization Address [facility] de Phone Number NW IMG INTERFACES * Mammogram Outside (No Interpretation) (10/08/2016 12:00 AM EST) Narrative [facility] IMG INTERFACES - 05/01/2021 9:14 AM EDT This study is for PACS storage only and not for interpretation. us Provider Not In System PhD IMG OUTSIDE IMAGING W /OUT INTERPRETATION Final Result Performing Organization Address [facility] de Phone Number NW IMG INTERFACES * US Breast Outside (No Interpretation) (04/22/2016 12:05 AM EDT) Narrative [facility] IMG INTERFACES - 05/01/2021 9:15 AM EDT This study is for PACS storage only and not for interpretation. us Provider Not In System PhD IMG OUTSIDE IMAGING W /OUT INTERPRETATION Final Result Performing Organization Address [facility] de Phone Number NW IMG INTERFACES * Mammogram Outside (No Interpretation) (04/22/2016 12:00 AM EDT) Narrative [facility] IMG INTERFACES - 05/01/2021 9:15 AM EDT This study is for PACS storage only and not for interpretation. us Provider Not In System PhD IMG OUTSIDE IMAGING W /OUT INTERPRETATION Final Result Performing Organization Address [facility] de Phone Number NW IMG INTERFACES * Mammogram Outside (No Interpretation) (04/12/2016 12:05 AM EDT) Narrative [facility] IMG INTERFACES - 05/01/2021 9:16 AM EDT This study is for PACS storage only and not for interpretation. us Provider Not In System PhD IMG OUTSIDE IMAGING W /OUT INTERPRETATION Final Result Performing Organization Address [facility] de Phone Number NW IMG INTERFACES * US Breast Outside (No Interpretation) (04/12/2016 12:00 AM EDT) Narrative [facility] IMG INTERFACES - 05/01/2021 9:16 AM EDT This study is for PACS storage only and not for interpretation. us Provider Not In System PhD IMG OUTSIDE IMAGING W /OUT INTERPRETATION Final Result Performing Organization Address [facility] de Phone Number NW IMG INTERFACES * Mammogram Outside (No Interpretation) (03/19/2016 12:00 AM EDT) Narrative [facility] IMG INTERFACES - 05/01/2021 9:16 AM EDT This study is for PACS storage only and not for interpretation. us Provider Not In System PhD IMG OUTSIDE IMAGING W /OUT INTERPRETATION Final Result Performing Organization Address [facility] de Phone Number NW IMG INTERFACES * Mammogram Outside (No Interpretation) (02/24/2015 12:00 AM EDT) Narrative [facility] IMG INTERFACES - 05/01/2021 9:17 AM EDT This study is for PACS storage only and not for interpretation. us Provider Not In System PhD IMG OUTSIDE IMAGING W /OUT INTERPRETATION Final Result Performing Organization Address [facility] Phone Number [facility] IMG INTERFACES * Mammogram Outside (No Interpretation) (01/07/2014 12:00 AM EDT) Narrative [facility] IMG INTERFACES - 05/01/2021 9:17 AM EDT This study is for PACS storage only and not for interpretation. us Provider Not In System PhD IMG OUTSIDE IMAGING W /OUT INTERPRETATION Final Result Performing Organization Address [facility] de Phone Number [facility] IMG INTERFACES documented in this encounter Visit Diagnoses Not on filedocumented in this encounter Additional Health Concerns Assessment Noted Time PHQ-9 Depression Total Score: 13 021 11:43 AM EDT PHQ-2 Depression Total Score: 6 04/09/20 21 11:43 AM EDT documented as of this encounter Care Teams House Piping Inspector Relationship Specialty Start Date End Date Elba Allison MD PCP - General Endocrinology 11/23/19 Asia Jolley, [place] [address] [email or web address] [email or web address] Social Work 07/07/21 02/28/22 documented as of this encounter Additional Source Comments The information contained in this document represents components of the legal health record. It is not the complete legal health record.[facility]
--- OUTSIDE RECORDS SUMMARY | 2025-07-08 18:51 | XMS_ITS | Encounter Summary ---
Author Organization [facility] Address [address] [facility] [address] [place] [address] Phone Care Team Providers Care Performing Arts Technicians Name Role Phone Elba Allison MD Primary Care Provider [phone] Asia Jol[address] [facility] [phone] Encounter Details Date Type Department Care Team (Late st Contact Info) Description 04/30/2021 Ancillary Orders [facility] [address] [place] [address] Cristela Bello NP [address] [place] [address] [email or web address] Mastitis; Mass of right breast [...] documented as of this encounter Care Teams Performing Arts Technicians Relationship Specialty Start Date End Date Elba Allison MD [email or web address] PCP - General Endocrinology 11/23/19 Asia Jolley, [place] [address] [email or web address] iCMP Social Work 07/07/21 02/28/22 documented as of this encounter Additional Source Comments The information contained in this document represents components of the legal health record. It is not the complete legal health record.[facility]
--- OUTSIDE RECORDS SUMMARY | 2025-07-08 18:51 | XMS_ITS | Encounter Summary ---
Author Organization [facility] Address [address] [facility] [address] [place] [address] Phone Care Team Providers Care Results Engineer Name Role Phone Elba Allison MD Primary Care Provider [phone] Asia Jolley [facility] [phone] Encounter Details Date Type Department Care Team (Late st Contact Info) Description 04/30/2021 Ancillary Orders [facility] [address] [place] [address] Cristela Bello NP [address] [place], [place] [id number] [email or web address] Mastitis; Mass of right breast [...] tomonitor and facilitate patient compliance. Cristela Bello HAND LENS POLISHER IMG MG EXAMS Final Result documented in [...] documented as of this encounter Care Teams Results Engineer Relationship Specialty Start Date End Date Elba Allison MD PCP - General Endocrinology 11/23/19 Asia Jolley, [address] [address] iCMP Social Work 07/07/21 02/28/22 documented as of this encounter Additional Source Comments The information contained in this document represents components of the legal health record. It is not the complete legal health record.[facility]
--- OUTSIDE RECORDS SUMMARY | 2025-07-08 18:51 | XMS_ITS ---
Care Plan Created on: July 08, [address] : 1950 Sex: Female Author Organization [facility] Address [address] [place] [address] Phone Care Team Providers Care Incident Response Lead Name Role Phone Elba Allison MD Primary Care Provider [phone] Active Problems Patient Care Coordination No te [...] Pharmacy Needs: no issues Financial Concerns: assessing shelter needs Other Supports and Care Needs: housing [...] denies active suicidality or plan.. Followed By multi disciplined language analyst. Assessment & Plan (04/29/2021 1:13 PM EDT): Stable on Lexapro and Gabapentin. Unable to connect with a therapist despite trying multiple times. Will refer to Asia Jolley [facility] for assistance. Assessment & Plan (05/30/2020 11:25 [...] Family and Community Support No Asia Jolley, SEL[employer] CONTAINED BEHAVIOR UNIT TEACHER Note: Barriers: {PHS AMB OP Care Plan Barriers:[id number]} Establish reunification of family members Care Plan Family and Community Support No Asia Jolley, [employer]EL[employer] CONTAINED [employer]HAVIOR UNIT TEACHER Seek support with significant life events Care Plan Family and Community Support No Asia Jolley, SELF CONTAINED BEHAVIOR UNIT TEACHER Obtain housing /mcc Care Plan Complex Social Issues No Asia Jolley, SELF CONTAINED BEHAVIOR UNIT TEACHER Identify financial resources Care Plan Complex Social Issues No Asia Jolley, SELF CONTAINED BEHAVIOR UNIT TEACHER Identify transportation resources Care Plan Complex Social Issues No Asia Jolley, SELF CONTAINED BEHAVIOR UNIT TEACHER Identify adequate food/nutrition resources Care Plan Complex Social Issues No Asia Jolley, SELF CONTAINED BEHAVIOR UNIT TEACHER Investigate education opportunities Care Plan Complex Social Issues No Asia Jolley, SELF CONTAINED BEHAVIOR UNIT TEACHER Investigate employment opportunities Care Plan Complex Social Issues No Asia Jolley, SELF CONTAINED BEHAVIOR UNIT TEACHER Identify daycare or elder services resources Care Plan Complex Social Issues No Asia Jolley, SELF CONTAINED BEHAVIOR UNIT TEACHER Connect with community resource Care Plan Complex Social Issues No Asia Jolley, SELF CONTAINED BEHAVIOR UNIT TEACHER Interventions Care Plan Interventions Intervention Entry Date [...]
== END 2025-07-08 10:14 | disposition home or self-care (01) ==
LOC: HO.LAB 10:13
PROVIDERS: PCP Internal Medicine; Visit Provider Internal Medicine
DX: Z00.00 Encounter for general adult medical examination without abnormal findings (principal); J45.909 Unspecified asthma, uncomplicated; K21.9 Gastro-esophageal reflux disease without esophagitis; I65.23 Occlusion and stenosis of bilateral carotid arteries; E78.5 Hyperlipidemia, unspecified; I10 Essential (primary) hypertension; F41.1 Generalized anxiety disorder; G43.909 Migraine, unspecified, not intractable, without status migrainosus; K59.00 Constipation, unspecified; R31.9 Hematuria, unspecified; J33.9 Nasal polyp, unspecified; R30.0 Dysuria
CPT/HCPCS: 81003; 88112; 96127; 99397

== ENCOUNTER 2025-07-12 09:55 | Outpatient (AMB) | payer MEDICARE, OTHER, SELFPAY ==
[2025-07-12 10:03] VITALS: BP 100/62; PULSE 88; RESP 18; TEMP 36.2; O2SAT 97; BMI 21.4
--- NOTE | 2025-07-12 10:03 | A.OFFPC_ITS ---
Vital Signs 07/12/25 10:03 Height 5 ft 6 in Weight 132 lb 8 oz BMI 21.4 BP 100/62 Blood Pressure Location Lt brachial Position Sitting Respiration 18 Pulse 88 Pulse Source Pulse Oximeter Temp 97.1 F Temp Source Temporal Artery Scan Pulse Oximetry (%) 97 Oxygen Delivery Method Room Air Intake Visit Reasons: ear flush both ears Cabinetmaker Supervisor Required: No Accompanied by: Self / Same As Patient Allergies amoxicillin Allergy (Intermediate, Verified 07/12/25 10:03) Rash ciprofloxacin Allergy (Intermediate, Verified 07/12/25 10:03) Rash clindamycin Allergy (Intermediate, Verified 07/12/25 10:03) rash, hives hydroxychloroquine (From Plaquenil) Allergy (Intermediate, Verified 07/12/25 10:03) Rash neomycin Allergy (Intermediate, Verified 07/12/25 10:03) Rash ezetimibe Adverse Reaction (Intermediate, Verified 07/12/25 10:03) Diarrhea fenofibrate Adverse Reaction (Intermediate, Verified 07/12/25 10:03) stomach pain, heart burn losartan Adverse Reaction (Intermediate, Verified 07/12/25 10:03) dizziness pravastatin Adverse Reaction (Intermediate, Verified 07/12/25 10:03) Muscle Pain lisinopril Adverse Reaction (Mild, Verified 07/12/25 10:03) dry cough bactrim Allergy (Mild, Uncoded 07/08/25 10:18) Rash Tobacco use date assessed: 07/12/25 Fall risk assessment: 1 Fall in past year Last assessed Fall Risk: 07/12/25 Dental Screening Dental Screen Date: 07/12/25 Did you have a dental visit in the last 12 months?: Yes Did you have a dental problem in the last 6 months where you did not have access to dental care?: No Was dental information given to patient?: Patient has dentist HPI HPI Comments History of Present Illness Details 75 yo F patient presenting for scheduled bilateral ear flush. She used an ear wax removal kit at home. Her ears showed small amount of ear wax. Bilateral ear flushing done. Patient reported mild dizziness during the procedure but she otherwise tolerated it well. Post ear flush ear exam showed clear ear canals. [facility] Medical History Menstrual migraine without status migrainosus Arthritis of right glenohumeral joint Colon cancer screening Colon cancer screening Benign paroxysmal positional vertigo Osteopenia Thyroid nodule Hyperlipidemia IBS (irritable bowel syndrome) GERD (gastroesophageal reflux disease) Depression Asthma Genital warts Osteoarthritis of fingers of both hands Osteoarthritis of carpometacarpal joint of left thumb Anxiety Mood disorder High blood pressure Fibromyalgia Surgical History Status post right foot surgery History of colonoscopy History of laparoscopy History of delivery History of skin graft Family History Daughter Mental health disorder Autism Sister FH: HTN (hypertension) Mother FH: HTN (hypertension) Other Substance use disorder Social History (Updated 07/08/25 @ 10:56 by Kevyn Monique MD) Household Members: None Housing: Apartment Are you a primary pharmacist critical care to a significant other at home: No Do you presently have visiting nurse or other home services: No Alcohol intake: never Comment: 2x a year Patient Tobacco Use Status: Never used Tobacco Tobacco use type: Cigarette e-Cigarette/Vaping Use: Never Used Second Hand Smoke Exposure: No service: No Current occupational status: retired Sexual orientation: Straight/Heterosexual Gender identity: Female Cognitive needs: No Hearing needs: No Vision needs: Yes (glasses) Questionnaire Thrive Questionnaire Date Thrive assessed: 04/04/25 I am a: Patient What is your living situation today?: I have a steady place to live Within the past 12 months, did the food you bought not last and you didn't have the money to get more?: Never true Within the past 12 months, did you worry whether your food would run out before you got money to buy more?: Never true Do you have trouble paying for medicines?: No Do you have trouble getting transportation to medical appointments?: Yes Do you have trouble paying your heating and electricity bill?: No Do you have trouble taking care of your child, family member or friend?: No Do you have trouble with day-to-day activities such as bathing, preparing meals, shopping, managing finances, etc.?: Yes Are you currently unemployed and looking for a job?: No Are you interested in more education?: No Please select the resources that you would like help with: Transportation Currently or been in a relationship where the following occur: I choose not to answer THRIVE Score: 1 JIHAN-7 AMB Questionnaire JIHAN-7 Date JIHAN - 7 assessed: 04/11/25 Source: Developed by Drs. Dom Nichole, Shell Salvador, Max Chan and colleagues, with an educational mabel from [employer]. Review of Systems Const Details: Positives besides what was mentioned in HPI are in BOLD Constitutional: No Weight Change, No Fever, No Chills, No Night Sweats, No Fatigue, No Malaise ENT/Mouth: No Hearing Changes, No Ear Pain, No Nasal Congestion, No Sinus Vishal n, No Hoarseness, No sore throat, No Rhinorrhea, No Swallowing Difficulty Eyes: No Eye Pain, No Swelling, No Redness, No Foreign Body, No Discharge, No Vision Changes Cardiovascular: No Chest Pain, No SOB, No PND, No Dyspnea on Exertion, No Orthopnea, No Claudication, No Edema, No Palpitations Respiratory: No Cough, No Sputum, No Wheezing, No Smoke Exposure, No Dyspnea Gastrointestinal: No Nausea, No Vomiting, No Diarrhea, No Constipation, No Pain, No Heartburn, No Anorexia, No Dysphagia, No Hematochezia, No Melena, No Flatulence, No Jaundice Genitourinary: No Dysmenorrhea, No DUB, No Dyspareunia, No Dysuria, No Urinary Frequency, No Hematuria, No Urinary Incontinence, No Urgency, No Flank Pain, No Urinary Flow Changes, No Hesitancy Musculoskeletal: No Arthralgias, No Myalgias, No Joint Swelling, No Joint Stiffness, No Back Pain, No Neck Pain, No Injury History Skin: No Skin Lesions, No Pruritis, No Hair Changes, No Breast/Skin Changes, No Nipple Discharge Neuro: No Weakness, No Numbness, No Paresthesias, No Loss of Consciousness, No Syncope, No Dizziness, No Headache, No Coordination Changes, No Recent Falls Psych: No Anxiety/Panic, No Depression, No Insomnia, No Personality Changes, No Delusions, No Rumination, No SI/HI/AH/VH, No Social Issues, No Memory Changes, No Violence/Abuse Hx., No Eating Concerns Heme/Lymph: No Bruising, No Bleeding, No Transfusions History, No Lymphadenopathy Endocrine: No Polyuria, No Polydipsia, No Temperature Intolerance Physical exam (Primary Care) Vital Signs: Last Vital Signs Temp 97.1 F 07/12/25 10:03 Pulse 88 07/12/25 10:03 Resp 18 07/12/25 10:03 BP 100/62 07/12/25 10:03 Pulse Ox 97 07/12/25 10:03 Oxygen Delivery Method Room Air 07/12/25 10:03 BMI result Body Mass Index 21.4 Tobacco/Smoking Status: Tobacco use Status Tobacco use date assessed 07/12/25 07/12/25 10:09 Patient Tobacco Use Status Never used Tobacco 07/12/25 10:09 Tobacco use type Cigarette 07/12/25 10:09 e-Cigarette/Vaping Use Never Used 07/12/25 10:09 Thrive Assessment: Date of Thrive Assessment Date Thrive assessed 04/04/25 07/12/25 10:09 Currently or been in a relationship where the following occur: I choose not to answer Const Other: Pertinent findings are in BOLD GENERAL APPEARANCE NAD, activity normal for age, well developed/ well nourished, no cyanosis, pallor, or diaphoresis. EYES lids/conjunctiva normal. EARS/NOSE/THROAT Mucous membranes moist, nares normal, lips/teeth normal uvula midline without oral pharyngeal erythema, exudate or swelling TMs normal bilaterally. No lymphangitis/lymphedema. HEAD/NECK normocephalic atraumatic, no facial trauma, neck is supple. RESPIRATORY respiratory effort normal, speaks in full sentences, no tripod position, no accessory muscle use. Lungs clear to auscultation without rhonchi, wheezes, rales CARDIAC Regular rate and rhythm, no edema. ABDOMINAL Soft, ND/NT. No evidence of fluid wave. No pulsatile masses on exam, rebound tenderness, Harley sign or pain over Mcburney's point. MUSCLES/EXTREMITIES No abnormal range of motion, no swelling. SKIN Warm, pink and dry. No rashes, dermatoses, petechiae or lesions. NEUROLOGICAL Speech is clear and appropriate. Normal level of consciousness. Gait and coordination are normal. 5/5 strength in all extremities. PSYCH Normal mood and affect. Judgement/competence is appropriate. Ears: pre flush with small amount of bilateral ear wax. Post flush showed clear ear canals. Coding Level of Care Code Tele Est Pt Level 4 (89156) Diagnoses Cerumen impaction H61.20 Time Spent (min) 30 Comment Ear flushing Assessment & Plan Assessment & Plan (1) Cerumen impaction: Code(s): H61.20 - Impacted cerumen, unspecified ear Category: Medical Plan: Bilateral ear flush done well tolerated.
--- OUTSIDE RECORDS SUMMARY | 2025-07-12 10:27 | XMS_ITS | Encounter Summary ---
Author Organization [facility] Address [address] [facility] [address] [place] [address] Phone Care Team Providers Care Biomed Tech Name Role Phone Elba Allison MD Primary Care Provider [phone] Asia Jolley [facility] [phone] Encounter Details Date Type Department Care Team (Late st Contact Info) Description 05/04/2021 Ancillary Orders [facility] [address] [place] [address] Esha Adams MD [address] [place] [phone] [email or web address] Social History Tobacco Use Types Packs/Day [...] documented as of this encounter Care Teams Biomed Tech Relationship Specialty Start Date End Date Elba Allison MD [email or web address] PCP - General Endocrinology 11/23/19 Asia Jolley, [address] [place] [address] [email or web address] iCMP Social Work 07/07/21 02/28/22 documented as of this encounter Additional Source Comments The information contained in this document represents components of the legal health record. It is not the complete legal health record.[facility]
--- OUTSIDE RECORDS SUMMARY | 2025-07-12 10:27 | XMS_ITS | Encounter Summary ---
Author Organization [facility] Address [address] [facility] [address] [place] [address] Phone Care Team Providers Care Manager Pharmacy Name Role Phone Elba Allison MD Primary Care Provider [phone] Asia Jolley [facility] [phone] Encounter Details Date Type Department Care Team (Late st Contact Info) Description 05/01/2021 Procedure [facility], Breast Ultrasound [address] [place] [address] Social History Tobacco Use Types Packs/Day Years [...] documented as of this encounter Care Teams Manager Pharmacy Relationship Specialty Start Date End Date Elba Allison MD PCP - General Endocrinology 11/23/19 Asia Jolley, [address] [address] [email or web address] iCMP Social Work 07/07/21 02/28/22 documented as of this encounter Additional Source Comments The information contained in this document represents components of the legal health record. It is not the complete legal health record.[facility]
--- OUTSIDE RECORDS SUMMARY | 2025-07-12 10:27 | XMS_ITS | Encounter Summary ---
Author Organization [facility] Address [address] [employer] [facility] [address] [place] [address] Phone Care Team Providers Care Psychological Stress Evaluator Name Role Phone Elba Allison MD Primary Care Provider + Asia Jolley [facility] Unavailable [phone] Reason for Referral * Outpatient Procedure - Closed Specialty Diagnoses / Procedures Referred By Jovan haji Referred To Contact Radiology Diagnoses Mastitis Mass of right breast Follow-up exam Procedures CARE HOME Biopsy of Breast (Right) Elba Allison MD Phone: tel: fax: mailto:[email or web address] Referral ID Status Reason Start Date Expiration Date Visits Re quested Visits Authorized [id number] Closed 05/04/2021 05/04/2022 1 1 Encounter Details Date Type Department Care Team (Late st Contact Info) Description 05/04/2021 Ancillary Orders [facility] [address] [place] [address] Elba Allison MD [address] [place] [address] [email or web address] Mastitis; Mass of right breast; Follow-up exam [...] communicated to Savita Hernandez CNP via secure [employer] message. Impressions 05/22/2021 4:10 PM EDT Ultrasound-guided [...] documented as of this encounter Care Teams Psychological Stress Evaluator Relationship Specialty Start Date End Date Elba Allison MD PCP - General Endocrinology 11/23/19 Asia Jolley, [place] [address] iCMP Social Work 07/07/21 02/28/22 documented as of this encounter Additional Source Comments The information contained in this document represents components of the legal health record. It is not the complete legal health record.[facility]
--- OUTSIDE RECORDS SUMMARY | 2025-07-12 10:28 | XMS_ITS | Clinical Summary ---
Author Organization [facility] Address [address] [place] [address] Care Team Providers Care Order Tracer Name Role Phone Caitlyn Cano NP Primary Care Provider [phone] Allergies Active Allergy Reactions Criticality Noted Date [...] age to complete this topic Care Teams Order Tracer Relationship Specialty Start Date End Date Caitlyn Cano NP [address] [place] [address] [place] [address] PCP - General Family Medicine 01/17/23
--- OUTSIDE RECORDS SUMMARY | 2025-07-12 10:28 | XMS_ITS | Encounter Summary ---
Author Organization [facility] Address [address] [employer] [facility] [address] [place] [address] Phone Care Team Providers Care Collar Setter Name Role Phone Elba Allison MD Primary Care Provider [phone] Asia Jolley [facility] [phone] Encounter Details Date Type Department Care Team (Late st Contact Info) Description 04/30/2021 Ancillary Orders [facility] [address] [place] [address] Cristela Bello NP [address] [place], [place] [id number] [email or web address] Mastitis; Mass of right breast [...] tomonitor and facilitate patient compliance. Cristela Bello IRONING MACHINE OPERATOR IMG MG EXAMS Final Result documented in [...] documented as of this encounter Care Teams Collar Setter Relationship Specialty Start Date End Date Elba Allison MD PCP - General Endocrinology 11/23/19 Asia Jolley, [address] [address] iCMP Social Work 07/07/21 02/28/22 documented as of this encounter Additional Source Comments The information contained in this document represents components of the legal health record. It is not the complete legal health record.[facility]
--- OUTSIDE RECORDS SUMMARY | 2025-07-12 10:28 | XMS_ITS | Encounter Summary ---
Author Organization [facility] Address [address] [employer] [facility] [address] [place] [address] Phone Care Team Providers Care Mask Design Engineer Name Role Phone Elba Allison MD Primary Care Provider [phone] Asia Jolley [facility] [phone] Encounter Details Date Type Department Care Team (Late st Contact Info) Description 05/04/2021 Ancillary Orders [facility] [address] [place] [address] Cristela Bello NP [address] [place], [place] [id number] [email or web address] Mastitis; Mass of right breast; [...] documented as of this encounter Care Teams Mask Design Engineer Relationship Specialty Start Date End Date Elba Allison MD PCP - General Endocrinology 11/23/19 Asia Jolley, [address] [address] iCMP Social Work 07/07/21 02/28/22 documented as of this encounter Additional Source Comments The information contained in this document represents components of the legal health record. It is not the complete legal health record.[facility]
--- OUTSIDE RECORDS SUMMARY | 2025-07-12 10:28 | XMS_ITS | Encounter Summary ---
Author Organization [facility] Address [address] [facility] [address] [place] [address] Phone Care Team Providers Care Linoleum Floor Layer Name Role Phone Elba Allison MD Primary Care Provider [phone] Asia Jolley [facility] [phone] Encounter Details Date Type Department Care Team (Late st Contact Info) Description 04/30/2021 Ancillary Orders [facility] [address] [place] [address] Cristela Bello NP [address] [place] [address] [email or web address] Mastitis; Mass of right breast [...] documented as of this encounter Care Teams Linoleum Floor Layer Relationship Specialty Start Date End Date Elba Allison MD [email or web address] PCP - General Endocrinology 11/23/19 Asia Jolley, [place] [address] [email or web address] iCMP Social Work 07/07/21 02/28/22 documented as of this encounter Additional Source Comments The information contained in this document represents components of the legal health record. It is not the complete legal health record.[facility]
--- OUTSIDE RECORDS SUMMARY | 2025-07-12 10:28 | XMS_ITS | Encounter Summary ---
Author Organization [facility] Address [address] [employer] [facility] [address] [place] [address] Phone Care Team Providers Care Risk Compliance Analyst Name Role Phone Elba Allison MD Primary Care Provider [phone] Asia Jolley [facility] [phone] Encounter Details Date Type Department Care Team (Late st Contact Info) Description 04/29/2021 Ancillary Orders [facility] [address] [place] [address] Cristela Bello NP [address] [place], [place] [id number] [email or web address] Mastitis; Mass of right breast [...] and facilitate patient compliance. us Cristela Bello SALES MANAGEMENT INTERN IMG US BREAST Final Result documented in [...] documented as of this encounter Care Teams Risk Compliance Analyst Relationship Specialty Start Date End Date Elba Allison MD PCP - General Endocrinology 11/23/19 Asia Jolley, [place] [id number] iCMP Social Work 07/07/21 02/28/22 documented as of this encounter Additional Source Comments The information contained in this document represents components of the legal health record. It is not the complete legal health record.[facility]
--- OUTSIDE RECORDS SUMMARY | 2025-07-12 10:28 | XMS_ITS | Clinical Summary ---
Author Organization [facility] Address [address] [employer] [address] [address] Phone Care Team Providers Care Blower And Compressor Assembler Name Role Phone Elba Allison MD Primary Care Provider [phone] Allergies Active Allergy Reactions Criticality Noted Date [...] Pharmacy Needs: no issues Financial Concerns: assessing nursing home needs Other Supports and Care Needs: housing [...] denies active suicidality or plan.. Followed By toolmaker grade three. Assessment & Plan (04/29/2021 1:13 PM EDT): [...] Plan Family and Community Support Asia Hernández, [facility] Note: Barriers: {PHS AMB OP Care Plan Barriers:05402} Establish reunification of family members Care Plan Family and Community Support No Asia Jolley, DIRECTOR FUNERAL Seek support with significant life events Care Plan Family and Community Support No Asia Jolley, DIRECTOR FUNERAL Obtain housing /mcc Care Plan Complex Social Issues No SamreenAsia hunter, DIRECTOR FUNERAL Identify financial resources Care Plan Complex Social Issues No Asia Jolley, DIRECTOR FUNERAL Identify transportation resources Care Plan Complex Social Issues No SamreenAsia hunter, DIRECTOR FUNERAL Identify adequate food/nutrition resources Care Plan Complex Social Issues No Asia Jolley, DIRECTOR FUNERAL Investigate education opportunities Care Plan Complex Social Issues No MilacaAsia hunter, DIRECTOR FUNERAL Investigate employment opportunities Care Plan Complex Social Issues No Asia Jolley, DIRECTOR FUNERAL Identify daycare or elder services resources Care Plan Complex Social Issues No Asia Jolley, DIRECTOR FUNERAL Connect with community resource Care Plan Complex Social Issues No SamreenAsia hunter, DIRECTOR FUNERAL Medical Devices Implanted Type Area Bus And Sys Integration Senior Manager Device Identifier Shelf Expiration Date Model / Serial / Lot Marker Biopsy [id number] Breast Tissue Ultraclip Titanium Dual Trigger Ultrasound Enhanced Ribbon Cs/5ea - Uom Issue Use Ps # [id number] - [id number] Implanted:Qty: 1 on 05/22/2021 at [facility] CR [employer] [id number] / / Procedures Procedure Name Priority Date/Time [...] Name / ID : DAWIT Sun / [id number] Patient Birthdate: 1950 00:00:00 Exam Date : 04/16/2022 13:36:00 Accession No. : [id number] Referring Physician: GIOVANNA Welding Machine Operator Plasma Arc : Neelam Mueller Report Date : 04/16/2022 14:07:31 [FINAL REPORT] History: Postmenopausal. Technique: BONE DENSITOMETRY: Scans of the lumbar spine and left hip were performed on a [employer] SL unit. W.H.O. Classification is based on [...] Neelam Mueller Dictated: 04/16/2022 14:07 Cristela Bello TAWER IMG BD BONE DENSITY D EXA Final Result * Basic metabolic panel (10/09/2021 4:59 PM EST) Sodium 138 135 - 146 mEq/L [employer] [facility] Potassium 4.2 3.5 - 5.3 mEq/L [facility] Chloride 100 98 - 107 mEq/L [facility] CO2 27 20 - 31 mEq/L [facility] ANIONGAP 11 4 - 14 [facility] Glucose 83 70 - 99 mg/dL [facility] BUN 16 6 - 20 mg/dL [facility] Creatinine 0.7 <1.1 mg/dL [facility] GFR 87 >60 mL/min/1.7 3m^2 [facility] Comment:(If patient is Afric an Belarusian, multiply reported result by 1.21) Calcium 9.6 8.4 - 10.2 mg/dL [facility] Blood 10/09/2021 4:59 PM EST 10/09/2021 4:59 PM EST Narrative [facility] - 10/09/2021 5:54 PM EST Unless otherwise noted, Testing performed through [facility], [place] [address] Barry Watson, PhD, Color Maker No Cristela Bello NP LAB BLOOD ORDERABLES Edited Result - Final Performing Organization Address [facility] [place] [address] * (ABNORMAL) Lipid panel (04/07/2021 10:17 AM EDT) Cholesterol 228(Abnor lisa H) <200 mg/dL [facility] Triglycerides 69 <150 mg/dL [facility] Cholesterol, HDL 80 >40 mg/dL [facility] LDLC 134(Abnor lisa H) <129 mg/dL [facility] Cholesterol/HDL Ratio 2.85 <4.43 [facility] Blood 04/07/2021 10:1 7 AM EDT 04/07/2021 10:17 AM EDT Cristela Bello TAWER LAB BLOOD ORDERABLES Edited [place] [address] * MAMMOGRAPHY FOR RESULT ENTRY ONLY (09/08/2020) [...] Subscriber Plan / Payer (Ef fective 2017-Present) Name:[address] Member ID:[id number] Relation to Subscriber:Self Name:WAYASHANTI Subscriber ID:[id number] Payer ID:[id number] Group ID:Not on file Type:Medicare Address: [facility] [employer] [facility] Direct [facility] [address] [place] [phone] [facility] MEDIC[employer] ENHANCE SUPPLEMENT MEDICARE PART A & B [facility] MEDICARE ENHANCE SUPPLEMENT MEDICARE PART A & B [facility] MEDICARE ENHANCE SUPPLEMENT MEDICARE PART A & B [facility] MEDICARE ENHANCE SUPPLEMENT MEDICARE PART A & B [facility] MEDICARE ENHANCE SUPPLEMENT MEDICARE PART A & B [facility] MEDICARE ENHANCE SUPPLEMENT MEDICARE PART A & B [facility] MEDICARE ENHANCE SUPPLEMENT MEDICARE PART A & B [facility] MEDICARE ENHANCE SUPPLEMENT MEDICARE PART A & B [id number] [place] [address] MEDICARE ENHANCE SUPPLEMENT MEDICARE PART A & B [facility] MEDICARE ENHANCE SUPPLEMENT MEDICARE PART A & B [facility] MEDIC[employer] ENHANCE SUPPLEMENT Care Teams Blower And Compressor Assembler Relationship Specialty Start Date End Date Elba Allison MD PCP - General Endocrinology 11/23/19 Additional Source Comments The information contained in this document represents components of the legal health record. It is not the complete legal health record.[facility]
--- OUTSIDE RECORDS SUMMARY | 2025-07-12 10:28 | XMS_ITS | Encounter Summary ---
Author Organization [facility] Address [address] [employer] [facility] [address] [place] [address] Phone Care Team Providers Care Custom Marine Canvas Fabricator Name Role Phone Elba Allison MD Primary Care Provider + Asia Jolley [facility] Unavailable [phone] Reason for Referral * Outpatient Procedure - Closed Specialty Diagnoses / Procedures Referred By Jovan haji Referred To Contact Radiology Diagnoses Mastitis Mass of right breast Follow-up exam Procedures PENITENTIARY Breast Abscess Drainage (Right) Elba Allison MD Phone: tel: fax: mailto:[email or web address] Referral ID Status Reason Start Date Expiration Date Visits Re quested Visits Authorized [id number] Closed 05/22/2021 05/22/2022 1 1 Encounter Details Date Type Department Care Team (Late st Contact Info) Description 05/22/2021 Ancillary Orders [facility] [address] [place] [address] Elba Allison MD [address] [place] [address] [email or web address] Mastitis; Mass of right breast; Follow-up exam [...] documented as of this encounter Results * PENITENTIARY Breast Abscess Drainage (Right) (05/22/2021 1:15 PM [...] communicated to Savita Hernandez CNP via secure [employer] message. Impressions 05/22/2021 4:10 PM EDT Ultrasound-guided [...] documented as of this encounter Care Teams Custom Marine Canvas Fabricator Relationship Specialty Start Date End Date Elba Allison MD PCP - General Endocrinology 11/23/19 Asia Jolley, [place] [address] iCMP Social Work 07/07/21 02/28/22 documented as of this encounter Additional Source Comments The information contained in this document represents components of the legal health record. It is not the complete legal health record.[facility]
--- OUTSIDE RECORDS SUMMARY | 2025-07-12 10:28 | XMS_ITS | Encounter Summary ---
Author Organization [facility] Address [address] [employer] [facility] [address] [place] [address] Phone Care Team Providers Care Field Marketing Representative Name Role Phone Elba Allison MD Primary Care Provider + Asia Jolley [facility] [phone] Reason for Referral * Outpatient Procedure - Closed Specialty Diagnoses / Procedures Referred By Jovan haji Referred To Contact Radiology Diagnoses Mastitis Mass of right breast Follow-up exam Procedures Mammogram Diagnostic Post Procedure (Right) Elba Allison MD Phone: tel: fax: mailto:[email or web address] Referral ID Status Reason Start Date Expiration Date Visits Re quested Visits Authorized [id number] Closed 05/22/2021 05/22/2022 1 1 Encounter Details Date Type Department Care Team (Late st Contact Info) Description 05/22/2021 Ancillary Orders [facility] [address] [place] [address] Elba Allison MD [address] [place] [phone] [email or web address] Mastitis; Mass of right breast; Follow-up exam [...] communicated to Savita Hernandez CNP via secure [employer] message. Impressions 05/22/2021 4:10 PM EDT Ultrasound-guided [...] documented as of this encounter Care Teams Field Marketing Representative Relationship Specialty Start Date End Date Elba Allison MD PCP - General Endocrinology 11/23/19 Asia Jolley, [place] [address] iCMP Social Work 07/07/21 02/28/22 documented as of this encounter Additional Source Comments The information contained in this document represents components of the legal health record. It is not the complete legal health record.[facility]
--- OUTSIDE RECORDS SUMMARY | 2025-07-12 10:28 | XMS_ITS | Clinical Summary ---
Author Organization [facility] it Address [address] [place] [address] Care Team Providers Care Other Spatial Scientist Name Role Phone Caitlyn Cano KAROL Primary Care Provider [phone] Immunizations Name Administration Dates Next Due Pfizer [...] age to complete this topic Care Teams Other Spatial Scientist Relationship Specialty Start Date End Date Caitlyn Cano NP [address] [place] [address] [place] [address] PCP - General 01/17/23
--- OUTSIDE RECORDS SUMMARY | 2025-07-12 10:28 | XMS_ITS | Encounter Summary ---
Author Organization [facility] Address [address] [facility] [address] [place] [address] Phone Care Team Providers Care Development And Housing Director Name Role Phone Elba Allison MD Primary Care Provider [phone] Asia Jolley [facility] Encounter Details Date Type Department Care Team (Late st Contact Info) Description 05/01/2021 Ancillary Orders [facility] Imaging Services [address], [place] [id number] System, Provider [place] In, [place] [address] Social History Tobacco Use Types Packs/Day Years [...] (No Interpretation) (09/08/2020 12:00 AM EST) Narrative [facility] IMG INTERFACES - 05/01/2021 9:12 AM EDT This study is for PACS storage only and not for interpretation. us Provider Not In System PhD IMG OUTSIDE IMAGING W /OUT INTERPRETATION Final Result Performing Organization Address [facility] de Phone Number NW IMG INTERFACES * Mammogram Outside (No Interpretation) (09/03/2019 12:00 AM EST) Narrative [facility] INTERFACES - 05/01/2021 9:12 AM EDT This study is for PACS storage only and not for interpretation. us Provider Not In System PhD IMG OUTSIDE IMAGING W /OUT INTERPRETATION Final Result Performing Organization Address [facility] de Phone Number NW IMG INTERFACES * Mammogram Outside (No Interpretation) (07/04/2018 12:00 AM EDT) Narrative [facility] INTERFACES - 05/01/2021 9:13 AM EDT This study is for PACS storage only and not for interpretation. us Provider Not In System PhD IMG OUTSIDE IMAGING W /OUT INTERPRETATION Final Result Performing Organization Address [facility] de Phone Number NW IMG INTERFACES * Mammogram Outside (No Interpretation) (04/08/2017 12:00 AM EDT) Narrative [facility] IMG INTERFACES - 05/01/2021 9:13 AM EDT This study is for PACS storage only and not for interpretation. us Provider Not In System PhD IMG OUTSIDE IMAGING W /OUT INTERPRETATION Final Result Performing Organization Address [facility] de Phone Number NW IMG INTERFACES * US Breast Outside (No Interpretation) (10/08/2016 12:05 AM EST) Narrative [facility] INTERFACES - 05/01/2021 9:14 AM EDT This study is for PACS storage only and not for interpretation. us Provider Not In System PhD IMG OUTSIDE IMAGING W /OUT INTERPRETATION Final Result Performing Organization Address [facility] de Phone Number NW IMG INTERFACES * Mammogram Outside (No Interpretation) (10/08/2016 12:00 AM EST) Narrative [facility] INTERFACES - 05/01/2021 9:14 AM EDT This study is for PACS storage only and not for interpretation. us Provider Not In System PhD IMG OUTSIDE IMAGING W /OUT INTERPRETATION Final Result Performing Organization Address [facility] de Phone Number NW IMG INTERFACES * US Breast Outside (No Interpretation) (04/22/2016 12:05 AM EDT) Narrative [facility] IMG INTERFACES - 05/01/2021 9:15 AM EDT This study is for PACS storage only and not for interpretation. us Provider Not In System PhD IMG OUTSIDE IMAGING W /OUT INTERPRETATION Final Result Performing Organization Address [facility] de Phone Number NW IMG INTERFACES * Mammogram Outside (No Interpretation) (04/22/2016 12:00 AM EDT) Narrative [facility] IMG INTERFACES - 05/01/2021 9:15 AM EDT This study is for PACS storage only and not for interpretation. us Provider Not In System PhD IMG OUTSIDE IMAGING W /OUT INTERPRETATION Final Result Performing Organization Address [facility] de Phone Number NW IMG INTERFACES * Mammogram Outside (No Interpretation) (04/12/2016 12:05 AM EDT) Narrative [facility] IMG INTERFACES - 05/01/2021 9:16 AM EDT This study is for PACS storage only and not for interpretation. us Provider Not In System PhD IMG OUTSIDE IMAGING W /OUT INTERPRETATION Final Result Performing Organization Address [facility] de Phone Number NW IMG INTERFACES * US Breast Outside (No Interpretation) (04/12/2016 12:00 AM EDT) Narrative [facility] IMG INTERFACES - 05/01/2021 9:16 AM EDT This study is for PACS storage only and not for interpretation. us Provider Not In System PhD IMG OUTSIDE IMAGING W /OUT INTERPRETATION Final Result Performing Organization Address [facility] de Phone Number NW IMG INTERFACES * Mammogram Outside (No Interpretation) (03/19/2016 12:00 AM EDT) Narrative [facility] IMG INTERFACES - 05/01/2021 9:16 AM EDT This study is for PACS storage only and not for interpretation. us Provider Not In System PhD IMG OUTSIDE IMAGING W /OUT INTERPRETATION Final Result Performing Organization Address [facility] de Phone Number NW IMG INTERFACES * Mammogram Outside (No Interpretation) (02/24/2015 12:00 AM EDT) Narrative [facility] IMG INTERFACES - 05/01/2021 9:17 AM EDT This study is for PACS storage only and not for interpretation. us Provider Not In System PhD IMG OUTSIDE IMAGING W /OUT INTERPRETATION Final Result Performing Organization Address [facility] Phone Number [facility] IMG INTERFACES * Mammogram Outside (No Interpretation) (01/07/2014 12:00 AM EDT) Narrative [facility] IMG INTERFACES - 05/01/2021 9:17 AM EDT This study is for PACS storage only and not for interpretation. us Provider Not In System PhD IMG OUTSIDE IMAGING W /OUT INTERPRETATION Final Result Performing Organization Address [facility] de Phone Number [facility] IMG INTERFACES documented in this encounter Visit Diagnoses Not on filedocumented in this encounter Additional Health Concerns Assessment Noted Time PHQ-9 Depression Total Score: 13 021 11:43 AM EDT PHQ-2 Depression Total Score: 6 04/09/20 21 11:43 AM EDT documented as of this encounter Care Teams Development And Housing Director Relationship Specialty Start Date End Date Elba Allison MD PCP - General Endocrinology 11/23/19 Asia Jolley, [place] [address] [email or web address] [email or web address] Social Work 07/07/21 02/28/22 documented as of this encounter Additional Source Comments The information contained in this document represents components of the legal health record. It is not the complete legal health record.[facility]
--- OUTSIDE RECORDS SUMMARY | 2025-07-12 10:28 | XMS_ITS | Encounter Summary ---
Author Organization [facility] Address [address] [facility] [address] [place] [address] Phone Care Team Providers Care Air Bag Stripper Name Role Phone Elba Allison MD Primary Care Provider [phone] Asia Jolley [facility] [phone] Encounter Details Date Type Department Care Team (Late st Contact Info) Description 04/30/2021 Procedure Pass [facility]- Breast Imaging, [facility] [address] [id number] Social History Tobacco Use Types Packs/Day Years [...] documented as of this encounter Care Teams Air Bag Stripper Relationship Specialty Start Date End Date Elba Allison MD [email or web address] PCP - General Endocrinology 11/23/19 Asia Jolley, [address] [address] [email or web address] [email or web address] Social Work 07/07/21 02/28/22 documented as of this encounter Additional Source Comments The information contained in this document represents components of the legal health record. It is not the complete legal health record.[facility]
--- OUTSIDE RECORDS SUMMARY | 2025-07-12 10:28 | XMS_ITS ---
Care Plan Created on: July 12, [address] : 1950 Sex: Female Author Organization [facility] Address [address] [place] [address] Phone Care Team Providers Care Central Supply Assistant Name Role Phone Elba Allison MD Primary Care Provider [phone] Active Problems Patient Care Coordination No te [...] Pharmacy Needs: no issues Financial Concerns: assessing fdc needs Other Supports and Care Needs: housing [...] denies active suicidality or plan.. Followed By psychiatric np. Assessment & Plan (04/29/2021 1:13 PM EDT): Stable on Lexapro and Gabapentin. Unable to connect with a therapist despite trying multiple times. Will refer to Asia Jolley [facility] for assistance. Assessment & Plan (05/30/2020 [...] Family and Community Support No Asia Jolley, PLATING INSPECTOR Note: Barriers: {PHS AMB OP Care Plan Barriers:[id number]} Establish reunification of family members Care Plan Family and Community Support No Asia Jolley, PLATING INSPECTOR Seek support with significant life events Care Plan Family and Community Support No Asia Jolley, PLATING INSPECTOR Obtain housing /nursing home Care Plan Complex Social Issues No Asia Jolley, PLATING INSPECTOR Identify financial resources Care Plan Complex Social Issues No Asia Jolley, PLATING INSPECTOR Identify transportation resources Care Plan Complex Social Issues No Asia Jolley, PLATING INSPECTOR Identify adequate food/nutrition resources Care Plan Complex Social Issues No Asia Jolley, PLATING INSPECTOR Investigate education opportunities Care Plan Complex Social Issues No Asia Jolley, PLATING INSPECTOR Investigate employment opportunities Care Plan Complex Social Issues No Asia Jolley, PLATING INSPECTOR Identify daycare or elder services resources Care Plan Complex Social Issues No Asia Jolley, PLATING INSPECTOR Connect with community resource Care Plan Complex Social Issues No Asia Jolley, PLATING INSPECTOR Interventions Care Plan Interventions Intervention Entry Date [...]
--- OUTSIDE RECORDS SUMMARY | 2025-07-12 10:28 | XMS_ITS | Encounter Summary ---
Author Organization [facility] Address [address] [facility] [address] [place] [address] Phone Care Team Providers Care Curing Supervisor Name Role Phone Elba Allison MD Primary Care Provider [phone] Asia Jolley [facility] [phone] Encounter Details Date Type Department Care Team (Late st Contact Info) Description 05/01/2021 Ancillary Orders [facility] [address] [place] [address] Cristela Bello NP [address] [place] [address] [email or web address] Mastitis; Mass of [...] documented as of this encounter Care Teams Curing Supervisor Relationship Specialty Start Date End Date Elba Allison MD PCP - General Endocrinology 11/23/19 Asia Jolley, [place] [address] iCMP Social Work 07/07/21 02/28/22 documented as of this encounter Additional Source Comments The information contained in this document represents components of the legal health record. It is not the complete legal health record.[facility]
--- OUTSIDE RECORDS SUMMARY | 2025-07-12 10:28 | XMS_ITS | Clinical Summary ---
Author Organization [facility] Address [address] [place] [address] Care Team Providers Care Plug And Mold Finisher Name Role Phone Yoko Jolly Primary Care Provider [phone] Allergies Active Allergy Reactions Criticality Noted Date [...] MEDICARE PART B FFS MEDICARE-SUPPLEMENTAL Care Teams Plug And Mold Finisher Relationship Specialty Start Date End Date Yoko Jolly [address] [place] [address] [place] [address] PCP - General Internal Medicine 03/19/16
--- OUTSIDE RECORDS SUMMARY | 2025-07-12 10:28 | XMS_ITS | Encounter Summary ---
Author Organization [facility] Address [address] [facility] [address] [place] [address] Phone Care Team Providers Care Conduit Reamer Operator Name Role Phone Elba Allison MD Primary Care Provider [phone] Asia Jolley [facility] Encounter Details Date Type Department Care Team (Late st Contact Info) Description 04/29/2021 Procedure Pass [facility], Breast Ultrasound [address] [place] [address] Social History Tobacco Use Types Packs/Day Years [...] documented as of this encounter Care Teams Conduit Reamer Operator Relationship Specialty Start Date End Date Elba Allison MD [email or web address] PCP - General Endocrinology 11/23/19 Asia Jolley, [address] [address] [email or web address] Social Work 07/07/21 02/28/22 documented as of this encounter Additional Source Comments The information contained in this document represents components of the legal health record. It is not the complete legal health record.[facility]
== END 2025-07-12 10:36 | disposition home or self-care (01) ==
LOC: HO.HMCH 09:56
PROVIDERS: PCP Internal Medicine; Visit Provider Internal Medicine
DX: H61.23 Impacted cerumen, bilateral (principal)

== ENCOUNTER → 2025-07-12 09:55 | Outpatient (BNVA) | payer MEDICARE, OTHER, SELFPAY | PROVIDERS: PCP Internal Medicine; Visit Provider Internal Medicine | DX: H61.23 Impacted cerumen, bilateral (principal) | CPT/HCPCS: 99212 ==

== ENCOUNTER 2025-08-21 12:15 | Outpatient (AMB) | payer MEDICARE, OTHER, SELFPAY ==
[2025-08-21 12:22] VITALS: BP 120/78; PULSE 73; O2SAT 98; BMI 21.9
--- NOTE | 2025-08-21 12:22 | A.OFFVIS_ITS ---
Vital Signs 08/21/25 12:22 Height 5 ft 6 in Weight 136 lb BMI 21.9 BP 120/78 Blood Pressure Location Rt brachial Position Sitting Pulse 73 Pulse Source Pulse Oximeter Pulse Oximetry (%) 98 Oxygen Delivery Method Room Air Intake Visit Reasons: follow up with MD Intake Note: Follow up Carotid artery stenosis, Dizziness and Giddiness, Vertigo and Essential Hypertension Therapeutic Assistant Required: No Accompanied by: Self / Same As Patient Allergies amoxicillin Allergy (Intermediate, Verified 08/21/25 12:22) Rash ciprofloxacin Allergy (Intermediate, Verified 08/21/25 12:22) Rash clindamycin Allergy (Intermediate, Verified 08/21/25 12:22) rash, hives hydroxychloroquine (From Plaquenil) Allergy (Intermediate, Verified 08/21/25 12:22) Rash neomycin Allergy (Intermediate, Verified 08/21/25 12:22) Rash ezetimibe Adverse Reaction (Intermediate, Verified 08/21/25 12:22) Diarrhea fenofibrate Adverse Reaction (Intermediate, Verified 08/21/25 12:22) stomach pain, heart burn losartan Adverse Reaction (Intermediate, Verified 08/21/25 12:22) dizziness pravastatin Adverse Reaction (Intermediate, Verified 08/21/25 12:22) Muscle Pain lisinopril Adverse Reaction (Mild, Verified 08/21/25 12:22) dry cough bactrim Allergy (Mild, Uncoded 07/08/25 10:18) Rash HPI Comments Details: 75y/o female comes for follow up of dizziness. she is better with vestibular therapy but still has mild dizziness.she reports photophobia she is on verapramil . History from last visit-Since last visit, patient was started on verapamil. She is not consistently taking gabapentin. Pt reports that initially her dizziness and photophobia had improved after starting the verapamil, however more recently the dizziness and photophobia has increased again. She states her psychiatric provider had suggested reaching out to us, to consider increasing the verapamil. She denies any current orthostatic lightheadedness. Blood pressure usually normotensive, today 130/70. Has a BP cuff at home. She is compliant with her amlodipine 2.5 mg in the morning. Her carotid ultrasound, showed moderate right ICA stenosis. Patient was advised to start baby aspirin. Patient also had vascular consult, who plans to do repeat carotid ultrasound in 6 months and to continue the verapamil and aspirin. She did try the FL-41 theraspecs, but this seemed to cause a headache and worsened her dizziness. She is returning them, but trying a different type of light blocking filter. 03/06/25 IMPRESSION: 50-69% STENOSIS AT LEVEL OF RIGHT ICA. LESS THAN 50% STENOSIS AT LEVEL OF THE CCAS AND LEFT ICA. 03/05/25, MR/MR head/brain wo/w con IMPRESSION: No vestibular schwannoma. 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 Right-handed 74-yr-old female presents for new in-person patient evaluation for dizziness. PMH is notable for osteopenia, OA, thyroid nodule, HTN, HLD, IBS, GERD, anxiety/depression, asthma, fibromyalgia. Patient reports reports she has had dizziness for quite some time which has been episodic but more recently has been constant for the last few weeks. She describes the dizziness as really debilitating , which is elicited by turning her head. She has difficulty describing the dizziness, and denies room spinning or not right in space or pulling dizziness. but is elicited by turning her head. She states she was told this may be a type of migraine without headache. In July of 2024, she reports she had ear evaluation for increased dizziness and HTN with BP as high as 169/98 in Jul 2024. She went to the ER- who suggested she had BPPV. She completed vestibular PT, who per pt ruled out BPPV but did continue to do vestibular/eye exercises which was helpful but she continues to have dizziness. She has tried adjusting medication doses without much effect, including: Stopped losartan, and is now on Amlodipine. She tried reducing Gabapentin from 700mg to 100mg per day for fibromyalgia- though this did not help the dizziness. She wonders if she can increase it back up to 200mg. In the past, she took magnesium glycinate which possibly though she is not certain, caused loose stools as she was taking it along an oil supplement. Also endorses increased photophobia, nausea, rare mild headaches, h/o menstrual migraine, motion sickness since childhood, shoulder pain/arthritis, depression/anxiety f/b psychiatry, asthma, nasal congestion. Has neck soreness if she exercises too much, but denies shooting pain. Last year- she had a widespread rash- eventually dx'd as atopic dermatitis by [facility], which responded to Dupixant. She does endorse stress and anxiety-related to having a daughter with autism spectrum disorder and needing to make sure her daughter is financially secure. Patient does not drive, lives in [facility], relies on transportation. However when she did drive, she did not tolerate being a passenger due to motion sickness. Denies numbness/tingling, shooting pain, difficulty sleeping. No h/o head imaging. [facility] Medical History Menstrual migraine without status migrainosus Arthritis of right glenohumeral joint Colon cancer screening Colon cancer screening Benign paroxysmal positional vertigo Osteopenia Thyroid nodule Hyperlipidemia IBS (irritable bowel syndrome) GERD (gastroesophageal reflux disease) Depression Asthma Genital warts Osteoarthritis of fingers of both hands Osteoarthritis of carpometacarpal joint of left thumb Anxiety Mood disorder High blood pressure Fibromyalgia Surgical History Status post right foot surgery History of colonoscopy History of laparoscopy History of delivery History of skin graft Family History Daughter Mental health disorder Autism Sister FH: HTN (hypertension) Mother FH: HTN (hypertension) Other Substance use disorder Social History Household Members: None Housing: Apartment Are you a primary nursing care attendant to a significant other at home: No Do you presently have visiting nurse or other home services: No Alcohol intake: never Comment: 2x a year Patient Tobacco Use Status: Never used Tobacco Tobacco use type: Cigarette e-Cigarette/Vaping Use: Never Used Second Hand Smoke Exposure: No service: No Current occupational status: retired Sexual orientation: Straight/Heterosexual Gender identity: Female Cognitive needs: No Hearing needs: No Vision needs: Yes (glasses) Physical Exam Vital Signs: Last Vital Signs Pulse 73 08/21/25 12:22 BP 120/78 08/21/25 12:22 Pulse Ox 98 08/21/25 12:22 Oxygen Delivery Method Room Air 08/21/25 12:22 BMI result Body Mass Index 21.9 Const General: no acute distress Orientation/consciousness: patient oriented x3 Resp Effort & Inspection: normal respiratory effort and able to speak in complete sentences Neuro General: patient oriented x3 Psych Speech and movement: Clear speech present Attitude: cooperative Thought process: Normal thought process present Assessment & Plan Assessment & Plan (1) Dizziness: Comment: vestibular migraine Code(s): R42 - Dizziness and giddiness Category: Medical (2) Motion sickness: Code(s): T75.3XXA - Motion sickness, initial encounter Category: Medical Qualifiers: Encounter type: subsequent encounter Qualified Code(s): T75.3XXD - Motion sickness, subsequent encounter (3) Carotid artery stenosis: Comment: February-69% STENOSIS AT LEVEL OF RIGHT ICA. LESS THAN 50% STENOSIS AT LEVEL OF THE CCAS AND LEFT ICA. Code(s): I65.29 - Occlusion and stenosis of unspecified carotid artery Category: Medical Qualifiers: Laterality: bilateral Qualified Code(s): I65.23 - Occlusion and stenosis of bilateral carotid arteries (4) Vertigo: Code(s): R42 - Dizziness and giddiness Category: Medical Plan I will trial her on amitriotyline 10mg qhs verapamil ER 120 mg daily at bedtime Aspirin 81 mg chewable at bedtime Riboflavin 400 mg daily in the morning. Magnesium up to 400-500 mg daily at bedtime-may hold for loose stools. gabapentin 100mgqhs Ca doppler in Aug 2025 amitriptyline 10 mg qhs ( monitor sodium) Coding Level of Care Code Est Pt Level 4 (08005) Complex EM visit Add On G2211 Diagnoses Dizziness R42 Motion sickness, subsequent encounter T75.3XXD Encounter type: subsequent encounter Bilateral carotid artery stenosis I65.23 Laterality: bilateral Vertigo R42
--- OUTSIDE RECORDS SUMMARY | 2025-08-21 15:39 | XMS_ITS | Encounter Summary ---
Author Organization [facility] Address [email or web address] [facility] [address] [place] [address] Phone Care Team Providers Care Assistant Kitchen Manager Name Role Phone Elba Allison MD Primary Care Provider [phone] Asia Jolley [facility] Encounter Details Date Type Department Care Team (Late st Contact Info) Description 05/04/2021 Ancillary Orders [facility] [address] [place] [address] Cristela Bello NP [address] [place], [place] [id number] [email or web address] Mastitis; Mass of right breast; [...] documented as of this encounter Care Teams Assistant Kitchen Manager Relationship Specialty Start Date End Date Elba Allison MD PCP - General Endocrinology 11/23/19 Asia Jolley, [address] [address] PHCM Diabetes Trainer 07/07/21 02/28/22 documented as of this encounter Additional Source Comments The information contained in this document represents components of the legal health record. It is not the complete legal health record.[facility]
--- OUTSIDE RECORDS SUMMARY | 2025-08-21 15:39 | XMS_ITS ---
Care Plan Created on: August 21, [address] : 1950 Sex: Female Author Organization [facility] Address [address] [place] [address] Phone Care Team Providers Care Peach Grower Name Role Phone Elba Allison MD Primary Care Provider [phone] Active Problems Patient Care Coordination No te [...] Pharmacy Needs: no issues Financial Concerns: assessing snf needs Other Supports and Care Needs: housing [...] denies active suicidality or plan.. Followed By hand spring former. Assessment & Plan (04/29/2021 1:13 PM EDT): Stable on Lexapro and Gabapentin. Unable to connect with a therapist despite trying multiple times. Will refer to Asia Jolley [facility] for assistance. Assessment & Plan (05/30/2020 [...] Family and Community Support No Asia Jolley, MERGERS AND ACQUISITIONS MANAGER Note: Barriers: {PHS AMB OP Care Plan Barriers:42479} Establish reunification of family members Care Plan Family and Community Support No Asia Jolley, MERGERS AND ACQUISITIONS MANAGER Seek support with significant life events Care Plan Family and Community Support No Asia Jolley, MERGERS AND ACQUISITIONS MANAGER Obtain housing /half-way Care Plan Complex Social Issues No Asia Jolley, MERGERS AND ACQUISITIONS MANAGER Identify financial resources Care Plan Complex Social Issues No Asia Jolley, MERGERS AND ACQUISITIONS MANAGER Identify transportation resources Care Plan Complex Social Issues No Asia Jolley, MERGERS AND ACQUISITIONS MANAGER Identify adequate food/nutrition resources Care Plan Complex Social Issues No Asia Jolley, MERGERS AND ACQUISITIONS MANAGER Investigate education opportunities Care Plan Complex Social Issues No Asia Jolley, MERGERS AND ACQUISITIONS MANAGER Investigate employment opportunities Care Plan Complex Social Issues No Asia Jolley, MERGERS AND ACQUISITIONS MANAGER Identify daycare or elder services resources Care Plan Complex Social Issues No Asia Jolley, MERGERS AND ACQUISITIONS MANAGER Connect with community resource Care Plan Complex Social Issues No Asia Jolley, MERGERS AND ACQUISITIONS MANAGER Interventions Care Plan Interventions Intervention Entry Date [...]
--- OUTSIDE RECORDS SUMMARY | 2025-08-21 15:39 | XMS_ITS | Patient Health Record ---
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) Active confirmed Plan Of Treatment No Information Insurance Providers Payer Name Payer Address Payer Phone Subscriber Number Group Number Insured Name Patient Relationship to Insured Coverage Start Date Coverage End Date Medicare [address] [place], [place] [id number] Self - patient is the insured [employer] Medicare Enhanced [address] [id number] Self - patient is the insured Medical (General) History Medical History History ICD Code FIBROMIALGYA DEPRESSION HIGH BLOOD PRESSURE OSTEOPINIA Surgical History Surgery Date(Month/Year) CATARACT EXTRACTION WITH IMPLANT VINCE S N60WF 12/17/2021 CATARACT EXTRACTION RIGHT EYE WITH LENS IMPLANT [id number] +19.5 D 01/14/22
--- OUTSIDE RECORDS SUMMARY | 2025-08-21 15:39 | XMS_ITS | Patient Health Record ---
Author Organization [facility] Address [address] [facility] [address] [place] [address] Care Team Providers Care Jersey Knitter Name Role Phone chantelle sun Primary Care [...] of [place] [address] [place] [id number] Self - patient is the insured [facility] [address] [place] [id number] Self - patient is the insured Medical (General) History Medical History History ICD Code right lateral ankle fracture hypertension osteoporosis previous right ankle fracture left ankle sprains osteopenia osteoarthritis anxiety depression fibromyalgia mood disorder Surgical History Surgery Date(Month/Year) 09/13/1983 colonoscopy laparoscopy skin graft on right foot Hospitalization History Reason Date(Month/Year) (girl) 09/13/1983
--- OUTSIDE RECORDS SUMMARY | 2025-08-21 15:39 | XMS_ITS | Clinical Summary ---
Author Organization [facility] it Address [address] [place] [address] Care Team Providers Care Ultrasound Applications Specialist Name Role Phone Caitlyn Cano KAROL Primary Care Provider [phone] Immunizations Immunization Administration Dates Next Due Pfizer SARS-CoV-2 COVID-19, mRNA, LNP-S, preservative free 01/13/2021,12/22/2020 Surgical History Surgery Date Site/Laterality Comments SKIN GRAFT 1960 Right PROCEDURE:SKIN GRAFT;COMMENT:foot SECTION PROCEDURE: SECTION CATARACT EXTRACTION W/ INTRAOCULAR LENS IMPLANT Bilateral PROCEDURE:CATARACT EXTRACTION W/ INTRAOCULAR LENS IMPLANT OTHER SURGICAL HISTORY PROCEDURE:MOHS SURGERY TOE SURGERY 01/19/2023 Right PROCEDURE:TOE SURGERY;COMMENT:Procedure: RIGHT 2ND TOE CORRECTION HAMMERTOE; Surgeon: Todd Valencia DPM; Location: [facility]; Service: Podiatry; Laterality: Right; Medical History [...] Last Done Comments Breast Cancer Screening 1950 Colorectal Cancer Screening: Colonoscopy 1950 DTaP,Tdap,and Td Vaccines (1 - Tdap) 1971 Pneumococcal Vaccine: 50+ Years (1 of 1 - PCV) 2002 Zoster Vaccines (1 of 2) 2002 Falls Risk Assessment 11/18/2023 Hepatitis C Screening [...] age to complete this topic Care Teams Ultrasound Applications Specialist Relationship Specialty Start Date End Date Caitlyn Cano NP [address] [place] [address] [place] [id number] PCP - General 01/17/23
--- OUTSIDE RECORDS SUMMARY | 2025-08-21 15:39 | XMS_ITS | Encounter Summary ---
Author Organization [facility] Address [address] [facility] [address] [place] [address] Phone Care Team Providers Care Enterprise Manager Name Role Phone Elba Allison MD Primary Care Provider [phone] Asia Jolley [facility] [phone] Encounter Details Date Type Department Care Team (Late st Contact Info) Description 05/01/2021 Ancillary Orders [facility] [address] [place] [address] Cristela Bello NP [address] [place] [address] [email or web address] Mastitis; Mass of [...] documented as of this encounter Care Teams Enterprise Manager Relationship Specialty Start Date End Date Elba Allison MD PCP - General Endocrinology 11/23/19 Asia Jolley, [place] [address] PHCM Watershed Tender 07/07/21 02/28/22 documented as of this encounter Additional Source Comments The information contained in this document represents components of the legal health record. It is not the complete legal health record.[facility]
--- OUTSIDE RECORDS SUMMARY | 2025-08-21 15:39 | XMS_ITS | Encounter Summary ---
Author Organization [facility] Address [address] [facility] [address] [place] [address] Phone Care Team Providers Care Teacher Theater Arts Name Role Phone Elba Allison MD Primary Care Provider [phone] Asia Jolley [facility] [phone] Encounter Details Date Type Department Care Team (Late st Contact Info) Description 04/30/2021 Ancillary Orders [facility] [address] [place] [address] Cristela Bello NP [address] [place] [address] [email or web address] Mastitis; Mass of right breast [...] documented as of this encounter Care Teams Teacher Theater Arts Relationship Specialty Start Date End Date Elba Allison MD [email or web address] PCP - General Endocrinology 11/23/19 Asia Jolley, [place] [address] [email or web address] PHCM Small Order Cutter 07/07/21 02/28/22 documented as of this encounter Additional Source Comments The information contained in this document represents components of the legal health record. It is not the complete legal health record.[facility]
--- OUTSIDE RECORDS SUMMARY | 2025-08-21 15:39 | XMS_ITS | Clinical Summary ---
Author Organization [facility] Address [address] [place] [address] Care Team Providers Care Title Closer Name Role Phone Caitlyn Cano NP Primary Care Provider [phone] Allergies Active Allergy Reactions Criticality Noted Date [...] age to complete this topic Care Teams Title Closer Relationship Specialty Start Date End Date Caitlyn Cano NP [address] [place] [address] [place] [address] PCP - General Family Medicine 01/17/23
--- OUTSIDE RECORDS SUMMARY | 2025-08-21 15:39 | XMS_ITS | Encounter Summary ---
Author Organization [facility] Address [address] [facility] [address] [place] [address] Phone Care Team Providers Care Otologist Name Role Phone Elba Allison MD Primary Care Provider [phone] Asia Jolley [facility] [phone] Encounter Details Date Type Department Care Team (Late st Contact Info) Description 05/04/2021 Ancillary Orders [facility] [address] [place] [address] Esha Adams MD [address] [place] [address] [email or web address] Social History Tobacco Use Types Packs/Day [...] documented as of this encounter Care Teams Otologist Relationship Specialty Start Date End Date Elba Allison MD PCP - General Endocrinology 11/23/19 Asia Jolley, [place] [address] [email or web address] PHCM Loading Machine Tool Setter 07/07/21 02/28/22 documented as of this encounter Additional Source Comments The information contained in this document represents components of the legal health record. It is not the complete legal health record.[facility]
--- OUTSIDE RECORDS SUMMARY | 2025-08-21 15:39 | XMS_ITS | Encounter Summary ---
Author Organization [facility] Address [email or web address] [facility] [address] [place] [address] Phone Care Team Providers Care Green End Department Supervisor Name Role Phone Elba Allison MD Primary Care Provider + Asia Jolley [facility] Unavailable [phone] Reason for Referral * Outpatient Procedure - Closed Specialty Diagnoses / Procedures Referred By Jovan haji Referred To Contact Radiology Diagnoses Mastitis Mass of right breast Follow-up exam Procedures [facility]CI Biopsy of Breast (Right) Elba Allison MD Phone: tel: fax: mailto:[email or web address] Referral ID Status Reason Start Date Expiration Date Visits Re quested Visits Authorized [id number] Closed 05/04/2021 05/04/2022 1 1 Encounter Details Date Type Department Care Team (Late st Contact Info) Description 05/04/2021 Ancillary Orders [facility] [address] [place] [address] Elba Allison MD [address] [place] [address] [email or web address] Mastitis; Mass of right breast; Follow-up exam [...] documented as of this encounter Results * [facility]CI Biopsy of Breast (Right) (05/22/2021 1:19 PM [...] communicated to Savita Hernandez CNP via secure [employer] message. Impressions 05/22/2021 4:10 PM EDT Ultrasound-guided [...] documented as of this encounter Care Teams Green End Department Supervisor Relationship Specialty Start Date End Date Elba Allison MD PCP - General Endocrinology 11/23/19 Asia Jolley, [place] [address] PHCM Head Mixer 07/07/21 02/28/22 documented as of this encounter Additional Source Comments The information contained in this document represents components of the legal health record. It is not the complete legal health record.[facility]
--- OUTSIDE RECORDS SUMMARY | 2025-08-21 15:39 | XMS_ITS | Encounter Summary ---
Author Organization [facility] Address [address] [place] [address] [place] [address] Phone Care Team Providers Care Peoplesoft Name Role Phone Elba Allison MD Primary Care Provider + Asia Jolley [facility] Unavailable [phone] Reason for Referral * Outpatient Procedure - Closed Specialty Diagnoses / Procedures Referred By Jovan haji Referred To Contact Radiology Diagnoses Mastitis Mass of right breast Follow-up exam Procedures LONG-TERM Breast Abscess Drainage (Right) Elba Allison MD Phone: tel: fax: mailto:[email or web address] Referral ID Status Reason Start Date Expiration Date Visits Re quested Visits Authorized [id number] Closed 05/22/2021 05/22/2022 1 1 Encounter Details Date Type Department Care Team (Late st Contact Info) Description 05/22/2021 Ancillary Orders [facility] [address] [place] [address] Elba Allison MD [address] [place] [id number] [email or web address] Mastitis; Mass of right breast; Follow-up exam [...] documented as of this encounter Results * LONG-TERM Breast Abscess Drainage (Right) (05/22/2021 1:15 PM [...] communicated to Savita Hernandez CNP via secure [employer] message. Impressions 05/22/2021 4:10 PM EDT [...] documented as of this encounter Care Teams Peoplesoft Relationship Specialty Start Date End Date Elba Allison MD PCP - General Endocrinology 11/23/19 Asia Jolley, [place] [address] PHCM Nascar Racer 07/07/21 02/28/22 documented as of this encounter Additional Source Comments The information contained in this document represents components of the legal health record. It is not the complete legal health record.[facility]
--- OUTSIDE RECORDS SUMMARY | 2025-08-21 15:39 | XMS_ITS | Clinical Summary ---
Author Organization [facility] Address [address] [facility] [address] [address] Phone Care Team Providers Care E Commerce Merchant Name Role Phone Elba Allison MD Primary Care Provider [phone] Allergies Active Allergy Reactions Criticality Noted Date [...] Pharmacy Needs: no issues Financial Concerns: assessing bed bug exterminator needs Other Supports and Care Needs: housing [...] denies active suicidality or plan.. Followed By cras. Assessment & Plan (04/29/2021 1:13 PM EDT): [...] COLONOSCOPY 1997 RSV VACCINE (1 - Risk 50-74 years 1-dose series) 2002 MAMMOGRAM 09/08/2022 09/08/2020, 08/24, 10/19/2019, Additional history [...] Plan Family and Community Support Asia Hernández, [facility] Note: Barriers: {PHS AMB OP Care Plan Barriers:66860} Establish reunification of family members Care Plan Family and Community Support No Asia Jolley, WEB DESIGN SPECIALIST Seek support with significant life events Care Plan Family and Community Support No Asia Jolley, WEB DESIGN SPECIALIST Obtain housing /fdc Care Plan Complex Social Issues No Tillmans CornerAsia hunter, WEB DESIGN SPECIALIST Identify financial resources Care Plan Complex Social Issues No Asia Jolley, WEB DESIGN SPECIALIST Identify transportation resources Care Plan Complex Social Issues No SamreenAsia hunter, WEB DESIGN SPECIALIST Identify adequate food/nutrition resources Care Plan Complex Social Issues No Asia Jolley, WEB DESIGN SPECIALIST Investigate education opportunities Care Plan Complex Social Issues No Tillmans CornerAsia hunter, WEB DESIGN SPECIALIST Investigate employment opportunities Care Plan Complex Social Issues No Asia Jolley, WEB DESIGN SPECIALIST Identify daycare or elder services resources Care Plan Complex Social Issues No Asia Jolley, WEB DESIGN SPECIALIST Connect with community resource Care Plan Complex Social Issues No SamreenAsia hunter, WEB DESIGN SPECIALIST Medical Devices Implanted Type Area Interstate Planner Device Identifier Shelf Expiration Date Model / Serial / Lot Marker Biopsy [id number] 17ga Breast Tissue Ultraclip Titanium Dual Trigger Ultrasound Enhanced Ribbon Cs/5ea - Uom Issue Use Ps # [id number] - [id number] Implanted:Qty: 1 on 05/22/2021 at [facility] CR [employer] [id number] / / Procedures Procedure Name Priority Date/Time [...] Name / ID : DAWIT Sun / [id number] Patient Birthdate: 1950 00:00:00 Exam Date : 04/16/2022 13:36:00 Accession No. : [id number] Referring Physician: GIOVANNA Highway Safety Engineer : Neelam Mueller Report Date : 04/16/2022 14:07:31 [FINAL REPORT] History: Postmenopausal. Technique: BONE DENSITOMETRY: Scans of the lumbar spine and left hip were performed on a Bahu SL unit. W.H.O. Classification is based on [...] Neelam Mueller Dictated: 04/16/2022 14:07 Cristela Bello FLOW COORDINATOR IMG BD BONE DENSITY D EXA Final Result * Basic metabolic panel (10/09/2021 4:59 PM EST) Sodium 138 135 - 146 mEq/L [facility] Potassium 4.2 3.5 - 5.3 mEq/L [facility] Chloride 100 98 - 107 mEq/L [facility] CO2 27 20 - 31 mEq/L [facility] ANIONGAP 11 4 - 14 [facility] Glucose 83 70 - 99 mg/dL [facility] BUN 16 6 - 20 mg/dL [facility] Creatinine 0.7 <1.1 mg/dL [facility] GFR 87 >60 mL/min/1.7 3m^2 [facility] Comment:(If patient is Afric an Samoan, multiply reported result by 1.21) Calcium 9.6 8.4 - 10.2 mg/dL [facility] Blood 10/09/2021 4:59 PM EST 10/09/2021 4:59 PM EST Narrative [facility] - 10/09/2021 5:54 PM EST Unless otherwise noted, Testing performed through [facility], [place] [address] Barry Watson, PhD, Leach Runner No Cristela Bello NP LAB BLOOD ORDERABLES Edited Result - Final Performing Organization Address [facility] [place] [address] * (ABNORMAL) Lipid panel (04/07/2021 10:17 AM EDT) Cholesterol 228(Abnor lisa H) <200 mg/dL [facility] Triglycerides 69 <150 mg/dL [facility] Cholesterol, HDL 80 >40 mg/dL [facility] LDLC 134(Abnor lisa H) <129 mg/dL [facility] Cholesterol/HDL Ratio 2.85 <4.43 [facility] Blood 04/07/2021 10:1 7 AM EDT 04/07/2021 10:17 AM EDT Cristela Bello FLOW COORDINATOR LAB BLOOD ORDERABLES [place] [address] * MAMMOGRAPHY FOR RESULT ENTRY ONLY (09/08/2020) [...] ENHANCE SUPPLEMENT MEDICARE PART A & B [facility] [place] SU[place] MEDICARE PART A & B [facility] [place] SUPPLEMENT MEDICARE PART A & B [facility] [place] SUPPLEMENT MEDICARE PART A & B [facility] [place] [facility] [place] [address] [place] [id number] MEDICARE PART A & B [facility] [place] [facility] Address: [address] [place] [id number] MEDICARE PART A & B [facility] [place] ENHANCE SUPPLEMENT MEDICARE PART A & B [facility] [place] ENHANCE SUPPLEMENT MEDICARE PART A & B [id number] [place] [address] MEDICARE ENHANCE SUPPLEMENT MEDICARE PART A & B [facility] [place] [facility] [place]: [address] [place] [id number] MEDICARE PART A & B [facility]IC[facility] Address: [address] [place] [address] Care Teams E Commerce Merchant Relationship Specialty Start Date End Date Elba Allison MD PCP - General Endocrinology 11/23/19 Additional Source Comments The information contained in this document represents components of the legal health record. It is not the complete legal health record.[facility]
--- OUTSIDE RECORDS SUMMARY | 2025-08-21 15:39 | XMS_ITS | Encounter Summary ---
Author Organization [facility] Address [address] [facility] [address] [place] [address] Phone Care Team Providers Care Senior Mainframe Developer Name Role Phone Elba Allison MD Primary Care Provider + Asia Jolley [facility] [phone] Reason for Referral * Outpatient Procedure - Closed Specialty Diagnoses / Procedures Referred By Jovan haji Referred To Contact Radiology Diagnoses Mastitis Mass of right breast Follow-up exam Procedures Mammogram Diagnostic Post Procedure (Right) Elba Allison MD Phone: tel: fax: [email or web address] Referral ID Status Reason Start Date Expiration Date Visits Re quested Visits Authorized [id number] Closed 05/22/2021 05/22/2022 1 1 Encounter Details Date Type Department Care Team (Late st Contact Info) Description 05/22/2021 Ancillary Orders [facility] [address] [place] [address] Elba Allison MD [address] [place] [id number] [email or web address] Mastitis; Mass of right breast; Follow-up exam [...] communicated to Savita Hernandez CNP via secure [employer] message. Impressions 05/22/2021 4:10 PM EDT Ultrasound-guided [...] documented as of this encounter Care Teams Senior Mainframe Developer Relationship Specialty Start Date End Date Elba Allison MD PCP - General Endocrinology 11/23/19 Asia Jolley, [place] [address] PHCM Network Development Coordinator 07/07/21 02/28/22 documented as of this encounter Additional Source Comments The information contained in this document represents components of the legal health record. It is not the complete legal health record.[facility]
--- OUTSIDE RECORDS SUMMARY | 2025-08-21 15:39 | XMS_ITS | Encounter Summary ---
Author Organization [facility] Address [address] [employer] [facility] [address] [place] [address] Phone Care Team Providers Care Oil Painter Name Role Phone Elba Allison MD Primary Care Provider [phone] Asia Jolley [facility] [phone] Encounter Details Date Type Department Care Team (Late st Contact Info) Description 04/29/2021 Ancillary Orders [facility] [address] [place] [address] Cirstela Bello NP [address] [place], [place] [id number] [email or web address] Mastitis; Mass of right breast [...] and facilitate patient compliance. us Cristela Bello TAIL BOARD WORKER IMG US BREAST Final Result documented in [...] documented as of this encounter Care Teams Oil Painter Relationship Specialty Start Date End Date Elba Allison MD PCP - General Endocrinology 11/23/19 Asia Jolley, [place] [id number] PHCM Teacher Counselor 07/07/21 02/28/22 documented as of this encounter Additional Source Comments The information contained in this document represents components of the legal health record. It is not the complete legal health record.[facility]
--- OUTSIDE RECORDS SUMMARY | 2025-08-21 15:39 | XMS_ITS | Encounter Summary ---
Author Organization [facility] Address [address] [employer] [facility] [address] [place] [address] Phone Care Team Providers Care Internal Grinder Set Up Operator Name Role Phone Elba Allison MD Primary Care Provider [phone] Asia Jolley [facility] [phone] Encounter Details Date Type Department Care Team (Late st Contact Info) Description 04/30/2021 Procedure Pass [facility]- Breast Imaging, [facility] [address] [place] [id number] Social History Tobacco Use Types Packs/Day Years [...] documented as of this encounter Care Teams Internal Grinder Set Up Operator Relationship Specialty Start Date End Date Elba Allison MD PCP - General Endocrinology 11/23/19 Asia Jolley, [address] [address] [email or web address] PHCM Rn Sexual Assault 07/07/21 02/28/22 documented as of this encounter Additional Source Comments The information contained in this document represents components of the legal health record. It is not the complete legal health record.[facility]
--- OUTSIDE RECORDS SUMMARY | 2025-08-21 15:39 | XMS_ITS | Encounter Summary ---
Author Organization [facility] Address [address] [employer] [facility] [address] [place] [address] Phone Care Team Providers Care Operations Boardman Name Role Phone Elba Allison MD Primary Care Provider [phone] Asia Jolley [facility] [phone] Encounter Details Date Type Department Care Team (Late st Contact Info) Description 05/01/2021 Procedure Pass [facility], Breast Ultrasound [address] [place] [address] Social History Tobacco Use Types Packs/Day Years [...] documented as of this encounter Care Teams Operations Boardman Relationship Specialty Start Date End Date Elba Allison MD PCP - General Endocrinology 11/23/19 Asia Jolley, [place] [id number] [email or web address] PHCM Mis Manager 07/07/21 02/28/22 documented as of this encounter Additional Source Comments The information contained in this document represents components of the legal health record. It is not the complete legal health record.[facility]
--- OUTSIDE RECORDS SUMMARY | 2025-08-21 15:39 | XMS_ITS | Encounter Summary ---
Author Organization [facility] Address [address] [employer] [facility] [address] [place] [address] Phone Care Team Providers Care Drapery Sewer Hand Name Role Phone Elba Allison MD Primary Care Provider [phone] Asia Jolley [facility] [phone] Encounter Details Date Type Department Care Team (Late st Contact Info) Description 04/29/2021 Procedure Pass [facility], Breast Ultrasound [address] [place] [address] Social History Tobacco Use Types Packs/Day Years [...] documented as of this encounter Care Teams Drapery Sewer Hand Relationship Specialty Start Date End Date Elba Allison MD PCP - General Endocrinology 11/23/19 Asia Jolley, [place] [id number] [email or web address] PHCM Mechanics Handyman 07/07/21 02/28/22 documented as of this encounter Additional Source Comments The information contained in this document represents components of the legal health record. It is not the complete legal health record.[facility]
--- OUTSIDE RECORDS SUMMARY | 2025-08-21 15:39 | XMS_ITS | Encounter Summary ---
Author Organization [facility] Address [address] [employer] [facility] [address] [place] [address] Phone Care Team Providers Care Janitor And Cleaner Name Role Phone Elba Allison MD Primary Care Provider [phone] Asia Jolley [facility] [phone] Encounter Details Date Type Department Care Team (Late st Contact Info) Description 04/30/2021 Ancillary Orders [facility] [address] [place] [address] Cristela Bello NP [address] [place], [place] [id number] [email or web address] Mastitis; Mass of right breast [...] tomonitor and facilitate patient compliance. Cristela Bello BACK PAD INSPECTOR IMG MG EXAMS Final Result documented in [...] documented as of this encounter Care Teams Janitor And Cleaner Relationship Specialty Start Date End Date Elba Allison MD PCP - General Endocrinology 11/23/[address] [address] PHCM Scales Inspector 07/07/21 02/28/22 documented as of this encounter Additional Source Comments The information contained in this document represents components of the legal health record. It is not the complete legal health record.[facility]
--- OUTSIDE RECORDS SUMMARY | 2025-08-21 15:39 | XMS_ITS | Encounter Summary ---
Author Organization [facility] Address [address] [employer] [facility] [address] [place] [address] Phone Care Team Providers Care Workday Financials Consultant Name Role Phone Elba Allison MD Primary Care Provider [phone] Asia Jolley [facility] [phone] Encounter Details Date Type Department Care Team (Late st Contact Info) Description 05/01/2021 Ancillary Orders [facility] [address] [place], [place] [id number] System, Provider [place] In, [place] [address] Social History Tobacco Use Types Packs/Day Years [...] (No Interpretation) (09/08/2020 12:00 AM EST) Narrative [facility] IMG INTERFACES - 05/01/2021 9:12 AM EDT This study is for PACS storage only and not for interpretation. us Provider Not In System PhD IMG OUTSIDE IMAGING W /OUT INTERPRETATION Final Result Performing Organization Address [facility] de Phone Number NW IMG INTERFACES * Mammogram Outside (No Interpretation) (09/03/2019 12:00 AM EST) Narrative [facility] IMG INTERFACES - 05/01/2021 9:12 AM EDT This study is for PACS storage only and not for interpretation. us Provider Not In System PhD IMG OUTSIDE IMAGING W /OUT INTERPRETATION Final Result Performing Organization Address [facility] de Phone Number NW IMG INTERFACES * Mammogram Outside (No Interpretation) (07/04/2018 12:00 AM EDT) Narrative [facility] IMG INTERFACES - 05/01/2021 9:13 AM EDT This study is for PACS storage only and not for interpretation. us Provider Not In System PhD IMG OUTSIDE IMAGING W /OUT INTERPRETATION Final Result Performing Organization Address [facility] de Phone Number NW IMG INTERFACES * Mammogram Outside (No Interpretation) (04/08/2017 12:00 AM EDT) Narrative [facility] IMG INTERFACES - 05/01/2021 9:13 AM EDT This study is for PACS storage only and not for interpretation. us Provider Not In System PhD IMG OUTSIDE IMAGING W /OUT INTERPRETATION Final Result Performing Organization Address [facility] de Phone Number NW IMG INTERFACES * US Breast Outside (No Interpretation) (10/08/2016 12:05 AM EST) Narrative [facility] IMG INTERFACES - 05/01/2021 9:14 AM EDT This study is for PACS storage only and not for interpretation. us Provider Not In System PhD IMG OUTSIDE IMAGING W /OUT INTERPRETATION Final Result Performing Organization Address [facility] de Phone Number NW IMG INTERFACES * Mammogram Outside (No Interpretation) (10/08/2016 12:00 AM EST) Narrative [facility] IMG INTERFACES - 05/01/2021 9:14 AM EDT This study is for PACS storage only and not for interpretation. us Provider Not In System PhD IMG OUTSIDE IMAGING W /OUT INTERPRETATION Final Result Performing Organization Address [facility] de Phone Number NW IMG INTERFACES * US Breast Outside (No Interpretation) (04/22/2016 12:05 AM EDT) Narrative [facility] IMG INTERFACES - 05/01/2021 9:15 AM EDT This study is for PACS storage only and not for interpretation. us Provider Not In System PhD IMG OUTSIDE IMAGING W /OUT INTERPRETATION Final Result Performing Organization Address [facility] de Phone Number NW IMG INTERFACES * Mammogram Outside (No Interpretation) (04/22/2016 12:00 AM EDT) Narrative [facility] IMG INTERFACES - 05/01/2021 9:15 AM EDT This study is for PACS storage only and not for interpretation. us Provider Not In System PhD IMG OUTSIDE IMAGING W /OUT INTERPRETATION Final Result Performing Organization Address [facility] de Phone Number NW IMG INTERFACES * Mammogram Outside (No Interpretation) (04/12/2016 12:05 AM EDT) Narrative [facility] IMG INTERFACES - 05/01/2021 9:16 AM EDT This study is for PACS storage only and not for interpretation. us Provider Not In System PhD IMG OUTSIDE IMAGING W /OUT INTERPRETATION Final Result Performing Organization Address [facility] de Phone Number NW IMG INTERFACES * US Breast Outside (No Interpretation) (04/12/2016 12:00 AM EDT) Narrative [facility] IMG INTERFACES - 05/01/2021 9:16 AM EDT This study is for PACS storage only and not for interpretation. us Provider Not In System PhD IMG OUTSIDE IMAGING W /OUT INTERPRETATION Final Result Performing Organization Address [facility] de Phone Number NW IMG INTERFACES * Mammogram Outside (No Interpretation) (03/19/2016 12:00 AM EDT) Narrative [facility] IMG INTERFACES - 05/01/2021 9:16 AM EDT This study is for PACS storage only and not for interpretation. us Provider Not In System PhD IMG OUTSIDE IMAGING W /OUT INTERPRETATION Final Result Performing Organization Address [facility] de Phone Number NW IMG INTERFACES * Mammogram Outside (No Interpretation) (02/24/2015 12:00 AM EDT) Narrative [facility] IMG INTERFACES - 05/01/2021 9:17 AM EDT This study is for PACS storage only and not for interpretation. us Provider Not In System PhD IMG OUTSIDE IMAGING W /OUT INTERPRETATION Final Result Performing Organization Address [facility] Phone Number [facility] IMG INTERFACES * Mammogram Outside (No Interpretation) (01/07/2014 12:00 AM EDT) Narrative [facility] IMG INTERFACES - 05/01/2021 9:17 AM EDT This study is for PACS storage only and not for interpretation. us Provider Not In System PhD IMG OUTSIDE IMAGING W /OUT INTERPRETATION Final Result Performing Organization Address [facility] de Phone Number [facility] IMG INTERFACES documented in this encounter Visit Diagnoses Not on filedocumented in this encounter Additional Health Concerns Assessment Noted Time PHQ-9 Depression Total Score: 13 021 11:43 AM EDT PHQ-2 Depression Total Score: 6 04/09/20 21 11:43 AM EDT documented as of this encounter Care Teams Workday Financials Consultant Relationship Specialty Start Date End Date Elba Allison MD PCP - General Endocrinology 11/23/19 Asia Jolley, [place] [address] [email or web address] PHCM Animal Feeder 07/07/21 02/28/22 documented as of this encounter Additional Source Comments The information contained in this document represents components of the legal health record. It is not the complete legal health record.[facility]
--- OUTSIDE RECORDS SUMMARY | 2025-08-21 15:40 | XMS_ITS | Clinical Summary ---
Author Organization [facility] Address [address] [place] [address] Care Team Providers Care Bankruptcy Legal Assistant Name Role Phone Yoko Jolly Primary Care Provider [phone] Allergies Active Allergy Reactions Criticality Noted Date [...] Bone Density 2017 COVID-19 Vaccine ( - 2024-2 6 season) 2025 Influenza (#1) 2025 RSV (1 [...] MEDICARE PART B FFS MEDICARE-SUPPLEMENTAL Care Teams Bankruptcy Legal Assistant Relationship Specialty Start Date End Date Yoko Jolly [address] [place] [address] [place] [address] PCP - General Internal Medicine 03/19/16
--- OUTSIDE RECORDS SUMMARY | 2025-08-21 15:40 | XMS_ITS | Patient Health Record ---
Author Organization [facility] Address [address] [place] [address] [address] [place] [address] Care Team Providers Care Driller Portable Name Role Phone Yoko Jolly MD Primary Care Provider Unavailabl e Reason For Referral No Information Plan Of Treatment No Information Insurance Providers Payer Name Payer Address Payer Phone Subscriber Number Group Number Insured Name Patient Relationship to Insured Coverage Start Date [facility]age End Date [facility] [address] [place] [id number] Self - patient is the insured
== END 2025-08-21 12:58 | disposition home or self-care (01) ==
LOC: HO.HSMS 12:17
PROVIDERS: PCP Internal Medicine; Visit Provider Psychiatry & Neurology Neurology
DX: R42 Dizziness and giddiness (principal); T75.3XXD Motion sickness, subsequent encounter; I65.23 Occlusion and stenosis of bilateral carotid arteries
CPT/HCPCS: 99214; G2211

== ENCOUNTER → 2025-08-21 12:15 | Outpatient (BNVA) | payer MEDICARE, OTHER, SELFPAY | PROVIDERS: PCP Internal Medicine; Visit Provider Psychiatry & Neurology Neurology | DX: R42 Dizziness and giddiness (principal); T75.3XXD Motion sickness, subsequent encounter; I65.23 Occlusion and stenosis of bilateral carotid arteries; Z79.899 Other long term (current) drug therapy | CPT/HCPCS: 99212 ==

== ENCOUNTER 2025-09-11 10:53 | Outpatient (REF) | payer MEDICARE, OTHER, SELFPAY ==
--- NOTE | ~2025-09-11 | US_ITS ---
EXAMINATION: US RETROPERITONEAL LIMITED (RENAL ONLY) CLINICAL INFORMATION: R31.9. Hematuria, unspecified.. COMPARISON: None available. TECHNIQUE: Real-time ultrasound kidneys using grayscale technique. FINDINGS: RIGHT KIDNEY: 11 x 4 x 4 cm (SAG x AP x TRV). Volume: 99 cc. Normal echotexture. Renal cortical thickness is normal. No hydronephrosis. No solid or cystic lesion. LEFT KIDNEY: 11 x 5 x 4 cm (SAG x AP x TRV). Volume: 94 cc. Normal echotexture. Renal cortical thickness is normal. No hydronephrosis. There is a 0.9 cm hyperechoic abnormality without posterior shadowing in the upper pole. No flow on color Doppler interrogation. US/US renal BI IMPRESSION: No hydronephrosis or gross nephrolithiasis. 0.9 cm hyperechoic mass/lesion, upper pole left kidney. Recommend dedicated CT versus MRI renal mass protocol.. Electronically signed by: Donato Dumont MD 09/11/2025 12:09 PM [facility]
--- NOTE | ~2025-09-11 | US_ITS ---
EXAMINATION: BILATERAL CAROTID ULTRASOUND WITH DOPPLER HISTORY: I65.23 - Occlusion and stenosis of bilateral carotid arteries COMPARISON: Comparison is made with the prior examination dated 03/06/2025. TECHNIQUE: Real time and Color and Spectral doppler ultrasonography of the carotid and vertebral arteries was performed in multiple planes. FINDINGS: A small amount of plaque is noted on the left. VERTEBRAL FLOW DIRECTION: Antegrade bilaterally. PEAK SYSTOLIC VELOCITIES (in cm/sec): RIGHT: CCA: Prox: 90.1 Dist: 101 ICA: Prox: 62.9 Mid: 128 Dist: 151 ICA/CCA Ratio: 1.50 ECA: 126 Peak ICA end diastolic velocity (EDV): 45.5 LEFT: CCA: Prox: 114 Dist: 84.5 ICA: Prox: 61.4 Mid: 78.1 Dist: 89.4 ICA/CCA Ratio: 0.78 ECA: 109 Peak ICA end diastolic velocity (EDV): 28.0 US/US carotid duplex BI IMPRESSION: Findings consistent with 0-49% stenosis of the bilateral internal carotid arteries. Electronically signed by: Dom Ledesma MD 09/11/2025 12:08 PM [facility]
--- OUTSIDE RECORDS SUMMARY | 2025-09-11 21:29 | XMS_ITS | Encounter Summary ---
Author Organization [facility] Address [address] [employer] [facility] [address] [place] [address] Phone Care Team Providers Care House Furnishings Supervisor Name Role Phone Elba Allison MD Primary Care Provider [phone] Asia Jolley [facility] [phone] Encounter Details Date Type Department Care Team (Late st Contact Info) Description 05/04/2021 Ancillary Orders [facility] [address] [place] [address] Esha Adams MD [address] [place] [address] [email or web address] Social History Tobacco Use Types [...] as of this encounter Care Teams House Furnishings Supervisor Relationship Specialty Start Date End Date Elba Allison MD [email or web address] PCP - General Endocrinology 11/23/19 Asia Jolley, [place] [address] [email or web address] PHCM Make Up Editor 07/07/21 02/28/22 documented as of this encounter Additional Source Comments The information contained in this document represents components of the legal health record. It is not the complete legal health record.[facility]
--- OUTSIDE RECORDS SUMMARY | 2025-09-11 21:29 | XMS_ITS | Encounter Summary ---
Author Organization [facility] Address [address] [employer] [facility] [address] [place] [address] Phone Care Team Providers Care Optical Glass Silverer Name Role Phone Elba Allison MD Primary Care Provider [phone] Asia Jolley [facility] [phone] Encounter Details Date Type Department Care Team (Late st Contact Info) Description 05/01/2021 Procedure Pass [facility], Breast Ultrasound [address] [place] [address] Social History Tobacco Use Types Packs/Day Years [...] documented as of this encounter Care Teams Optical Glass Silverer Relationship Specialty Start Date End Date Elba Allison MD PCP - General Endocrinology 11/23/19 Asia Jolley, [place] [phone] [email or web address] PHCM Dental Chair Assembler 07/07/21 02/28/22 documented as of this encounter Additional Source Comments The information contained in this document represents components of the legal health record. It is not the complete legal health record.[facility]
--- OUTSIDE RECORDS SUMMARY | 2025-09-11 21:29 | XMS_ITS | Encounter Summary ---
Author Organization [facility] Address [address] [employer] [facility] [address] [place] [address] Phone Care Team Providers Care Varnish Finisher Name Role Phone Elba Allison MD Primary Care Provider + Asia Jolley [facility] Unavailable Reason for Referral * Outpatient Procedure - Closed Specialty Diagnoses / Procedures Referred By Jovan haji Referred To Contact Radiology Diagnoses Mastitis Mass of right breast Follow-up exam Procedures PRISON Biopsy of Breast (Right) Elba Allison MD Phone: tel: fax: [email or web address] Referral ID Status Reason Start Date Expiration Date Visits Re quested Visits Authorized [id number] Closed 05/04/2021 05/04/2022 1 1 Encounter Details Date Type Department Care Team (Late st Contact Info) Description 05/04/2021 Ancillary Orders [facility] [address] [place] [address] Elba Allison MD [address] [place] [address] [email or web address] Mastitis; Mass of right breast; Follow-up exam [...] communicated to Savita Hernandez CNP via secure Premise message. Impressions 05/22/2021 4:10 PM EDT Ultrasound-guided [...] documented as of this encounter Care Teams Varnish Finisher Relationship Specialty Start Date End Date Elba Allison MD PCP - General Endocrinology 11/23/19 Asia Jolley, [place] [address] PHCM Community Nutrition Educator 07/07/21 02/28/22 documented as of this encounter Additional Source Comments The information contained in this document represents components of the legal health record. It is not the complete legal health record.[facility]
--- OUTSIDE RECORDS SUMMARY | 2025-09-11 21:29 | XMS_ITS | Encounter Summary ---
Author Organization [facility] Address [address] [employer] [facility] [address] [place] [address] Phone Care Team Providers Care Manager E Learning Name Role Phone Elba Allison MD Primary Care Provider [phone] Asia Jolley [facility] [phone] Encounter Details Date Type Department Care Team (Late st Contact Info) Description 05/01/2021 Ancillary Orders [facility] [address] [place] [address] Cristela Bello NP [address] [place] [address] [email or web address] Mastitis; Mass of [...] as of this encounter Care Teams Manager E Learning Relationship Specialty Start Date End Date Elba Allison MD PCP - General Endocrinology 11/23/19 Asia Jolley, [place] [address] PHCM Probate Paralegal 07/07/21 02/28/22 documented as of this encounter Additional Source Comments The information contained in this document represents components of the legal health record. It is not the complete legal health record.[facility]
--- OUTSIDE RECORDS SUMMARY | 2025-09-11 21:29 | XMS_ITS | Encounter Summary ---
Author Organization [facility] Address [address] [facility] [address] [place] [address] Phone Care Team Providers Care Transcriptionist Name Role Phone Elba Allison MD Primary Care Provider [phone] Asia Jolley [facility] [phone] Encounter Details Date Type Department Care Team (Late st Contact Info) Description 05/01/2021 Ancillary Orders [facility] Imaging Services [address] [place], [place] [id number] System, Provider Not In, [place] [address] Social History Tobacco Use Types Packs/Day Years [...] (No Interpretation) (09/08/2020 12:00 AM EST) Narrative [facility] IMG INTERFACES - 05/01/2021 9:12 AM EDT This study is for PACS storage only and not for interpretation. us Provider Not In System PhD IMG OUTSIDE IMAGING W /OUT INTERPRETATION Final Result Performing Organization Address [facility] de Phone Number NW IMG INTERFACES * Mammogram Outside (No Interpretation) (09/03/2019 12:00 AM EST) Narrative [facility] IMG INTERFACES - 05/01/2021 9:12 AM EDT This study is for PACS storage only and not for interpretation. us Provider Not In System PhD IMG OUTSIDE IMAGING W /OUT INTERPRETATION Final Result Performing Organization Address [facility] de Phone Number NW IMG INTERFACES * Mammogram Outside (No Interpretation) (07/04/2018 12:00 AM EDT) Narrative [facility] IMG INTERFACES - 05/01/2021 9:13 AM EDT This study is for PACS storage only and not for interpretation. us Provider Not In System PhD IMG OUTSIDE IMAGING W /OUT INTERPRETATION Final Result Performing Organization Address [facility] de Phone Number NW IMG INTERFACES * Mammogram Outside (No Interpretation) (04/08/2017 12:00 AM EDT) Narrative [facility] IMG INTERFACES - 05/01/2021 9:13 AM EDT This study is for PACS storage only and not for interpretation. us Provider Not In System PhD IMG OUTSIDE IMAGING W /OUT INTERPRETATION Final Result Performing Organization Address [facility] de Phone Number NW IMG INTERFACES * US Breast Outside (No Interpretation) (10/08/2016 12:05 AM EST) Narrative [facility] IMG INTERFACES - 05/01/2021 9:14 AM EDT This study is for PACS storage only and not for interpretation. us Provider Not In System PhD IMG OUTSIDE IMAGING W /OUT INTERPRETATION Final Result Performing Organization Address [facility] de Phone Number NW IMG INTERFACES * Mammogram Outside (No Interpretation) (10/08/2016 12:00 AM EST) Narrative [facility] IMG INTERFACES - 05/01/2021 9:14 AM EDT This study is for PACS storage only and not for interpretation. us Provider Not In System PhD IMG OUTSIDE IMAGING W /OUT INTERPRETATION Final Result Performing Organization Address [facility] de Phone Number NW IMG INTERFACES * US Breast Outside (No Interpretation) (04/22/2016 12:05 AM EDT) Narrative [facility] IMG INTERFACES - 05/01/2021 9:15 AM EDT This study is for PACS storage only and not for interpretation. us Provider Not In System PhD IMG OUTSIDE IMAGING W /OUT INTERPRETATION Final Result Performing Organization Address [facility] de Phone Number NW IMG INTERFACES * Mammogram Outside (No Interpretation) (04/22/2016 12:00 AM EDT) Narrative [facility] IMG INTERFACES - 05/01/2021 9:15 AM EDT This study is for PACS storage only and not for interpretation. us Provider Not In System PhD IMG OUTSIDE IMAGING W /OUT INTERPRETATION Final Result Performing Organization Address [facility] de Phone Number NW IMG INTERFACES * Mammogram Outside (No Interpretation) (04/12/2016 12:05 AM EDT) Narrative [facility] IMG INTERFACES - 05/01/2021 9:16 AM EDT This study is for PACS storage only and not for interpretation. us Provider Not In System PhD IMG OUTSIDE IMAGING W /OUT INTERPRETATION Final Result Performing Organization Address [facility] de Phone Number NW IMG INTERFACES * US Breast Outside (No Interpretation) (04/12/2016 12:00 AM EDT) Narrative [facility] IMG INTERFACES - 05/01/2021 9:16 AM EDT This study is for PACS storage only and not for interpretation. us Provider Not In System PhD IMG OUTSIDE IMAGING W /OUT INTERPRETATION Final Result Performing Organization Address [facility] de Phone Number NW IMG INTERFACES * Mammogram Outside (No Interpretation) (03/19/2016 12:00 AM EDT) Narrative [facility] IMG INTERFACES - 05/01/2021 9:16 AM EDT This study is for PACS storage only and not for interpretation. us Provider Not In System PhD IMG OUTSIDE IMAGING W /OUT INTERPRETATION Final Result Performing Organization Address [facility] de Phone Number NW IMG INTERFACES * Mammogram Outside (No Interpretation) (02/24/2015 12:00 AM EDT) Narrative [facility] IMG INTERFACES - 05/01/2021 9:17 AM EDT This study is for PACS storage only and not for interpretation. us Provider Not In System PhD IMG OUTSIDE IMAGING W /OUT INTERPRETATION Final Result Performing Organization Address [facility] Phone Number [facility] IMG INTERFACES * Mammogram Outside (No Interpretation) (01/07/2014 12:00 AM EDT) Narrative [facility] IMG INTERFACES - 05/01/2021 9:17 AM EDT This study is for PACS storage only and not for interpretation. us Provider Not In System PhD IMG OUTSIDE IMAGING W /OUT INTERPRETATION Final Result Performing Organization Address [facility] de Phone Number [facility] IMG INTERFACES documented in this encounter Visit Diagnoses Not on filedocumented in this encounter Additional Health Concerns Assessment Noted Time PHQ-9 Depression Total Score: 13 021 11:43 AM EDT PHQ-2 Depression Total Score: 6 04/09/20 21 11:43 AM EDT documented as of this encounter Care Teams Transcriptionist Relationship Specialty Start Date End Date Elba Allison MD PCP - General Endocrinology 11/23/19 Asia Jolley, [place] [address] [email or web address] PHCM Mask Designer 07/07/21 02/28/22 documented as of this encounter Additional Source Comments The information contained in this document represents components of the legal health record. It is not the complete legal health record.[facility]
--- OUTSIDE RECORDS SUMMARY | 2025-09-11 21:29 | XMS_ITS | Encounter Summary ---
Author Organization [facility] Address [address] [facility] [address] [place] [address] Phone Care Team Providers Care Manager Furniture Name Role Phone Elba Allison MD Primary Care Provider [phone] Asia Jolley [facility] [phone] Encounter Details Date Type Department Care Team (Late st Contact Info) Description 05/04/2021 Ancillary Orders [facility] [address] [place] [address] Cristela Bello NP [address] [place], [place] [phone] [email or web address] Mastitis; Mass of right breast; [...] as of this encounter Care Teams Manager Furniture Relationship Specialty Start Date End Date Elba Allison MD PCP - General Endocrinology 11/23/19 Asia Jolley, [address] [address] PHCM Medical Technologist Hematology 07/07/21 02/28/22 documented as of this encounter Additional Source Comments The information contained in this document represents components of the legal health record. It is not the complete legal health record.[facility]
--- OUTSIDE RECORDS SUMMARY | 2025-09-11 21:30 | XMS_ITS | Encounter Summary ---
Author Organization [facility] Address [address] [facility] [address] [place] [address] Phone Care Team Providers Care Electrotyper Helper Name Role Phone Elba Allison MD Primary Care Provider [phone] Asia Jolley [facility] [phone] Encounter Details Date Type Department Care Team (Late st Contact Info) Description 04/30/2021 Ancillary Orders [facility] [address] [place] [address] Cristela Bello NP [address] [place] [address] [email or web address] Mastitis; Mass of right breast [...] documented as of this encounter Care Teams Electrotyper Helper Relationship Specialty Start Date End Date Elba Allison MD [email or web address] PCP - General Endocrinology 11/23/19 Asia Jolley, [place] [address] [email or web address] PHCM Piano Builder 07/07/21 02/28/22 documented as of this encounter Additional Source Comments The information contained in this document represents components of the legal health record. It is not the complete legal health record.[facility]
--- OUTSIDE RECORDS SUMMARY | 2025-09-11 21:30 | XMS_ITS | Encounter Summary ---
Author Organization [facility] Address [address] [facility] [address] [place] [address] Phone Care Team Providers Care Beverage Sales Consultant Name Role Phone Elba Allison MD Primary Care Provider [phone] Asia Jolley [facility] [phone] Encounter Details Date Type Department Care Team (Late st Contact Info) Description 04/30/2021 Procedure [facility]- Breast Imaging, [facility] [address] [place] [id number] Social History Tobacco Use Types Packs/Day Years [...] documented as of this encounter Care Teams Beverage Sales Consultant Relationship Specialty Start Date End Date Elba Allison MD PCP - General Endocrinology 11/23/19 Asia Jolley, [address] [address] [email or web address] PHCM Transformer Tester 07/07/21 02/28/22 documented as of this encounter Additional Source Comments The information contained in this document represents components of the legal health record. It is not the complete legal health record.[facility]
--- OUTSIDE RECORDS SUMMARY | 2025-09-11 21:30 | XMS_ITS | Clinical Summary ---
Author Organization [facility] Address [address] [place] [address] Care Team Providers Care Costume Shop Manager Name Role Phone Yoko Jolly Primary Care Provider [phone] Allergies Active Allergy Reactions Criticality Noted Date [...] MEDICARE PART B FFS MEDICARE-SUPPLEMENTAL Care Teams Costume Shop Manager Relationship Specialty Start Date End Date Yoko Jolly [address] [place] [address] [place] [address] PCP - General Internal Medicine 03/19/16
--- OUTSIDE RECORDS SUMMARY | 2025-09-11 21:30 | XMS_ITS | Encounter Summary ---
Author Organization [facility] Address [address] [employer] [facility] [address] [place] [address] Phone Care Team Providers Care Occupational Therapy Technician Name Role Phone Elba Allison MD Primary Care Provider [phone] Asia Jolley [facility] [phone] Encounter Details Date Type Department Care Team (Late st Contact Info) Description 04/29/2021 Ancillary Orders [facility] [address] [place] [address] Cristela Bello NP [address] [place], [place] [id number] [email or web address] Mastitis; Mass of right breast [...] and facilitate patient compliance. us Cristela Bello TAX RECORD CLERK IMG US BREAST Final Result documented in [...] documented as of this encounter Care Teams Occupational Therapy Technician Relationship Specialty Start Date End Date Elba Allison MD PCP - General Endocrinology 11/23/19 Asia Jolley, [place] [phone] PHCM Detention Officer 07/07/21 02/28/22 documented as of this encounter Additional Source Comments The information contained in this document represents components of the legal health record. It is not the complete legal health record.[facility]
--- OUTSIDE RECORDS SUMMARY | 2025-09-11 21:30 | XMS_ITS | Clinical Summary ---
Author Organization [facility] Address [address] [place] [address] Care Team Providers Care Supervisor Dairy Sanitation Name Role Phone Caitlyn Cano NP Primary Care Provider [phone] Allergies Active Allergy Reactions Criticality Noted Date [...] age to complete this topic Care Teams Supervisor Dairy Sanitation Relationship Specialty Start Date End Date Caitlyn Cano NP [address] [place] [address] [place] [address] PCP - General Family Medicine 01/17/23
--- OUTSIDE RECORDS SUMMARY | 2025-09-11 21:30 | XMS_ITS | Patient Health Record ---
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 Plan Of Treatment No Information Insurance Providers Payer Name Payer Address Payer Phone Subscriber Number Group Number Insured Name Patient Relationship to Insured Coverage Start Date Coverage End Date Medicare [address] [place], [place] [id number] Self - patient is the insured [employer] Medicare Enhanced [address] [id number] Self - patient is the insured Medical (General) History Medical History History ICD Code FIBROMIALGYA DEPRESSION HIGH BLOOD PRESSURE OSTEOPINIA Surgical History Surgery Date(Month/Year) CATARACT EXTRACTION WITH IMPLANT VINCE S N60WF 12/17/2021 CATARACT EXTRACTION RIGHT EYE WITH LENS IMPLANT SN60WF +19.5 D 01/14/22
--- OUTSIDE RECORDS SUMMARY | 2025-09-11 21:30 | XMS_ITS | Clinical Summary ---
Author Organization [facility] Address [address] [employer] [address] [address] Phone Care Team Providers Care Oracle Consultant Name Role Phone Elba Allison MD Primary Care Provider [phone] Allergies Active Allergy Reactions Criticality Noted Date [...] Pharmacy Needs: no issues Financial Concerns: assessing salvage determiner needs Other Supports and Care Needs: housing [...] denies active suicidality or plan.. Followed By hot press operator. Assessment & Plan (04/29/2021 1:13 PM EDT): [...] patient's age to complete this topic IPV VACCINES Aged Out No longer eligi ble [...] Family and Community Support No Asia Jolley, PHLEBOTOMY PROGRAM COORDINATOR Note: Barriers: {PHS AMB OP Care Plan Barriers:[id number]} Establish reunification of family members Care Plan Family and Community Support No SamreenAsia hunter, PHLEBOTOMY PROGRAM COORDINATOR Seek support with significant life events Care Plan Family and Community Support No ChilchinbitoAsia hunter, PHLEBOTOMY PROGRAM COORDINATOR Obtain housing /fpc Care Plan Complex Social Issues No SamreenAsia hunter, PHLEBOTOMY PROGRAM COORDINATOR Identify financial resources Care Plan Complex Social Issues No ChilchinbitoAsia hunter, PHLEBOTOMY PROGRAM COORDINATOR Identify transportation resources Care Plan Complex Social Issues No SamreenAsia hunter, PHLEBOTOMY PROGRAM COORDINATOR Identify adequate food/nutrition resources Care Plan Complex Social Issues No SamreenAsia hunter, PHLEBOTOMY PROGRAM COORDINATOR Investigate education opportunities Care Plan Complex Social Issues No ChilchinbitoAsia hunter, PHLEBOTOMY PROGRAM COORDINATOR Investigate employment opportunities Care Plan Complex Social Issues No ChilchinbitoAsia hunter, PHLEBOTOMY PROGRAM COORDINATOR Identify daycare or elder services resources Care Plan Complex Social Issues No ChilchinbitoAsia hunter, PHLEBOTOMY PROGRAM COORDINATOR Connect with community resource Care Plan Complex Social Issues No SamreenAsia hunter, PHLEBOTOMY PROGRAM COORDINATOR Medical Devices Implanted Type Area Media Monitor Device Identifier Shelf Expiration Date Model / Serial / Lot Marker Biopsy [id number] Breast Tissue Ultraclip Titanium Dual Trigger Ultrasound Enhanced Ribbon Cs/5ea - Uom Issue Use Ps # [id number] - [id number] Implanted:Qty: 1 on 05/22/2021 at [facility] [employer] [id number] / / Procedures Procedure Name Priority Date/Time Associated Diagnosis Comments BD DXA SCREENING Routine 04/16/2022 2:07 PM EDT Osteopenia, unspecified location BASIC METABOLIC PANEL (BMP) Routine 10/09/2021 4:59 PM EST Hypertension, unspecified [...] Name / ID : DAWIT Sun / [id number] Patient Birthdate: 1950 00:00:00 Exam Date : 04/16/2022 13:36:00 Accession No. : [id number] Referring Physician: GIOVANNA Jig Filler : Neelam Mueller Report Date : 04/16/2022 14:07:31 [FINAL REPORT] History: Postmenopausal. Technique: BONE DENSITOMETRY: Scans of the lumbar spine and left hip were performed on a OQO SL unit. W.H.O. Classification is based on [...] Neelam Mueller Dictated: 04/16/2022 14:07 Cristela Bello NP IMG BD BONE DENSITY D EXA Final Result * Basic metabolic panel (10/09/2021 4:59 PM EST) Sodium 138 135 - 146 mEq/L [employer] [facility] Potassium 4.2 3.5 - 5.3 mEq/L SIMA [employer] [facility] Chloride 100 98 - 107 mEq/L [facility] CO2 27 20 - 31 mEq/L [facility] ANIONGAP 11 4 - 14 [facility] Glucose 83 70 - 99 mg/dL [facility] BUN 16 6 - 20 mg/dL [facility] Creatinine 0.7 <1.1 mg/dL [facility] GFR 87 >60 mL/min/1.7 3m^2 [facility] Comment:(If patient is Afric an [place] Islander, multiply reported result by 1.21) Calcium 9.6 8.4 - 10.2 mg/dL [facility] Blood 10/09/2021 4:59 PM EST 10/09/2021 4:59 PM EST Narrative [facility] - 10/09/2021 5:54 PM EST Unless otherwise noted, Testing performed through [facility], [place] [address] Barry Watson, PhD, Child Guidance Counselor No Cristela Bello WASTE MANAGEMENT RECYCLING TECHNICIAN LAB BLOOD BKR ORDERAB LES Edited Result - Final Performing Organization Address City/[facility]/[place] [address] * (ABNORMAL) Lipid panel (04/07/2021 10:17 AM EDT) Cholesterol 228(Abnor lisa H) <200 mg/dL [facility] Triglycerides 69 <150 mg/dL [facility] Cholesterol, HDL 80 >40 mg/dL [facility] LDLC 134(Abnor lisa H) <129 mg/dL [facility] Cholesterol/HDL Ratio 2.85 <4.43 [facility] Blood 04/07/2021 10:1 7 AM EDT 04/07/2021 10:17 AM EDT Cristela Bello WASTE MANAGEMENT RECYCLING TECHNICIAN LAB BLOOD BKR ORDERAB LES Edited Result - Final Performing Organization Address [facility]/[place] [address] * MAMMOGRAPHY FOR RESULT ENTRY ONLY (09/08/2020) us Historical Provider HEALTH MAINTENANCE Final Result * COLONOSCOPY FOR RESULT ENTRY ONLY (12/20/2017) Pathologist [facility] Colonoscopy POLYPS F/U IN 5 YRS us Historical Provider MD HEALTH MAINTENANCE Final Result from Last 3 Months or Most Recently Relevant to Health Maintenance Additional Health Concerns Active Problems Noted Date Diagnosed Date Family and Community Support 09/02/2021 Complex Social Issues 09/02/2021 Insurance MEDICARE PART A & B [facility]IC[facility] ENHANCE SUPPLEMENT MEDICARE PART A & B [facility] MEDICARE ENHANCE SUPPLEMENT MEDICARE PART A & B [facility] MEDICARE ENHANCE SUPPLEMENT MEDICARE PART A & B Member Subscriber Plan / Payer ( fective 2017-Present) Name:[address] Dino Member ID:[id number] Relation to Subscriber:Self Name:DAWITKIETASHANTI Dino Subscriber ID:[id number] Payer ID:[id number] Group ID:Not on file Type:Medicare Address: [employer] [address] [place] [id number] [place] [address] MEDICARE ENHANCE SUPPLEMENT MEDICARE PART A & B [facility] MEDICARE ENHANCE SUPPLEMENT MEDICARE PART A & B [employer] [facility] MEDICARE ENHANCE SUPPLEMENT MEDICARE PART A & B [facility] MEDICARE ENHANCE SUPPLEMENT MEDICARE PART A & B [facility] MEDICARE ENHANCE SUPPLEMENT MEDICARE PART A & B [id number] [place] [address] MEDICARE ENHANCE SUPPLEMENT MEDICARE PART A & B [facility] MEDICARE ENHANCE SUPPLEMENT MEDICARE PART A & B [facility] MEDIC[employer] ENHANCE SUPPLEMENT Care Teams Oracle Consultant Relationship Specialty Start Date End Date Elba Allison MD PCP - General Endocrinology 11/23/19 Additional Source Comments The information contained in this document represents components of the legal health record. It is not the complete legal health record.[facility]
--- OUTSIDE RECORDS SUMMARY | 2025-09-11 21:30 | XMS_ITS ---
Care Plan Created on: September 11, [address] : 1950 Sex: Female Author Organization [facility] Address [address] [employer] [address] [place] [address] Phone Care Team Providers Care Gluer Name Role Phone Elba Allison MD Primary Care Provider [phone] Active Problems Patient Care Coordination No te [...] Pharmacy Needs: no issues Financial Concerns: assessing director long term care needs Other Supports and Care Needs: housing [...] denies active suicidality or plan.. Followed By branch lending manager. Assessment & Plan (04/29/2021 1:13 PM EDT): Stable on Lexapro and Gabapentin. Unable to connect with a therapist despite trying multiple times. Will refer to Asia Jolley [facility] for assistance. Assessment & Plan (05/30/2020 [...] Family and Community Support No Asia Jolley, CONCRETE MIXER LOADER TRUCK MOUNTED Note: Barriers: {PHS AMB OP Care Plan Barriers:45335} Establish reunification of family members Care Plan Family and Community Support No Asia Jolley, CONCRETE MIXER LOADER TRUCK MOUNTED Seek support with significant life events Care Plan Family and Community Support No Asia Jolley, CONCRETE MIXER LOADER TRUCK MOUNTED Obtain housing /snf Care Plan Complex Social Issues No Asia Jolley, CONCRETE MIXER LOADER TRUCK MOUNTED Identify financial resources Care Plan Complex Social Issues No Asia Jolley, CONCRETE MIXER LOADER TRUCK MOUNTED Identify transportation resources Care Plan Complex Social Issues No Asia Jolley, CONCRETE MIXER LOADER TRUCK MOUNTED Identify adequate food/nutrition resources Care Plan Complex Social Issues No Asia Jolley, CONCRETE MIXER LOADER TRUCK MOUNTED Investigate education opportunities Care Plan Complex Social Issues No Asia Jolley, CONCRETE MIXER LOADER TRUCK MOUNTED Investigate employment opportunities Care Plan Complex Social Issues No Asia Jolley, CONCRETE MIXER LOADER TRUCK MOUNTED Identify daycare or elder services resources Care Plan Complex Social Issues No Asia Jolley, CONCRETE MIXER LOADER TRUCK MOUNTED Connect with community resource Care Plan Complex Social Issues No Asia Jolley, CONCRETE MIXER LOADER TRUCK MOUNTED Interventions Care Plan Interventions Intervention Entry Date [...]
--- OUTSIDE RECORDS SUMMARY | 2025-09-11 21:30 | XMS_ITS | Patient Health Record ---
Author Organization [facility] Address [address] [address] [place] [address] Care Team Providers Care Price Analyst Name Role Phone chantelle sun Primary Care [...] of [place] [address] [place] [id number] Self - patient is the insured [facility] [address] [place] [id number] Self - patient is the insured Medical (General) History Medical History History ICD Code right lateral ankle fracture hypertension osteoporosis previous right ankle fracture left ankle sprains osteopenia osteoarthritis anxiety depression fibromyalgia mood disorder Surgical History Surgery Date(Month/Year) 09/13/1983 colonoscopy laparoscopy skin graft on right foot Hospitalization History Reason Date(Month/Year) (girl) 09/13/1983
--- OUTSIDE RECORDS SUMMARY | 2025-09-11 21:30 | XMS_ITS | Encounter Summary ---
Author Organization [facility] Address [address] [facility] [address] [place] [address] Phone Care Team Providers Care Manager Of Tax Name Role Phone Elba Allison MD Primary Care Provider + Asia Jolley [facility] [phone] Reason for Referral * Outpatient Procedure - Closed Specialty Diagnoses / Procedures Referred By Jovan haji Referred To Contact Radiology Diagnoses Mastitis Mass of right breast Follow-up exam Procedures Mammogram Diagnostic Post Procedure (Right) Elba Allison MD Phone: tel: fax: [email or web address] Referral ID Status Reason Start Date Expiration Date Visits Re quested Visits Authorized [id number] Closed 05/22/2021 05/22/2022 1 1 Encounter Details Date Type Department Care Team (Late st Contact Info) Description 05/22/2021 Ancillary Orders [facility] [address] [place] [address] Elba Allison MD [address] [place] [phone] [email or web address] Mastitis; Mass of right breast; Follow-up exam [...] communicated to Savita Hernandez CNP via secure [employer] message. Impressions 05/22/2021 4:10 PM EDT Ultrasound-guided [...] as of this encounter Care Teams Manager Of Tax Relationship Specialty Start Date End Date Elba Allison MD PCP - General Endocrinology 11/23/19 Asia Jolley, [place] [address] PHCM Spray Gun Operator 07/07/21 02/28/22 documented as of this encounter Additional Source Comments The information contained in this document represents components of the legal health record. It is not the complete legal health record.[facility]
--- OUTSIDE RECORDS SUMMARY | 2025-09-11 21:30 | XMS_ITS | Clinical Summary ---
Author Organization [facility] Address [address] [place] [address] Care Team Providers Care Prop Setter Name Role Phone Caitlyn Cano KAROL Primary Care Provider [phone] Immunizations Immunization Administration Dates Next Due Pfizer SARS-CoV-2 COVID-19, mRNA, LNP-S, preservative free 01/13/2021,12/22/2020 Surgical History Surgery Date Site/Laterality Comments SKIN GRAFT 1960 Right PROCEDURE:SKIN GRAFT;COMMENT:foot SECTION PROCEDURE: SECTION CATARACT EXTRACTION W/ INTRAOCULAR LENS IMPLANT Bilateral PROCEDURE:CATARACT EXTRACTION W/ INTRAOCULAR LENS IMPLANT OTHER SURGICAL HISTORY PROCEDURE:MOHS SURGERY TOE SURGERY 01/19/2023 Right PROCEDURE:TOE SURGERY;COMMENT:Procedure: RIGHT 2ND TOE CORRECTION HAMMERTOE; Surgeon: Todd Valencia DPM; Location: [facility]; Service: Podiatry; Laterality: Right; Medical History [...] age to complete this topic Care Teams Prop Setter Relationship Specialty Start Date End Date Caitlyn Cano NP [address] [place] [address] [place] [phone] PCP - General 01/17/23
--- OUTSIDE RECORDS SUMMARY | 2025-09-11 21:30 | XMS_ITS | Patient Health Record ---
Author Organization [facility] Address [address] [place] [address] [address] [place] [address] Care Team Providers Care Territory Account Manager Name Role Phone Yoko Jolly MD Primary Care Provider Unavailabl e Reason For Referral No Information Plan Of Treatment No Information Insurance Providers Payer Name Payer Address Payer Phone Subscriber Number Group Number Insured Name Patient Relationship to Insured Coverage Start Date Coverage End Date [facility] [address] [place] [id number] Self - patient is the insured
--- OUTSIDE RECORDS SUMMARY | 2025-09-11 21:30 | XMS_ITS | Encounter Summary ---
Author Organization [facility] Address [address] [employer] [facility] [address] [place] [address] Phone Care Team Providers Care Graphic Engineer Name Role Phone Elba Allison MD Primary Care Provider [phone] Asia Jolley [facility] [phone] Encounter Details Date Type Department Care Team (Late st Contact Info) Description 04/29/2021 Procedure Pass [facility], Breast Ultrasound [address] [place] [address] Social History Tobacco Use Types Packs/Day Years [...] documented as of this encounter Care Teams Graphic Engineer Relationship Specialty Start Date End Date Elba Allison MD PCP - General Endocrinology 11/23/19 Asia Jolley, [place] [phone] [email or web address] PHCM Instrument Engineer 07/07/21 02/28/22 documented as of this encounter Additional Source Comments The information contained in this document represents components of the legal health record. It is not the complete legal health record.[facility]
--- OUTSIDE RECORDS SUMMARY | 2025-09-11 21:30 | XMS_ITS | Encounter Summary ---
Author Organization [facility] Address [address] [employer] [facility] [address] [place] [address] Phone Care Team Providers Care Can Dragger Name Role Phone Elba Allison MD Primary Care Provider + Asia Jolley [facility] Unavailable [phone] Reason for Referral * Outpatient Procedure - Closed Specialty Diagnoses / Procedures Referred By Jovan haji Referred To Contact Radiology Diagnoses Mastitis Mass of right breast Follow-up exam Procedures [facility] Breast Abscess Drainage (Right) Elba Allison MD Phone: tel: fax: mailto:[email or web address] Referral ID Status Reason Start Date Expiration Date Visits Re quested Visits Authorized [id number] Closed 05/22/2021 05/22/2022 1 1 Encounter Details Date Type Department Care Team (Late st Contact Info) Description 05/22/2021 Ancillary Orders [facility] [address] [place] [address] Elba Allison MD [address] [place] [phone] [email or web address] Mastitis; Mass of right breast; Follow-up exam [...] documented as of this encounter Results * [facility] Breast Abscess Drainage (Right) (05/22/2021 1:15 PM [...] communicated to Savita Hernandez CNP via secure [employer] message. Impressions 05/22/2021 4:10 PM EDT Ultrasound-guided [...] documented as of this encounter Care Teams Can Dragger Relationship Specialty Start Date End Date Elba Allison MD PCP - General Endocrinology 11/23/19 Asia Jolley, [place] [address] PHCM Regulatory Leader 07/07/21 02/28/22 documented as of this encounter Additional Source Comments The information contained in this document represents components of the legal health record. It is not the complete legal health record.[facility]
--- OUTSIDE RECORDS SUMMARY | 2025-09-11 21:30 | XMS_ITS | Encounter Summary ---
Author Organization [facility] Address [address] [employer] [facility] [address] [place] [address] Phone Care Team Providers Care Clinical Trainer Name Role Phone Elba Allison MD Primary Care Provider [phone] Asia Jolley [facility] [phone] Encounter Details Date Type Department Care Team (Late st Contact Info) Description 04/30/2021 Ancillary Orders [facility] [address] [place] [address] Cristela Bello NP [address] [place], [place] [phone] [email or web address] Mastitis; Mass of right breast [...] tomonitor and facilitate patient compliance. Cristela Bello MERCHANDISING COORDINATOR IMG MG EXAMS Final Result documented in [...] documented as of this encounter Care Teams Clinical Trainer Relationship Specialty Start Date End Date Elba Allison MD PCP - General Endocrinology 11/23/[address] [address] PHCM Manager Pipeline 07/07/21 02/28/22 documented as of this encounter Additional Source Comments The information contained in this document represents components of the legal health record. It is not the complete legal health record.[facility]
== END 2025-09-11 10:54 | disposition home or self-care (01) ==
LOC: HO.US 10:53
PROVIDERS: PCP Internal Medicine; Visit Provider Surgery Vascular Surgery
DX: I65.23 Occlusion and stenosis of bilateral carotid arteries (principal); R31.9 Hematuria, unspecified
CPT/HCPCS: 76775; 93880

== ENCOUNTER → 2025-09-11 10:56 | Outpatient (BNV) | payer MEDICARE, OTHER, SELFPAY | PROVIDERS: PCP Internal Medicine; Visit Provider Radiology Diagnostic Radiology | DX: I65.23 Occlusion and stenosis of bilateral carotid arteries (principal) | CPT/HCPCS: 76775; 93880 ==

== ENCOUNTER 2025-10-11 09:29 | Outpatient (AMB) | payer MEDICARE, OTHER, SELFPAY ==
[2025-10-11 09:35] VITALS: BP 124/80; PULSE 83; TEMP 36.2; O2SAT 98; BMI 21.6
--- NOTE | 2025-10-11 09:35 | A.OFFPC_ITS ---
Vital Signs 10/11/25 09:35 Height 5 ft 6 in Weight 134 lb BMI 21.6 BP 124/80 Blood Pressure Location Lt brachial Position Sitting Pulse 83 Pulse Source Pulse Oximeter Temp 97.1 F Temp Source Temporal Artery Scan Pulse Oximetry (%) 98 Oxygen Delivery Method Room Air Intake Visit Reasons: Follow Up Vegetable I Farmworker Required: No Accompanied by: Self / Same As Patient Allergies amoxicillin Allergy (Intermediate, Verified 10/11/25 09:35) Rash ciprofloxacin Allergy (Intermediate, Verified 10/11/25 09:35) Rash clindamycin Allergy (Intermediate, Verified 10/11/25 09:35) rash, hives hydroxychloroquine (From Plaquenil) Allergy (Intermediate, Verified 10/11/25 09:35) Rash neomycin Allergy (Intermediate, Verified 10/11/25 09:35) Rash amitriptyline Adverse Reaction (Intermediate, Unverified 10/11/25 10:20) Dizziness ezetimibe Adverse Reaction (Intermediate, Verified 10/11/25 09:35) Diarrhea fenofibrate Adverse Reaction (Intermediate, Verified 10/11/25 09:35) stomach pain, heart burn losartan Adverse Reaction (Intermediate, Verified 10/11/25 09:35) dizziness pravastatin Adverse Reaction (Intermediate, Verified 10/11/25 09:35) Muscle Pain lisinopril Adverse Reaction (Mild, Verified 10/11/25 09:35) dry cough bactrim Allergy (Mild, Uncoded 07/08/25 10:18) Rash Tobacco use date assessed: 10/11/25 Fall risk assessment: 1 Fall in past year Last assessed Fall Risk: 10/11/25 Dental Screening Dental Screen Date: 10/11/25 Did you have a dental visit in the last 12 months?: Yes Did you have a dental problem in the last 6 months where you did not have access to dental care?: No HPI Follow Up HPI Details cannot take amitriptyline HPI Comments History of Present Illness Details History of Present Illness The patient is a 75-year-old female presenting for a follow-up visit. She has a past medical history of asthma, hypertension, depression, osteopenia, mild carotid artery stenosis, and hysterectomy. In mid-August, an ultrasound performed for hematuria incidentally revealed a 9 mm mass lesion in the upper pole of the left kidney. The ultrasound showed no hydronephrosis, and her last urinalysis was negative. In July, she was seen by neurology for dizziness and was diagnosed with a vestibular migraine. She was prescribed amitriptyline 10 mg, verapamil 120 mg, aspirin 81 mg, riboflavin, magnesium, and gabapentin. She is unable to take amitriptyline due to side effects of severe weakness and dizziness, and has stopped the medication. She also stopped taking Dupixent for atopic dermatitis and reports feeling better without it. Her last blood work was on June 29, which showed a mild but not new leukopenia. Electrolytes, renal function, blood sugar, liver function, B12, vitamin D, folic acid, and thyroid levels were all within normal limits. Her LDL cholesterol was 126. For health maintenance, her mammogram is up to date, her last bone density scan was in March 2024, and her next Cologuard test is due in December 2024. Health Maintenance The patient's mammogram is up to date, and she is due for a Cologuard test in December 2024. Social History - Patient has an upcoming trip to [facility] by plane. Results - Laboratory: - Blood work (06/29): Mild leukopenia (n ot new); electrolytes, renal function, blood sugar, liver function, B12, vitamin D, folic acid, and thyroid all within normal limits; LDL of 126. - Urinalysis: Negative. - Imaging: - Renal Ultrasound (August): Showed no hydronephrosis; noted a 9 mm mass lesion in the upper pole of the left kidney. - Bone Density (March 2024): Results cons istent with osteopenia. [facility] Medical History Menstrual migraine without status migrainosus Arthritis of right glenohumeral joint Colon cancer screening Colon cancer screening Benign paroxysmal positional vertigo Osteopenia Thyroid nodule Hyperlipidemia IBS (irritable bowel syndrome) GERD (gastroesophageal reflux disease) Depression Asthma Genital warts Osteoarthritis of fingers of both hands Osteoarthritis of carpometacarpal joint of left thumb Anxiety Mood disorder High blood pressure Fibromyalgia Surgical History Status post right foot surgery History of colonoscopy History of laparoscopy History of delivery History of skin graft Family History Daughter Mental health disorder Autism Sister FH: HTN (hypertension) Mother FH: HTN (hypertension) Other Substance use disorder Social History Household Members: None Housing: Apartment Are you a primary customer care assistant to a significant other at home: No Do you presently have visiting nurse or other home services: No Alcohol intake: never Comment: 2x a year Patient Tobacco Use Status: Never used Tobacco Tobacco use type: Cigarette e-Cigarette/Vaping Use: Never Used Second Hand Smoke Exposure: No service: No Current occupational status: retired Sexual orientation: Straight/Heterosexual Gender identity: Female Cognitive needs: No Hearing needs: No Vision needs: Yes (glasses) Questionnaire Thrive Questionnaire Date Thrive assessed: 04/04/25 I am a: Patient What is your living situation today?: I have a steady place to live Within the past 12 months, did the food you bought not last and you didn't have the money to get more?: Never true Within the past 12 months, did you worry whether your food would run out before you got money to buy more?: Never true Do you have trouble paying for medicines?: No Do you have trouble getting transportation to medical appointments?: Yes Do you have trouble paying your heating and electricity bill?: No Do you have trouble taking care of your child, family member or friend?: No Do you have trouble with day-to-day activities such as bathing, preparing meals, shopping, managing finances, etc.?: Yes Are you currently unemployed and looking for a job?: No Are you interested in more education?: No Please select the resources that you would like help with: Transportation Currently or been in a relationship where the following occur: I choose not to answer THRIVE Score: 1 JIHAN-7 AMB Questionnaire JIHAN-7 Date JIHAN - 7 assessed: 04/11/25 Source: Developed by Drs. Dom Nichole, Shell Salvador, Max Chan and colleagues, with an educational mabel from [employer]. Review of Systems Narrative Review of Systems - Constitutional: Reports generalized aches and pains associated with aging. - Eyes: Reports photosensitivity to fluorescent lights. - Neurological: Reports dizziness, which she feels is related to bright lights. - Integumentary: Reports loss of eyelashes and a history of itchiness on her upper back, which is not currently active. - Gastrointestinal: Denies diarrhea while taking magnesium. Physical exam (Primary Care) Vital Signs: Last Vital Signs Temp 97.1 F 10/11/25 09:35 Pulse 83 10/11/25 09:35 BP 124/80 10/11/25 09:35 Pulse Ox 98 10/11/25 09:35 Oxygen Delivery Method Room Air 10/11/25 09:35 BMI result Body Mass Index 21.6 Tobacco/Smoking Status: Tobacco use Status Tobacco use date assessed 10/11/25 10/11/25 09:36 Patient Tobacco Use Status Never used Tobacco 10/11/25 09:36 Tobacco use type Cigarette 10/11/25 09:36 e-Cigarette/Vaping Use Never Used 10/11/25 09:36 Thrive Assessment: Date of Thrive Assessment Date Thrive assessed 04/04/25 10/11/25 09:36 Currently or been in a relationship where the following occur: I choose not to answer Narrative Physical Exam - Vitals: Heart rate 83 bpm. - Extremities: Hands were noted to be cold, making initial measurement of oxygen saturation difficult. Const General: alert; No acute distress Eyes Conjunctivae: conjunctivae normal Resp Auscultation: clear to auscultation bilaterally Cardio Rate: regular rate Rhythm: regular rhythm GI Inspection: Yes normal to inspection Extrem General: Yes normal to inspection and No edema Coding Level of Care Code Est Pt Level 4 (91032) Add On Problem Visit Only Diagnoses Bilateral carotid artery stenosis I65.23 Laterality: bilateral Hypertension I10 Hyperlipidemia E78.5 GERD (gastroesophageal reflux disease) K21.9 Left renal mass N28.89 Asthma J45.909 Dizziness R42 Assessment & Plan Assessment & Plan (1) Carotid artery stenosis: Comment: February-69% STENOSIS AT LEVEL OF RIGHT ICA. LESS THAN 50% STENOSIS AT LEVEL OF THE CCAS AND LEFT ICA. Code(s): I65.29 - Occlusion and stenosis of unspecified carotid artery Category: Medical Qualifiers: Laterality: bilateral Qualified Code(s): I65.23 - Occlusion and stenosis of bilateral carotid arteries Plan: These are mild and will continue to monitor (2) Hypertension: Code(s): I10 - Essential (primary) hypertension Category: Medical Plan: Continue with blood pressure medication. Decrease salt intake and exercise patient is on amlodipine 2.5 mg once a day verapamil 120 mg once a day (3) Hyperlipidemia: Code(s): E78.5 - Hyperlipidemia, unspecified Category: Medical Plan: Avoid fried foods, chicken skin, eggs, butter margarine, pastries and meat. Be it pork or beef they have a lot of cholesterol LDL goal of less than 130 and triglyceride of less than 150 (4) GERD (gastroesophageal reflux disease): Code(s): K21.9 - Gastro-esophageal reflux disease without esophagitis Category: Medical Plan: Avoid the foods that causes that usually spicy foods, tomato products, juices, coffee, soda and foods that your sensitive to. After eating do not lie down, allow 3-4 hours before in lie down. And keep the head of bed above 30 degrees to avoid the acid from going up. (5) Left renal mass: Comment: August 2025No hydronephrosis or gross nephrolithiasis. 0.9 cm hyperechoic mass/lesion, upper pole left kidney. Recommend dedicated CT versus MRI renal mass protocol.. Code(s): N28.89 - Other specified disorders of kidney and ureter Category: Medical Plan: CT scan has been requested and revised request (6) Asthma: Code(s): J45.909 - Unspecified asthma, uncomplicated Category: Medical Plan: Stable (7) Dizziness: Comment: vestibular migraine Code(s): R42 - Dizziness and giddiness Category: Medical Plan: Patient has seen Neurology has added verapamil magnesium amitriptyline. Plan Plan Patient was informed and verbally consented to the use of an ambient scribe for clinic note documentation during this visit. 1. Left Renal Mass An incidental 9 mm mass was found in the upper pole of the left kidney on an ultrasound performed in August for hematuria. The patient's last urinalysis was negative. A CT scan of the abdomen has been requested to further evaluate the lesion. The patient will follow up if she does not receive a call for scheduling within one week. 2. Vestibular Migraine The patient was diagnosed by neurology and prescribed multiple medications, including amitriptyline, verapamil, magnesium, and riboflavin. She has an intolerance to amitriptyline, experiencing severe dizziness and weakness, and has discontinued its use. Will continue to monitor the condition, and the intolerance to amitriptyline will be documented. She will continue verapamil 120 mg daily. 3. Essential Hypertension The patient is on amlodipine 2.5 mg once a day and verapamil 120 mg once a day. Her blood pressure is reported to be good. A 90-day supply of amlodipine 2.5 mg will be sent to [facility] on [address]. 4. Dyslipidemia The treatment goal is an LDL less than 130 and triglycerides less than 150. Her last LDL was 126. Will continue to monitor. 5. Carotid Artery Stenosis The patient's carotid stenosis is mild and stable. The condition will continue to be monitored. She has an upcoming follow-up appointment with the vascular department. Discussion Notes I discussed the results of the patient's recent renal ultrasound from mid- August, which incidentally found a 9 mm mass on her left kidney. I explained that we do not know what it is and that is why a CT scan of the abdomen was requested to further characterize it. I informed her that her last urine test was negative, which is reassuring. We reviewed her recent neurology consultation, and I acknowledged her intolerance to amitriptyline due to side effects of weakness and severe dizziness. I confirmed I would document this reaction in her chart so it is not prescribed again. I sent a 90-day refill of her amlodipine 2.5 mg to her preferred pharmacy. I advised her that we are seeing high rates of flu and COVID currently and recommended she wear a mask during her upcoming plane travel to [place] to be safe. I instructed her to send a message if she does not hear from scheduling about her CT scan within one week. I also reassured her that her mild carotid stenosis is not a concern at this time. Patient Instructions - A recent ultrasound found a small spot (a 9 mm mass) on your left kidney. - We have ordered a CT scan of your abdomen to get a better look at this finding. - Please send us a message if you do not hear from the scheduling department about your CT scan within one week. - Do not take the medication amitriptyline again. - A 90-day supply of amlodipine 2.5 mg has been sent to your pharmacy ([facility] on [address]). - Due to high rates of flu and COVID, it is recommended that you wear a mask during your upcoming plane travel. - Your next colon cancer screening is due in December 2024. Medications: Refilled amlodipine 2.5 mg PO DAILY 90 tabs 2RF
--- OUTSIDE RECORDS SUMMARY | 2025-10-11 10:11 | XMS_ITS | Encounter Summary ---
Author Organization [facility] Address [address] [employer] [facility] [address] [place] [address] Phone Care Team Providers Care Cutter Tender Name Role Phone Elba Allison MD Primary Care Provider [phone] Asia Jolley [facility] Encounter Details Date Type Department Care Team (Late st Contact Info) Description 05/01/2021 Ancillary Orders [facility] [address] [place] [address] Cristela Bello NP [address] [place] [address] [email or web address] Mastitis; Mass of [...] documented as of this encounter Care Teams Cutter Tender Relationship Specialty Start Date End Date Elba Allison MD PCP - General Endocrinology 11/23/19 Asia Jolley, [place] [address] [email or web address] PHCM Weigher And Crusher 07/07/21 02/28/22 documented as of this encounter Additional Source Comments The information contained in this document represents components of the legal health record. It is not the complete legal health record.[facility]
--- OUTSIDE RECORDS SUMMARY | 2025-10-11 10:11 | XMS_ITS | Encounter Summary ---
Author Organization [facility] Address [address] [employer] [facility] [address] [place] [address] Phone Care Team Providers Care Neurocritical Care Physician Name Role Phone Elba Allison MD Primary Care Provider [phone] Asia Jolley [facility] [phone] Encounter Details Date Type Department Care Team (Late st Contact Info) Description 05/04/2021 Ancillary Orders [facility] [address] [place] [address] Cristela Bello NP [address] [place], [place] [id number] [email or web address] Mastitis; Mass of right breast; [...] documented as of this encounter Care Teams Neurocritical Care Physician Relationship Specialty Start Date End Date Elba Allison MD PCP - General Endocrinology 11/23/19 Asia Jolley, [address] [address] PHCM Drag Down 07/07/21 02/28/22 documented as of this encounter Additional Source Comments The information contained in this document represents components of the legal health record. It is not the complete legal health record.[facility]
--- OUTSIDE RECORDS SUMMARY | 2025-10-11 10:11 | XMS_ITS | Encounter Summary ---
Author Organization [facility] Address [address] [employer] [facility] [address] [place] [address] Phone Care Team Providers Care Floor Covering Printer Name Role Phone Elba Allison MD Primary Care Provider + Asia Jolley [facility] [phone] Reason for Referral * Outpatient Procedure - Closed Specialty Diagnoses / Procedures Referred By Jovan haji Referred To Contact Radiology Diagnoses Mastitis Mass of right breast Follow-up exam Procedures Mammogram Diagnostic Post Procedure (Right) Elba Allison MD Phone: tel: fax: [email or web address]:[email or web address] Referral ID Status Reason Start Date Expiration Date Visits Re quested Visits Authorized [id number] Closed 05/22/2021 05/22/2022 1 1 Encounter Details Date Type Department Care Team (Late st Contact Info) Description 05/22/2021 Ancillary Orders [facility] [address] [place] [address] Elba Allison MD [address] [place] [id number] [email or web address] Mastitis; Mass of right breast; Follow-up exam [...] communicated to Savita Hernandez CNP via secure [employer] message. Impressions 05/22/2021 4:10 PM EDT Ultrasound-guided [...] documented as of this encounter Care Teams Floor Covering Printer Relationship Specialty Start Date End Date Elba Allison MD PCP - General Endocrinology 11/23/19 Asia Jolley, [place] [address] PHCM Machine Marker 07/07/21 02/28/22 documented as of this encounter Additional Source Comments The information contained in this document represents components of the legal health record. It is not the complete legal health record.[facility]
--- OUTSIDE RECORDS SUMMARY | 2025-10-11 10:11 | XMS_ITS | Encounter Summary ---
Author Organization [facility] Address [address] [facility] [address] [place] [address] Phone Care Team Providers Care Museum Host/Hostess Name Role Phone Elba Allison MD Primary Care Provider + Asia Jolley [facility] Unavailable [phone] Reason for Referral * Outpatient Procedure - Closed Specialty Diagnoses / Procedures Referred By Jovan haji Referred To Contact Radiology Diagnoses Mastitis Mass of right breast Follow-up exam Procedures ASSISTED Breast Abscess Drainage (Right) Elba Allison MD Phone: tel: fax: mailto:[email or web address] Referral ID Status Reason Start Date Expiration Date Visits Re quested Visits Authorized [id number] Closed 05/22/2021 05/22/2022 1 1 Encounter Details Date Type Department Care Team (Late st Contact Info) Description 05/22/2021 Ancillary Orders [facility] [address] [place] [address] Elba Allison MD [address] [place] [phone] [email or web address] Mastitis; Mass of right breast; Follow-up exam [...] documented as of this encounter Results * ASSISTED Breast Abscess Drainage (Right) (05/22/2021 1:15 PM [...] communicated to Savita Hernandez CNP via secure [employer] message. Impressions 05/22/2021 4:10 PM EDT Ultrasound-guided [...] documented as of this encounter Care Teams Museum Host/Hostess Relationship Specialty Start Date End Date Elba Allison MD PCP - General Endocrinology 11/23/19 Asia Jolley, [place] [address] PHCM Spar Cap Beveler 07/07/21 02/28/22 documented as of this encounter Additional Source Comments The information contained in this document represents components of the legal health record. It is not the complete legal health record.[facility]
--- OUTSIDE RECORDS SUMMARY | 2025-10-11 10:11 | XMS_ITS | Patient Health Record ---
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 Plan Of Treatment No Information Insurance Providers Payer Name Payer Address Payer Phone Subscriber Number Group Number Insured Name Patient Relationship to Insured Coverage Start Date Coverage End Date Medicare [address] [place], [place] [id number] Self - patient is the insured [employer] Medicare Enhanced [address] [id number] [id number] Self - patient is the insured Medical (General) History Medical History History ICD Code FIBROMIALGYA DEPRESSION HIGH BLOOD PRESSURE OSTEOPINIA Surgical History Surgery Date(Month/Year) CATARACT EXTRACTION WITH IMPLANT VINCE S N60WF 12/17/2021 CATARACT EXTRACTION RIGHT EYE WITH LENS IMPLANT [id number] +19.5 D 01/14/22
--- OUTSIDE RECORDS SUMMARY | 2025-10-11 10:11 | XMS_ITS | Encounter Summary ---
Author Organization [facility] Address [address] [employer] [facility] [address] [place] [address] Phone Care Team Providers Care Traditional Chinese Herbalist Name Role Phone Elba Allison MD Primary Care Provider + Asia Jolley [facility] Unavailable [phone] Reason for Referral * Outpatient Procedure - Closed Specialty Diagnoses / Procedures Referred By Jovan haji Referred To Contact Radiology Diagnoses Mastitis Mass of right breast Follow-up exam Procedures INTERMEDIATE Biopsy of Breast (Right) Elba Allison MD Phone: tel: fax: mailto:[email or web address] Referral ID Status Reason Start Date Expiration Date Visits Re quested Visits Authorized [id number] Closed 05/04/2021 05/04/2022 1 1 Encounter Details Date Type Department Care Team (Late st Contact Info) Description 05/04/2021 Ancillary Orders [facility] [address] [place] [address] Elba Allison MD [address] [place] [phone] [email or web address] Mastitis; Mass of right breast; Follow-up exam [...] documented as of this encounter Results * INTERMEDIATE Biopsy of Breast (Right) (05/22/2021 1:19 PM [...] communicated to Savita Hernandez CNP via secure [employer] message. Impressions 05/22/2021 4:10 PM EDT Ultrasound-guided [...] documented as of this encounter Care Teams Traditional Chinese Herbalist Relationship Specialty Start Date End Date Elba Allison MD PCP - General Endocrinology 11/23/19 Asia Jolley, [place] [address] PHCM Automotive Manager 07/07/21 02/28/22 documented as of this encounter Additional Source Comments The information contained in this document represents components of the legal health record. It is not the complete legal health record.[facility]
--- OUTSIDE RECORDS SUMMARY | 2025-10-11 10:11 | XMS_ITS | Encounter Summary ---
Author Organization [facility] Address [address] [employer] [facility] [address] [place] [address] Phone Care Team Providers Care Medical Apparatus Model Maker Name Role Phone Elba Allison MD Primary Care Provider [phone] Asia Jolley [facility] [phone] Encounter Details Date Type Department Care Team (Late st Contact Info) Description 05/01/2021 Procedure Pass [facility], Breast Ultrasound [address] [place] [address] Social History Tobacco Use Types Packs/Day Years [...] documented as of this encounter Care Teams Medical Apparatus Model Maker Relationship Specialty Start Date End Date Elba Alliosn MD PCP - General Endocrinology 11/23/19 Asia Jolley, [place] [id number] [email or web address] PHCM Housekeeping Laundry Worker 07/07/21 02/28/22 documented as of this encounter Additional Source Comments The information contained in this document represents components of the legal health record. It is not the complete legal health record.[facility]
--- OUTSIDE RECORDS SUMMARY | 2025-10-11 10:11 | XMS_ITS | Encounter Summary ---
Author Organization [facility] Address [address] [employer] [facility] [address] [place] [address] Phone Care Team Providers Care Farm Facility Manager Name Role Phone Elba Allison MD Primary Care Provider [phone] Asia Jolley [facility] [phone] Encounter Details Date Type Department Care Team (Late st Contact Info) Description 04/29/2021 Ancillary Orders [facility] [address] [place] [address] Cristela Bello NP [address] [place], [place] [id number] [email or web address] Mastitis; Mass of right breast [...] and facilitate patient compliance. us Cristela Bello SPORTS EQUIPMENT REPAIRER IMG US BREAST Final Result documented in [...] documented as of this encounter Care Teams Farm Facility Manager Relationship Specialty Start Date End Date Elba Allison MD PCP - General Endocrinology 11/23/19 Asia Jolley, [place] [phone] PHCM Health Lead 07/07/21 02/28/22 documented as of this encounter Additional Source Comments The information contained in this document represents components of the legal health record. It is not the complete legal health record.[facility]
--- OUTSIDE RECORDS SUMMARY | 2025-10-11 10:11 | XMS_ITS | Encounter Summary ---
Author Organization [facility] Address [address] [facility] [address] [place] [address] Phone Care Team Providers Care Co Supervisor Grounds And Landscape Name Role Phone Elba Allison MD Primary Care Provider [phone] Asia Jolley [facility] Encounter Details Date Type Department Care Team (Late st Contact Info) Description 05/01/2021 Ancillary Orders [facility] [address] [place], [place] [id number] System, Provider [place] In, [place] [address] Social History Tobacco Use Types Packs/Day Years [...] (No Interpretation) (09/08/2020 12:00 AM EST) Narrative [facility] INTER[facility]AC[facility] - 05/01/2021 9:12 AM EDT This study is for PACS storage only and not for interpretation. us Provider Not In System PhD IMG OUTSIDE IMAGING W /OUT INTERPRETATION Final Result Performing Organization Address [facility] de Phone Number NW IMG INTERFACES * Mammogram Outside (No Interpretation) (09/03/2019 12:00 AM EST) Narrative [facility] - 05/01/2021 9:12 AM EDT This study is for PACS storage only and not for interpretation. us Provider Not In System PhD IMG OUTSIDE IMAGING W /OUT INTERPRETATION Final Result Performing Organization Address [facility] de Phone Number NW IMG INTERFACES * Mammogram Outside (No Interpretation) (07/04/2018 12:00 AM EDT) Narrative [facility] - 05/01/2021 9:13 AM EDT This study is for PACS storage only and not for interpretation. us Provider Not In System PhD IMG OUTSIDE IMAGING W /OUT INTERPRETATION Final Result Performing Organization Address [facility] de Phone Number NW IMG INTERFACES * Mammogram Outside (No Interpretation) (04/08/2017 12:00 AM EDT) Narrative [facility] - 05/01/2021 9:13 AM EDT This study is for PACS storage only and not for interpretation. us Provider Not In System PhD IMG OUTSIDE IMAGING W /OUT INTERPRETATION Final Result Performing Organization Address [facility] de Phone Number NW IMG INTERFACES * US Breast Outside (No Interpretation) (10/08/2016 12:05 AM EST) Narrative [facility] - 05/01/2021 9:14 AM EDT This study is for PACS storage only and not for interpretation. us Provider Not In System PhD IMG OUTSIDE IMAGING W /OUT INTERPRETATION Final Result Performing Organization Address [facility] de Phone Number NW IMG INTERFACES * Mammogram Outside (No Interpretation) (10/08/2016 12:00 AM EST) Narrative [facility] - 05/01/2021 9:14 AM EDT This study is for PACS storage only and not for interpretation. us Provider Not In System PhD IMG OUTSIDE IMAGING W /OUT INTERPRETATION Final Result Performing Organization Address [facility] de Phone Number NW IMG INTERFACES * US Breast Outside (No Interpretation) (04/22/2016 12:05 AM EDT) Narrative [facility] INTER[facility]AC[facility] - 05/01/2021 9:15 AM EDT This study is for PACS storage only and not for interpretation. us Provider Not In System PhD IMG OUTSIDE IMAGING W /OUT INTERPRETATION Final Result Performing Organization Address [facility] de Phone Number NW IMG INTERFACES * Mammogram Outside (No Interpretation) (04/22/2016 12:00 AM EDT) Narrative [facility] - 05/01/2021 9:15 AM EDT This study is for PACS storage only and not for interpretation. us Provider Not In System PhD IMG OUTSIDE IMAGING W /OUT INTERPRETATION Final Result Performing Organization Address [facility] de Phone Number NW IMG INTERFACES * Mammogram Outside (No Interpretation) (04/12/2016 12:05 AM EDT) Narrative [facility] - 05/01/2021 9:16 AM EDT This study is for PACS storage only and not for interpretation. us Provider Not In System PhD IMG OUTSIDE IMAGING W /OUT INTERPRETATION Final Result Performing Organization Address [facility] de Phone Number NW IMG INTERFACES * US Breast Outside (No Interpretation) (04/12/2016 12:00 AM EDT) Narrative [facility] - 05/01/2021 9:16 AM EDT This study is for PACS storage only and not for interpretation. us Provider Not In System PhD IMG OUTSIDE IMAGING W /OUT INTERPRETATION Final Result Performing Organization Address [facility] de Phone Number NW IMG INTERFACES * Mammogram Outside (No Interpretation) (03/19/2016 12:00 AM EDT) Narrative [facility] - 05/01/2021 9:16 AM EDT This study is for PACS storage only and not for interpretation. us Provider Not In System PhD IMG OUTSIDE IMAGING W /OUT INTERPRETATION Final Result Performing Organization Address [facility] de Phone Number NW IMG INTERFACES * Mammogram Outside (No Interpretation) (02/24/2015 12:00 AM EDT) Narrative [facility] - 05/01/2021 9:17 AM EDT This study is for PACS storage only and not for interpretation. us Provider Not In System PhD IMG OUTSIDE IMAGING W /OUT INTERPRETATION Final Result Performing Organization Address [facility] Phone Number [facility] * Mammogram Outside (No Interpretation) (01/07/2014 12:00 AM EDT) Narrative [facility] - 05/01/2021 9:17 AM EDT This study is for PACS storage only and not for interpretation. us Provider Not In System PhD IMG OUTSIDE IMAGING W /OUT INTERPRETATION Final Result Performing Organization Address [facility] de Phone Number [facility] documented in this encounter Visit Diagnoses Not on filedocumented in this encounter Additional Health Concerns Assessment Noted Time PHQ-9 Depression Total Score: 13 021 11:43 AM EDT PHQ-2 Depression Total Score: 6 04/09/20 21 11:43 AM EDT documented as of this encounter Care Teams Co Supervisor Grounds And Landscape Relationship Specialty Start Date End Date Elba Allison MD PCP - General Endocrinology 11/23/19 Asia Jolley, [place] [address] [email or web address] PHCM Jury Consultant 07/07/21 02/28/22 documented as of this encounter Additional Source Comments The information contained in this document represents components of the legal health record. It is not the complete legal health record.[facility]
--- OUTSIDE RECORDS SUMMARY | 2025-10-11 10:11 | XMS_ITS | Encounter Summary ---
Author Organization [facility] Address [address] [employer] [facility] [address] [place] [address] Phone Care Team Providers Care Parks And Recreation Manager Name Role Phone Elba Allison MD Primary Care Provider [phone] Asia Jolley [facility] [phone] Encounter Details Date Type Department Care Team (Late st Contact Info) Description 04/30/2021 Ancillary Orders [facility] [address] [place] [address] Cristela Bello NP [address] [place], [place] [phone] [email or web address] Mastitis; Mass of right breast [...] tomonitor and facilitate patient compliance. Cristela Bello RISK MANAGEMENT ANALYST IMG MG EXAMS Final Result documented in [...] documented as of this encounter Care Teams Parks And Recreation Manager Relationship Specialty Start Date End Date Elba Allison MD PCP - General Endocrinology 11/23/[address] [address] PHCM Family Physician 07/07/21 02/28/22 documented as of this encounter Additional Source Comments The information contained in this document represents components of the legal health record. It is not the complete legal health record.[facility]
--- OUTSIDE RECORDS SUMMARY | 2025-10-11 10:11 | XMS_ITS | Encounter Summary ---
Author Organization [facility] Address [address] [employer] [facility] [address] [place] [address] Phone Care Team Providers Care Boning Room Worker Name Role Phone Elba Allison MD Primary Care Provider [phone] Asia Jolley [facility] [phone] Encounter Details Date Type Department Care Team (Late st Contact Info) Description 04/30/2021 Procedure Pass [facility]- Breast Imaging, [facility] [address] [place] [id number] Social History Tobacco Use Types Packs/Day Years [...] documented as of this encounter Care Teams Boning Room Worker Relationship Specialty Start Date End Date Elba Allison MD [email or web address] PCP - General Endocrinology 11/23/19 Asia Jolley, [address] [address] [email or web address] PHCM Dry Food Products Mixer 07/07/21 02/28/22 documented as of this encounter Additional Source Comments The information contained in this document represents components of the legal health record. It is not the complete legal health record.[facility]
--- OUTSIDE RECORDS SUMMARY | 2025-10-11 10:11 | XMS_ITS | Encounter Summary ---
Author Organization [facility] Address [address] [employer] [facility] [address] [place] [address] Phone Care Team Providers Care Window Caser Name Role Phone Elba Allison MD Primary Care Provider [phone] Asia Jolley [facility] [phone] Encounter Details Date Type Department Care Team (Late st Contact Info) Description 05/04/2021 Ancillary Orders [facility] [address] [place] [address] Esha Adams MD [address] [place] [id number] [email or web address] Social History Tobacco Use Types Packs/Day [...] documented as of this encounter Care Teams Window Caser Relationship Specialty Start Date End Date Elba Allison MD [email or web address] PCP - General Endocrinology 11/23/19 Asia Jolley, [place] [address] [email or web address] PHCM Powerplant Operator 07/07/21 02/28/22 documented as of this encounter Additional Source Comments The information contained in this document represents components of the legal health record. It is not the complete legal health record.[facility]
--- OUTSIDE RECORDS SUMMARY | 2025-10-11 10:11 | XMS_ITS | Encounter Summary ---
Author Organization [facility] Address [address] [employer] [facility] [address] [place] [address] Phone Care Team Providers Care Roll Clamp Operator Name Role Phone Elba Allison MD Primary Care Provider [phone] Asia Jolley [facility] [phone] Encounter Details Date Type Department Care Team (Late st Contact Info) Description 04/30/2021 Ancillary Orders [facility] [address] [place] [address] Cristela Bello NP [address] [place] [address] [email or web address] Mastitis; Mass of right breast [...] documented as of this encounter Care Teams Roll Clamp Operator Relationship Specialty Start Date End Date Elba Allison MD [email or web address] PCP - General Endocrinology 11/23/19 Asia Jolley, [place] [address] [email or web address] PHCM Dimensional Integration Engineer 07/07/21 02/28/22 documented as of this encounter Additional Source Comments The information contained in this document represents components of the legal health record. It is not the complete legal health record.[facility]
--- OUTSIDE RECORDS SUMMARY | 2025-10-11 10:11 | XMS_ITS | Encounter Summary ---
Author Organization [facility] Address [address] [employer] [facility] [address] [place] [address] Phone Care Team Providers Care Production Roustabout Name Role Phone Ebla Allison MD Primary Care Provider [phone] Asia Jolley [facility] [phone] Encounter Details Date Type Department Care Team (Late st Contact Info) Description 04/29/2021 Procedure Pass [facility], Breast Ultrasound [address] [place] [address] Social History Tobacco Use Types Packs/Day Years [...] documented as of this encounter Care Teams Production Roustabout Relationship Specialty Start Date End Date Elba Allison MD PCP - General Endocrinology 11/23/19 Asia oJlley, [place] [phone] [email or web address] PHCM High Raw Sugar Boiler 07/07/21 02/28/22 documented as of this encounter Additional Source Comments The information contained in this document represents components of the legal health record. It is not the complete legal health record.[facility]
--- OUTSIDE RECORDS SUMMARY | 2025-10-11 10:12 | XMS_ITS | Clinical Summary ---
Author Organization [facility] Address [address] [place] [address] Care Team Providers Care Legal Administrative Secretary Name Role Phone Yoko Jolly Primary Care Provider [phone] Allergies Active Allergy Reactions Criticality Noted Date [...] MEDICARE PART B FFS MEDICARE-SUPPLEMENTAL Care Teams Legal Administrative Secretary Relationship Specialty Start Date End Date Yoko Jolly [address] [place] [address] [place] [address] PCP - General Internal Medicine 03/19/16
--- OUTSIDE RECORDS SUMMARY | 2025-10-11 10:12 | XMS_ITS | Clinical Summary ---
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 Followed By welt slasher. Assessment & Plan (04/29/2021 1:13 PM EDT): [...] Plan Family and Community Support Asia Hernández, [facility] Note: Barriers: {PHS AMB OP Care Plan Barriers:59858} Establish reunification of family members Care Plan Family and Community Support No Asia Jolley, [employer] Seek support with significant life events Care Plan Family and Community Support No Asia Jolley, [employer]ER Obtain housing /snf Care Plan Complex Social Issues No Asia Jolley, [employer] Identify financial resources Care Plan Complex Social Issues No Asia Jolley, [employer] Identify transportation resources Care Plan Complex Social Issues No EmeradoAsia hunter, [employer] Identify adequate food/nutrition resources Care Plan Complex Social Issues No Asia Jolley, [employer] Investigate education opportunities Care Plan Complex Social Issues No EmeradoAsia hunter, [employer] Investigate employment opportunities Care Plan Complex Social Issues No Asia Jolley, [employer]ER Identify daycare or elder services resources Care Plan Complex Social Issues No Asia Jolley, KENO [employer]ER Connect with community resource Care Plan Complex Social Issues No SamreenAsia hunter, K[employer]ER Medical Devices Implanted Type Area Talking Books Library Clerk Device Identifier Shelf Expiration Date Model / Serial / Lot Marker Biopsy [id number] Breast Tissue Ultraclip Titanium Dual Trigger Ultrasound Enhanced Ribbon Cs/5ea - Uom Issue Use Ps # [id number] - [id number] Implanted:Qty: 1 on 05/22/2021 at [facility] [employer] [id number] / / Procedures Procedure Name Priority Date/Time [...] Name / ID : DAWIT Sun / [id number] Patient Birthdate: 1950 00:00:00 Exam Date : 04/16/2022 13:36:00 Accession No. : [id number] Referring Physician: GIOVANNA [employer] Ii Laborer : Neelam Mueller Report Date : 04/16/2022 14:07:31 [FINAL REPORT] History: Postmenopausal. Technique: BONE DENSITOMETRY: Scans of the lumbar spine and left hip were performed on a PricePanda SL unit. W.H.O. Classification is based on [...] signed by: Neelam Mueller Dictated: 04/16/2022 14:07 us Cristeal Bello ROOF PLUMBER IMG BD BONE DENSITY D EXA Final Result * Basic metabolic panel (10/09/2021 4:59 PM EST) Sodium 138 135 - 146 mEq/L [employer] [facility] Potassium 4.2 3.5 - 5.3 mEq/L Valuation App [facility] Chloride 100 98 - 107 mEq/L Valuation App [facility] CO2 27 20 - 31 mEq/L [facility] ANIONGAP 11 4 - 14 [facility] Glucose 83 70 - 99 mg/dL [facility] BUN 16 6 - 20 mg/dL [facility] Creatinine 0.7 <1.1 mg/dL [facility] GFR 87 >60 mL/min/1.7 3m^2 [facility] Comment:(If patient is Afric an Qatari, multiply reported result by 1.21) Calcium 9.6 8.4 - 10.2 mg/dL [facility] Blood 10/09/2021 4:59 PM EST 10/09/2021 4:59 PM EST Narrative [facility] - 10/09/2021 5:54 PM EST Unless otherwise noted, Testing performed through [facility], [place] [address] Barry Watson, PhD, Test Man No Cristela Bello ROOF PLUMBER LAB BLOOD BKR ORDERAB LES Edited Result - Final Performing Organization Address [facility] [place] [address] * (ABNORMAL) Lipid panel (04/07/2021 10:17 AM EDT) Pathologist [facility] Cholesterol 228(Abnor lisa H) <200 mg/dL [facility] Triglycerides 69 <150 mg/dL [facility] Cholesterol, HDL 80 >40 mg/dL [facility] LDLC 134(Abnor lisa H) <129 mg/dL [facility] Cholesterol/HDL Ratio 2.85 <4.43 [facility] Blood 04/07/2021 10:1 7 AM EDT 04/07/2021 10:17 AM EDT Cristela Bello ROOF PLUMBER LAB BLOOD BKR ORDERAB LES Edited Result - Final Performing Organization Address City/[facility]/[place] [address] * MAMMOGRAPHY FOR RESULT ENTRY ONLY (09/08/2020) Historical Provider HEALTH MAINTENANCE Final Result * COLONOSCOPY FOR RESULT ENTRY ONLY (12/20/2017) Pathologist [facility] Colonoscopy POLYPS F/U IN 5 YRS us Historical Provider HEALTH MAINTENANCE Final Result from Last 3 Months or Most Recently Relevant to Health Maintenance Additional Health Concerns Active Problems Noted Date Diagnosed Date Family and Community Support 09/02/2021 Complex Social Issues 09/02/2021 Insurance MEDICARE PART A & B [facility] MEDIC[employer] ENHANCE SUPPLEMENT MEDICARE PART A & B [facility] MEDICARE ENHANCE SUPPLEMENT MEDICARE PART A & B [facility] MEDICARE ENHANCE SUPPLEMENT MEDICARE PART A & B [facility] MEDICARE ENHANCE SUPPLEMENT MEDICARE PART A & B [facility] MEDICARE ENHANCE SUPPLEMENT MEDICARE PART A & B Member Subscriber Plan / Payer (Ef fective 2017-Present) Name:Way Ashanti Sun Member ID:[id number] Relation to Subscriber:Self Name:ASHANTI WAY Subscriber ID:[id number] Payer ID:[id number] Group ID:Not on file Type:Medicare Address: [facility] [address] [place] [phone] [employer] [facility] MEDICARE ENHANCE SUPPLEMENT MEDICARE PART A & B [facility] MEDICARE ENHANCE SUPPLEMENT MEDICARE PART A & B [facility] MEDICARE ENHANCE SUPPLEMENT MEDICARE PART A & B [facility] MEDICARE ENHANCE SUPPLEMENT MEDICARE PART A & B [facility] MEDICARE ENHANCE SUPPLEMENT MEDICARE PART A & B [facility] MEDICARE ENHANCE SUPPLEMENT Care Teams Wood Pile Driver Operator Relationship Specialty Start Date End Date Elba Allison MD PCP - General Endocrinology 11/23/19 Additional Source Comments The information contained in this document represents components of the legal health record. It is not the complete legal health record.[facility]
--- OUTSIDE RECORDS SUMMARY | 2025-10-11 10:12 | XMS_ITS ---
Care Plan Created on: October 11, [address] : 1950 Sex: Female Author Organization [facility] Address [address] [place] [address] Phone Care Team Providers Care Production Engineer Name Role Phone Elba Allison MD Primary Care Provider [phone] Active Problems Patient Care Coordination No te [...] denies active suicidality or plan.. Followed By photoengraving proofer. Assessment & Plan (04/29/2021 1:13 PM EDT): Stable on Lexapro and Gabapentin. Unable to connect with a therapist despite trying multiple times. Will refer to Asia Jolley [facility] for assistance. Assessment & Plan (05/30/2020 [...] Family and Community Support No Asia Jolley, COTTON BREEDER Note: Barriers: {PHS AMB OP Care Plan Barriers:32780} Establish reunification of family members Care Plan Family and Community Support No Asia Jolley, COTTON BREEDER Seek support with significant life events Care Plan Family and Community Support No Asia Jolley, COTTON BREEDER Obtain housing /fpc Care Plan Complex Social Issues No Asia Jolley, COTTON BREEDER Identify financial resources Care Plan Complex Social Issues No Asia Jolley, COTTON BREEDER Identify transportation resources Care Plan Complex Social Issues No Asia Jolley, COTTON BREEDER Identify adequate food/nutrition resources Care Plan Complex Social Issues No Asia Jolley, COTTON BREEDER Investigate education opportunities Care Plan Complex Social Issues No Asia Jolley, COTTON BREEDER Investigate employment opportunities Care Plan Complex Social Issues No Asia Jolley, COTTON BREEDER Identify daycare or elder services resources Care Plan Complex Social Issues No Asia Jolley, COTTON BREEDER Connect with community resource Care Plan Complex Social Issues No Asia Jolley, COTTON BREEDER Interventions Care Plan Interventions Intervention Entry Date [...]
--- OUTSIDE RECORDS SUMMARY | 2025-10-11 10:12 | XMS_ITS | Patient Health Record ---
Author Organization [facility] Address [address] [address] [facility] [address] [place] [address] Care Team Providers Care Interactive Media Marketing Director Name Role Phone chantelle sun Primary Care [...] of [place] [address] [place] [id number] Self - patient is the insured [facility] [address] [place] [id number] Self - patient is the insured Medical (General) History Medical History History ICD Code right lateral ankle fracture hypertension osteoporosis previous right ankle fracture left ankle sprains osteopenia osteoarthritis anxiety depression fibromyalgia mood disorder Surgical History Surgery Date(Month/Year) 09/13/1983 colonoscopy laparoscopy skin graft on right foot Hospitalization History Reason Date(Month/Year) (girl) 09/13/1983
--- OUTSIDE RECORDS SUMMARY | 2025-10-11 10:12 | XMS_ITS | Patient Health Record ---
Author Organization [facility] Address [address] [place] [address] [address] [place] [address] Care Team Providers Care Plastic Manager Name Role Phone Yoko Jolly MD Primary Care Provider Unavailabl e Reason For Referral No Information Plan Of Treatment No Information Insurance Providers Payer Name Payer Address Payer Phone Subscriber Number Group Number Insured Name Patient Relationship to Insured Coverage Start Date Coverage End Date [facility] [address] [place] [address] [id number] Self - patient is the insured
--- OUTSIDE RECORDS SUMMARY | 2025-10-11 10:12 | XMS_ITS | Clinical Summary ---
Author Organization [facility] it Address [address] [place] [address] Care Team Providers Care Kitchen Work Supervisor Name Role Phone Caitlyn Cano KAROL Primary Care Provider [phone] Immunizations Immunization Administration Dates Next Due Pfizer [...] HAMMERTOE; Surgeon: Todd [place] DPM; Location: [facility]; Service: Podiatry; Laterality: Right; Medical History [...] on file Sexual Orientation Not on file Plan of Treatment Health Maintenance Due Date [...] age to complete this topic Care Teams Kitchen Work Supervisor Relationship Specialty Start Date End Date Caitlyn Cano NP [address] [place] [address] [place] [id number] PCP - General 01/17/23
--- OUTSIDE RECORDS SUMMARY | 2025-10-11 10:12 | XMS_ITS | Clinical Summary ---
Author Organization [facility] Prior to 03/23/25 Address [address] [place] [address] Care Team Providers Care Renal Case Manager Name Role Phone Caitlyn Cano NP Primary Care Provider [phone] Allergies Active Allergy Reactions Criticality Noted Date [...] age to complete this topic Care Teams Renal Case Manager Relationship Specialty Start Date End Date Caitlyn Cano NP [address] [place] [address] [place] [id number] PCP - General Family Medicine 01/17/23
== END 2025-10-11 10:24 | disposition home or self-care (01) ==
LOC: HO.HMCH 09:29
PROVIDERS: PCP Internal Medicine; Visit Provider Internal Medicine
DX: I65.23 Occlusion and stenosis of bilateral carotid arteries (principal); I10 Essential (primary) hypertension; E78.5 Hyperlipidemia, unspecified; K21.9 Gastro-esophageal reflux disease without esophagitis; N28.89 Other specified disorders of kidney and ureter; J45.909 Unspecified asthma, uncomplicated; R42 Dizziness and giddiness

== ENCOUNTER → 2025-10-11 09:29 | Outpatient (BNVA) | payer MEDICARE, OTHER, SELFPAY | PROVIDERS: PCP Internal Medicine; Visit Provider Internal Medicine | DX: I65.23 Occlusion and stenosis of bilateral carotid arteries (principal); I10 Essential (primary) hypertension; E78.5 Hyperlipidemia, unspecified; K21.9 Gastro-esophageal reflux disease without esophagitis; N28.89 Other specified disorders of kidney and ureter; J45.909 Unspecified asthma, uncomplicated; R42 Dizziness and giddiness | CPT/HCPCS: 99212 ==